=== PATIENT | female | born 1935 | race Caucasian/White ===

== ENCOUNTER → 2017-12-28 14:55 | Outpatient (CLI) | payer OTHER, SELFPAY ==
[2017-12-28 15:36] LABS: Add Manual Diff / Slide Review NO; Basophils Percent Auto 0.6 % (0-2); Eosinophils Percent Auto 0.8 % (2-4); Hematocrit 37.7 % (36-46); Hemoglobin 12.7 g/dL (12.0-16.0); Lymphocytes Percent Auto 36.1 % (25-40); Mean Corpuscular HGB Conc 33.7 % (30-36); Mean Corpuscular Hemoglobin 29.5 PG (26-34); Mean Corpuscular Volume 87.6 fL (80-100); Monocytes Percent Auto 6.7 % (3-14); Neutrophils Absolute Auto 2800 /uL (3000-5900); Neutrophils Percent Auto 55.8 % (50-75); Platelet Count 263 X10^3/uL (150-400); Red Blood Cell Count 4.31 X10^6/uL (4.0-5.2); Red Cell Distribution Width 13.9 % (11.6-14.8); White Blood Cell Count 5.1 X10^3/uL (4.5-11.0)
[2017-12-28 16:04] LABS: HEMOLYSIS < 15 (0-50)
[2017-12-28 16:07] LABS: Alanine Aminotransferase 28 IU/L (9-52); Albumin 4.1 g/dL (3.5-5.0); Albumin Globulin Ratio 1.5 (1.0-2.8); Alkaline Phosphatase 72 U/L (38-126); Aspartate Aminotransferase 26 IU/L (14-36); Bilirubin Total 0.7 mg/dL (0.2-1.3); Blood Urea Nitrogen 21 mg/dL (7-17); Calcium 9.5 mg/dL (8.4-10.2); Carbon Dioxide 30 mmol/L (22-32); Chloride 99 mmol/L (98-107); Estimated Glomerular Filt Rate > 60.0 mL/min (>60); Globulin 2.7 g/dL (1.7-4.1); Glucose 123 mg/dL (80-110); HEMOLYSIS < 15 (0-50); Iron 94 ug/dL (37-170); Sodium 138 mmol/L (137-145); Total Protein 6.8 g/dL (6.3-8.2)
[2017-12-28 16:15] LABS: Transferrin 275 mg/dL (206-381)
[2017-12-28 16:25] LABS: Percent Iron Saturation 30 % (15-50); Total Iron Binding Capacity 316 ug/mL (265-497)
[2017-12-28 16:27] LABS: Free T4, Direct Thyroxine 1.06 ng/dL (0.78-2.19)
[2017-12-28 16:44] LABS: Ferritin 54.3 ng/mL (11.1-264)
[2017-12-28 16:45] LABS: Thyroid Stimulating Hormone 1.68 uIU/mL (0.47-4.68)
[2017-12-28 17:05] LABS: Vitamin B12 > 1000 pg/mL (239-931)
[2017-12-30 11:45] LABS: Sex Hormone Binding Globulin 149 nmol/L (14-73)
[2017-12-30 13:34] LABS: Dehydroepiandrosterone Sulfate 27 mcg/dL (7-177)
[2017-12-30 20:27] LABS: ANA Pattern Nucleolar; ANA Screen, IFA Positive (Negative)
[2017-12-31 18:05] LABS: Albumin 4.1 g/dL (3.6-5.1); Sex Hormone Binding Globulin 151 nmol/L (14-73); Testosterone, Bioavailable 0.6 ng/dL (0.5-8.8); Testosterone, Total 10 ng/dL (2-45); Testosterone,Free 0.3 pg/mL (0.3-5.0)
== END ==
PROVIDERS: PCP Internal Medicine; Visit Provider Physician Assistant
DX: Z85.828 Personal history of other malignant neoplasm of skin (principal); L65.9 Nonscarring hair loss, unspecified; Z71.89 Other specified counseling; L71.8 Other rosacea
CPT/HCPCS: 36415; 80053; 82040; 82607; 82627; 82728; 83540; 83550; 84270; 84403; 84439; 84443; 85025; 86038

== ENCOUNTER → 2018-04-13 11:26 | Outpatient (CLI) | payer OTHER, SELFPAY | PROVIDERS: PCP Internal Medicine; Visit Provider Registered Nurse | DX: R30.0 Dysuria (principal) | CPT/HCPCS: 87077; 87086; 87186 ==

== ENCOUNTER → 2018-05-17 10:35 | Outpatient (CLI) | payer OTHER, SELFPAY ==
--- NOTE | 2018-05-17 | DI.MG.S_ITS ---
BILATERAL DIGITAL SCREENING MAMMOGRAM 3D/2D WITH CAD: 05/17/2018 CLINICAL: Routine screening. Personal history of left breast cancer. Comparison is made to exams dated: 01/17/2017 mammogram, 01/13/2016 mammogram, and 02/03/2015 mammogram - [facility]. The tissue of both breasts is heterogeneously dense. This may lower the sensitivity of mammography. Current study was also evaluated with a Computer Aided Detection (CAD) system. There are benign post operative findings in the left breast. No significant masses, calcifications, or other findings are seen in either breast. There has been no significant interval change. IMPRESSION: There is no mammographic evidence of malignancy. A 1 year screening mammogram is recommended. This exam was interpreted at Station ID: [id number]. NOTE: For mammograms, a report in lay terms will be sent to the patient. Approximately 15% of breast malignancies will not be visualized mammographically. In the management of a palpable breast mass, a negative mammogram must not discourage biopsy of a clinically suspicious lesion. Electronically Signed By: Shane torres/jose:05/17/2018 21:53:19 letter sent: Normal Exam ACR BI-RADS Category 2: Benign Finding(s) 3342F
== END ==
PROVIDERS: PCP Internal Medicine; Visit Provider Internal Medicine
DX: Z12.31 Encounter for screening mammogram for malignant neoplasm of breast (principal); Z85.3 Personal history of malignant neoplasm of breast
CPT/HCPCS: 77063; 77067

== ENCOUNTER → 2018-09-12 10:49 | Outpatient (CLI) | payer OTHER, SELFPAY ==
[2018-09-12 12:35] LABS: Add Manual Diff / Slide Review NO; Basophils Absolute Auto 0 /uL (0-100); Basophils Percent Auto 0.5 % (0-2); Eosinophils Absolute Auto 0 /uL (0-450); Eosinophils Percent Auto 0.3 % (2-4); Hematocrit 38.1 % (36-46); Hemoglobin 12.4 g/dL (12.0-16.0); Lymphocytes Absolute Auto 1600 /uL (1100-4500); Lymphocytes Percent Auto 26.2 % (25-40); Mean Corpuscular HGB Conc 32.7 % (30-36); Mean Corpuscular Hemoglobin 28.7 PG (26-34); Mean Corpuscular Volume 87.8 fL (80-100); Monocytes Absolute Auto 400 /uL (0-900); Monocytes Percent Auto 6.3 % (3-14); Neutrophils Absolute Auto 4000 /uL (1500-7000); Neutrophils Percent Auto 66.7 % (50-75); Platelet Count 285 X10^3/uL (150-400); Red Blood Cell Count 4.34 X10^6/uL (4.0-5.2); Red Cell Distribution Width 13.6 % (11.6-14.8); White Blood Cell Count 6.1 X10^3/uL (4.5-11.0)
[2018-09-12 12:42] LABS: Alanine Aminotransferase 32 IU/L (9-52); Albumin 4.2 g/dL (3.5-5.0); Albumin Globulin Ratio 1.6 (1.0-2.8); Alkaline Phosphatase 82 U/L (38-126); Aspartate Aminotransferase 28 IU/L (14-36); BUN Creatinine Ratio 33.3 (6-22); Bilirubin Total 0.4 mg/dL (0.2-1.3); Blood Urea Nitrogen 20 mg/dL (7-17); Calcium 9.3 mg/dL (8.4-10.2); Carbon Dioxide 25 mmol/L (22-32); Chloride 103 mmol/L (98-107); Estimated Glomerular Filt Rate > 60.0 mL/min (>60); Globulin 2.6 g/dL (1.7-4.1); Glucose 86 mg/dL (80-110); HEMOLYSIS < 15 (0-50); Magnesium 1.8 mg/dL (1.6-2.3); Sodium 137 mmol/L (137-145); Total Protein 6.8 g/dL (6.3-8.2)
[2018-09-12 14:35] LABS: Vitamin D 25 Hydroxy (D3) 66.2 ng/mL (30.0-100.0)
== END ==
PROVIDERS: PCP Student in an Organized Health Care Education/Training Program; Visit Provider Student in an Organized Health Care Education/Training Program
DX: E83.42 Hypomagnesemia (principal); I10 Essential (primary) hypertension; R00.2 Palpitations; R19.5 Other fecal abnormalities; E55.9 Vitamin D deficiency, unspecified
CPT/HCPCS: 36415; 80053; 82306; 83735; 85025

== ENCOUNTER → 2018-09-18 16:43 | Outpatient (CLI) | payer OTHER, SELFPAY ==
[2018-09-22 17:40] LABS: Calprotectin, Stool 99.8 mcg/g
== END ==
PROVIDERS: PCP Student in an Organized Health Care Education/Training Program; Visit Provider Student in an Organized Health Care Education/Training Program
DX: R00.2 Palpitations (principal); R19.5 Other fecal abnormalities
CPT/HCPCS: 83993

== ENCOUNTER → 2018-10-05 10:55 | Outpatient (CLI) | payer OTHER, SELFPAY ==
[2018-10-05 17:06] LABS: Clostridium Difficile Tox PCR Negative for C. diff
== END ==
PROVIDERS: PCP Student in an Organized Health Care Education/Training Program; Visit Provider Student in an Organized Health Care Education/Training Program
DX: K57.90 Diverticulosis of intestine, part unspecified, without perforation or abscess without bleeding (principal); R19.7 Diarrhea, unspecified
CPT/HCPCS: 87493

== ENCOUNTER → 2018-10-25 13:37 | Outpatient (CLI) | payer OTHER, SELFPAY ==
[2018-10-25 14:34] LABS: Appearance Urine UA CLOUDY; Bilirubin Urine UA NEGATIVE (NEGATIVE); Color Urine UA YELLOW; Glucose Urine UA NEGATIVE (Negative); Ketones Urine UA NEGATIVE (NEGATIVE); Leukocyte Esterase Urine UA 3+ (NEGATIVE); Nitrite Urine UA POSITIVE (Negative); Occult Blood Urine UA TRACE-INTACT (Negative); Protein Urine UA NEGATIVE (Negative); Specific Gravity Urine UA 1.015 (1.000-1.035); Urobilinogen Urine UA 0.2 E.U./dL (0.2); pH Urine UA 5.5 (4.5-8.0)
[2018-10-25 14:47] LABS: Bacteria Urine Many (>30); Culture Indicated Urine Specimen Cultured; Mucus Urine 1+ (Negative); RBC Urine 0-1/HPF (0-5/HPF); Squamous Epithelial Cell Urine 0-1 /HPF; WBC Urine 30-100/HPF (0-5/HPF)
== END ==
PROVIDERS: PCP Student in an Organized Health Care Education/Training Program; Visit Provider Student in an Organized Health Care Education/Training Program
DX: R30.0 Dysuria (principal)
CPT/HCPCS: 81001; 87077; 87086; 87186

== ENCOUNTER → 2018-11-20 12:48 | Outpatient (CLI) | payer OTHER, SELFPAY ==
[2018-11-24 22:12] LABS: Calprotectin, Stool 107.9 mcg/g
== END ==
PROVIDERS: PCP Student in an Organized Health Care Education/Training Program; Visit Provider Physician Assistant
DX: K90.9 Intestinal malabsorption, unspecified (principal); R19.7 Diarrhea, unspecified; K52.831 Collagenous colitis
CPT/HCPCS: 83993

== ENCOUNTER → 2019-06-19 16:32 | Outpatient (CLI) | payer OTHER, SELFPAY ==
--- NOTE | 2019-06-19 16:36 | DI.MG.S_ITS ---
BILATERAL DIGITAL SCREENING MAMMOGRAM 3D/2D WITH CAD: 06/19/2019 CLINICAL: Routine screening. Personal history of left breast cancer. Comparison is made to exams dated: 05/17/2018 mammogram, 01/17/2017 mammogram, 01/13/2016 mammogram, 12/26/2013 mammogram, and 02/03/2015 mammogram - [facility]. The tissue of both breasts is heterogeneously dense. This may lower the sensitivity of mammography. Current study was also evaluated with a Computer Aided Detection (CAD) system. There are benign post operative findings in the left breast. No significant masses, calcifications, or other findings are seen in either breast. There has been no significant interval change. IMPRESSION: There is no mammographic evidence of malignancy. A 1 year screening mammogram is recommended. This exam was interpreted at Station ID: [id number]. NOTE: For mammograms, a report in lay terms will be sent to the patient. Approximately 15% of breast malignancies will not be visualized mammographically. In the management of a palpable breast mass, a negative mammogram must not discourage biopsy of a clinically suspicious lesion. Electronically Signed By: Alex fu/jose:06/19/2019 17:47:19 letter sent: Normal Exam ACR BI-RADS Category 2: Benign Finding(s) 3342F
== END ==
PROVIDERS: PCP Student in an Organized Health Care Education/Training Program; Visit Provider Student in an Organized Health Care Education/Training Program
DX: Z12.31 Encounter for screening mammogram for malignant neoplasm of breast (principal); Z85.3 Personal history of malignant neoplasm of breast
CPT/HCPCS: 77063; 77067

== ENCOUNTER → 2019-08-16 12:01 | Outpatient (CLI) | payer OTHER, SELFPAY ==
[2019-08-16 12:12] LABS: RBC Urine None Seen (0-5/HPF)
[2019-08-16 12:38] LABS: Appearance Urine UA SL CLOUDY; Bilirubin Urine UA NEGATIVE (NEGATIVE); Color Urine UA YELLOW; Glucose Urine UA NEGATIVE (Negative); Ketones Urine UA NEGATIVE (NEGATIVE); Leukocyte Esterase Urine UA 2+ (NEGATIVE); Nitrite Urine UA POSITIVE (Negative); Occult Blood Urine UA NEGATIVE (Negative); Protein Urine UA NEGATIVE (Negative); Urobilinogen Urine UA 0.2 E.U./dL (0.2)
[2019-08-16 13:04] LABS: Amorphous Sediment Urine 1+; Bacteria Urine Many (>30); Culture Indicated Urine Specimen Cultured; Mucus Urine 1+ (Negative); Squamous Epithelial Cell Urine 0-1 /HPF (0-5/HPF); WBC Urine 30-100/HPF (0-5/HPF)
== END ==
PROVIDERS: PCP Student in an Organized Health Care Education/Training Program; Visit Provider Student in an Organized Health Care Education/Training Program
DX: R39.89 Other symptoms and signs involving the genitourinary system (principal)
CPT/HCPCS: 81001; 87077; 87086; 87186

== ENCOUNTER → 2020-01-23 12:05 | Outpatient (CLI) | payer OTHER, SELFPAY ==
[2020-01-23 17:51] LABS: Appearance Urine UA SL CLOUDY; Bilirubin Urine UA NEGATIVE (NEGATIVE); Color Urine UA YELLOW; Glucose Urine UA NEGATIVE (Negative); Ketones Urine UA NEGATIVE (NEGATIVE); Leukocyte Esterase Urine UA 2+ (NEGATIVE); Nitrite Urine UA POSITIVE (Negative); Occult Blood Urine UA 1+ (Negative); Protein Urine UA NEGATIVE (Negative); Urobilinogen Urine UA 0.2 E.U./dL (0.2)
[2020-01-23 18:13] LABS: Amorphous Sediment Urine 1+; Bacteria Urine Many (>30); Calcium Oxalate Crystals Urine Moderate; Mucus Urine 1+ (Negative); RBC Urine 1-5/HPF (0-5/HPF); Squamous Epithelial Cell Urine 0-1 /HPF (0-5/HPF); WBC Urine 10-30/HPF (0-5/HPF); pH Urine UA 5.5 (4.5-8.0)
[2020-01-23 18:14] LABS: Culture Indicated Urine Specimen Cultured
== END ==
PROVIDERS: PCP Student in an Organized Health Care Education/Training Program; Visit Provider Nurse Practitioner Family
DX: R30.0 Dysuria (principal)
CPT/HCPCS: 81001; 87077; 87086; 87186

== ENCOUNTER → 2020-06-24 10:53 | Outpatient (CLI) | payer OTHER, SELFPAY ==
--- NOTE | 2020-06-24 | DI.MG.S_ITS ---
BILATERAL DIGITAL SCREENING MAMMOGRAM 3D/2D WITH CAD POST LUMPECTOMY: 06/24/2020 CLINICAL: Routine screening. Personal history of left breast cancer. Comparison is made to exams dated: 05/17/2018 mammogram, 06/19/2019 mammogram, and 01/17/2017 mammogram - [facility]. There are scattered fibroglandular elements in both breasts. Current study was also evaluated with a Computer Aided Detection (CAD) system. There are benign post operative findings in the left breast. No significant masses, calcifications, or other findings are seen in either breast. There has been no significant interval change. IMPRESSION: BENIGN There is no mammographic evidence of malignancy. A 1 year screening mammogram is recommended. This exam was interpreted at Station ID: [id number]. NOTE: For mammograms, a report in lay terms will be sent to the patient. Approximately 15% of breast malignancies will not be visualized mammographically. In the management of a palpable breast mass, a negative mammogram must not discourage biopsy of a clinically suspicious lesion. Electronically Signed By: Nestor Wick acr/penrad:06/24/2020 13:03:25 letter sent: Normal Exam ACR BI-RADS Category 2: Benign Finding(s) 3342F
== END ==
PROVIDERS: PCP Student in an Organized Health Care Education/Training Program; Referring Provider Student in an Organized Health Care Education/Training Program; Visit Provider Student in an Organized Health Care Education/Training Program
DX: Z12.31 Encounter for screening mammogram for malignant neoplasm of breast (principal); Z85.3 Personal history of malignant neoplasm of breast
CPT/HCPCS: 77063; 77067

== ENCOUNTER → 2020-09-18 12:50 | Outpatient (CLI) | payer OTHER, SELFPAY ==
--- NOTE | 2020-09-18 12:51 | DI.RAD.S_ITS ---
PROCEDURE: XR ANKLE LT MIN 3V INDICATIONS: ankle pain TECHNIQUE: 3 views of the ankle were acquired. COMPARISON: None. FINDINGS: Bones: No fracture. Scattered degenerative subchondral sclerosis and spurring. Diffuse hindfoot and midfoot joint degeneration. Soft tissues: No tibiotalar joint effusion. Achilles tendon appears normal. IMPRESSION: Mild degenerative changes as above. If the patient's pain or other symptoms persist, consider further evaluation with MRI Dictated by: Ifeanyi Jenkins M.D. on 09/18/2020 at 13:40 Approved by: Ifeanyi Jenkins M.D. on 09/18/2020 at 13:42
== END ==
PROVIDERS: PCP Student in an Organized Health Care Education/Training Program; Referring Provider Student in an Organized Health Care Education/Training Program; Visit Provider Student in an Organized Health Care Education/Training Program
DX: M25.572 Pain in left ankle and joints of left foot (principal)
CPT/HCPCS: 73610

== ENCOUNTER → 2020-09-25 13:13 | Outpatient (CLI) | payer OTHER, SELFPAY ==
[2020-09-25 14:38] LABS: Cholesterol 261 mg/dL (140-199); Triglycerides 63 mg/dL (35-150)
[2020-09-25 14:46] LABS: HDL Cholesterol 114 mg/dL (40-60); LDL Cholesterol Calculated 134 mg/dL (<100)
== END ==
PROVIDERS: PCP Student in an Organized Health Care Education/Training Program; Referring Provider Student in an Organized Health Care Education/Training Program; Visit Provider Student in an Organized Health Care Education/Training Program
DX: E78.5 Hyperlipidemia, unspecified (principal); I10 Essential (primary) hypertension
CPT/HCPCS: 36415; 80061

== ENCOUNTER → 2021-02-07 11:14 | Outpatient (CLI) | payer OTHER, SELFPAY ==
[2021-02-07 12:18] LABS: Appearance Urine UA CLEAR; Bilirubin Urine UA NEGATIVE (NEGATIVE); Color Urine UA YELLOW; Glucose Urine UA NEGATIVE (Negative); Ketones Urine UA NEGATIVE (NEGATIVE); Leukocyte Esterase Urine UA 2+ (NEGATIVE); Nitrite Urine UA POSITIVE (Negative); Occult Blood Urine UA TRACE-INTACT (Negative); Protein Urine UA NEGATIVE (Negative); Urobilinogen Urine UA 0.2 E.U./dL (0.2)
[2021-02-07 12:23] LABS: pH Urine UA 5.5 (4.5-8.0)
[2021-02-07 12:32] LABS: Bacteria Urine Many (>30); Culture Indicated Urine Specimen Cultured; RBC Urine 0-1/HPF (0-5/HPF); WBC Urine 30-100/HPF (0-5/HPF)
== END ==
PROVIDERS: PCP Student in an Organized Health Care Education/Training Program; Referring Provider Student in an Organized Health Care Education/Training Program; Visit Provider Student in an Organized Health Care Education/Training Program
DX: N89.8 Other specified noninflammatory disorders of vagina (principal)
CPT/HCPCS: 81001; 87077; 87086; 87186

== ENCOUNTER → 2021-06-24 12:40 | Outpatient (CLI) | payer OTHER, SELFPAY ==
[2021-06-24 13:20] LABS: Appearance Urine UA SL CLOUDY; Bilirubin Urine UA NEGATIVE (NEGATIVE); Color Urine UA YELLOW; Glucose Urine UA NEGATIVE (Negative); Ketones Urine UA NEGATIVE (NEGATIVE); Leukocyte Esterase Urine UA 2+ (NEGATIVE); Nitrite Urine UA POSITIVE (Negative); Occult Blood Urine UA TRACE-INTACT (Negative); Protein Urine UA TRACE (Negative); Specific Gravity Urine UA 1.025 (1.000-1.035); Urobilinogen Urine UA 0.2 E.U./dL (0.2)
[2021-06-24 13:32] LABS: Amorphous Sediment Urine 1+; RBC Urine 1-5/HPF (0-5/HPF); Squamous Epithelial Cell Urine 0-1 /HPF (0-5/HPF); WBC Urine >100/HPF (0-5/HPF); pH Urine UA 5.5 (4.5-8.0)
[2021-06-24 13:33] LABS: Bacteria Urine Many (>30); Culture Indicated Urine Specimen Cultured; Mucus Urine 1+ (Negative)
== END ==
PROVIDERS: PCP Student in an Organized Health Care Education/Training Program; Referring Provider Student in an Organized Health Care Education/Training Program; Visit Provider Student in an Organized Health Care Education/Training Program
DX: N39.0 Urinary tract infection, site not specified (principal)
CPT/HCPCS: 81001; 87077; 87086; 87186

== ENCOUNTER → 2021-06-30 13:43 | Outpatient (CLI) | payer OTHER, SELFPAY ==
--- NOTE | 2021-06-30 13:44 | DI.MG.S_ITS ---
BILATERAL DIGITAL SCREENING MAMMOGRAM 3D/2D WITH CAD POST LUMPECTOMY: 06/30/2021 CLINICAL: Routine screening. Personal history of left breast cancer. Comparison is made to exams dated: 06/24/2020 mammogram, 06/19/2019 mammogram, and 05/17/2018 mammogram - [facility]. There are scattered fibroglandular elements in both breasts. Current study was also evaluated with a Computer Aided Detection (CAD) system. There are benign post operative findings in the left breast. No significant masses, calcifications, or other findings are seen in either breast. There has been no significant interval change. IMPRESSION: BENIGN There is no mammographic evidence of malignancy. A 1 year screening mammogram is recommended. This exam was interpreted at Station ID: [id number]. NOTE: For mammograms, a report in lay terms will be sent to the patient. Approximately 15% of breast malignancies will not be visualized mammographically. In the management of a palpable breast mass, a negative mammogram must not discourage biopsy of a clinically suspicious lesion. Electronically Signed By: Bryant guthrie/jose:06/30/2021 15:58:46 letter sent: Normal Exam ACR BI-RADS Category 2: Benign Finding(s) 3342F
== END ==
PROVIDERS: PCP Student in an Organized Health Care Education/Training Program; Referring Provider Student in an Organized Health Care Education/Training Program; Visit Provider Student in an Organized Health Care Education/Training Program
DX: Z12.31 Encounter for screening mammogram for malignant neoplasm of breast (principal); Z85.3 Personal history of malignant neoplasm of breast
CPT/HCPCS: 77063; 77067

== ENCOUNTER → 2021-09-10 11:46 | Outpatient (CLI) | payer OTHER, SELFPAY ==
[2021-09-10 12:53] LABS: Appearance Urine UA CLEAR; Bilirubin Urine UA NEGATIVE (NEGATIVE); Color Urine UA YELLOW; Glucose Urine UA NEGATIVE (Negative); Ketones Urine UA NEGATIVE (NEGATIVE); Leukocyte Esterase Urine UA TRACE (NEGATIVE); Nitrite Urine UA NEGATIVE (Negative); Occult Blood Urine UA NEGATIVE (Negative); Protein Urine UA NEGATIVE (Negative); Urobilinogen Urine UA 0.2 E.U./dL (0.2)
[2021-09-10 12:55] LABS: pH Urine UA 5.5 (4.5-8.0)
[2021-09-10 13:08] LABS: RBC Urine None Seen (0-5/HPF)
[2021-09-10 13:09] LABS: Amorphous Sediment Urine 1+; Bacteria Urine Occasional (0-1); Culture Indicated Urine Specimen Cultured; Squamous Epithelial Cell Urine 0-1 /HPF (0-5/HPF); WBC Urine 5-10/HPF (0-5/HPF)
== END ==
PROVIDERS: PCP Student in an Organized Health Care Education/Training Program; Referring Provider Student in an Organized Health Care Education/Training Program; Visit Provider Student in an Organized Health Care Education/Training Program
DX: N39.0 Urinary tract infection, site not specified (principal)
CPT/HCPCS: 81001; 87086

== ENCOUNTER → 2021-09-30 16:59 | Outpatient (CLI) | payer OTHER, SELFPAY ==
[2021-09-30 17:30] LABS: Appearance Urine UA CLOUDY; Bilirubin Urine UA NEGATIVE (NEGATIVE); Color Urine UA YELLOW; Glucose Urine UA NEGATIVE (Negative); Ketones Urine UA NEGATIVE (NEGATIVE); Leukocyte Esterase Urine UA 2+ (NEGATIVE); Nitrite Urine UA POSITIVE (Negative); Occult Blood Urine UA TRACE-INTACT (Negative); Protein Urine UA TRACE (Negative); Urobilinogen Urine UA 0.2 E.U./dL (0.2)
[2021-09-30 17:39] LABS: Bacteria Urine Many (>30); Culture Indicated Urine Specimen Cultured; RBC Urine 0-1/HPF (0-5/HPF); Squamous Epithelial Cell Urine 0-1 /HPF (0-5/HPF); WBC Urine >100/HPF (0-5/HPF)
== END ==
PROVIDERS: PCP Student in an Organized Health Care Education/Training Program; Referring Provider Student in an Organized Health Care Education/Training Program; Visit Provider Student in an Organized Health Care Education/Training Program
DX: N39.0 Urinary tract infection, site not specified (principal)
CPT/HCPCS: 81001; 87077; 87086; 87186

== ENCOUNTER 2022-05-25 20:48 | Emergency (ER) | payer OTHER, SELFPAY ==
[2022-05-25] VITALS (11 sets, daily range): BP systolic 89–122; BP diastolic 49–67; PULSE 93–130; RESP 16–38; TEMP 36.4–36.6; O2SAT 96–98
--- NOTE | 2022-05-25 20:50 | DI.CT.S_ITS ---
PROCEDURE: CT HEAD/BRAIN WO CON INDICATIONS: fall nausea TECHNIQUE: Noncontrast 4.5 mm thick angled axial sections acquired from the foramen magnum to the vertex, with coronal and sagittal reformats. For radiation dose reduction, the following was used: automated exposure control, adjustment of mA and/or kV according to patient size. COMPARISON: [facility], CT, CT CHEST ABD PEL W CON, 05/25/2022, 20:55. [facility], CT, HEAD WITHOUT CONTRAST, 10/09/2017, 14:03. FINDINGS: Image quality: Excellent. CSF spaces: Basal cisterns are patent. No extra-axial fluid collections. There is mild to moderate cerebral volume loss, with resultant ventricular and sulcal prominence. Brain: No intracranial hemorrhage, mass, or mass effect. There are subcortical, periventricular and deep white matter hypodensities consistent with mild to moderate chronic small vessel ischemic changes. The caldwell-white matter junction appears preserved. There is intracranial internal carotid artery atherosclerosis. Skull and face: Calvarium and visualized facial bones appear intact, without suspicious lesions. Sinuses: Visualized sinuses and mastoids are clear. IMPRESSION: 1. No acute intracranial abnormality. 2. [id number] chronic white matter small vessel ischemic changes and cerebral volume loss. Dictated by: Alex Womack M.D. on 05/25/2022 at 21:19 Approved by: Alex Womack M.D. on 05/25/2022 at 21:20
--- NOTE | 2022-05-25 20:50 | DI.CT.S_ITS ---
PROCEDURE: CT CHEST ABD PEL W CON INDICATIONS: fall pain right side ab TECHNIQUE: After the administration of intravenous contrast, axial sections acquired from the supraclavicular neck to the pubic symphysis. Coronal and sagittal reformats were performed. For radiation dose reduction, the following was used: automated exposure control, adjustment of mA and/or kV according to patient size. COMPARISON: None. FINDINGS: Image quality: There is metallic streak artifact from patient's right hip prosthesis. CHEST: Lower Neck: No lymphadenopathy by size criteria. Thyroid: Visualized thyroid demonstrates no discrete nodules. Axillae: No lymphadenopathy by size criteria. Chest Wall: Unremarkable. Lungs and Airways: No pulmonary contusions or lacerations. There is an indistinct peripheral opacity within the left upper lobe consistent with atelectasis or small region of consolidation. Mild dependent atelectasis is also demonstrated. Within the right upper lobe there is a 0.5 cm pulmonary nodule on series 3, image 140. A small subpleural right upper lobe 0.3 cm nodule is also demonstrated on series 3, image 89. The trachea and central airways are patent. Pleura: No pneumothorax or pleural effusions. Heart: Heart size is normal. There is a minimal pericardial effusion. Thoracic Vessels: The aorta and pulmonary arteries are normal in size. Mediastinum and Nohelia: No lymphadenopathy by size criteria. No definite mediastinal hematomas. Esophagus: No wall thickening. No hiatal hernia. ABDOMEN: Liver: There are extensive hepatic lacerations primarily involving the right hepatic lobe in segments 8 and 7. There is also milder involvement within segment 6 inferiorly. No definite active arterial extravasation. The findings are compatible with a grade IV liver injury. Gallbladder: Within normal limits without calcified gallstones. Biliary ducts: No biliary ductal dilatation. Pancreas: Unremarkable. Spleen: Normal in size. No splenic lacerations or perisplenic fluid collections. Adrenal Glands: There is a small indeterminate left adrenal nodule measuring up to 1.2 cm. Kidneys and Ureters: No hydronephrosis. Stomach and Bowel: Stomach, small bowel loops, and colon are normal in caliber and wall thickness. Peritoneum: There is a moderate to large amount of hemoperitoneum in the bilateral upper quadrants as well as in the lower abdomen and pelvis. No free air. Ventral Wall: No hernia. Abdominal Nodes: No retroperitoneal or mesenteric adenopathy by size criteria. Vessels: Aorta and inferior vena cava are normal in size. PELVIS: Pelvic Organs: Unremarkable. Bladder: Unremarkable. Pelvic Nodes: No enlarged lymph nodes. Miscellaneous: No inguinal hernias are seen. Bones: There is a minimally displaced fracture of the right 9th rib laterally. There is mild deformity of the inferior sternum consistent sequelae of an old healed fracture. Visualized osseous structures demonstrate no suspicious focal lesions. IMPRESSION: 1. Extensive hepatic lacerations consistent with a grade 4 liver injury primarily involving the right hepatic lobe. No definite evidence of active arterial extravasation. 2. Moderate to large amount of hemoperitoneum. Findings discussed with Dr. Alexis on 05/25/2022 at 9:23 p.m.. 3. Minimally displaced fracture of the right 9th rib laterally. 4. Peripheral subpleural opacity in the left upper lobe compatible with atelectasis or consolidation. Dictated by: Alex Womack M.D. on 05/25/2022 at 21:22 Approved by: Alex Womack M.D. on 05/25/2022 at 21:35
--- NOTE | 2022-05-25 20:50 | DI.CT.S_ITS ---
PROCEDURE: CT CERVICAL SPINE WO CON INDICATIONS: fall nausea TECHNIQUE: Noncontrast 3 mm thick sections acquired from the skull base to the T4 level. Sagittal and coronal reformats were then constructed. For radiation dose reduction, the following was used: automated exposure control, adjustment of mA and/or kV according to patient size. COMPARISON: None. FINDINGS: Image quality: Excellent. Bones: No fractures or subluxation. There is multilevel degenerative disc disease and facet joint arthropathy. Visualized superior ribs are intact. Soft tissues: Prevertebral soft tissues are normal in thickness. No paravertebral hematomas. No apical pneumothoraces. There is an indistinct peripheral opacity within the visualized left upper lobe. IMPRESSION: 1. No acute fracture or subluxation. 2. Peripheral indistinct opacity within the visualized left upper lobe. Recommend correlation with concurrent CT of the chest abdomen pelvis. Dictated by: Alex Womack M.D. on 05/25/2022 at 21:21 Approved by: Alex Womack M.D. on 05/25/2022 at 21:22
--- NOTE | 2022-05-25 21:22 | PC.NURSE ---
Medics arrived here with lights and sirens due to nature of her c/o and injury.
[2022-05-25] MEDS: MORPHINE 2 MG/ML INJ IV (21:29)
--- NOTE | 2022-05-25 21:30 | ED.TRAUMA ---
HPI - Trauma General Chief Complaint: Trauma Stated Complaint: GLF, No thinners Time Seen by Provider: 05/25/22 20:50 Source: EMS Mode of arrival: EMS History of Present Illness HPI narrative: Patient is a 87-year-old female who presents after ground level fall. She says she was standing on a wood pile walking down when she tripped and fell landing hitting her right side. She does not remember hitting her head or losing consciousness but is possible. Nephew states that she laid outside for an hour before they found her. EMS reports no loss of consciousness however in route decompensated feeling nauseous having increased pain in her abdomen. Never hypotensive but is tachycardic noted to be in atrial fibrillation. Denies any history of atrial fibrillation. Not on antiplatelet or anticoagulation medication. Related Data Home Medications Medication Instructions Recorded Confirmed CA PANTOTHENATE/FOLIC ACID/VIT 1 tab PO Q DAY ##0 04/07/11 04/19/22 (MULTIVITAMIN) niacinamide 500 mg tablet (Niacin 500 mg PO QDAY ##0 04/09/11 04/19/22 (niacinamide)) VITAMIN D (Vitamin D3) 1,000 unit PO QDAY ##0 02/09/12 04/19/22 VITAMIN B COMPLEX (Vitamin B 1 tab PO QDAY ##0 11/17/12 04/19/22 Complex) calcium carbonate 200 mg calcium 1,000 mg PO ##0 04/30/16 04/19/22 (500 mg) chewable tablet (Tums) vitamin E (dl, acetate) 180 mg 400 unit PO DAILY 09/12/18 04/19/22 (400 unit) capsule Previous Rx's Medication Instructions Recorded trazodone 50 mg tablet 50 mg PO HS #90 tabs 09/02/21 budesonide 9 mg tablet,delayed and 9 mg PO QAM #30 ea 02/18/22 extended release lisinopril 5 mg tablet 5 mg PO DAILY #90 tabs 02/22/22 tramadol 50 mg tablet 50 mg PO BEDTIME PRN pain #20 tabs 02/22/22 fluoxetine 20 mg capsule 20 mg PO DAILY #90 caps 03/23/22 Allergies Allergy/AdvReac Type Severity Reaction Status Date / Time No Known Drug Allergies Allergy Verified 04/19/22 13:46 Review of Systems Review of Systems Narrative: See HPI Patient History Medical History (Updated 05/25/22 @ 21:54 by Raysa Alexis DO) Breast cancer (2007) Chicken pox (~1945) Colitis (2007) Collagenous colitis (2005) Degenerative joint disease of right hip Depression (2010) Hearing loss (2011) Hyperlipidemia Hypertension Measles (~194) Mumps (~194) Osteoporosis (1999) Surgical History (Updated 05/31/19 @ 08:21 by Monica Archer MA) Anesthesia History of arthroplasty of right hip History of cosmetic surgery (09/2012) History of gynecologic surgery (2007) History of oophorectomy (1982) History of total right hip arthroplasty (2014) Status post breast lumpectomy (2007) Status post hysterectomy (1981) Family History (Updated 04/13/18 @ 10:57 by Pinky Pina) Mother Type II diabetes mellitus Hypertension High cholesterol Father No problems noted. Sister No problems noted. Sister Cancer Sister No problems noted. Sister No problems noted. Other Colorectal cancer Social History marital status: unmarried,living together (partner) number of children: 1 household members: significant other lives independently: Yes occupational status: other (retired) Smoking Status: Former smoker alcohol intake: current (wine nightly) substance use type: does not use Smoking Status: Former smoker Substance Use Type: does not use Exam Initial Vital Signs Initial Vital Signs: Vital Signs Temperature 97.8 F 05/25/22 20:52 Pulse Rate 122 H 05/25/22 20:52 Respiratory Rate 21 05/25/22 20:52 Blood Pressure 122/67 05/25/22 20:52 Pulse Oximetry 96 05/25/22 20:52 Oxygen Delivery Method 05/25/22 20:52 GENERAL: Alert 87-year-old female appears uncomfortable HEENT: Head normocephalic,, EOMI, pupils reactive, face symmetric, moist mucous membranes, NECK: Supple, full range of motion, no step-offs, nontender on vertebrae CARDIOVASCULAR: Regular rate and rhythm without murmurs, rubs or gallops. RESPIRATORY: Breath sounds equal bilaterally, no wheezes rales or rhonchi. No crepitations, no subcutaneous air, chest is nontender, no signs of trauma no paradoxical movement ABDOMEN: Extreme tenderness in right upper quadrant mild bruising noted BACK: Nontender vertebrae, no step-offs, no contusions PELVIS: stable. EXTREMITIES: Normal range of motion, no clubbing or edema. Pelvis stable Right upper extremity: Within normal limits Left upper extremity: Within normal limits Right lower extremity: Within normal limits Left lower extremity:Within normal limits NEUROLOGICAL: Cranial nerves II through XII grossly intact. Normal gait and speech. SKIN: Warm, dry, no petechiae, no rashes or lesions, no contusions or ecchymosis Procedures FAST Exam FAST Exam 1: Fluid in Morison's pouch: Yes Fluid in Splenorenal Junction: Yes Fluid around bladder, Transverse view: No Fluid around bladder, Sagittal view: No Fluid in Pericardial Sac: No Gross Wall Motion Abnormality: No Study normal for this patient: No Course Orders Ordered: Discontinued Medications POTASSIUM CHLORIDE IN WATER (Potassium Cl 10 Meq/100 Ml Anneliese) 10 meq in 100 mls @ 100 mls/hr IV Q1H JANETT Stop: 05/26/22 02:14 Last Infusion: 05/25/22 22:39 Dose: 100 mls/hr Documented By: Admin: 05/25/22 22:12 Dose: 100 mls/hr Documented By: JENNIFER Morphine Sulfate (Morphine 2 Mg/Ml Inj) 2 mg IV NOW ONE Stop: 05/25/22 21:26 Last Admin: 05/25/22 21:29 Dose: 2 mg Documented By: JENNIFER Ondansetron HCl (Ondansetron 4 Mg/2 Ml Inj) 4 mg IV NOW ONE Stop: 05/25/22 21:33 Last Admin: 05/25/22 21:32 Dose: 4 mg Documented By: JENNIFER Vital Signs Vital signs: Vital Signs - 8 hr 05/25/22 21:00 05/25/22 21:10 05/25/22 21:19 Temperature 97.9 F Pulse Rate 122 H 99 H Respiratory Rate 21 Blood Pressure 122/67 122/66 Pulse Oximetry 96 96 Oxygen Delivery Method Room Air 05/25/22 21:19 05/25/22 21:30 05/25/22 21:30 Temperature Pulse Rate 123 H 130 H Respiratory Rate 38 H 34 H Blood Pressure 115/63 Pulse Oximetry 96 96 Oxygen Delivery Method 05/25/22 21:45 05/25/22 21:45 05/25/22 22:00 Temperature Pulse Rate 110 H Respiratory Rate 22 Blood Pressure 103/51 L 110/57 L Pulse Oximetry Oxygen Delivery Method 05/25/22 22:00 Temperature Pulse Rate 93 H Respiratory Rate 24 Blood Pressure Pulse Oximetry 98 Oxygen Delivery Method MDM - Trauma Lab Data Result diagrams: 05/25/22 21:24 05/25/22 21:24 Labs: Lab Results 05/25/22 05/25/22 05/25/22 Range/Units 21:24 21:24 21:24 WBC 16.7 H (4.5-11.0) X10^3/uL RBC 3.01 L (4.0-5.2) X10^6/uL Hgb 8.8 L (12.0-16.0) g/dL Hct 26.3 L (36-46) % MCV 87.3 (80-100) fL MCH 29.1 (26-34) PG MCHC 33.4 (30-36) % RDW 13.3 (11.6-14.8) % Plt Count 231 (150-400) X10^3/uL Neut % (Auto) 81.7 H (50-75) % Lymph % (Auto) 12.2 L (25-40) % [place] % (Auto) 5.8 (3-14) % Eos % (Auto) 0.1 L (2-4) % Baso % (Auto) 0.2 (0-2) % Neut # (Auto) 69922 H (3854-2846) /uL Lymph # (Auto) 2000 (7834-9156) /uL [place] # (Auto) 1000 H (0-900) /uL Eos # (Auto) 0 (0-450) /uL Baso # (Auto) 0 (0-100) /uL Sodium 134 L (137-145) mmol/L Potassium 2.6 L* (3.4-5.1) mmol/L Chloride 101 (98-107) mmol/L Carbon Dioxide 24 (22-32) mmol/L BUN 29 H (7-17) mg/dL Creatinine 0.98 (0.52-1.04) mg/dL Estimated GFR 56 L (>60) mL/min BUN/Creatinine Ratio 29.6 H (6-22) Glucose 218 H (80-110) mg/dL Lactate 3.6 H (0.7-2.1) mmol/L Calcium 8.0 L (8.4-10.2) mg/dL Total Bilirubin 0.2 (0.2-1.3) mg/dL AST 454 H (14-36) IU/L ALT 344 H (<35) IU/L Alkaline Phosphatase 59 (38-126) U/L Total Creatine Kinase 218 H (30-135) U/L CK-MB (CK-2) 4.74 H (<2.37) ng/mL CK-MB (CK-2) Rel Index 2.2 (1.5-5.0) % Troponin I 0.023 (0.01-0.034) ng/mL Total Protein 5.2 L (6.3-8.2) g/dL Albumin 3.0 L (3.5-5.0) g/dL Globulin 2.2 (1.7-4.1) g/dL Albumin/Globulin Ratio 1.4 (1.0-2.8) SARS-CoV-2 (PCR) (Negative) Blood Type Antibody Screen Crossmatch 05/25/22 05/25/22 Range/Units 21:24 21:24 WBC (4.5-11.0) X10^3/uL RBC (4.0-5.2) X10^6/uL Hgb (12.0-16.0) g/dL Hct (36-46) % MCV (80-100) fL MCH (26-34) PG MCHC (30-36) % RDW (11.6-14.8) % Plt Count (150-400) X10^3/uL Neut % (Auto) (50-75) % Lymph % (Auto) (25-40) % [place] % (Auto) (3-14) % Eos % (Auto) (2-4) % Baso % (Auto) (0-2) % Neut # (Auto) (6238-3039) /uL Lymph # (Auto) (3147-8787) /uL [place] # (Auto) (0-900) /uL Eos # (Auto) (0-450) /uL Baso # (Auto) (0-100) /uL Sodium (137-145) mmol/L Potassium (3.4-5.1) mmol/L Chloride (98-107) mmol/L Carbon Dioxide (22-32) mmol/L BUN (7-17) mg/dL Creatinine (0.52-1.04) mg/dL Estimated GFR (>60) mL/min BUN/Creatinine Ratio (6-22) Glucose (80-110) mg/dL Lactate (0.7-2.1) mmol/L Calcium (8.4-10.2) mg/dL Total Bilirubin (0.2-1.3) mg/dL AST (14-36) IU/L ALT (<35) IU/L Alkaline Phosphatase (38-126) U/L Total Creatine Kinase (30-135) U/L CK-MB (CK-2) (<2.37) ng/mL CK-MB (CK-2) Rel Index (1.5-5.0) % Troponin I (0.01-0.034) ng/mL Total Protein (6.3-8.2) g/dL Albumin (3.5-5.0) g/dL Globulin (1.7-4.1) g/dL Albumin/Globulin Ratio (1.0-2.8) SARS-CoV-2 (PCR) Negative (Negative) Blood Type A Positive Antibody Screen Negative Crossmatch See Detail Imaging Data CT scan - head: Radiologist's Impression: CT Scan Report Signed Patient: Hilaria Villar I MR#: [id number] : 1935 Acct:[id number] Age/Sex: 87 / F Date of Service: 05/25/22 Loc: Accession Number: [id number] ?? Procedure: CT head/brain wo con Ordering Provider: Raysa Alexis D.O. PROCEDURE:? CT HEAD/BRAIN WO CON ? INDICATIONS:? fall nausea ? TECHNIQUE:? Noncontrast 4.5 mm thick angled axial sections acquired from the foramen magnum to the vertex, with coronal and sagittal reformats.? For radiation dose reduction, the following was used:? automated exposure control, adjustment of mA and/or kV according to patient size.? ? COMPARISON:? [facility], CT, CT CHEST ABD PEL W CON, 05/25/2022, 20:55.? [facility], CT, HEAD WITHOUT CONTRAST, 10/09/2017, 14:03. ? FINDINGS:? Image quality:? Excellent.? ? CSF spaces:? Basal cisterns are patent.? No extra-axial fluid collections.? There is mild to moderate cerebral volume loss, with resultant ventricular and sulcal prominence.? ? Brain:? No intracranial hemorrhage, mass, or mass effect.? There are subcortical, periventricular and deep white matter hypodensities consistent with mild to moderate chronic small vessel ischemic changes.? The caldwell-white matter junction appears preserved. ?There is intracranial internal carotid artery atherosclerosis.? ? Skull and face:? Calvarium and visualized facial bones appear intact, without suspicious lesions.? ? Sinuses:? Visualized sinuses and mastoids are clear.? ? IMPRESSION:? ? 1. No acute intracranial abnormality. ? 2. [id number] chronic white matter small vessel ischemic changes and cerebral volume loss.? ? ? Dictated by: Alex Womack M.D. on 05/25/2022 at 21:19 ? ? CT - cervical spine: Radiologist's Impression: nt: Hilaria Villar I MR#: [id number] : 1935 Acct:[id number] Age/Sex: 87 / F Date of Service: 05/25/22 Loc: ED Accession Number: [id number] ?? Procedure: CT cervical spine wo con Ordering Provider: Raysa Alexis D.O. PROCEDURE:? CT CERVICAL SPINE WO CON ? INDICATIONS:? fall nausea ? TECHNIQUE:? Noncontrast 3 mm thick sections acquired from the skull base to the T4 level.? Sagittal and coronal reformats were then constructed.? For radiation dose reduction, the following was used:? automated exposure control, adjustment of mA and/or kV according to patient size.? ? COMPARISON:? None. ? FINDINGS:? Image quality:? Excellent.? ? Bones:? No fractures or subluxation.? There is multilevel degenerative disc disease and facet joint arthropathy.? Visualized superior ribs are intact.? ? Soft tissues:? Prevertebral soft tissues are normal in thickness.? No paravertebral hematomas.? No apical pneumothoraces.? There is an indistinct peripheral opacity within the visualized left upper lobe.? ? ? IMPRESSION:? ? 1. No acute fracture or subluxation. ? 2. Peripheral indistinct opacity within the visualized left upper lobe.? Recommend correlation with concurrent CT of the chest abdomen pelvis. ? Dictated by: Alex Womack M.D. on 05/25/2022 at 21:21 ? ? CT scan - chest: Radiologist's Impression: ent: Hilaria Villar I MR#: [id number] : 1935 Acct:[id number] Age/Sex: 87 / F Date of Service: 05/25/22 Loc: ED Accession Number: [id number] ?? Procedure: CT chest abd pel w con Ordering Provider: Raysa Alexis D.O. PROCEDURE:? CT CHEST ABD PEL W CON ? INDICATIONS:? fall pain right side ab ? TECHNIQUE:? After the administration of intravenous contrast, axial sections acquired from the supraclavicular neck to the pubic symphysis.? Coronal and sagittal reformats were performed.? For radiation dose reduction, the following was used:? automated exposure control, adjustment of mA and/or kV according to patient size.? ? COMPARISON: ? None. ? FINDINGS:? Image quality:? There is metallic streak artifact from patient's right hip prosthesis.? ? CHEST: Lower Neck: No lymphadenopathy by size criteria. Thyroid:? Visualized thyroid demonstrates no discrete nodules. Axillae: No lymphadenopathy by size criteria. Chest Wall:? Unremarkable.? ? Lungs and Airways:? No pulmonary contusions or lacerations.? There is an indistinct peripheral opacity within the left upper lobe consistent with atelectasis or small region of consolidation.? Mild dependent atelectasis is also demonstrated.? Within the right upper lobe there is a 0.5 cm pulmonary nodule on series 3, image 140. A small subpleural right upper lobe 0.3 cm nodule is also demonstrated on series 3, image 89.? The trachea and central airways are patent. Pleura: No pneumothorax or pleural effusions.? ? Heart: Heart size is normal.? There is a minimal pericardial effusion. Thoracic Vessels: The aorta and pulmonary arteries are normal in size.? Mediastinum and Nohelia: No lymphadenopathy by size criteria.? No definite mediastinal hematomas.? Esophagus: No wall thickening. No hiatal hernia. ? ABDOMEN: Liver:? There are extensive hepatic lacerations primarily involving the right hepatic lobe in segments 8 and 7.? There is also milder involvement within segment 6 inferiorly.? No definite active arterial extravasation.? The findings are compatible with a grade IV liver injury.? Gallbladder:? Within normal limits without calcified gallstones.? ? Biliary ducts:? No biliary ductal dilatation.? ? Pancreas:? Unremarkable.? ? Spleen:? Normal in size.? No splenic lacerations or perisplenic fluid collections. ? Adrenal Glands:? There is a small indeterminate left adrenal nodule measuring up to 1.2 cm. Kidneys and Ureters:? No hydronephrosis.? ? ? Stomach and Bowel:? Stomach, small bowel loops, and colon are normal in caliber and wall thickness.? Peritoneum:? There is a moderate to large amount of hemoperitoneum in the bilateral upper quadrants as well as in the lower abdomen and pelvis.? No free air.? ? Ventral Wall: ? No hernia.? Abdominal Nodes:? No retroperitoneal or mesenteric adenopathy by size criteria.? Vessels:? Aorta and inferior vena cava are normal in size.? ? PELVIS: Pelvic Organs:? Unremarkable.? ? Bladder:? Unremarkable.? ? Pelvic Nodes: No enlarged lymph nodes.? Miscellaneous: No inguinal hernias are seen. ? ? ? Bones:? There is a minimally displaced fracture of the right 9th rib laterally.? There is mild deformity of the inferior sternum consistent sequelae of an old healed fracture.? Visualized osseous structures demonstrate no suspicious focal lesions. IMPRESSION:? ? 1.? Extensive hepatic lacerations consistent with a grade 4 liver injury primarily involving the right hepatic lobe.? No definite evidence of active arterial extravasation. ? 2.? Moderate to large amount of hemoperitoneum. ? Findings discussed with Dr. Alexis on 05/25/2022 at 9:23 p.m.. ? 3.? Minimally displaced fracture of the right 9th rib laterally. ? 4. Peripheral subpleural opacity in the left upper lobe compatible with atelectasis or consolidation. ? Dictated by: Alex Womack M.D. on 05/25/2022 at 21:22 ? ? ECG Data Interpretation: Sinus tachycardia rate 110 artifact noted MDM Narrative Medical decision making narrative: The patient had ground level fall onto a wheelbarrow. Found to have grade 4 liver laceration and hemoglobin of 8.8. Dr. Bennett surgery consult and recommend transferring to higher level of care. Patient remains hemodynamically stable heart rate is elevated but blood pressure is stable. Heart rate improves actually with morphine and fluids. Packed red blood cells are ordered. She has a positive fast exam. Dr. [facility] ER attending accepts Patient blood pressure did drop into the 80s once. Her with hemoglobin 8.8 low blood pressure tachycardia known bleeding blood is ordered however airlift arise before blood given the will transfuse blood in rate as needed Patient is a full code per patient and and family. Critical Care Time Critical Care Time Critical Care Time: Yes Total Critical Care Time: 45 Attestation: The high probability of a clinically significant, sudden or life threatening deterioration of the [cardiovascular] system(s) required my full and direct attention, intervention and personal management. The aggregate critical care time was [45] minutes. This time is in addition to time spent performing reported procedures but includes the following: [x] Data Review and interpretation [x] Patient assessment and monitoring of vital signs [x] Documentation [x] Medication orders and management Discharge Plan Departure Patient Disposition: [facility] Clinical Impression: Liver laceration, grade IV, without open wound into cavity Prescriptions: No Action CA PANTOTHENATE/FOLIC ACID/VIT (MULTIVITAMIN) 1 tab PO Q DAY Qty: 0 niacinamide [Niacin (niacinamide)] 500 MG tablet 500 mg PO QDAY Qty: 0 VITAMIN D (Vitamin D3) 1,000 unit PO QDAY Qty: 0 VITAMIN B COMPLEX (Vitamin B Complex) 1 tab PO QDAY Qty: 0 calcium carbonate [Tums] 500 MG tablet,chewable 1,000 mg PO Qty: 0 trazodone 50 mg tablet 50 mg PO HS Qty: 90 1RF budesonide 9 mg tablet,delayed and ext.release 9 mg PO QAM Qty: 30 1RF lisinopril 5 mg tablet 5 mg PO DAILY Qty: 90 1RF tramadol 50 mg tablet 50 mg PO BEDTIME PRN (Reason: pain) Qty: 20 0RF Rx Instructions: EXEMPT vitamin E (dl, acetate) 400 unit capsule 400 unit PO DAILY fluoxetine 20 mg capsule 20 mg PO DAILY Qty: 90 3RF Referrals: Robert Blair MD [Primary Care Provider] -
[2022-05-25] MEDS: ONDANSETRON 4 MG/2 ML INJ IV (21:32)
[2022-05-25 21:36] LABS: Add Manual Diff / Slide Review NO; Basophils Absolute Auto 0 /uL (0-100); Basophils Percent Auto 0.2 % (0-2); Eosinophils Absolute Auto 0 /uL (0-450); Eosinophils Percent Auto 0.1 % (2-4); Hematocrit 26.3 % (36-46); Hemoglobin 8.8 g/dL (12.0-16.0); Lymphocytes Absolute Auto 2000 /uL (1100-4500); Lymphocytes Percent Auto 12.2 % (25-40); Mean Corpuscular HGB Conc 33.4 % (30-36); Mean Corpuscular Hemoglobin 29.1 PG (26-34); Mean Corpuscular Volume 87.3 fL (80-100); Monocytes Absolute Auto 1000 /uL (0-900); Monocytes Percent Auto 5.8 % (3-14); Neutrophils Absolute Auto 13600 /uL (1500-7000); Neutrophils Percent Auto 81.7 % (50-75); Platelet Count 231 X10^3/uL (150-400); Red Blood Cell Count 3.01 X10^6/uL (4.0-5.2); Red Cell Distribution Width 13.3 % (11.6-14.8); White Blood Cell Count 16.7 X10^3/uL (4.5-11.0)
[2022-05-25 21:48] LABS: Alanine Aminotransferase 344 IU/L (<35); Albumin Globulin Ratio 1.4 (1.0-2.8); Alkaline Phosphatase 59 U/L (38-126); Aspartate Aminotransferase 454 IU/L (14-36); BUN Creatinine Ratio 29.6 (6-22); Bilirubin Total 0.2 mg/dL (0.2-1.3); Blood Urea Nitrogen 29 mg/dL (7-17); Carbon Dioxide 24 mmol/L (22-32); Chloride 101 mmol/L (98-107); Creatine Kinase 218 U/L (30-135); Estimated Glomerular Filt Rate 56 mL/min (>60); Globulin 2.2 g/dL (1.7-4.1); Glucose 218 mg/dL (80-110); HEMOLYSIS < 15 (0-50); Sodium 134 mmol/L (137-145); Total Protein 5.2 g/dL (6.3-8.2)
[2022-05-25 21:49] LABS: Lactate (Lactic Acid) 3.6 mmol/L (0.7-2.1)
[2022-05-25 21:59] LABS: COVID19 -Nasal RAPID Negative (Negative); Troponin I 0.023 ng/mL (0.01-0.034)
[2022-05-25 22:00] LABS: Potassium 2.6 mmol/L (3.4-5.1)
[2022-05-25 22:03] LABS: CKMB % Relative Index 2.2 % (1.5-5.0); Creatine Kinase MB 4.74 ng/mL (<2.37)
[2022-05-25] MEDS: POTASSIUM CHLORIDE IN WATER 10 MEQ/100 ML PIGGYBACK 100 MEQ IV (22:12)
--- NOTE | 2022-05-25 22:48 | TAR.TRANSNT ---
Blood started as airlift arrives. Charted as end time when pt left, though still infusing.
--- NOTE | 2022-05-25 23:09 | PC.NURSE ---
Pt arrives via EMS. Straight to CT. Trauma activation. Alert/oriented. Pain in right abdomen/ribs, two small bruised areas noted. States she tripped on the wood pile and fell onto the wheelbarrow. 8/10 pain. 21:29 C spine cleared with provider Reuben. 2mg morphine given for pain. 4mg of zofran then given for nausea/dry heaves after pain meds. Pt cleaned up and brief placed. 22:15 BP 89/49 after nausea/dry heaving episode. Provider aware. Next BP 105/55. Called to lab to start one unit of O negative blood w/o cross match due to liver laceration/bleeding and changes in BP. 22:30 Blood started as flight team arrives [facility] Vitals stable. Pt spouse and nephew arrive to say goodbye. All belongings sent home with family except bilateral hearing aides, earrings and bra. 22:45 Pt d/c department with flight team. Vitals on flight team monitor stable, medicated for pain by flight team.
[2022-05-25 23:28] LABS: Reflexed Lactate in 2 Hours Y
== END 2022-05-25 22:45 | disposition short-term general hospital (02) ==
PROVIDERS: Emergency Provider Emergency Medicine; PCP Student in an Organized Health Care Education/Training Program
DX: S36.116A Major laceration of liver, initial encounter (principal); R11.0 Nausea; R00.0 Tachycardia, unspecified; S09.90XA Unspecified injury of head, initial encounter; W18.30XA Fall on same level, unspecified, initial encounter; Z20.822 Contact with and (suspected) exposure to COVID-19
CPT/HCPCS: 36430; 70450; 71260; 72125; 74177; 80053; 82550; 82553; 83605; 84484; 85025; 86850; 86900; 86901; 87635; 93005; 96374; 96375; 99285; 99291; 99292; C9803; P9016; J2270; J2405; Q9967

== ENCOUNTER 2022-07-02 17:52 | Inpatient (IN) | payer OTHER, SELFPAY ==
[2022-07-02] VITALS (55 sets, daily range): BP systolic 124–161; BP diastolic 59–97; PULSE 95–152; RESP 15–31; TEMP 36.9; O2SAT 91–99; BMI 19.7
--- NOTE | 2022-07-02 18:20 | DI.RAD.S_ITS ---
PROCEDURE: XR CHEST 1V INDICATIONS: chest pain TECHNIQUE: One view of the chest was acquired. COMPARISON: [facility], CT, CT CHEST ABD PEL W CON, 05/25/2022, 20:55. FINDINGS: Surgical changes and devices: None. Lungs and pleura: There is a moderately sized right-sided pleural effusion. There is a likely small left-sided pleural effusion. Generalized interstitial prominence can be seen. Mediastinum: The cardiac contours are moderately enlarged. The aorta demonstrates calcification and tortuosity. Bones and chest wall: Age-appropriate bony degenerative changes are seen. Mild dextroconvex scoliotic curvature is seen. No suspicious bony lesions. Overlying soft tissues appear unremarkable. IMPRESSION: Moderate left-sided pleural effusion. There is cardiomegaly and interstitial prominence. CHF is suspected. Dictated by: Juan Lema M.D. on 07/02/2022 at 18:11 Approved by: Juan Lema M.D. on 07/02/2022 at 18:12
[2022-07-02 18:45] LABS: Add Manual Diff / Slide Review NO; Basophils Absolute Auto 100 /uL (0-100); Eosinophils Absolute Auto 200 /uL (0-450); Hematocrit 36.1 % (36-46); Hemoglobin 12.2 g/dL (12.0-16.0); Lymphocytes Absolute Auto 1600 /uL (1100-4500); Lymphocytes Percent Auto 20.4 % (25-40); Mean Corpuscular HGB Conc 33.9 % (30-36); Mean Corpuscular Hemoglobin 29.7 PG (26-34); Mean Corpuscular Volume 87.4 fL (80-100); Monocytes Absolute Auto 600 /uL (0-900); Monocytes Percent Auto 7.4 % (3-14); Neutrophils Absolute Auto 5500 /uL (1500-7000); Neutrophils Percent Auto 68.2 % (50-75); Platelet Count 351 X10^3/uL (150-400); Red Blood Cell Count 4.13 X10^6/uL (4.0-5.2); Red Cell Distribution Width 14.2 % (11.6-14.8)
[2022-07-02 18:57] LABS: PTT Partial Thromboplastin Tim 27 SECONDS (26-36)
[2022-07-02 18:59] LABS: Alanine Aminotransferase 42 IU/L (<35); Albumin 3.7 g/dL (3.5-5.0); Albumin Globulin Ratio 1.2 (1.0-2.8); Alkaline Phosphatase 163 U/L (38-126); Aspartate Aminotransferase 39 IU/L (14-36); BUN Creatinine Ratio 29.8 (6-22); Bilirubin Total 0.6 mg/dL (0.2-1.3); Blood Urea Nitrogen 17 mg/dL (7-17); Calcium 8.6 mg/dL (8.4-10.2); Carbon Dioxide 26 mmol/L (22-32); Chloride 100 mmol/L (98-107); Creatine Kinase 33 U/L (30-135); Estimated Glomerular Filt Rate > 60 mL/min (>60); Glucose 109 mg/dL (80-110); HEMOLYSIS < 15 (0-50); Lipase 120 U/L (23-300); Magnesium 1.3 mg/dL (1.6-2.3); Potassium 2.9 mmol/L (3.4-5.1); Sodium 137 mmol/L (137-145); Total Protein 6.7 g/dL (6.3-8.2)
--- NOTE | 2022-07-02 19:04 | ED_ITS ---
HPI - Arrhythmia/Palpitations General Chief Complaint: Arrhythmia/Palpitations Stated Complaint: Heart problems Time Seen by Provider: 07/02/22 19:04 Source: patient Mode of arrival: Ambulatory History of Present Illness HPI narrative: 87-year-old female former smoker with history of depression, palpitations, diverticulosis and relatively recent visit for a traumatic fall resulting in injuries that required transfer to [facility] including a grade 4 liver laceration presents with her in the chief complaint of at least 2-3 days of increasing shortness of breath, fatigue and lightheadedness. She denies any nausea or vomiting but has had multiple episodes of loose stools. She denies any chest pain but does feel short of breath, particularly with exertion. She is had occasional cough but denies any hemoptysis. She denies abdominal pain or cramping. She has no dysuria, frequency or urgency. She denies any recent long distance travel, history of blood clot or known cancer. She is not anticoagulated. She denies any history of atrial fibrillation Related Data Home Medications Medication Instructions Recorded Confirmed CA PANTOTHENATE/FOLIC ACID/VIT 1 tab PO Q DAY ##0 04/07/11 06/22/22 (MULTIVITAMIN) VITAMIN D (Vitamin D3) 1,000 unit PO QDAY ##0 02/09/12 06/22/22 VITAMIN B COMPLEX (Vitamin B 1 tab PO QDAY ##0 11/17/12 06/22/22 Complex) calcium carbonate 200 mg calcium 1,000 mg PO PRN Acid Reflux ##0 04/30/16 06/22/22 (500 mg) chewable tablet (Tums) vitamin E (dl, acetate) 180 mg 400 unit PO DAILY 09/12/18 06/22/22 (400 unit) capsule tramadol 50 mg tablet 50 mg PO BEDTIME 07/03/22 Previous Rx's Medication Instructions Recorded lisinopril 5 mg tablet 5 mg PO DAILY #90 tabs 02/22/22 fluoxetine 20 mg capsule 20 mg PO DAILY #90 caps 03/23/22 lidocaine 4 % topical patch 1 patch topical DAILY PRN pain 30 06/22/22 days #30 ea trazodone 50 mg tablet 50 mg PO HS PRN insomnia #30 tabs 06/22/22 Allergies Allergy/AdvReac Type Severity Reaction Status Date / Time No Known Drug Allergies Allergy Verified 07/02/22 18:17 Review of Systems Review of Systems Narrative: GENERAL: See HPI HEENT: Denies sinus pain, ear pain, sore throat, difficulty swallowing, dizziness. RESPIRATORY: See HPI CARDIOVASCULAR: Denies chest pain, palpitations, orthopnea, edema, GASTROINTESTINAL: See HPI : Denies dysuria, frequency, incontinence, hematuria, urinary retention. MUSCULOSKELETAL: denies weakness, joint pain, or bony pain SKIN: Denies rash, skin lesions, or other NEUROLOGIC: Denies weakness, headache, numbness, change in speech, confusion, se izures, incoordination. PSYCHIATRIC: No concerning psychosocial issues. 12 point review of systems is negative except for those stated above Patient History Medical History Breast cancer (2007) Chicken pox (~1945) Colitis (2007) Collagenous colitis (2005) Degenerative joint disease of right hip Depression (2010) Hearing loss (2011) Hyperlipidemia Hypertension Measles (~1942) Mumps (~194) Osteoporosis (1999) Surgical History Anesthesia History of arthroplasty of right hip History of cosmetic surgery (09/2012) History of gynecologic surgery (2007) History of oophorectomy (1982) History of total right hip arthroplasty (2014) Status post breast lumpectomy (2007) Status post hysterectomy (1981) Family History Mother Type II diabetes mellitus Hypertension High cholesterol Father No problems noted. Sister No problems noted. Sister Cancer Sister No problems noted. Sister No problems noted. Other Colorectal cancer Social History marital status: unmarried,living together (partner) number of children: 1 household members: significant other lives independently: Yes occupational status: other (retired) Smoking Status: Former smoker alcohol intake: current substance use type: does not use Smoking Status: Former smoker Substance Use Type: does not use Exam Narrative Exam Narrative: GENERAL: [87] year old patient appears stated age. Well-developed patient, in mild distress. HEAD: Atraumatic. Normocephalic. EYES: Pupils equal round and reactive. Extraocular motions intact. No scleral icterus. No injection or drainage. ENT: Nose without bleeding, purulent drainage. Throat without erythema, tonsillar hypertrophy or exudate. Airway patent. NECK: Trachea midline. Non tender CARDIOVASCULAR: Tachycardic and irregular rhythm without murmurs, gallops, or rubs. RESPIRATORY: No significant increased work of breathing, faint crackles in bilateral bases GASTROINTESTINAL: Abdomen soft, non-tender, nondistended. EXTREMITIES: No edema or joint tenderness. BACK: Nontender without deformity or crepitance. No flank tenderness. NEURO: AOx3. SKIN: No rash or erythema of visible areas Initial Vital Signs Initial Vital Signs: Vital Signs Temperature 98.5 F 07/02/22 18:17 Pulse Rate 114 H 07/02/22 18:17 Respiratory Rate 15 07/02/22 18:17 Blood Pressure 137/94 H 07/02/22 18:17 Pulse Oximetry 97 07/02/22 18:17 Oxygen Delivery Method 07/02/22 18:17 Course Orders Ordered: ED Orders 07/02/22 21:09 COVID19 -Nasal RAPID/Pre-Proc Stat 07/02/22 22:26 Blood Culture Stat Acetaminophen (Acetaminophen 325 Mg Tablet) 650 mg PO Q6H PRN PRN Reason: Fever/Mild Pain (1-3) Last Admin: 07/03/22 04:20 Dose: 650 mg Documented By: JANA Diltiazem HCl (Diltiazem 30 Mg Tablet) 30 mg PO Q6HR [facility] Last Admin: 07/03/22 05:39 Dose: 30 mg Documented By: Admin: 07/03/22 04:02 Dose: 30 mg Documented By: JANA Enoxaparin Sodium (Enoxaparin 40 Mg/0.4 Ml Syringe) 40 mg SUBCUT DAILY [facility] Fluoxetine HCl (Fluoxetine 20 Mg Capsule) 20 mg PO DAILY [facility] Furosemide (Furosemide 40 Mg/4 Ml Vial) 40 mg IV Q12H [facility] Magnesium Sulfate (Magnesium Sulfate) 4 gm in 100 mls @ 25 mls/hr IV NOW ONE Stop: 07/03/22 05:57 Last Admin: 07/03/22 02:25 Dose: 25 mls/hr Documented By: JANA Co-signed By: LETICIA Levofloxacin (Levaquin) 750 mg in 150 mls @ 100 mls/hr IV Q24H [facility] Last Infusion: 07/03/22 03:55 Dose: 0 mls/hr Documented By: Admin: 07/03/22 02:25 Dose: 100 mls/hr Documented By: JANA Ondansetron HCl (Ondansetron 4 Mg/2 Ml Inj) 4 mg IV Q8HR PRN PRN Reason: Nausea And Vomiting Last Admin: 07/03/22 04:11 Dose: 4 mg Documented By: JANA Discontinued Medications Diltiazem HCl (Diltiazem 5 Mg/Ml Sdv) 10 mg IV NOW ONE Stop: 07/02/22 19:07 Last Admin: 07/02/22 19:28 Dose: 10 mg Documented By: MARY Diltiazem HCl (Diltiazem 5 Mg/Ml Sdv) 10 mg IV NOW ONE Stop: 07/03/22 03:37 Last Admin: 07/03/22 04:02 Dose: 10 mg Documented By: JANA Furosemide (Furosemide 40 Mg/4 Ml Vial) 40 mg IV NOW ONE Stop: 07/03/22 01:59 Last Admin: 07/03/22 02:25 Dose: 40 mg Documented By: JANA DILTIAZEM (Diltiazem 125 Mg/125 Ml-D5w) 125 mg in 125 mls @ 5 mls/hr IV TITRATE JANETT; Protocol Last Titration: 07/02/22 22:15 Dose: 0 mg/hr, 0 mls/hr Documented By: Titration: 07/02/22 21:08 Dose: 15 mg/hr, 15 mls/hr Documented By: Titration: 07/02/22 20:26 Dose: 10 mg/hr, 10 mls/hr Documented By: Admin: 07/02/22 19:35 Dose: 5 mg/hr, 5 mls/hr Documented By: MARY POTASSIUM CHLORIDE IN WATER (Potassium Cl 10 Meq/100 Ml Anneliese) 10 meq in 100 mls @ 100 mls/hr IV Q1H JANETT Stop: 07/03/22 01:59 Last Infusion: 07/03/22 00:20 Dose: 0 mls/hr Documented By: Admin: 07/02/22 23:12 Dose: 75 mls/hr Documented By: Infusion: 07/02/22 23:12 Dose: 75 mls/hr Documented By: Admin: 07/02/22 21:58 Dose: 75 mls/hr Documented By: Infusion: 07/02/22 21:24 Dose: 75 mls/hr Documented By: Infusion: 07/02/22 21:04 Dose: 75 mls/hr Documented By: Admin: 07/02/22 20:19 Dose: 100 mls/hr Documented By: MINH Ceftriaxone Sodium 1,000 mg/ (Sodium Chloride) 100 mls @ 200 mls/hr IV NOW ONE Stop: 07/02/22 22:07 Last Infusion: 07/02/22 23:20 Dose: 0 mls/hr Documented By: Admin: 07/02/22 22:44 Dose: 200 mls/hr Documented By: MARY Azithromycin 500 mg/ Dextrose 250 mls @ 250 mls/hr IV NOW ONE Stop: 07/02/22 22:07 Last Admin: 07/02/22 23:27 Dose: 250 mls/hr Documented By: MARY Reevaluation(s) Reevaluation #1: Patient without significant work of breathing but still requiring 2 L by nasal cannula to maintain saturations above 90s. We are able to come off the diltiazem drip and rate and rhythm seemed to have converted to sinus with rate between 90 and 110 with occasional PACs. Imaging suggest against pulmonary embolism but does demonstrate evidence of congestive heart failure as well as the possibility of a multifocal infiltrate. Antibiotics have been ordered, diuretics initiated. Electrolyte abnormalities addressed. She has improved somewhat but still clearly requires hospitalization given her requirement of supplemental oxygen and need for ongoing stabilization and evaluation of her presenting condition Vital Signs Vital signs: Vital Signs - 8 hr 07/02/22 21:45 07/02/22 21:45 07/02/22 21:50 Pulse Rate 112 H Respiratory Rate 21 Blood Pressure 148/78 H 159/68 H Pulse Oximetry 96 Oxygen Delivery Method Oxygen Flow Rate 07/02/22 21:50 07/02/22 21:55 07/02/22 21:55 Pulse Rate 104 H 103 H Respiratory Rate 19 20 Blood Pressure 146/65 H Pulse Oximetry 97 97 Oxygen Delivery Method Nasal Cannula Nasal Cannula Oxygen Flow Rate 2 2 07/02/22 22:00 07/02/22 22:00 07/02/22 22:05 Pulse Rate 103 H 101 H Respiratory Rate 23 18 Blood Pressure 135/79 Pulse Oximetry 97 99 Oxygen Delivery Method Nasal Cannula Nasal Cannula Oxygen Flow Rate 2 2 07/02/22 22:05 07/02/22 22:10 07/02/22 22:10 Pulse Rate 102 H Respiratory Rate 25 H Blood Pressure 131/84 141/81 H Pulse Oximetry 98 Oxygen Delivery Method Nasal Cannula Oxygen Flow Rate 2 07/02/22 22:15 07/02/22 22:15 07/02/22 22:20 Pulse Rate 104 H Respiratory Rate 23 Blood Pressure 152/76 H 143/70 H Pulse Oximetry 97 Oxygen Delivery Method Nasal Cannula Oxygen Flow Rate 2 07/02/22 22:20 07/02/22 22:25 07/02/22 22:25 Pulse Rate 108 H 101 H Respiratory Rate 20 20 Blood Pressure 146/72 H Pulse Oximetry 98 98 Oxygen Delivery Method Nasal Cannula Nasal Cannula Oxygen Flow Rate 2 2 07/02/22 22:30 07/02/22 22:30 07/02/22 22:35 Pulse Rate 105 H 104 H Respiratory Rate 19 29 H Blood Pressure 157/92 H Pulse Oximetry 98 99 Oxygen Delivery Method Nasal Cannula Nasal Cannula Oxygen Flow Rate 2 2 07/02/22 22:35 07/02/22 22:40 07/02/22 22:40 Pulse Rate 97 H Respiratory Rate 20 Blood Pressure 160/78 H 134/74 Pulse Oximetry 98 Oxygen Delivery Method Nasal Cannula Oxygen Flow Rate 2 07/02/22 22:45 07/02/22 22:45 07/02/22 22:50 Pulse Rate 98 H 96 H Respiratory Rate 20 21 Blood Pressure 150/75 H Pulse Oximetry 97 99 Oxygen Delivery Method Nasal Cannula Nasal Cannula Oxygen Flow Rate 2 2 07/02/22 22:50 07/02/22 22:55 07/02/22 22:55 Pulse Rate 97 H Respiratory Rate 18 Blood Pressure 151/72 H 143/81 H Pulse Oximetry 99 Oxygen Delivery Method Nasal Cannula Oxygen Flow Rate 2 07/02/22 23:00 07/02/22 23:00 07/02/22 23:05 Pulse Rate 97 H 95 H Respiratory Rate 18 18 Blood Pressure 147/86 H Pulse Oximetry 99 99 Oxygen Delivery Method Nasal Cannula Nasal Cannula Oxygen Flow Rate 2 2 07/02/22 23:05 07/02/22 23:10 07/02/22 23:10 Pulse Rate 99 H Respiratory Rate 20 Blood Pressure 146/70 H 152/96 H Pulse Oximetry 99 Oxygen Delivery Method Nasal Cannula Oxygen Flow Rate 2 07/02/22 23:15 07/02/22 23:15 07/02/22 23:20 Pulse Rate 96 H 96 H Respiratory Rate 19 18 Blood Pressure 148/70 H Pulse Oximetry 98 99 Oxygen Delivery Method Nasal Cannula Nasal Cannula Oxygen Flow Rate 2 2 07/02/22 23:20 07/02/22 23:25 07/02/22 23:25 Pulse Rate 95 H Respiratory Rate 19 Blood Pressure 153/78 H 144/68 H Pulse Oximetry 99 Oxygen Delivery Method Nasal Cannula Oxygen Flow Rate 2 07/02/22 23:30 07/02/22 23:30 07/02/22 23:36 Pulse Rate 104 H 124 H Respiratory Rate 18 20 Blood Pressure 154/86 H Pulse Oximetry 96 98 Oxygen Delivery Method Nasal Cannula Nasal Cannula Oxygen Flow Rate 2 2 07/02/22 23:36 Pulse Rate Respiratory Rate Blood Pressure 128/59 L Pulse Oximetry Oxygen Delivery Method Oxygen Flow Rate MDM - Arrhythmia/Palpitations Lab Data Result diagrams: 07/03/22 05:17 07/02/22 18:30 Labs: Lab Results 07/02/22 07/02/22 07/02/22 Range/Units 18:30 18:30 18:30 WBC 8.0 (4.5-11.0) X10^3/uL RBC 4.13 (4.0-5.2) X10^6/uL Hgb 12.2 (12.0-16.0) g/dL Hct 36.1 (36-46) % MCV 87.4 (80-100) fL MCH 29.7 (26-34) PG MCHC 33.9 (30-36) % RDW 14.2 (11.6-14.8) % Plt Count 351 (150-400) X10^3/uL Neut % (Auto) 68.2 (50-75) % Lymph % (Auto) 20.4 L (25-40) % [place] % (Auto) 7.4 (3-14) % Eos % (Auto) 3.0 (2-4) % Baso % (Auto) 1.0 (0-2) % Neut # (Auto) 5500 (7514-7215) /uL Lymph # (Auto) 1600 (8793-0341) /uL [place] # (Auto) 600 (0-900) /uL Eos # (Auto) 200 (0-450) /uL Baso # (Auto) 100 (0-100) /uL PT 12.0 (10.1-12.7) SECONDS INR 1.0 (0.9-1.3) APTT 27 (26-36) SECONDS Sodium 137 (137-145) mmol/L Potassium 2.9 L (3.4-5.1) mmol/L Chloride 100 (98-107) mmol/L Carbon Dioxide 26 (22-32) mmol/L BUN 17 (7-17) mg/dL Creatinine 0.57 (0.52-1.04) mg/dL Estimated GFR > 60 (>60) mL/min BUN/Creatinine Ratio 29.8 H (6-22) Glucose 109 (80-110) mg/dL Lactate (0.7-2.1) mmol/L Calcium 8.6 (8.4-10.2) mg/dL Magnesium 1.3 L (1.6-2.3) mg/dL Total Bilirubin 0.6 (0.2-1.3) mg/dL AST 39 H (14-36) IU/L ALT 42 H (<35) IU/L Alkaline Phosphatase 163 H (38-126) U/L Total Creatine Kinase 33 (30-135) U/L CK-MB (CK-2) TNP CK-MB (CK-2) Rel Index TNP Troponin I < 0.012 (0.01-0.034) ng/mL NT-Pro-B Natriuret Pep (<450) pg/mL Total Protein 6.7 (6.3-8.2) g/dL Albumin 3.7 (3.5-5.0) g/dL Globulin 3.0 (1.7-4.1) g/dL Albumin/Globulin Ratio 1.2 (1.0-2.8) Lipase 120 (23-300) U/L TSH (0.47-4.68) uIU/mL SARS-CoV-2 (PCR) (Negative) 07/02/22 07/02/22 07/02/22 Range/Units 18:30 18:37 18:37 WBC (4.5-11.0) X10^3/uL RBC (4.0-5.2) X10^6/uL Hgb (12.0-16.0) g/dL Hct (36-46) % MCV (80-100) fL MCH (26-34) PG MCHC (30-36) % RDW (11.6-14.8) % Plt Count (150-400) X10^3/uL Neut % (Auto) (50-75) % Lymph % (Auto) (25-40) % [place] % (Auto) (3-14) % Eos % (Auto) (2-4) % Baso % (Auto) (0-2) % Neut # (Auto) (1131-3373) /uL Lymph # (Auto) (8499-6064) /uL [place] # (Auto) (0-900) /uL Eos # (Auto) (0-450) /uL Baso # (Auto) (0-100) /uL PT (10.1-12.7) SECONDS INR (0.9-1.3) APTT (26-36) SECONDS Sodium (137-145) mmol/L Potassium (3.4-5.1) mmol/L Chloride (98-107) mmol/L Carbon Dioxide (22-32) mmol/L BUN (7-17) mg/dL Creatinine (0.52-1.04) mg/dL Estimated GFR (>60) mL/min BUN/Creatinine Ratio (6-22) Glucose (80-110) mg/dL Lactate 1.2 (0.7-2.1) mmol/L Calcium (8.4-10.2) mg/dL Magnesium (1.6-2.3) mg/dL Total Bilirubin (0.2-1.3) mg/dL AST (14-36) IU/L ALT (<35) IU/L Alkaline Phosphatase (38-126) U/L Total Creatine Kinase (30-135) U/L CK-MB (CK-2) CK-MB (CK-2) Rel Index Troponin I (0.01-0.034) ng/mL NT-Pro-B Natriuret Pep 624 H (<450) pg/mL Total Protein (6.3-8.2) g/dL Albumin (3.5-5.0) g/dL Globulin (1.7-4.1) g/dL Albumin/Globulin Ratio (1.0-2.8) Lipase (23-300) U/L TSH 4.58 (0.47-4.68) uIU/mL SARS-CoV-2 (PCR) (Negative) 07/02/22 Range/Units 21:09 WBC (4.5-11.0) X10^3/uL RBC (4.0-5.2) X10^6/uL Hgb (12.0-16.0) g/dL Hct (36-46) % MCV (80-100) fL MCH (26-34) PG MCHC (30-36) % RDW (11.6-14.8) % Plt Count (150-400) X10^3/uL Neut % (Auto) (50-75) % Lymph % (Auto) (25-40) % [place] % (Auto) (3-14) % Eos % (Auto) (2-4) % Baso % (Auto) (0-2) % Neut # (Auto) (1753-9843) /uL Lymph # (Auto) (3720-8095) /uL [place] # (Auto) (0-900) /uL Eos # (Auto) (0-450) /uL Baso # (Auto) (0-100) /uL PT (10.1-12.7) SECONDS INR (0.9-1.3) APTT (26-36) SECONDS Sodium (137-145) mmol/L Potassium (3.4-5.1) mmol/L Chloride (98-107) mmol/L Carbon Dioxide (22-32) mmol/L BUN (7-17) mg/dL Creatinine (0.52-1.04) mg/dL Estimated GFR (>60) mL/min BUN/Creatinine Ratio (6-22) Glucose (80-110) mg/dL Lactate (0.7-2.1) mmol/L Calcium (8.4-10.2) mg/dL Magnesium (1.6-2.3) mg/dL Total Bilirubin (0.2-1.3) mg/dL AST (14-36) IU/L ALT (<35) IU/L Alkaline Phosphatase (38-126) U/L Total Creatine Kinase (30-135) U/L CK-MB (CK-2) CK-MB (CK-2) Rel Index Troponin I (0.01-0.034) ng/mL NT-Pro-B Natriuret Pep (<450) pg/mL Total Protein (6.3-8.2) g/dL Albumin (3.5-5.0) g/dL Globulin (1.7-4.1) g/dL Albumin/Globulin Ratio (1.0-2.8) Lipase (23-300) U/L TSH (0.47-4.68) uIU/mL SARS-CoV-2 (PCR) Negative (Negative) Discharge Plan Departure Patient Disposition: Admitted As Inpatient Clinical Impression: Acute hypoxemic respiratory failure, Atrial fibrillation, new onset, CHF (c ongestive heart failure), Pneumonia Admit Date/Time: 07/03/22 00:26 Admit Provider: Júnior Godwin
[2022-07-02 19:11] LABS: Troponin I < 0.012 ng/mL (0.01-0.034)
[2022-07-02] MEDS: dilTIAZem 5 MG/ML SDV 10 MG IV (19:28)
[2022-07-02] MEDS: DILTIAZEM 125 MG/125 ML PIGGYBACK IV (19:35)
[2022-07-02] MEDS: POTASSIUM CHLORIDE IN WATER 10 MEQ/100 ML PIGGYBACK 100 MEQ IV (20:19)
--- NOTE | 2022-07-02 20:29 | DI.CT.S_ITS ---
PROCEDURE: CT ANGIO CHEST PE PROTOCOL INDICATIONS: new onset AFib, recent hospitalization/trauma TECHNIQUE: After the administration of intravenous contrast, 2 mm thick sections acquired from the pulmonary apices to the posterior costophrenic angles. 3-dimensional maximum intensity projection (MIP) coronal and sagittal reformats were then acquired through the thorax. For radiation dose reduction, the following was used: automated exposure control, adjustment of mA and/or kV according to patient size. COMPARISON: [facility], CT, CT CHEST ABD PEL W CON, 05/25/2022, 20:55. FINDINGS: Image quality: Excellent. Pulmonary arteries: Pulmonary arteries demonstrate no intraluminal filling defects to suggest central pulmonary embolism. Pulmonary arteries: Pulmonary arteries demonstrate no intraluminal filling defects to suggest central pulmonary embolism. Lower Neck: No lymphadenopathy by size criteria. Thyroid: Visualized thyroid demonstrates no discrete nodules. Axillae: No lymphadenopathy by size criteria. Chest Wall: Unremarkable. Bones: There is a healing fracture of the right posterolateral 9th rib. Visualized osseous structures demonstrate no suspicious lesions. Lungs and Airways: There is compressive atelectasis bilaterally, most prominent within the right lower and middle lobes. Underlying consolidation and pneumonia cannot be excluded. There are irregular peripheral ground-glass opacities anteriorly within the left upper lobe and to a mild extent within the right upper and middle lobes. The findings are suggestive of a mild infectious or inflammatory process. Elsewhere, there are diffuse indistinct ground-glass opacities with mild septal thickening consistent with pulmonary edema. The trachea and central airways are patent. Pleura: There are bilateral pleural effusions, moderate to large on the right and small on the left, with associated compressive atelectasis. No pneumothorax. Heart: Heart size is mildly enlarged. There is a small pericardial effusion. Thoracic Vessels: The thoracic aorta is normal in size. Mediastinum and [place]: No lymphadenopathy by size criteria. Esophagus: No wall thickening. No hiatal hernia. Abdomen: Visualized upper abdomen demonstrates irregular opacities within the right hepatic lobe consistent with sequelae of the previously visualized hepatic lacerations. There is thickening of the adrenal glands bilaterally redemonstrated. IMPRESSION: 1. No evidence of pulmonary embolism. 2. Bilateral pleural effusions, moderate to large on the right and small on the left, with associated compressive atelectasis. These include confluent areas of atelectasis in the right middle and lower lobes. Associated underlying consolidation and pneumonia cannot be excluded. 3. Indistinct ground-glass opacities anteriorly within the lungs, predominantly in the left upper lobe. The findings likely represent an infectious or inflammatory process. 4. Indistinct ground-glass opacities and mild septal thickening consistent with pulmonary edema. 5. Sequelae of right hepatic lobe lacerations redemonstrated. 6. Small pericardial effusion. Dictated by: Alex Womack M.D. on 07/02/2022 at 21:38 Approved by: Alex Womack M.D. on 07/02/2022 at 21:58
--- NOTE | 2022-07-02 21:05 | PC.NURSE ---
Patient reports burning at IV site of Potassium, IV patent and flushes with blood return. Attempted warm compress with warm blanket without relief, rate ultimately turned down.
[2022-07-02] MEDS: POTASSIUM CHLORIDE IN WATER 10 MEQ/100 ML PIGGYBACK 75 MEQ IV ×2 (21:58→23:12)
[2022-07-02 22:13] LABS: COVID19 -Nasal RAPID Negative (Negative)
[2022-07-02 22:20] LABS: Lactate (Lactic Acid) 1.2 mmol/L (0.7-2.1)
--- NOTE | 2022-07-02 22:24 | PC.NURSE ---
22:[address] Grider to pause the diltiazem infusion and do a trial to see how patients heartrate responds. Heart rate 99bpm normal sinus with PACs on telemetry. Infusion paused at 22:15.
[2022-07-02 22:30] LABS: NT-proBNP (BNP-Adult 18+) 624 pg/mL (<450)
[2022-07-02] MEDS: cefTRIAXone 1,000 MG in SODIUM CHLORIDE 0.9% 100 ML 200 MG IV (22:44)
[2022-07-02] MEDS: AZITHROMYCIN 500 MG in DEXTROSE 5% IN WATER 250 ML 250 MG IV (23:27)
--- NOTE | 2022-07-02 23:30 | PC.NURSE ---
Report received - assumed care of pt at this time
[2022-07-03] VITALS (18 sets, daily range): BP systolic 103–154; BP diastolic 54–91; PULSE 89–146; RESP 16–18; TEMP 35.7–37.1; O2SAT 91–96; BMI 19.7
--- NOTE | 2022-07-03 00:30 | PC.NURSE ---
Assisted to reposition in the bed - tolerated well - awaiting admission - no further needs voiced
--- NOTE | 2022-07-03 01:00 | PC.NURSE ---
frequent bedpan use - alert and oriented - PWD with respirations equal and unlabored bilaterally
--- NOTE | 2022-07-03 01:20 | PC.NURSE ---
Report called to IRVIN Montano
[2022-07-03 01:32] LABS: TSH w/ Reflex to FT4 4.58 uIU/mL (0.47-4.68)
--- NOTE | 2022-07-03 01:58 | DI.ECHO.S_ITS ---
[facility]---------+ [facility] +---------+ : : [address] : : : : [place] : : : : [id number] : : : : Phone: [phone]+ Echocardiogram Report + + :Name: JUSTUS ABRAMS I Study Date: 07/03/2022 Height: 64 in : :[facility] ReadingLocation: Weight: 115 lb : : Gender: Female BSA: 1.5 m2 : :: 1935 Age: 87 yrs BP: 106/54 mmHg: :Reason For Study: Congestive Heart Failure : :Ordering Physician: : :DMITRIY SEGURA Performed By: Andrea Hyman : :Referring: DMITRIY SEGURA : + + Interpretation Summary The left ventricle is normal in size and wall thickness. Left ventricular systolic function is normal. The ejection fraction is estimated to be 60-65%. LVEF has not changed. There are no focal wall motion abnormalities. The right ventricle is normal in size and function. The right ventricular systolic pressure is estimated to be at least 29 mmHg based on an estimated right atrial pressure of 3 mm Hg. Both atria are normal in size. There is moderate aortic stenosis. The aortic stenosis is new since prior study on 12/07/2017. The peak aortic velocity is 3.1 m/sec. The calculated aortic valve area is 1.2 cm2. There is no other significant valvular heart disease. The aortic root is normal size. Procedure: A two-dimensional transthoracic echocardiogram with color flow and Doppler was performed. The study quality was technically adequate. Comparison is made with the echocardiogram of 12/07/2017. The patient was in normal sinus rhythm during the exam. Left Ventricle: The left ventricle is normal in size and wall thickness. Left ventricular systolic function is normal. The ejection fraction is estimated to be 60-65%. There are no focal wall motion abnormalities. Diastolic function could not be accurately assessed due to contradictory data. Right Ventricle: The right ventricle is normal in size and function. Atria: Both atria are normal in size. The interatrial septum grossly appears intact with no obvious evidence for an atrial septal defect. Mitral Valve: There is mild mitral annular calcification. There is trace mitral regurgitation. Aortic Valve: The aortic valve is mildly calcified. There is moderate aortic stenosis. The aortic valve mean gradient is 24 mmHg. The peak aortic velocity is 3.1 m/sec. The calculated aortic valve area is 1.2 cm2. No aortic regurgitation is present. Tricuspid Valve: The tricuspid valve is normal in structure and function. There is mild tricuspid regurgitation. The right ventricular systolic pressure is estimated to be at least 29 mmHg based on an estimated right atrial pressure of 3 mm Hg. Pulmonic Valve: The pulmonic valve is normal in structure and function. There is no pulmonic valvular regurgitation. There is no other significant valvular heart disease. Great Vessels: The aortic root is normal size. The dimensions of the ascending aorta are normal. The IVC is of normal diameter and collapses greater than 50% with a sniff. This suggests a low right atrial pressure of 3 mm Hg. Pericardium/ Pleura There is a trivial to small pericardial effusion noted. There is no pleural effusion. MMode/2D Measurements & Calculations LVIDd: 4.4 cm LVOT diam: 2.0 cm LVIDs: 2.7 cm Ao root diam: 2.7 cm FS: 37.7 % asc Aorta Diam: 3.4 cm IVSd: 0.76 cm LVPWd: 0.88 cm LV holder. diameter/BSA (cm/m^2): 2.9 LV sys. diameter/BSA (cm/m^2): 1.8 LA A2 area: 16.9 cm2 RA long axis: 5.3 cm LA A4 area: 16.5 cm2 RA area: 15.5 cm2 LA length (vol): 4.9 cm RA vol: 38.8 ml LA vol: 48.5 ml RA : 25.1 ml/m2 LA vol index: 31.4 ml/m2 TAPSE: 1.7 cm Doppler Measurements & Calculations Ao V2 max: 312.9 cm/sec LVOT Max Kenrick: 128.0 cm/sec Ao V2 mean: 235.2 cm/sec LV V1 max P.6 mmHg Ao max P.2 mmHg LV V1 VTI: 24.1 cm Ao mean P.0 mmHg KIRK(I,D): 1.2 cm2 Ao V2 VTI: 63.3 cm KIRK(V,D): 1.3 cm2 sev ratio: 0.38 KIRK indexed to BSA (cm^2/m^2): 0.77 MV E max kenrick: 77.7 cm/sec TR max kenrikc: 255.1 cm/sec MV A max kenrick: 113.1 cm/sec TR max P.0 mmHg MV E/A: 0.69 Med Peak E' Kenrick: 4.1 cm/sec E/E' med: 18.9 Lat Peak E' Kenrick: 4.4 cm/sec E/E' lat: 17.7 E/e' average: 18.3 MV dec time: 0.28 sec SV(LVOT): 75.5 ml Reading Physician:11:26 AM
[2022-07-03] MEDS: levoFLOXacin 750 MG/150 ML PIGGYBACK 100 MG IV (02:25)
[2022-07-03] MEDS: MAGNESIUM SULFATE 4 GM/100 ML PIGGYBACK IV (02:25)
[2022-07-03] MEDS: FUROSEMIDE 40 MG/4 ML VIAL IV (02:25)
--- NOTE | 2022-07-03 03:56 | PM.HP.1 ---
History of Present Illness History of Present Illness Date Patient Seen: 07/03/22 Time Patient Seen: 01:00 Chief complaint: Heart problems Narrative: Ms. Villar is a 87W with PMH HTN, HL, depression and recent trauma that led to rib fracture and liver laceration. She is presenting now with shortness of breath. She has some mild notable confusion on exam, and has difficulty with providing me a history recently. Her history is not notable for dementia, but seems possibly a contributing factor on this history. Records are obtained primarily through notes. In early May, she presented to [facility] after a fall and was noted to have a grade 4 liver laceration after a fall. She was transferred to [facility]. She did have some electrolyte abnormalities during her stay. She was noted to have atrial fibrillation, but ultimately was not started on rate control or anticoagulation and discharged to SNF. Her reports that she was coughing, short of breath for the last few days. No sputum production, no sick contacts. No fevers/chills. No chest pain. In the ED workup was done, vitals notable for tachycardia with rates to the 140s. Ekg concerning for atrial fibrillation. She did have o2 sats in the 80s, placed on oxygen. Labs notable for wbc 8.0, hgb 12.2, plts 351. Na 137, k 2.9, creatinine 0.57. Mag 1.3. ALT/AST 39/42, alk phos 163. BNP 624. Trop negative. TSH 4.58. COVID negative. Chest xray showed right pleural effusion, cardiomegay, pulmonary edema. CTA showed no PE, bilateral pleural effusions larger on the right, and atelectasis. Ground glass opacities also noted. She was ordered for potassium and antibiotcis and admitted for further treatment. Patient History Medical History Breast cancer (2007) Chicken pox (~1945) Colitis (2007) Collagenous colitis (2005) Degenerative joint disease of right hip Depression (2010) Hearing loss (2011) Hyperlipidemia Hypertension Measles (~1942) Mumps (~1942) Osteoporosis (1999) Surgical History Anesthesia History of arthroplasty of right hip History of cosmetic surgery (09/2012) History of gynecologic surgery (2007) History of oophorectomy (1982) History of total right hip arthroplasty (2014) Status post breast lumpectomy (2007) Status post hysterectomy (1981) Family & Social History Family History Mother Type II diabetes mellitus Hypertension High cholesterol Father No problems noted. Sister No problems noted. Sister Cancer Sister No problems noted. Sister No problems noted. Other Colorectal cancer Social History: household members significant other Prior Living Arrangements House lives independently Yes Safety & Behavioral: Feels Safe in Current Yes Environment Been Physically Hurt or No Threatened By a Person Tobacco & Substance use: Smoking Status Former smoker alcohol intake current alcohol intake frequency holiday/special occasion Substance Use Type does not use Meds Home Medications and Allergies Home Medications Medication Instructions Recorded Confirmed Type CA PANTOTHENATE/FOLIC ACID/VIT 1 tab PO Q DAY ##0 04/07/11 06/22/22 History (MULTIVITAMIN) VITAMIN D (Vitamin D3) 1,000 unit PO QDAY ##0 02/09/12 06/22/22 History VITAMIN B COMPLEX (Vitamin B 1 tab PO QDAY ##0 11/17/12 06/22/22 History Complex) calcium carbonate 200 mg calcium 1,000 mg PO PRN Acid Reflux ##0 04/30/16 06/22/22 History (500 mg) chewable tablet (Tums) vitamin E (dl, acetate) 180 mg 400 unit PO DAILY 09/12/18 06/22/22 History (400 unit) capsule lisinopril 5 mg tablet 5 mg PO DAILY #90 tabs 02/22/22 06/22/22 Rx fluoxetine 20 mg capsule 20 mg PO DAILY #90 caps 03/23/22 06/22/22 Rx lidocaine 4 % topical patch 1 patch topical DAILY PRN pain 30 06/22/22 06/22/22 Rx days #30 ea trazodone 50 mg tablet 50 mg PO HS PRN insomnia #30 tabs 06/22/22 06/22/22 Rx tramadol 50 mg tablet 50 mg PO BEDTIME 07/03/22 History Allergies Allergy/AdvReac Type Severity Reaction Status Date / Time No Known Drug Allergies Allergy Verified 07/02/22 18:17 Review of Systems Review of Systems Narrative: 14 systems reviewed and negative aside from what is noted in HPI Exam Vital Signs (past 8 hours): - 07/02/22 20:00 07/02/22 20:00 07/02/22 20:05 Temperature Pulse Rate 135 H 136 H Respiratory Rate 23 22 Blood Pressure 134/79 Pulse Oximetry 93 93 Oxygen Delivery Method Room Air Room Air Oxygen Flow Rate 07/02/22 20:05 07/02/22 20:10 07/02/22 20:10 Temperature Pulse Rate 144 H Respiratory Rate 20 Blood Pressure 137/75 135/91 H Pulse Oximetry 93 Oxygen Delivery Method Oxygen Flow Rate 07/02/22 20:15 07/02/22 20:15 07/02/22 20:20 Temperature Pulse Rate 134 H 149 H Respiratory Rate 20 18 Blood Pressure 138/77 Pulse Oximetry 93 93 Oxygen Delivery Method Room Air Oxygen Flow Rate 07/02/22 20:20 07/02/22 20:25 07/02/22 20:25 Temperature Pulse Rate 129 H Respiratory Rate 20 Blood Pressure 136/95 H 144/79 H Pulse Oximetry 94 Oxygen Delivery Method Room Air Oxygen Flow Rate 07/02/22 20:30 07/02/22 20:30 07/02/22 21:13 Temperature Pulse Rate 120 H Respiratory Rate 31 H Blood Pressure 146/82 H Pulse Oximetry 93 96 Oxygen Delivery Method Room Air Nasal Cannula Oxygen Flow Rate 2 07/02/22 20:35 07/02/22 20:35 07/02/22 20:47 Temperature Pulse Rate 111 H Respiratory Rate 20 Blood Pressure 132/71 136/75 Pulse Oximetry 92 Oxygen Delivery Method Room Air Oxygen Flow Rate 07/02/22 20:47 07/02/22 20:50 07/02/22 20:50 Temperature Pulse Rate 137 H 126 H Respiratory Rate 20 Blood Pressure 144/67 H Pulse Oximetry 91 92 Oxygen Delivery Method Room Air Room Air Oxygen Flow Rate 07/02/22 20:55 07/02/22 20:55 07/02/22 21:00 Temperature Pulse Rate 129 H Respiratory Rate 20 Blood Pressure 140/85 139/78 Pulse Oximetry 91 Oxygen Delivery Method Room Air Oxygen Flow Rate 07/02/22 21:00 07/02/22 21:03 07/02/22 21:03 Temperature Pulse Rate 144 H 147 H Respiratory Rate 18 28 H Blood Pressure 146/97 H Pulse Oximetry 91 93 Oxygen Delivery Method Room Air Room Air Oxygen Flow Rate 07/02/22 21:05 07/02/22 21:05 07/02/22 21:10 Temperature Pulse Rate 144 H 126 H Respiratory Rate 23 26 H Blood Pressure 161/91 H Pulse Oximetry 91 91 Oxygen Delivery Method Room Air Room Air Oxygen Flow Rate 07/02/22 21:10 07/02/22 21:15 07/02/22 21:15 Temperature Pulse Rate 111 H Respiratory Rate 18 Blood Pressure 156/82 H 156/72 H Pulse Oximetry 96 Oxygen Delivery Method Nasal Cannula Oxygen Flow Rate 2 07/02/22 21:20 07/02/22 21:20 07/02/22 21:25 Temperature Pulse Rate 108 H 104 H Respiratory Rate 18 19 Blood Pressure 155/93 H Pulse Oximetry 96 97 Oxygen Delivery Method Nasal Cannula Nasal Cannula Oxygen Flow Rate 2 2 07/02/22 21:25 07/02/22 21:30 07/02/22 21:40 Temperature Pulse Rate 115 H 124 H Respiratory Rate 23 24 Blood Pressure 148/77 H Pulse Oximetry 96 95 Oxygen Delivery Method Nasal Cannula Nasal Cannula Oxygen Flow Rate 2 2 07/02/22 21:40 07/02/22 21:45 07/02/22 21:45 Temperature Pulse Rate 112 H Respiratory Rate 21 Blood Pressure 159/90 H 148/78 H Pulse Oximetry 96 Oxygen Delivery Method Oxygen Flow Rate 07/02/22 21:50 07/02/22 21:50 07/02/22 21:55 Temperature Pulse Rate 104 H 103 H Respiratory Rate 19 20 Blood Pressure 159/68 H Pulse Oximetry 97 97 Oxygen Delivery Method Nasal Cannula Nasal Cannula Oxygen Flow Rate 2 2 07/02/22 21:55 07/02/22 22:00 07/02/22 22:00 Temperature Pulse Rate 103 H Respiratory Rate 23 Blood Pressure 146/65 H 135/79 Pulse Oximetry 97 Oxygen Delivery Method Nasal Cannula Oxygen Flow Rate 2 07/02/22 22:05 07/02/22 22:05 07/02/22 22:10 Temperature Pulse Rate 101 H 102 H Respiratory Rate 18 25 H Blood Pressure 131/84 Pulse Oximetry 99 98 Oxygen Delivery Method Nasal Cannula Nasal Cannula Oxygen Flow Rate 2 2 07/02/22 22:10 07/02/22 22:15 07/02/22 22:15 Temperature Pulse Rate 104 H Respiratory Rate 23 Blood Pressure 141/81 H 152/76 H Pulse Oximetry 97 Oxygen Delivery Method Nasal Cannula Oxygen Flow Rate 2 07/02/22 22:20 07/02/22 22:20 07/02/22 22:25 Temperature Pulse Rate 108 H 101 H Respiratory Rate 20 20 Blood Pressure 143/70 H Pulse Oximetry 98 98 Oxygen Delivery Method Nasal Cannula Nasal Cannula Oxygen Flow Rate 2 2 07/02/22 22:25 07/02/22 22:30 07/02/22 22:30 Temperature Pulse Rate 105 H Respiratory Rate 19 Blood Pressure 146/72 H 157/92 H Pulse Oximetry 98 Oxygen Delivery Method Nasal Cannula Oxygen Flow Rate 2 07/02/22 22:35 07/02/22 22:35 07/02/22 22:40 Temperature Pulse Rate 104 H 97 H Respiratory Rate 29 H 20 Blood Pressure 160/78 H Pulse Oximetry 99 98 Oxygen Delivery Method Nasal Cannula Nasal Cannula Oxygen Flow Rate 2 2 07/02/22 22:40 07/02/22 22:45 07/02/22 22:45 Temperature Pulse Rate 98 H Respiratory Rate 20 Blood Pressure 134/74 150/75 H Pulse Oximetry 97 Oxygen Delivery Method Nasal Cannula Oxygen Flow Rate 2 07/02/22 22:50 07/02/22 22:50 07/02/22 22:55 Temperature Pulse Rate 96 H 97 H Respiratory Rate 21 18 Blood Pressure 151/72 H Pulse Oximetry 99 99 Oxygen Delivery Method Nasal Cannula Nasal Cannula Oxygen Flow Rate 2 2 07/02/22 22:55 07/02/22 23:00 07/02/22 23:00 Temperature Pulse Rate 97 H Respiratory Rate 18 Blood Pressure 143/81 H 147/86 H Pulse Oximetry 99 Oxygen Delivery Method Nasal Cannula Oxygen Flow Rate 2 07/02/22 23:05 07/02/22 23:05 07/02/22 23:10 Temperature Pulse Rate 95 H 99 H Respiratory Rate 18 20 Blood Pressure 146/70 H Pulse Oximetry 99 99 Oxygen Delivery Method Nasal Cannula Nasal Cannula Oxygen Flow Rate 2 2 07/02/22 23:10 07/02/22 23:15 07/02/22 23:15 Temperature Pulse Rate 96 H Respiratory Rate 19 Blood Pressure 152/96 H 148/70 H Pulse Oximetry 98 Oxygen Delivery Method Nasal Cannula Oxygen Flow Rate 2 07/02/22 23:20 07/02/22 23:20 07/02/22 23:25 Temperature Pulse Rate 96 H 95 H Respiratory Rate 18 19 Blood Pressure 153/78 H Pulse Oximetry 99 99 Oxygen Delivery Method Nasal Cannula Nasal Cannula Oxygen Flow Rate 2 2 07/02/22 23:25 07/02/22 23:30 07/02/22 23:30 Temperature Pulse Rate 104 H Respiratory Rate 18 Blood Pressure 144/68 H 154/86 H Pulse Oximetry 96 Oxygen Delivery Method Nasal Cannula Oxygen Flow Rate 2 07/02/22 23:36 07/02/22 23:36 07/03/22 02:00 Temperature 98.7 F Pulse Rate 124 H 104 H Respiratory Rate 20 18 Blood Pressure 128/59 L 154/91 H Pulse Oximetry 98 93 Oxygen Delivery Method Nasal Cannula Oxygen Flow Rate 2 0 07/03/22 01:58 07/03/22 01:34 Temperature Pulse Rate Respiratory Rate Blood Pressure Pulse Oximetry 95 Oxygen Delivery Method Room Air Room Air Oxygen Flow Rate 0 Oxygen Delivery Method Room Air Oxygen Flow Rate 0 Narrative Exam Narrative: GEN: in respiratory distress HEENT: moist mucous membranes, PERRL NECK: trachea midline, elevated JVD PULM: decreased breath sounds right base, +crackles CV: irregular, tachycardic ABD: soft, nontender, nondistended, no organomegaly EXT: warm and well perfused with no edema NEURO: awake, alert, mildly confused, no focal deficits Objective Labs Result Diagrams: 07/02/22 18:30 07/02/22 18:30 Labs: Laboratory Results - last 24 hr 07/02/22 07/02/22 07/02/22 18:30 18:30 18:30 WBC 8.0 RBC 4.13 Hgb 12.2 Hct 36.1 MCV 87.4 MCH 29.7 MCHC 33.9 RDW 14.2 Plt Count 351 Neut % (Auto) 68.2 Lymph % (Auto) 20.4 L Story % (Auto) 7.4 Eos % (Auto) 3.0 Baso % (Auto) 1.0 Neut # (Auto) 5500 Lymph # (Auto) 1600 Story # (Auto) 600 Eos # (Auto) 200 Baso # (Auto) 100 PT 12.0 INR 1.0 APTT 27 Sodium 137 Potassium 2.9 L Chloride 100 Carbon Dioxide 26 BUN 17 Creatinine 0.57 Estimated GFR > 60 BUN/Creatinine Ratio 29.8 H Glucose 109 Lactate Calcium 8.6 Magnesium 1.3 L Total Bilirubin 0.6 AST 39 H ALT 42 H Alkaline Phosphatase 163 H Total Creatine Kinase 33 CK-MB (CK-2) TNP CK-MB (CK-2) Rel Index TNP Troponin I < 0.012 NT-Pro-B Natriuret Pep Total Protein 6.7 Albumin 3.7 Globulin 3.0 Albumin/Globulin Ratio 1.2 Lipase 120 TSH SARS-CoV-2 (PCR) 07/02/22 07/02/22 07/02/22 18:30 18:37 18:37 WBC RBC Hgb Hct MCV MCH MCHC RDW Plt Count Neut % (Auto) Lymph % (Auto) Story % (Auto) Eos % (Auto) Baso % (Auto) Neut # (Auto) Lymph # (Auto) Story # (Auto) Eos # (Auto) Baso # (Auto) PT INR APTT Sodium Potassium Chloride Carbon Dioxide BUN Creatinine Estimated GFR BUN/Creatinine Ratio Glucose Lactate 1.2 Calcium Magnesium Total Bilirubin AST ALT Alkaline Phosphatase Total Creatine Kinase CK-MB (CK-2) CK-MB (CK-2) Rel Index Troponin I NT-Pro-B Natriuret Pep 624 H Total Protein Albumin Globulin Albumin/Globulin Ratio Lipase TSH 4.58 SARS-CoV-2 (PCR) 07/02/22 21:09 WBC RBC Hgb Hct MCV MCH MCHC RDW Plt Count Neut % (Auto) Lymph % (Auto) Story % (Auto) Eos % (Auto) Baso % (Auto) Neut # (Auto) Lymph # (Auto) Story # (Auto) Eos # (Auto) Baso # (Auto) PT INR APTT Sodium Potassium Chloride Carbon Dioxide BUN Creatinine Estimated GFR BUN/Creatinine Ratio Glucose Lactate Calcium Magnesium Total Bilirubin AST ALT Alkaline Phosphatase Total Creatine Kinase CK-MB (CK-2) CK-MB (CK-2) Rel Index Troponin I NT-Pro-B Natriuret Pep Total Protein Albumin Globulin Albumin/Globulin Ratio Lipase TSH SARS-CoV-2 (PCR) Negative Assessment & Plan Assessment & Plan narrative: 1. Acute hypoxemic respiratory failure -secondary to fluid overload suspect new diagnosis of CHF with pleural effusions, pulmonary edema, cardiomegaly, elevated BNP and JVD -etiology of CHF possibly from persistent tachycardia -patient was found to have afib over a month ago and has not been taking any rate control medications -started on IV lasix -low salt diet, fluid restiriction, and monitor I/Os -ordered ECHO -consider thoracentesis for both diagnostic and therapeutic purposes -suspect bacterial pneumonia less likely, for now order levofloxacin, check procalcitonin, if negative may consider stopping antibiotics 2. Atrial fibrillation with RVR -TSH normal -started on diltiazem in ED with good improvement in rate and symptoms -continue diltiazem for now, try -CHADSVASC 2 elvated at 5, consider anticoagulation at dc, but for now will hold off in case thoracentesis indicated 3. Hypokalemia, hypomagnesemia -ordered repletion on admission -recheck in AM, and replete PRN 4. Hypertension -hold medications for now as newly started on diltiazem 5. Depression -continue ssri CODE: DNR/DNI Proxy: Zaki Vice, life partner I have utilized all available resources to reconcile the patient's home medications Time Spent With Patient Critical Care time: I spent a total of [] minutes of critical care time on this patient's care today; this time is exclusive of procedural time.
[2022-07-03] MEDS: dilTIAZem 5 MG/ML SDV 10 MG IV (04:02)
[2022-07-03] MEDS: dilTIAZem 30 MG TABLET PO ×5 (04:02→23:32)
[2022-07-03] MEDS: ONDANSETRON 4 MG/2 ML INJ IV ×2 (04:11→11:42)
[2022-07-03] MEDS: ACETAMINOPHEN 325 MG TABLET 650 MG PO (04:20)
--- NOTE | 2022-07-03 04:44 | PC.NURSE ---
Pt came from ED around 0145. Pt c/o frequent urination. VSS except HR is tachy and unstable and BP is high. Pt's HR goes up till 140-150s and it takes a long time to go back down 110. However, it is short and pt also gets up to the commode almost Q5 minutes and pt has lots of loose stools. MD is paged for HR and got order for Diltiazem IV and PO scheduled. HR went down 96 and BP-110/63. Pt c/o feeling nauseaus every time she gets up so PRN IV Zofran given with good effect. Pt c/o abd pain and recieved PRN Tylenol with good effect. No other changes. Continue monitor.
[2022-07-03 05:38] LABS: Add Manual Diff / Slide Review NO; Basophils Absolute Auto 100 /uL (0-100); Basophils Percent Auto 0.9 % (0-2); Eosinophils Absolute Auto 200 /uL (0-450); Eosinophils Percent Auto 2.6 % (2-4); Hematocrit 34.3 % (36-46); Hemoglobin 11.6 g/dL (12.0-16.0); Lymphocytes Absolute Auto 1000 /uL (1100-4500); Lymphocytes Percent Auto 12.2 % (25-40); Mean Corpuscular HGB Conc 33.8 % (30-36); Mean Corpuscular Hemoglobin 29.3 PG (26-34); Mean Corpuscular Volume 86.7 fL (80-100); Monocytes Absolute Auto 600 /uL (0-900); Neutrophils Absolute Auto 6100 /uL (1500-7000); Neutrophils Percent Auto 77.3 % (50-75); Platelet Count 339 X10^3/uL (150-400); Red Blood Cell Count 3.96 X10^6/uL (4.0-5.2); Red Cell Distribution Width 14.5 % (11.6-14.8); White Blood Cell Count 7.9 X10^3/uL (4.5-11.0)
[2022-07-03 05:46] LABS: BUN Creatinine Ratio 25.9 (6-22); Blood Urea Nitrogen 14 mg/dL (7-17); Carbon Dioxide 28 mmol/L (22-32); Chloride 96 mmol/L (98-107); Estimated Glomerular Filt Rate > 60 mL/min (>60); Glucose 112 mg/dL (80-110); HEMOLYSIS < 15 (0-50); Magnesium 2.8 mg/dL (1.6-2.3); Potassium 2.9 mmol/L (3.4-5.1); Sodium 132 mmol/L (137-145)
[2022-07-03 05:58] LABS: Appearance Urine UA CLEAR; Bilirubin Urine UA NEGATIVE (NEGATIVE); Color Urine UA YELLOW; Glucose Urine UA NEGATIVE (Negative); Ketones Urine UA NEGATIVE (NEGATIVE); Leukocyte Esterase Urine UA 2+ (NEGATIVE); Nitrite Urine UA POSITIVE (Negative); Occult Blood Urine UA 1+ (Negative); Protein Urine UA NEGATIVE (Negative); Specific Gravity Urine UA <=1.005 (1.000-1.035); Urobilinogen Urine UA 0.2 E.U./dL (0.2)
[2022-07-03 06:03] LABS: Procalcitonin 0.08 ng/mL (<0.5)
[2022-07-03 06:43] LABS: RBC Urine 0-1/HPF (0-5/HPF); WBC Urine 5-10/HPF (0-5/HPF)
[2022-07-03 06:44] LABS: Bacteria Urine Few (2-10); Culture Indicated Urine Specimen Cultured; Squamous Epithelial Cell Urine 1-5 /HPF (0-5/HPF)
--- NOTE | 2022-07-03 06:59 | P.PN_ITS ---
Subjective Subjective Interval history: 87-year-old female with hypertension, hyperlipidemia, depression, recent trauma with resultant rib fracture and liver laceration who was admitted early this morning with acute hypoxic respiratory failure, AFib with RVR, hypokalemia. Patient reports she does have chronic difficulties with urinary tract infection. She states she is been symptomatic with some dysuria. She reports her shortness breath is much improved. She does sometimes feel her heart racing. She denies any chest pain. Rib pain from her fracture is improving. She slept poorly overnight. Exam Vital Signs (past 8 hours): - 07/02/22 23:00 07/02/22 23:00 07/02/22 23:05 Temperature Pulse Rate 97 H 95 H Respiratory Rate 18 18 Blood Pressure 147/86 H Pulse Oximetry 99 99 Oxygen Delivery Method Nasal Cannula Nasal Cannula Oxygen Flow Rate 2 2 07/02/22 23:05 07/02/22 23:10 07/02/22 23:10 Temperature Pulse Rate 99 H Respiratory Rate 20 Blood Pressure 146/70 H 152/96 H Pulse Oximetry 99 Oxygen Delivery Method Nasal Cannula Oxygen Flow Rate 2 07/02/22 23:15 07/02/22 23:15 07/02/22 23:20 Temperature Pulse Rate 96 H 96 H Respiratory Rate 19 18 Blood Pressure 148/70 H Pulse Oximetry 98 99 Oxygen Delivery Method Nasal Cannula Nasal Cannula Oxygen Flow Rate 2 2 07/02/22 23:20 07/02/22 23:25 07/02/22 23:25 Temperature Pulse Rate 95 H Respiratory Rate 19 Blood Pressure 153/78 H 144/68 H Pulse Oximetry 99 Oxygen Delivery Method Nasal Cannula Oxygen Flow Rate 2 07/02/22 23:30 07/02/22 23:30 07/02/22 23:36 Temperature Pulse Rate 104 H 124 H Respiratory Rate 18 20 Blood Pressure 154/86 H Pulse Oximetry 96 98 Oxygen Delivery Method Nasal Cannula Nasal Cannula Oxygen Flow Rate 2 2 07/02/22 23:36 07/03/22 02:00 07/03/22 01:58 Temperature 98.7 F Pulse Rate 104 H Respiratory Rate 18 Blood Pressure 128/59 L 154/91 H Pulse Oximetry 93 95 Oxygen Delivery Method Room Air Oxygen Flow Rate 0 0 07/03/22 01:34 07/03/22 04:02 07/03/22 04:02 Temperature Pulse Rate 146 H 146 H Respiratory Rate Blood Pressure 154/91 H 154/91 H Pulse Oximetry Oxygen Delivery Method Room Air Oxygen Flow Rate 07/03/22 04:26 07/03/22 05:58 07/03/22 05:39 Temperature 98.3 F Pulse Rate 96 H 94 H Respiratory Rate 18 Blood Pressure 110/63 110/63 Pulse Oximetry 91 95 Oxygen Delivery Method Room Air Oxygen Flow Rate 0 0 Oxygen Delivery Method Room Air Oxygen Flow Rate 0 Narrative Exam Narrative: GEN: Alert and oriented x 3, NAD HEENT:NC, Face symmetric CHEST: Respiratory excursions symmetric,diminished in the RLL o/w, CTAB CV: tachy, irreg irreg, no M/R/G ABD: Soft, mildly diffusely tender, ND, BT present in all 4 quadrants, no organomegaly or masses EXTR: warm, well perfused, no C/C/E SKIN: warm and dry, no rash NEURO: Alert and oriented x 3, nonfocal Objective Labs Result Diagrams: 07/03/22 05:17 07/03/22 05:17 Labs: Laboratory Results - last 24 hr 07/02/22 07/02/22 07/02/22 18:30 18:30 18:30 WBC 8.0 RBC 4.13 Hgb 12.2 Hct 36.1 MCV 87.4 MCH 29.7 MCHC 33.9 RDW 14.2 Plt Count 351 Neut % (Auto) 68.2 Lymph % (Auto) 20.4 L [place] % (Auto) 7.4 Eos % (Auto) 3.0 Baso % (Auto) 1.0 Neut # (Auto) 5500 Lymph # (Auto) 1600 [place] # (Auto) 600 Eos # (Auto) 200 Baso # (Auto) 100 PT 12.0 INR 1.0 APTT 27 Sodium 137 Potassium 2.9 L Chloride 100 Carbon Dioxide 26 BUN 17 Creatinine 0.57 Estimated GFR > 60 BUN/Creatinine Ratio 29.8 H Glucose 109 Lactate Calcium 8.6 Magnesium 1.3 L Total Bilirubin 0.6 AST 39 H ALT 42 H Alkaline Phosphatase 163 H Total Creatine Kinase 33 CK-MB (CK-2) TNP CK-MB (CK-2) Rel Index TNP Troponin I < 0.012 NT-Pro-B Natriuret Pep Total Protein 6.7 Albumin 3.7 Globulin 3.0 Albumin/Globulin Ratio 1.2 Lipase 120 Procalcitonin TSH Urine Color Urine Appearance Urine pH Ur Specific [place] Urine Protein Urine Glucose (UA) Urine Ketones Urine Occult Blood Urine Nitrate Urine Bilirubin Urine Urobilinogen Ur Leukocyte Esterase Urine RBC Urine WBC Ur Squamous Epith Cells Urine Bacteria Ur Culture Indicated? SARS-CoV-2 (PCR) 07/02/22 07/02/22 07/02/22 18:30 18:37 18:37 WBC RBC Hgb Hct MCV MCH MCHC RDW Plt Count Neut % (Auto) Lymph % (Auto) [place] % (Auto) Eos % (Auto) Baso % (Auto) Neut # (Auto) Lymph # (Auto) [place] # (Auto) Eos # (Auto) Baso # (Auto) PT INR APTT Sodium Potassium Chloride Carbon Dioxide BUN Creatinine Estimated GFR BUN/Creatinine Ratio Glucose Lactate 1.2 Calcium Magnesium Total Bilirubin AST ALT Alkaline Phosphatase Total Creatine Kinase CK-MB (CK-2) CK-MB (CK-2) Rel Index Troponin I NT-Pro-B Natriuret Pep 624 H Total Protein Albumin Globulin Albumin/Globulin Ratio Lipase Procalcitonin TSH 4.58 Urine Color Urine Appearance Urine pH Ur Specific [place] Urine Protein Urine Glucose (UA) Urine Ketones Urine Occult Blood Urine Nitrate Urine Bilirubin Urine Urobilinogen Ur Leukocyte Esterase Urine RBC Urine WBC Ur Squamous Epith Cells Urine Bacteria Ur Culture Indicated? SARS-CoV-2 (PCR) 07/02/22 07/03/22 07/03/22 21:09 02:00 05:17 WBC 7.9 RBC 3.96 L Hgb 11.6 L Hct 34.3 L MCV 86.7 MCH 29.3 MCHC 33.8 RDW 14.5 Plt Count 339 Neut % (Auto) 77.3 H Lymph % (Auto) 12.2 L [place] % (Auto) 7.0 Eos % (Auto) 2.6 Baso % (Auto) 0.9 Neut # (Auto) 6100 Lymph # (Auto) 1000 L [place] # (Auto) 600 Eos # (Auto) 200 Baso # (Auto) 100 PT INR APTT Sodium Potassium Chloride Carbon Dioxide BUN Creatinine Estimated GFR BUN/Creatinine Ratio Glucose Lactate Calcium Magnesium Total Bilirubin AST ALT Alkaline Phosphatase Total Creatine Kinase CK-MB (CK-2) CK-MB (CK-2) Rel Index Troponin I NT-Pro-B Natriuret Pep Total Protein Albumin Globulin Albumin/Globulin Ratio Lipase Procalcitonin TSH Urine Color Yellow Urine Appearance Clear Urine pH 6.0 Ur Specific [place] <=1.005 Urine Protein Negative Urine Glucose (UA) Negative Urine Ketones Negative Urine Occult Blood 1+ H Urine Nitrate Positive H Urine Bilirubin Negative Urine Urobilinogen 0.2 Ur Leukocyte Esterase 2+ H Urine RBC 0-1/hpf Urine WBC 5-10/hpf H Ur Squamous Epith Cells 1-5 /hpf Urine Bacteria Few (2-10) H Ur Culture Indicated? Specimen cultured SARS-CoV-2 (PCR) Negative 07/03/22 07/03/22 07/03/22 05:17 05:17 05:17 WBC RBC Hgb Hct MCV MCH MCHC RDW Plt Count Neut % (Auto) Lymph % (Auto) [place] % (Auto) Eos % (Auto) Baso % (Auto) Neut # (Auto) Lymph # (Auto) [place] # (Auto) Eos # (Auto) Baso # (Auto) PT INR APTT Sodium 132 L Potassium 2.9 L Chloride 96 L Carbon Dioxide 28 BUN 14 Creatinine 0.54 Estimated GFR > 60 BUN/Creatinine Ratio 25.9 H Glucose 112 H Lactate Calcium 8.0 L Magnesium 2.8 H Total Bilirubin AST ALT Alkaline Phosphatase Total Creatine Kinase CK-MB (CK-2) CK-MB (CK-2) Rel Index Troponin I NT-Pro-B Natriuret Pep Total Protein Albumin Globulin Albumin/Globulin Ratio Lipase Procalcitonin 0.08 TSH Urine Color Urine Appearance Urine pH Ur Specific [place] Urine Protein Urine Glucose (UA) Urine Ketones Urine Occult Blood Urine Nitrate Urine Bilirubin Urine Urobilinogen Ur Leukocyte Esterase Urine RBC Urine WBC Ur Squamous Epith Cells Urine Bacteria Ur Culture Indicated? SARS-CoV-2 (PCR) [facility] Medical History Breast cancer (2007) Chicken pox (~1945) Colitis (2007) Collagenous colitis (2005) Degenerative joint disease of right hip Depression (2010) Hearing loss (2011) Hyperlipidemia Hypertension Measles (~1942) Mumps (~1942) Osteoporosis (1999) Surgical History Anesthesia History of arthroplasty of right hip History of cosmetic surgery (09/2012) History of gynecologic surgery (2007) History of oophorectomy (1982) History of total right hip arthroplasty (2014) Status post breast lumpectomy (2007) Status post hysterectomy (1981) Family History Mother Type II diabetes mellitus Hypertension High cholesterol Father No problems noted. Sister No problems noted. Sister Cancer Sister No problems noted. Sister No problems noted. Other Colorectal cancer Social History marital status: unmarried,living together (partner) number of children: 1 household members: significant other lives independently: Yes occupational status: other (retired) Smoking Status: Former smoker alcohol intake: current substance use type: does not use Assessment & Plan Assessment & Plan narrative: 1. Acute hypoxic respiratory failure [place] to be secondary to new diagnosis of congestive heart failure with pleural effusions, pulmonary edema, cardiomegaly, JVD clinically. Continues on IV Lasix 20 mg q.12, fluid restriction. Echocardiogram pending. She was initiated on empiric Levaquin, as CTA on admission revealed right middle and lower lobe atelectasis versus pneumonia in the setting of moderate to large right and small left pleural effusions with compressive atelectasis. Additionally, there is indistinct ground-glass opacities in the anterior lungs predominantly in the left upper lobe. She is not presently requiring any oxygen. Will consider follow-up chest x-ray tomorrow to determine if diuresis has improved her pleural effusion. 2. AFib with RVR Patient was initiated on diltiazem in the emergency department. CHADS2 Vasc score was 5. Will likely require anticoagulation. Diltiazem 30 mg q.6 orally has been ordered 3. Hypokalemia potassium was 2.9 on admission. Sixty mEq of potassium chloride infused. Potassium remains low at 2.9. She has 40 mEq 3 times daily ordered presently. We will follow. 4. Hypomagnesemia Magnesium was 1.3 on admission. It is up to 2.8 after repletion. 5. Transaminitis due to recent liver laceration In May, she did have an AST of 454, ALT of 344. Those have significantly improved on admission and are down to 39 and 42 respectively. 6. Abnormal urinalysis UA revealed 1+ occult blood, positive nitrates, 2+ leukocyte esterase, 5-10 wh ite cells, and few bacteria. Specimen has been sent for culture. Is receiving empiric Levaquin 7. Hypertension Blood pressures are normotensive. Lisinopril has been held in the setting of oral diltiazem for AFib. 8. Depression Continue fluoxetine 9. Recent rib fractures As needed Tylenol available Code status DNR Prophylaxis Lovenox Disposition Pending Time Spent With Patient Critical Care time: I spent a total of [] minutes of critical care time on this patient's care today; this time is exclusive of procedural time.
[2022-07-03] MEDS: ENOXAPARIN 40 MG/0.4 ML SYRINGE SUBCUT (08:10)
[2022-07-03] MEDS: POTASSIUM CHLORIDE 20 MEQ TAB 40 MEQ PO ×3 (08:10→17:31)
[2022-07-03] MEDS: FUROSEMIDE 40 MG/4 ML VIAL 20 MG IV ×2 (08:10→19:42)
[2022-07-03] MEDS: FLUoxetine 20 MG CAPSULE PO (08:10)
--- NOTE | 2022-07-03 11:20 | CM.DANOTE ---
DCP: Case received, EMR reviewed and met with patient. Introduced self and role. Was able to obtain information regarding patient's baseline activity status at home prior to hospitalization. DCP assessment completed with information currently available. Patient is an 87year old female who admitted early this morning to the care of the hospitalist team. PCP: Dr. Blair. Payer: confirmed: [employer]. Patient came to the hospital via private vehicle secondary to having increased shortness of breath the last 2-3 days. Patient has history of depression, a recent traumatic fall resulting in injuries for transfer to [facility]. Patient was put on 2 liters of oxygen and was initially placed on a diltiazem drip for PACs, atrial fibrillation. Patient was diagnosed with pneumonia, CHF. Met with patient in her room. She was sitting up in bed, alert and oriented. Confirmed that she resides in [place] with spouse, Chevy. She does not drive, she uses a FWW at her baseline. P: DCP to continue to follow. Patient should be able to go home when deemed medically stable. She does not yet have any current P.T. orders. Genesis Andrea RN/Professor Of Environmental Engineering Discharge Planning/Care Management CM Discharge Assessment Start: 07/03/22 11:18 Freq: Status: Active Protocol: Document 07/03/22 11:18 (Rec: 07/03/22 11:20 [id number]) Discharge Planning Assessment Assigned Electric Fan Assembler Genesis Andrea RN/Professor Of Environmental Engineering Advance Directives? No History Provided By Patient,Medical Record Prior Living Arrangements House Household Members significant other Type of transporation used prior to Relies on Others admit Independent with ADL's Yes Is patient alert and oriented? Yes Needs Assistance With Meal Prep,Home Chores / Shopping DME Already Rented / Owned FWW / Walker Barriers to Discharge No Discharge Plan Home Transportation Arrangement Spouse Referrals Initiated None needed,Other Additional Comment Will see if patient gets therapy orders, may benefit with home health Whiteboard Updated in Patient Room with Yes name and ext. # of Electric Fan Assembler Review Status In Process Next Review Type Continued Stay Review
[2022-07-04] VITALS (12 sets, daily range): BP systolic 120–148; BP diastolic 59–94; PULSE 85–108; RESP 16–19; TEMP 36.1–36.9; O2SAT 93–98
--- NOTE | 2022-07-04 05:36 | P.PN_ITS ---
Subjective Subjective Interval history: 87-year-old female with hypertension, hyperlipidemia, depression, recent trauma with resultant rib fracture and liver laceration who was admitted early this morning with acute hypoxic respiratory failure, AFib with RVR, hypokalemia. Reports she does feel as though her breathing is improving today. To have some dyspnea with activity. She reports a fair appetite. She is urinating well and having regular bowel movements. He has been successfully weaned off of oxygen. She does continue to feel some palpitations. Exam Vital Signs (past 8 hours): - 07/03/22 23:32 07/03/22 23:58 07/04/22 01:00 Temperature 97.5 F L Pulse Rate 90 89 Respiratory Rate 17 Blood Pressure 103/59 L 124/72 Pulse Oximetry 92 96 Oxygen Delivery Method Room Air Oxygen Flow Rate 0 07/04/22 05:00 Temperature Pulse Rate Respiratory Rate Blood Pressure Pulse Oximetry 97 Oxygen Delivery Method Room Air Oxygen Flow Rate 0 Oxygen Delivery Method Room Air Oxygen Flow Rate 0 Narrative Exam Narrative: GEN: Alert and oriented x 3, NAD HEENT:NC, Face symmetric CHEST: Respiratory excursions symmetric,diminished in the RLL o/w,? CTAB CV: Regular rate and rhythm, 3/6 systolic murmur heard best at the left sternal border, no rubs or gallops ABD: Soft, mild suprapubic tenderness, ND, BT present in all 4 quadrants, no organomegaly or masses EXTR: warm, well perfused, no C/C/E SKIN: warm and dry, no rash NEURO: Alert and oriented x 3, nonfocal Objective Labs Result Diagrams: 07/04/22 08:33 07/04/22 08:33 Labs: Laboratory Results - last 24 hr 07/03/22 07/03/22 07/03/22 02:00 05:17 05:17 WBC 7.9 RBC 3.96 L Hgb 11.6 L Hct 34.3 L MCV 86.7 MCH 29.3 MCHC 33.8 RDW 14.5 Plt Count 339 Neut % (Auto) 77.3 H Lymph % (Auto) 12.2 L [place] % (Auto) 7.0 Eos % (Auto) 2.6 Baso % (Auto) 0.9 Neut # (Auto) 6100 Lymph # (Auto) 1000 L [place] # (Auto) 600 Eos # (Auto) 200 Baso # (Auto) 100 Sodium 132 L Potassium 2.9 L Chloride 96 L Carbon Dioxide 28 BUN 14 Creatinine 0.54 Estimated GFR > 60 BUN/Creatinine Ratio 25.9 H Glucose 112 H Calcium 8.0 L Magnesium Procalcitonin Urine Color Yellow Urine Appearance Clear Urine pH 6.0 Ur Specific [place] <=1.005 Urine Protein Negative Urine Glucose (UA) Negative Urine Ketones Negative Urine Occult Blood 1+ H Urine Nitrate Positive H Urine Bilirubin Negative Urine Urobilinogen 0.2 Ur Leukocyte Esterase 2+ H Urine RBC 0-1/hpf Urine WBC 5-10/hpf H Ur Squamous Epith Cells 1-5 /hpf Urine Bacteria Few (2-10) H Ur Culture Indicated? Specimen cultured 07/03/22 07/03/22 05:17 05:17 WBC RBC Hgb Hct MCV MCH MCHC RDW Plt Count Neut % (Auto) Lymph % (Auto) [place] % (Auto) Eos % (Auto) Baso % (Auto) Neut # (Auto) Lymph # (Auto) [place] # (Auto) Eos # (Auto) Baso # (Auto) Sodium Potassium Chloride Carbon Dioxide BUN Creatinine Estimated GFR BUN/Creatinine Ratio Glucose Calcium Magnesium 2.8 H Procalcitonin 0.08 Urine Color Urine Appearance Urine pH Ur Specific [place] Urine Protein Urine Glucose (UA) Urine Ketones Urine Occult Blood Urine Nitrate Urine Bilirubin Urine Urobilinogen Ur Leukocyte Esterase Urine RBC Urine WBC Ur Squamous Epith Cells Urine Bacteria Ur Culture Indicated? [facility] Medical History Breast cancer (2007) Chicken pox (~1945) Colitis (2007) Collagenous colitis (2005) Degenerative joint disease of right hip Depression (2010) Hearing loss (2011) Hyperlipidemia Hypertension Measles (~1942) Mumps (~1942) Osteoporosis (1999) Surgical History Anesthesia History of arthroplasty of right hip History of cosmetic surgery (09/2012) History of gynecologic surgery (2007) History of oophorectomy (1982) History of total right hip arthroplasty (2014) Status post breast lumpectomy (2007) Status post hysterectomy (1981) Family History Mother Type II diabetes mellitus Hypertension High cholesterol Father No problems noted. Sister No problems noted. Sister Cancer Sister No problems noted. Sister No problems noted. Other Colorectal cancer Social History marital status: unmarried,living together (partner) number of children: 1 household members: significant other lives independently: Yes occupational status: other (retired) Smoking Status: Former smoker alcohol intake: current substance use type: does not use Assessment & Plan Assessment & Plan narrative: 1. Acute hypoxic respiratory failure [place] to be secondary to new diagnosis of congestive heart failure with pleural effusions, pulmonary edema, cardiomegaly, JVD clinically.? Continues on IV Lasix 20 mg q.12, fluid restriction.? Echocardiogram revealed LV systolic function of 60-65%, no wall motion abnormalities. Normal right ventricular size and function. Moderate aortic stenosis. She is continued on empiric Levaquin, as CTA on admission revealed right middle and lower lobe atelectasis versus pneu monia in the setting of moderate to large right and small left pleural effusions with compressive atelectasis.? Additionally, there is indistinct ground-glass opacities in the anterior lungs predominantly in the left upper lobe.? She is not presently requiring any oxygen.? As she is now stable on room air, will not plan to pursue chest x-ray for reassessment of her pleural effusion for now. 2. Paroxysmal AFib with RVR Patient was initiated on diltiazem in the emergency department.? CHADS2 Vasc score was 5.? Will likely require anticoagulation.?She is in sinus rhythm now. Continue diltiazem 30 mg p.o. q.6 hours. She is tolerating that well. Could likely transition to a long-acting medication soon. 3. Hypokalemia ?potassium was 2.9 on admission.? After significant repletion yesterday, p otassium is now normal at 4.5. 4. Hypomagnesemia Magnesium was 1.3 on admission.? It is up to 2.8 after repletion. 5. Transaminitis due to recent liver laceration In May, she did have an AST of 454, ALT of 344.? Those have significantly improved on admission and are down to 39 and 42 respectively. No further follow-up on LFTs planned. 6. Abnormal urinalysis UA revealed 1+ occult blood, positive nitrates, 2+ leukocyte esterase, 5-10 white cells, and few bacteria.? Culture is negative to date.? Is receiving empiric Levaquin 7. Hypertension Blood pressures are normotensive.? Lisinopril has been held in the setting of oral diltiazem for AFib. 8. Depression Continue fluoxetine 9. Recent rib fractures As needed Tylenol available Code status DNR Prophylaxis Lovenox Disposition Possible discharge home tomorrow. She lives with her partner who is able to assist her. Time Spent With Patient Critical Care time: I spent a total of [] minutes of critical care time on this patient's care today; this time is exclusive of procedural time.
--- NOTE | 2022-07-04 05:46 | PC.NURSE ---
Pt is AxOx4, independent and cooperative. VSS,pt denies pain. HR controlled well with her scheduled Diltiazem. Pt slept well all night. Continue monitor.
[2022-07-04] MEDS: dilTIAZem 30 MG TABLET PO ×3 (05:50→21:38)
[2022-07-04 08:42] LABS: Add Manual Diff / Slide Review NO; Basophils Absolute Auto 0 /uL (0-100); Basophils Percent Auto 0.8 % (0-2); Eosinophils Absolute Auto 300 /uL (0-450); Eosinophils Percent Auto 5.8 % (2-4); Hemoglobin 11.6 g/dL (12.0-16.0); Lymphocytes Absolute Auto 1100 /uL (1100-4500); Lymphocytes Percent Auto 19.6 % (25-40); Mean Corpuscular HGB Conc 33.2 % (30-36); Mean Corpuscular Hemoglobin 28.9 PG (26-34); Monocytes Absolute Auto 500 /uL (0-900); Monocytes Percent Auto 8.8 % (3-14); Neutrophils Absolute Auto 3700 /uL (1500-7000); Platelet Count 352 X10^3/uL (150-400); Red Blood Cell Count 4.02 X10^6/uL (4.0-5.2); Red Cell Distribution Width 14.2 % (11.6-14.8); White Blood Cell Count 5.8 X10^3/uL (4.5-11.0)
[2022-07-04 08:53] LABS: BUN Creatinine Ratio 24.1 (6-22); Blood Urea Nitrogen 13 mg/dL (7-17); Calcium 8.3 mg/dL (8.4-10.2); Carbon Dioxide 31 mmol/L (22-32); Chloride 103 mmol/L (98-107); Estimated Glomerular Filt Rate > 60 mL/min (>60); Glucose 97 mg/dL (80-110); HEMOLYSIS < 15 (0-50); Potassium 4.5 mmol/L (3.4-5.1); Sodium 136 mmol/L (137-145)
[2022-07-04] MEDS: FUROSEMIDE 40 MG/4 ML VIAL 20 MG IV ×2 (11:09→21:41)
[2022-07-04] MEDS: FLUoxetine 20 MG CAPSULE PO (11:10)
[2022-07-04] MEDS: POTASSIUM CHLORIDE 20 MEQ TAB 40 MEQ PO ×2 (11:11→21:40)
[2022-07-04] MEDS: levoFLOXacin 250 MG TABLET 750 MG PO (21:39)
[2022-07-04] MEDS: ENOXAPARIN 40 MG/0.4 ML SYRINGE SUBCUT (21:41)
[2022-07-05] VITALS (7 sets, daily range): BP systolic 125–130; BP diastolic 70–75; PULSE 96–103; RESP 16–21; TEMP 36.3–36.4; O2SAT 94–97
[2022-07-05] MEDS: dilTIAZem 30 MG TABLET PO ×2 (03:00→08:50)
[2022-07-05] MEDS: ONDANSETRON 4 MG/2 ML INJ IV (03:00)
[2022-07-05] MEDS: ACETAMINOPHEN 325 MG TABLET 650 MG PO (03:00)
[2022-07-05 06:06] LABS: Add Manual Diff / Slide Review NO; Basophils Absolute Auto 100 /uL (0-100); Eosinophils Absolute Auto 400 /uL (0-450); Eosinophils Percent Auto 5.3 % (2-4); Hematocrit 36.7 % (36-46); Hemoglobin 12.1 g/dL (12.0-16.0); Lymphocytes Absolute Auto 2000 /uL (1100-4500); Lymphocytes Percent Auto 27.7 % (25-40); Mean Corpuscular Hemoglobin 28.7 PG (26-34); Mean Corpuscular Volume 86.9 fL (80-100); Monocytes Absolute Auto 700 /uL (0-900); Monocytes Percent Auto 9.6 % (3-14); Neutrophils Absolute Auto 4000 /uL (1500-7000); Neutrophils Percent Auto 56.4 % (50-75); Platelet Count 435 X10^3/uL (150-400); Red Blood Cell Count 4.22 X10^6/uL (4.0-5.2); Red Cell Distribution Width 14.5 % (11.6-14.8); White Blood Cell Count 7.1 X10^3/uL (4.5-11.0)
[2022-07-05 06:11] LABS: BUN Creatinine Ratio 30.1 (6-22); Blood Urea Nitrogen 22 mg/dL (7-17); Carbon Dioxide 28 mmol/L (22-32); Chloride 100 mmol/L (98-107); Estimated Glomerular Filt Rate > 60 mL/min (>60); Glucose 99 mg/dL (80-110); HEMOLYSIS 17 (0-50); Potassium 5.2 mmol/L (3.4-5.1); Sodium 133 mmol/L (137-145)
[2022-07-05 06:20] LABS: Troponin I < 0.012 ng/mL (0.01-0.034)
--- NOTE | 2022-07-05 08:12 | P.DS_ITS ---
History of Present Illness History of Present Illness Date Patient Seen: 07/05/22 Time Patient Seen: 01:00 Chief complaint: Heart problems Narrative: Ms. Villar is a 87W with PMH HTN, HL, depression and recent trauma that led to rib fracture and liver laceration. She is presenting now with shortness of breath. She has some mild notable confusion on exam, and has difficulty with providing me a history recently. Her history is not notable for dementia, but seems possibly a contributing factor on this history. Records are obtained primarily through notes. In early May, she presented to [place] after a fall and was noted to have a grade 4 liver laceration after a fall. She was transferred to [facility]. She did have some electrolyte abnormalities during he r stay. She was noted to have atrial fibrillation, but ultimately was not started on rate control or anticoagulation and discharged to SNF. Her reports that she was coughing, short of breath for the last few days. No sputum production, no sick contacts. No fevers/chills. No chest pain. In the ED workup was done, vitals notable for tachycardia with rates to the 140s. Ekg concerning for atrial fibrillation. She did have o2 sats in the 80s, placed on oxygen. Labs notable for wbc 8.0, hgb 12.2, plts 351. Na 137, k 2.9, creatinine 0.57. Mag 1.3. ALT/AST 39/42, alk phos 163. BNP 624. Trop negative. TSH 4.58. COVID negative. Chest xray showed right pleural effusion, cardiomegay, pulmonary edema. CTA showed no PE, bilateral pleural effusions larger on the right, and atelectasis. Ground glass opacities also noted. She was ordered for potassium and antibiotcis and admitted for further treatment. Discharge Providers Provider Date of admission: 07/03/22 00:26 Discharge Date: 07/05/22 Primary care physician: Robert Blair MD Discharge provider: Mak Doe DO Summary Hospital Course Discharge Diagnosis: 1. Acute hypoxic respiratory failure [place] to be secondary to new diagnosis of congestive heart failure with pleural effusions, pulmonary edema, cardiomegaly, JVD clinically.? Continues on IV Lasix 20 mg q.12, fluid restriction.? Echocardiogram revealed LV systolic function of 60-65%, no wall motion abnormalities.? Normal right ventricular size and func tion.? Moderate aortic stenosis.? She is continued on empiric Levaquin, as CTA on admission revealed right middle and lower lobe atelectasis versus pneumonia in the setting of moderate to large right and small left pleural effusions with compressive atelectasis.? Additionally, there is indistinct ground-glass opacities in the anterior lungs predominantly in the left upper lobe.? She is not presently requiring any oxygen. Discharged on po lasix and K. 2. Paroxysmal AFib with RVR Patient was initiated on diltiazem in the emergency department.? CHADS2 Vasc score was 5.? Started on eliquis.?She is in sinus rhythm now.? Now on po dilt 180mg ER daily. 3. Hypokalemia ?Potassium was 2.9 on admission.? After significant repletion yesterday, potassium is now normal at 4.5. Discharged on po K supplement. 4. Hypomagnesemia Magnesium was 1.3 on admission.? It is up to 2.8 after repletion. 5. Transaminitis due to recent liver laceration In May, she did have an AST of 454, ALT of 344.? Those have significantly improved on admission and are down to 39 and 42 respectively.? No further follow -up on LFTs planned. 6. Abnormal urinalysis UA revealed 1+ occult blood, positive nitrates, 2+ leukocyte esterase, 5-10 white cells, and few bacteria.? Culture is negative to date.? Is receiving empi marcy Levaquin 7. Hypertension Blood pressures are normotensive.? Lisinopril has been held in the setting of oral diltiazem for AFib. 8. Depression Continue fluoxetine 9. Recent rib fractures As needed Tylenol available Hospital Course: Admitted for volume overload from diastolic CHF exacerbation with pleural effusions, cardiomegaly and pulm edema on CXR. Also found to be in A-fib RVR. Given IV lasix, and po dilt with improvement in her dyspnea and tachycardia and able to wean off O2. Discharged on po eliquis 2.5mg BID, dilt 180mg ER daily, lasix 20mg QOD and potassium 10mEq daily. Time Spent with Patient Time spent: Greater than 30 minutes Exam Vital Signs (past 8 hours): - 07/05/22 02:30 07/05/22 01:00 07/05/22 03:00 Temperature 97.4 F L Pulse Rate 103 H 103 H Respiratory Rate 21 Blood Pressure 125/73 125/73 Pulse Oximetry 94 96 Oxygen Delivery Method Room Air Oxygen Flow Rate 0 07/05/22 06:47 07/05/22 05:00 Temperature 97.5 F L Pulse Rate 97 H Respiratory Rate 18 Blood Pressure 125/75 Pulse Oximetry 96 96 Oxygen Delivery Method Room Air Oxygen Flow Rate 0 Oxygen Delivery Method Room Air Oxygen Flow Rate 0 Narrative Exam Narrative: GEN: Alert and oriented x 3, NAD HEENT:NC, Face symmetric CHEST: Respiratory excursions symmetric,diminished in the RLL o/w,? CTAB CV: Regular rate and rhythm, 3/6 systolic murmur heard best at the left sternal border, no rubs or gallops ABD: Soft, mild suprapubic tenderness, ND, BT present in all 4 quadrants, no organomegaly or masses EXTR: warm, well perfused, no C/C/E SKIN: warm and dry, no rash NEURO: Alert and oriented x 3, nonfocal Objective Labs Result Diagrams: 07/05/22 05:43 07/05/22 05:43 Labs: Laboratory Results - last 24 hr 07/04/22 07/04/22 07/05/22 08:33 08:33 05:43 WBC 5.8 7.1 RBC 4.02 4.22 Hgb 11.6 L 12.1 Hct 35.0 L 36.7 MCV 87.0 86.9 MCH 28.9 28.7 MCHC 33.2 33.0 RDW 14.2 14.5 Plt Count 352 435 H Neut % (Auto) 65.0 56.4 Lymph % (Auto) 19.6 L 27.7 [place] % (Auto) 8.8 9.6 Eos % (Auto) 5.8 H 5.3 H Baso % (Auto) 0.8 1.0 Neut # (Auto) 3700 4000 Lymph # (Auto) 1100 2000 [place] # (Auto) 500 700 Eos # (Auto) 300 400 Baso # (Auto) 0 100 Sodium 136 L Potassium 4.5 D Chloride 103 Carbon Dioxide 31 BUN 13 Creatinine 0.54 Estimated GFR > 60 BUN/Creatinine Ratio 24.1 H Glucose 97 Calcium 8.3 L Troponin I 07/05/22 07/05/22 05:43 05:43 WBC RBC Hgb Hct MCV MCH MCHC RDW Plt Count Neut % (Auto) Lymph % (Auto) [place] % (Auto) Eos % (Auto) Baso % (Auto) Neut # (Auto) Lymph # (Auto) [place] # (Auto) Eos # (Auto) Baso # (Auto) Sodium 133 L Potassium 5.2 H Chloride 100 Carbon Dioxide 28 BUN 22 H Creatinine 0.73 Estimated GFR > 60 BUN/Creatinine Ratio 30.1 H Glucose 99 Calcium 9.0 Troponin I < 0.012 [facility] Medical History Breast cancer (2007) Chicken pox (~1945) Colitis (2007) Collagenous colitis (2005) Degenerative joint disease of right hip Depression (2010) Hearing loss (2011) Hyperlipidemia Hypertension Measles (~1941) Mumps (~1941) Osteoporosis (1999) Surgical History Anesthesia History of arthroplasty of right hip History of cosmetic surgery (09/2012) History of gynecologic surgery (2007) History of oophorectomy (1982) History of total right hip arthroplasty (2014) Status post breast lumpectomy (2007) Status post hysterectomy (1981) Family History Mother Type II diabetes mellitus Hypertension High cholesterol Father No problems noted. Sister No problems noted. Sister Cancer Sister No problems noted. Sister No problems noted. Other Colorectal cancer Social History marital status: unmarried,living together (partner) number of children: 1 household members: significant other lives independently: Yes occupational status: other (retired) Smoking Status: Former smoker alcohol intake: current substance use type: does not use Discharge Plan Discharge Plan Patient Disposition: Home Provider Discharge Comment: Continue to monitor your breathing. If you have any worsening shortness of breath, fevers, or inability to hold down food/fluids, please return to the emergency department for recheck. Weigh yourself each morning after waking up. Call your physician for any weight gain of >3# in 24 hrs or >5# in 7 days for adjustment of diuretics. Continue to take your medications as prescribed. Discharge orders & Medications Prescriptions: New diltiazem HCl 180 mg capsule,extended release 24hr 180 mg PO DAILY Qty: 30 0RF furosemide [Lasix] 20 mg tablet 20 mg PO Q OTHER DAY Qty: 30 0RF potassium chloride 10 mEq tablet extended release 10 meq PO DAILY Qty: 30 0RF Eliquis 2.5 mg tablet 2.5 mg PO BID Qty: 60 0RF Continued CA PANTOTHENATE/FOLIC ACID/VIT (MULTIVITAMIN) 1 tab PO Q DAY Qty: 0 VITAMIN D (Vitamin D3) 1,000 unit PO QDAY Qty: 0 VITAMIN B COMPLEX (Vitamin B Complex) 1 tab PO QDAY Qty: 0 calcium carbonate [Tums] 500 MG tablet,chewable 1,000 mg PO PRN (Reason: Acid Reflux) Qty: 0 lisinopril 5 mg tablet 5 mg PO DAILY Qty: 90 1RF vitamin E (dl, acetate) 400 unit capsule 400 unit PO DAILY fluoxetine 20 mg capsule 20 mg PO DAILY Qty: 90 3RF trazodone 50 mg tablet 50 mg PO HS PRN (Reason: insomnia) Qty: 30 3RF lidocaine 4 % adhesive patch,medicated 1 patch topical DAILY PRN (Reason: pain) 30 Days Qty: 30 0RF tramadol 50 mg tablet 50 mg PO BEDTIME Rx Instructions: EXEMPT Follow up/Referrals: Robert Blair MD [Primary Care Provider] - 2 Weeks Diet/Activity/Treatments Diet: Low-sodium Activity: As tolerated Oxygen: N/A Visit Report/Discharge Packet Instructions: DI for Heart Failure Discharge Data Primary Care Provider: Robert Blair
[2022-07-05] MEDS: APIXABAN 5 MG TABLET 2.5 MG PO (08:50)
[2022-07-05] MEDS: FUROSEMIDE 40 MG/4 ML VIAL 20 MG IV (08:51)
[2022-07-05] MEDS: FLUoxetine 20 MG CAPSULE PO (08:51)
--- NOTE | 2022-07-05 12:33 | CM.DPC ---
Addendum entered by Genesis Andrea R.N. 07/05/22 15:10: It is noted that patient is decisional, she was not notified about going to [facility]. Will meet with her to discuss. Met with patient in her room, LORA Rowley, in the room. Mentioned that friend, Derian, has a room for patient to go to [facility], as respite. Patient indicated, I thought I was going home. Let her know that she could go there, at least temporarily, to get more care before she goes home, and home health with [facility] will be resumed. Patient is ok with this. Derian is in her room getting ready to take patient there. Addendum entered by Genesis Andrea R.N. 07/05/22 14:17: Had been waiting for patient to be picked up. Patient had mentioned a friend named Derian that is supposed to pick patient up. Attempted to find his number. Called spouse's, Zaki's, number. He was with friend, Derian, who indicated he was at his radiation treatment. Spoke to Derian, found out that he is the medical POA. His number is: [phone]. Derian indicated, patient can't go home, she has been stashing several of her pills, her house is a mess. Derian indicated that Jazmyn, at [facility], should be contacted. Called Jazmyn at [facility], her numberis: [phone]. She indicated that they have a respite apartment already set up for her. She gave a fax number to send the orders to : [phone]. Updated hospitalist, Dr. Doe. Derian will be here to pick patient up. It has been noted that patient wants to go home, they will discuss with her. Will update [facility] about patient going to [facility]. Spoke to Rosa at [facility]. Asked if [employer] had done any APS referrals. She stated that they were in the home for resources. Let her know that patient is discharging to [facility] today, so they know where to see her. Jazmyn at [facility] had indicated, 'she did not think any APS referrals were made, as far as she knows. Have orders now, will fax to [facility]. Updated nurse, Arely. Will also send DC Summary. Original Note: DCP Cont: Patient is discharging home today. Received a call from Kamari at [facility]. Patient is currently under their services, for all disciplines. Went ahead and placed resumption orders, and Keren will fax them and DC Summary over to [facility]. P: Patient is discharging home today with spouse, under [facility] resumption. Genesis Andrea RN/Office Lead
--- NOTE | 2022-07-05 17:48 | PC.NURSE ---
Discharge Note Patient A&O, VSS, RA, no complaints of pain/discomfort. Patient agreeable to discharge plan. PIV/TELE discontinued. Patient is able to dress self and pack all belongings. Discharge packet given to family friend/DPOA. Patient left facility via wheelchair to POV.
== END 2022-07-05 15:00 | disposition home health service (06) | DRG 291 ==
LOC: ED 19:04 → AC 07-03 00:27
PROVIDERS: Family Medicine; Admitting Provider Internal Medicine; Emergency Provider Emergency Medicine; PCP Student in an Organized Health Care Education/Training Program; Referring Provider Emergency Medicine; Visit Provider Internal Medicine
DX: I11.0 Hypertensive heart disease with heart failure (principal); J96.01 Acute respiratory failure with hypoxia; J98.11 Atelectasis; I50.9 Heart failure, unspecified; E87.6 Hypokalemia; E83.42 Hypomagnesemia; F32.A Depression, unspecified; I48.0 Paroxysmal atrial fibrillation; R30.0 Dysuria; S22.49XD Multiple fractures of ribs, unspecified side, subsequent encounter for fracture with routine healing; X58.XXXD Exposure to other specified factors, subsequent encounter; Z20.822 Contact with and (suspected) exposure to COVID-19; Z66 Do not resuscitate; Z87.891 Personal history of nicotine dependence
CPT/HCPCS: 36415; 71045; 71275; 80048; 80053; 81001; 82550; 83605; 83690; 83735; 83880; 84145; 84443; 84484; 85025; 85610; 85730; 87040; 87086; 87635; 93005; 93010; 93306; 96365; 96366; 96367; 96375; 99285; C9803; J0696; J1650; J1940; J1956; J2405; J3475; Q9967

== ENCOUNTER → 2022-11-01 11:08 | Outpatient (CLI) | payer OTHER, SELFPAY ==
[2022-07-03 01:34] VITALS: BMI 19.7
[2022-11-01 12:23] LABS: Clostridium Difficile Tox PCR Positive for C. diff (Negative)
[2022-11-04 14:58] LABS: Calprotectin, Stool 29 ug/g (0-120)
[2022-11-07 22:16] LABS: Pancreatic Elastase, Fecal 485 (>200)
== END ==
PROVIDERS: PCP Student in an Organized Health Care Education/Training Program; Referring Provider Specialist; Visit Provider Specialist
DX: K52.9 Noninfective gastroenteritis and colitis, unspecified (principal)
CPT/HCPCS: 82656; 83993; 87493

== ENCOUNTER 2022-12-11 16:58 | Observation (INO) | payer OTHER, SELFPAY ==
[2022-07-03 01:34] VITALS: BMI 19.7
[2022-12-11] VITALS (77 sets, daily range): BP systolic 101–162; BP diastolic 55–112; PULSE 53–162; RESP 13–41; TEMP 36.6–37.8; O2SAT 83–100
--- NOTE | 2022-12-11 17:24 | ED.GENADULT ---
HPI - General Adult General Chief complaint: Trauma Stated complaint: GLF Time Seen by Provider: 12/11/22 17:11 Source: patient and EMS Mode of arrival: EMS History of Present Illness HPI narrative: 87-year-old female former smoker with history of atrial fibrillation on Eliquis, CHF, hypertension, hyperlipidemia presents by EMS for evaluation ground level fall with obvious injuries. It is reported that she had been laying on the ground for upwards of 4 days Related Data Home Medications Medication Instructions Recorded Confirmed CA PANTOTHENATE/FOLIC ACID/VIT 1 tab PO Q DAY ##0 04/07/11 11/03/22 (MULTIVITAMIN) VITAMIN D (Vitamin D3) 1,000 unit PO QDAY ##0 02/09/12 11/03/22 calcium carbonate 200 mg calcium 1,000 mg PO PRN Acid Reflux ##0 04/30/16 11/03/22 (500 mg) chewable tablet (Tums) Previous Rx's Medication Instructions Recorded trazodone 50 mg tablet 50 mg PO HS PRN insomnia #30 tabs 06/22/22 apixaban 2.5 mg tablet (Eliquis) 2.5 mg PO BID #60 tabs 07/20/22 budesonide 9 mg tablet,delayed and 9 mg PO QAM #90 ea 07/20/22 extended release fluoxetine 20 mg capsule 20 mg PO DAILY #90 caps 07/27/22 diltiazem HCl 180 mg 180 mg PO DAILY #90 caps 11/08/22 capsule,extended release 24 hr lisinopril 5 mg tablet 5 mg PO DAILY #90 tabs 11/09/22 Allergies Allergy/AdvReac Type Severity Reaction Status Date / Time No Known Drug Allergies Allergy Verified 11/03/22 14:28 Patient History Medical History (Updated 11/07/22 @ 10:54 by Robert Blair MD) Aguillon's palsy Breast cancer (2007) Chicken pox (~1945) Collagenous colitis (2005) Degenerative joint disease of right hip Depression (2010) Hearing loss (2011) Hyperlipidemia Hypertension Low back strain Measles (~1942) Mumps (~1942) Osteoporosis (1999) Systolic murmur (06/23/17) Surgical History Anesthesia History of arthroplasty of right hip History of cosmetic surgery (09/2012) History of gynecologic surgery (2007) History of oophorectomy (1982) History of total right hip arthroplasty (2014) Status post breast lumpectomy (2007) Status post hysterectomy (1981) Family History Mother Type II diabetes mellitus Hypertension High cholesterol Father No problems noted. Sister No problems noted. Sister Cancer Sister No problems noted. Sister No problems noted. Other Colorectal cancer Social History marital status: unmarried,living together (partner) number of children: 1 household members: significant other lives independently: Yes occupational status: other (retired) Smoking Status: Former smoker alcohol intake: current substance use type: does not use Smoking Status: Former smoker alcohol intake frequency: holidays/special occasions only Substance Use Type: does not use Exam Initial Vital Signs Initial Vital Signs: Vital Signs Temperature 97.8 F 12/11/22 17:00 Pulse Rate 150 H 12/11/22 17:00 Respiratory Rate 24 12/11/22 17:00 Blood Pressure 144/80 H 12/11/22 17:00 Pulse Oximetry 95 12/11/22 17:00 Oxygen Delivery Method Room Air 12/11/22 17:00 Course Orders Ordered: ED Orders 12/11/22 17:12 Complete Blood Count AUTO DIFF Stat Comprehensive Metabolic Panel Stat Covid-19 + FLU A/B + RSV - PCR Stat Lactate (Lactic Acid) Stat Magnesium Stat Prothrombin Time INR Stat Troponin & CK Cardiac Panel Stat EKG-12 Lead Stat 12/11/22 17:22 Urinalysis and Microscopic Stat Sodium Chloride (Normal Saline 0.9%) 1,000 mls @ 1,000 mls/hr IV BOLUS PRN PRN Reason: Fluid replacement Vital Signs Vital signs: Vital Signs - 8 hr 12/11/22 17:00 Temperature 97.8 F Pulse Rate 150 H Respiratory Rate 24 Blood Pressure 144/80 H Pulse Oximetry 95 Oxygen Delivery Method Room Air Discharge Plan Departure Prescriptions: No Action CA PANTOTHENATE/FOLIC ACID/VIT (MULTIVITAMIN) 1 tab PO Q DAY Qty: 0 VITAMIN D (Vitamin D3) 1,000 unit PO QDAY Qty: 0 calcium carbonate [Tums] 500 MG tablet,chewable 1,000 mg PO PRN (Reason: Acid Reflux) Qty: 0 budesonide 9 mg tablet,delayed and ext.release 9 mg PO QAM Qty: 90 1RF fluoxetine 20 mg capsule 20 mg PO DAILY Qty: 90 3RF diltiazem HCl 180 mg capsule,extended release 24hr 180 mg PO DAILY Qty: 90 1RF lisinopril 5 mg tablet 5 mg PO DAILY Qty: 90 3RF Eliquis 2.5 mg tablet 2.5 mg PO BID Qty: 60 5RF trazodone 50 mg tablet 50 mg PO HS PRN (Reason: insomnia) Qty: 30 3RF Referrals: Robert Blair MD [Primary Care Provider] -
--- NOTE | 2022-12-11 17:25 | DI.CT.S_ITS ---
PROCEDURE: CT HEAD/BRAIN WO CON INDICATIONS: trauma TECHNIQUE: Noncontrast 4.5 mm thick angled axial sections acquired from the foramen magnum to the vertex, with coronal and sagittal reformats. For radiation dose reduction, the following was used: automated exposure control, adjustment of mA and/or kV according to patient size. COMPARISON: [facility], CT, CT HEAD/BRAIN WO CON, 05/25/2022, 20:55. FINDINGS: Image quality: Excellent. CSF spaces: Basal cisterns are patent. No extra-axial fluid collections. The ventricles are symmetric in size and shape. Brain: No intracranial bleeds or masses. There is cerebral volume loss for age, with resultant ventricular and sulcal prominence. There are [id number] periventricular and deep white matter chronic small vessel ischemic changes. There is intracranial internal carotid artery atherosclerosis. Skull and face: Calvarium and visualized facial bones appear intact, without suspicious lesions. Sinuses: Visualized sinuses and mastoids are clear. IMPRESSION: No acute intracranial process. Age-related volume loss and age-appropriate small-vessel ischemic change. Dictated by: Adelso Grace M.D. on 12/11/2022 at 19:06 Approved by: Adelso Grace M.D. on 12/11/2022 at 19:08
--- NOTE | 2022-12-11 17:25 | DI.RAD.S_ITS ---
PROCEDURE: XR HUMERUS RT 2V INDICATIONS: fall with deformity TECHNIQUE: 2 views of the humerus were acquired. COMPARISON: None. FINDINGS: Bones: No fractures or dislocations. No suspicious bony lesions. Soft tissues: No suspicious soft tissue calcifications. IMPRESSION: No acute fracture. No osseous lesion. If symptoms and/or clinical suspicion for pathology persist, further assessment with repeat, or advanced imaging (e.g., CT, MRI, or bone scan) may be helpful for further assessment. Dictated by: Kirk Vasquez M.D. on 12/11/2022 at 17:20 Approved by: Kirk Vasquez M.D. on 12/11/2022 at 17:20
--- NOTE | 2022-12-11 17:25 | DI.CT.S_ITS ---
PROCEDURE: CT CHEST ABD PEL W CON INDICATIONS: trauma TECHNIQUE: After the administration of intravenous contrast, 5 mm thick sections acquired from the lung apices to the symphysis. 5 mm coronal and sagittal reformats were performed, with additional 7 mm MIP reformats through the lungs. For radiation dose reduction, the following was used: automated exposure control, adjustment of mA and/or kV according to patient size. COMPARISON: [facility], CT, CT CHEST ABD PEL W CON, 05/25/2022, 20:55. FINDINGS: Image quality: Excellent. CHEST: Lungs and pleura: No acute airspace opacities. Persistent small focal opacity, posterior left upper lobe, not significantly changed, likely representing an area of scarring. Small bilateral pleural effusions. Central and peripheral airways appear patent and normal in caliber. Mediastinum: Heart size is normal. Mild, not previously present. pericardial effusion. No mediastinal or hilar adenopathy by size criteria. Thoracic aorta and central pulmonary arteries are normal in size. Esophagus is normal in caliber. No hiatal hernia. Chest wall: No axillary or supraclavicular adenopathy by size criteria. Thyroid gland is unremarkable. . ABDOMEN: Solid organs: There is residual scarring and deformity and an abnormal enhancement pattern in the right lobe of the liver in the location of previous grade 4 liver injury which occurred in May,. Liver is otherwise intact. Gallbladder is unremarkable without calcified gallstones . Biliary system is non dilated. Pancreas enhances normally. Spleen is normal in size and enhancement. No adrenal nodules. Kidneys demonstrate normal size and enhancement, without hydronephrosis. Peritoneum and bowel: Bowel loops demonstrate normal wall thickness and caliber. No free fluid or air. Nodes and vessels: No retroperitoneal or mesenteric adenopathy by size criteria. Aorta and inferior vena cava are normal in size. Miscellaneous: No ventral hernias. PELVIS: Genitourinary: Bladder wall thickness is normal. A Lugo catheter is in the bladder. Miscellaneous: No inguinal hernias or adenopathy. 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 Right posterior lateral abdominal and pelvic subcutaneous edema, possibly related to trauma. Bones: No suspicious bony lesions. Total right hip arthroplasty. There is a T12 compression fracture which has occurred since the previous study. It is [id number], involving both the superior and inferior endplates. It may potentially have an acute or subacute component. It is of uncertain chronicity. No other potentially acute compression fractures are identified. IMPRESSION: 1. Appearance of the liver is consistent with residual sequelae of previous grade 4 laceration. 2. A mild to moderate T12 compression is of uncertain chronicity, possibly with an acute or subacute component. 3. Right posterior lateral abdominal and pelvic subcutaneous edema, possibly related to trauma. 4. Small bilateral pleural effusions. 5. Mild pericardial effusion which has developed since previous study. Dictated by: Adelso Grace M.D. on 12/11/2022 at 19:25 Approved by: Adelso Grace M.D. on 12/11/2022 at 19:34
--- NOTE | 2022-12-11 17:25 | DI.RAD.S_ITS ---
PROCEDURE: XR ELBOW RT MIN 3V INDICATIONS: fall with deformity TECHNIQUE: 3 views of the elbow were acquired. COMPARISON: None. FINDINGS: Bones: No fractures or dislocations. No suspicious bony lesions. Soft tissues: No elbow joint effusion. No suspicious soft tissue calcifications. IMPRESSION: No acute fracture. No osseous lesion. If symptoms and/or clinical suspicion for pathology persist, further assessment with repeat, or advanced imaging (e.g., CT, MRI, or bone scan) may be helpful for further assessment. Dictated by: Kirk Vasquez M.D. on 12/11/2022 at 17:19 Approved by: Kirk Vasquez M.D. on 12/11/2022 at 17:19
--- NOTE | 2022-12-11 17:25 | DI.CT.S_ITS ---
PROCEDURE: CT CERVICAL SPINE WO CON INDICATIONS: fall, trauma TECHNIQUE: Noncontrast 3 mm thick sections acquired from the skull base to the T4 level. Sagittal and coronal reformats were then constructed. For radiation dose reduction, the following was used: automated exposure control, adjustment of mA and/or kV according to patient size. COMPARISON: [facility], CT, CT CHEST ABD PEL W CON, 12/11/2022, 18:35. [facility], CT, CT CERVICAL SPINE WO CON, 05/25/2022, 20:55. FINDINGS: Image quality: Excellent. Bones: No fractures or dislocations. Visualized superior ribs are intact. Relatively mild diffuse spondylitic change. Soft tissues: Prevertebral soft tissues are normal in thickness. No paravertebral hematomas. No apical pneumothoraces. Small bilateral pleural effusions. IMPRESSION: No evidence acute cervical fracture or dislocation. Dictated by: Adelso Grace M.D. on 12/11/2022 at 19:19 Approved by: Adelso Grace M.D. on 12/11/2022 at 19:21
[2022-12-11 17:59] LABS: Add Manual Diff / Slide Review NO; Basophils Absolute Auto 0 /uL (0-100); Basophils Percent Auto 0.3 % (0-2); Eosinophils Absolute Auto 100 /uL (0-450); Eosinophils Percent Auto 0.6 % (2-4); Hematocrit 42.6 % (36-46); Hemoglobin 14.7 g/dL (12.0-16.0); Lymphocytes Absolute Auto 900 /uL (1100-4500); Lymphocytes Percent Auto 8.2 % (25-40); Mean Corpuscular HGB Conc 34.4 % (30-36); Mean Corpuscular Hemoglobin 30.1 PG (26-34); Mean Corpuscular Volume 87.3 fL (80-100); Monocytes Absolute Auto 900 /uL (0-900); Monocytes Percent Auto 8.3 % (3-14); Neutrophils Absolute Auto 9000 /uL (1500-7000); Neutrophils Percent Auto 82.6 % (50-75); Platelet Count 192 X10^3/uL (150-400); Red Blood Cell Count 4.88 X10^6/uL (4.0-5.2); Red Cell Distribution Width 13.4 % (11.6-14.8); White Blood Cell Count 10.9 X10^3/uL (4.5-11.0)
[2022-12-11 18:12] LABS: Lactate (Lactic Acid) 1.5 mmol/L (0.7-2.1)
[2022-12-11 18:14] LABS: Alanine Aminotransferase 66 IU/L (<35); Albumin 3.6 g/dL (3.5-5.0); Albumin Globulin Ratio 1.4 (1.0-2.8); Alkaline Phosphatase 77 U/L (38-126); Aspartate Aminotransferase 52 IU/L (14-36); BUN Creatinine Ratio 44.9 (6-22); Bilirubin Total 1.8 mg/dL (0.2-1.3); Blood Urea Nitrogen 22 mg/dL (7-17); Calcium 8.2 mg/dL (8.4-10.2); Carbon Dioxide 21 mmol/L (22-32); Chloride 93 mmol/L (98-107); Creatine Kinase 178 U/L (30-135); Estimated Glomerular Filt Rate > 60 mL/min (>60); Globulin 2.5 g/dL (1.7-4.1); Glucose 73 mg/dL (80-110); Magnesium 1.4 mg/dL (1.6-2.3); Potassium 3.4 mmol/L (3.4-5.1); Sodium 126 mmol/L (137-145); Total Protein 6.1 g/dL (6.3-8.2)
[2022-12-11] MEDS: SODIUM CHLORIDE 0.9% 1,000 ML 1000 ML IV (18:14)
[2022-12-11 18:28] LABS: Appearance Urine UA CLEAR; Bilirubin Urine UA NEGATIVE (NEGATIVE); CKMB % Relative Index 4.7 % (1.5-5.0); Color Urine UA YELLOW; Creatine Kinase MB 8.35 ng/mL (<2.37); Glucose Urine UA NEGATIVE (Negative); HEMOLYSIS 44 (0-50); Ketones Urine UA 3+ (NEGATIVE); Leukocyte Esterase Urine UA NEGATIVE (NEGATIVE); Nitrite Urine UA POSITIVE (Negative); Occult Blood Urine UA 1+ (Negative); Protein Urine UA 2+ (Negative); Specific Gravity Urine UA 1.025 (1.000-1.035); Urobilinogen Urine UA 0.2 E.U./dL (0.2)
[2022-12-11 18:35] LABS: Bacteria Urine Few (2-10); Culture Indicated Urine Specimen Cultured; Hyaline Casts Urine 10-30/LPF; Other Crystals Urine 1+ Amorphous; RBC Urine None Seen (0-5/HPF); WBC Urine 10-30/HPF (0-5/HPF)
[2022-12-11 18:50] LABS: INR 0.9 (0.9-1.3); Prothrombin Time 9.8 SECONDS (10.1-12.7)
[2022-12-11 19:05] LABS: Influenza A - CEPHEID Flu A NEGATIVE (NEGATIVE); Influenza B - CEPHEID Flu B NEGATIVE (NEGATIVE); Respiratory Syncytial Virus Negative (Negative)
--- NOTE | 2022-12-11 19:08 | ED.FALL ---
HPI - Fall General Chief Complaint: Trauma Stated Complaint: GLF Time Seen by Provider: 12/11/22 17:11 Source: patient and EMS Mode of arrival: EMS History of Present Illness HPI Narrative: Patient is an 87-year-old female history of atrial fibrillation on Eliquis and diltiazem, presenting today after ground level fall. She reports her last week she had an cremated 5 days ago she went to the post office sent ashes to his brother she came home and fell down. She is been unable to get up she is complaining pain in her right arm. Somehow a neighbor found her and called 911. She is awake alert following commands. Smell of urine covered in stool. No other complaints from fall besides right arm. Related Data Home Medications Medication Instructions Recorded Confirmed CA PANTOTHENATE/FOLIC ACID/VIT 1 tab PO Q DAY ##0 04/07/11 11/03/22 (MULTIVITAMIN) VITAMIN D (Vitamin D3) 1,000 unit PO QDAY ##0 02/09/12 11/03/22 calcium carbonate 200 mg calcium 1,000 mg PO PRN Acid Reflux ##0 04/30/16 11/03/22 (500 mg) chewable tablet (Tums) Previous Rx's Medication Instructions Recorded trazodone 50 mg tablet 50 mg PO HS PRN insomnia #30 tabs 06/22/22 apixaban 2.5 mg tablet (Eliquis) 2.5 mg PO BID #60 tabs 07/20/22 budesonide 9 mg tablet,delayed and 9 mg PO QAM #90 ea 07/20/22 extended release fluoxetine 20 mg capsule 20 mg PO DAILY #90 caps 07/27/22 diltiazem HCl 180 mg 180 mg PO DAILY #90 caps 11/08/22 capsule,extended release 24 hr lisinopril 5 mg tablet 5 mg PO DAILY #90 tabs 11/09/22 Allergies Allergy/AdvReac Type Severity Reaction Status Date / Time No Known Drug Allergies Allergy Verified 12/11/22 20:36 Review of Systems Review of Systems ROS Unobtainable: All systems reviewed & are unremarkable except as noted in HPI and below Patient History Medical History Aguillon's palsy Breast cancer (2007) Chicken pox (~1945) Collagenous colitis (2005) Degenerative joint disease of right hip Depression (2010) Hearing loss (2011) Hyperlipidemia Hypertension Low back strain Measles (~1942) Mumps (~1942) Osteoporosis (1999) Systolic murmur (06/23/17) Surgical History Anesthesia History of arthroplasty of right hip History of cosmetic surgery (09/2012) History of gynecologic surgery (2007) History of oophorectomy (1982) History of total right hip arthroplasty (2014) Status post breast lumpectomy (2007) Status post hysterectomy (1981) Family History Mother Type II diabetes mellitus Hypertension High cholesterol Father No problems noted. Sister No problems noted. Sister Cancer Sister No problems noted. Sister No problems noted. Other Colorectal cancer Social History marital status: unmarried,living together (partner) number of children: 1 household members: none lives independently: Yes occupational status: other (retired) Smoking Status: Former smoker alcohol intake: current substance use type: does not use Smoking Status: Former smoker alcohol intake frequency: holidays/special occasions only Substance Use Type: does not use Exam Initial Vital Signs Initial Vital Signs: Vital Signs Temperature 97.8 F 12/11/22 17:00 Pulse Rate 150 H 12/11/22 17:00 Respiratory Rate 24 12/11/22 17:00 Blood Pressure 144/80 H 12/11/22 17:00 Pulse Oximetry 95 12/11/22 17:00 Oxygen Delivery Method Room Air 12/11/22 17:00 GENERAL: Alert swollen 87-year-old female and in no acute distress. HEENT: Head atraumatic,EOMI, pupils reactive, face symmetric, moist mucous membranes CARDIOVASCULAR: Regular rate and rhythm without murmurs, rubs or gallops. RESPIRATORY: Breath sounds equal bilaterally, no wheezes rales or rhonchi. ABDOMEN: Soft, nontender. Normoactive bowel sounds all 4 quadrants. No guarding or rebound. EXTREMITIES: Normal range of motion, no clubbing or edema. Neurovascularly intact NEUROLOGICAL: Alert and oriented x4. SKIN: Significant swelling of right arm contusion and forearm. She has some bruising and contusions on right toes distal pedal pulses are intact. Course Orders Ordered: ED Orders 12/11/22 18:00 Covid-19 + FLU A/B + RSV - PCR Stat 12/11/22 18:25 Blood Culture Stat Prothrombin Time INR Stat 12/11/22 19:18 EKG-12 Lead Stat 12/12/22 00:35 Consult to Occupational Therapy Evaluate & Treat Consult to Physical Therapy Evaluate & Treat 12/12/22 05:00 Basic Metabolic Panel Routine Complete Blood Count AUTO DIFF Routine Acetaminophen (Acetaminophen 325 Mg Tablet) 650 mg PO Q6H PRN PRN Reason: Fever/Mild Pain (1-3) DILTIAZEM (Diltiazem 125 Mg/125 Ml-D5w) 125 mg in 125 mls @ 5 mls/hr IV TITRATE JANETT; Protocol Last Titration: 12/12/22 02:52 Dose: 0 mg/hr, 0 mls/hr Documented By: Titration: 12/12/22 02:02 Dose: 5 mg/hr, 5 mls/hr Documented By: Titration: 12/12/22 01:20 Dose: 8 mg/hr, 8 mls/hr Documented By: Titration: 12/11/22 21:26 Dose: 10 mg/hr, 10 mls/hr Documented By: Admin: 12/11/22 21:10 Dose: 5 mg/hr, 5 mls/hr Documented By: SB Ceftriaxone Sodium 1,000 mg/ (Sodium Chloride) 100 mls @ 200 mls/hr IV Q24H JANETT Lactated Ringer's (Lactated Ringers) 1,000 mls @ 100 mls/hr IV CONT JANETT Last Admin: 12/12/22 01:09 Dose: 100 mls/hr Documented By: BG Naloxone HCl (Naloxone 0.4 Mg/Ml Vial) 0.2 mg IV Q2MIN PRN PRN Reason: Opiate Reversal Ondansetron HCl (Ondansetron 4 Mg/2 Ml Inj) 4 mg IV Q8HR PRN PRN Reason: Nausea And Vomiting Oxycodone HCl (Oxycodone Ir 5 Mg Tablet) 5 mg PO Q3H PRN PRN Reason: Pain, Moderate (4-6) Discontinued Medications Diltiazem HCl (Diltiazem 5 Mg/Ml Sdv) 10 mg IV NOW ONE Stop: 12/11/22 19:41 Last Admin: 12/11/22 20:09 Dose: 10 mg Documented By: ONEIL Sodium Chloride (Normal Saline 0.9%) 1,000 mls @ 1,000 mls/hr IV BOLUS PRN PRN Reason: Fluid replacement Last Infusion: 12/11/22 19:48 Dose: 0 mls/hr Documented By: Admin: 12/11/22 18:14 Dose: 1,000 mls/hr Documented By: LOU Ceftriaxone Sodium 1,000 mg/ (Sodium Chloride) 100 mls @ 200 mls/hr IV NOW ONE Stop: 12/11/22 19:10 Last Infusion: 12/11/22 21:04 Dose: 0 mls/hr Documented By: Admin: 12/11/22 20:11 Dose: 200 mls/hr Documented By: ONEIL Magnesium Sulfate (Magnesium Sulfate) 4 gm in 100 mls @ 25 mls/hr IV NOW ONE Stop: 12/12/22 01:06 Last Admin: 12/11/22 22:48 Dose: 25 mls/hr Documented By: RL Co-signed By: GC Ceftriaxone Sodium 1,000 mg/ (Sodium Chloride) 100 mls @ 200 mls/hr IV Q24H JANETT Vital Signs Vital signs: Vital Signs - 8 hr 12/11/22 19:13 12/11/22 19:00 12/11/22 19:05 Temperature 98.4 F 98.4 F Pulse Rate 53 L 125 H Respiratory Rate 30 H 17 Blood Pressure Pulse Oximetry 98 Oxygen Delivery Method Room Air 12/11/22 19:10 12/11/22 20:09 12/11/22 19:15 Temperature 98.2 F 98.2 F Pulse Rate 147 H 144 H 137 H Respiratory Rate 16 15 Blood Pressure 157/92 H Pulse Oximetry 94 93 Oxygen Delivery Method 12/11/22 19:20 12/11/22 19:25 12/11/22 19:30 Temperature 98.2 F 98.2 F 98.2 F Pulse Rate 126 H 144 H 161 H Respiratory Rate 21 Blood Pressure Pulse Oximetry 93 96 93 Oxygen Delivery Method 12/11/22 19:35 12/11/22 19:40 12/11/22 19:45 Temperature 98.2 F 98.4 F 98.4 F Pulse Rate 138 H 132 H 137 H Respiratory Rate 15 19 Blood Pressure Pulse Oximetry 95 100 98 Oxygen Delivery Method 12/11/22 19:50 12/11/22 19:55 12/11/22 19:55 Temperature 98.4 F 98.6 F Pulse Rate 147 H 151 H Respiratory Rate 40 H Blood Pressure 135/75 Pulse Oximetry 100 95 Oxygen Delivery Method 12/11/22 20:00 12/11/22 20:05 12/11/22 20:10 Temperature 98.6 F 98.8 F Pulse Rate 148 H 150 H Respiratory Rate 27 H 22 Blood Pressure 157/92 H Pulse Oximetry Oxygen Delivery Method 12/11/22 20:10 12/11/22 20:15 12/11/22 20:20 Temperature 98.8 F 98.8 F Pulse Rate 162 H 143 H Respiratory Rate 33 H 26 H Blood Pressure 153/73 H Pulse Oximetry Oxygen Delivery Method 12/11/22 20:20 12/11/22 20:25 12/11/22 20:30 Temperature 98.8 F 98.8 F Pulse Rate 137 H 153 H Respiratory Rate 32 H 25 H Blood Pressure 140/93 H Pulse Oximetry 94 Oxygen Delivery Method 12/11/22 20:30 12/11/22 20:35 12/11/22 20:40 Temperature 98.8 F 98.8 F Pulse Rate 159 H 146 H Respiratory Rate 24 36 H Blood Pressure 160/66 H Pulse Oximetry 96 Oxygen Delivery Method Room Air 12/11/22 20:40 12/11/22 20:45 12/11/22 20:50 Temperature 98.8 F 98.8 F Pulse Rate 141 H 133 H Respiratory Rate 24 20 Blood Pressure 149/67 H Pulse Oximetry 93 93 Oxygen Delivery Method 12/11/22 20:50 12/11/22 20:55 12/11/22 21:00 Temperature 99.0 F 99.0 F Pulse Rate 151 H 155 H Respiratory Rate 26 H 32 H Blood Pressure 141/63 H Pulse Oximetry 92 83 L Oxygen Delivery Method Room Air 12/11/22 21:00 12/11/22 21:05 Temperature 99.1 F 99.1 F Pulse Rate 141 H 133 H Respiratory Rate 31 H 41 H Blood Pressure Pulse Oximetry 97 97 Oxygen Delivery Method MDM - Fall Lab Data 12/11/22 17:50 12/11/22 17:50 Labs: Lab Results 12/11/22 12/11/22 12/11/22 Range/Units 17:50 17:50 17:50 WBC 10.9 (4.5-11.0) X10^3/uL RBC 4.88 (4.0-5.2) X10^6/uL Hgb 14.7 (12.0-16.0) g/dL Hct 42.6 (36-46) % MCV 87.3 (80-100) fL MCH 30.1 (26-34) PG MCHC 34.4 (30-36) % RDW 13.4 (11.6-14.8) % Plt Count 192 (150-400) X10^3/uL Neut % (Auto) 82.6 H (50-75) % Lymph % (Auto) 8.2 L (25-40) % Montgomery % (Auto) 8.3 (3-14) % Eos % (Auto) 0.6 L (2-4) % Baso % (Auto) 0.3 (0-2) % Neut # (Auto) 9000 H (4087-5877) /uL Lymph # (Auto) 900 L (0339-6647) /uL Montgomery # (Auto) 900 (0-900) /uL Eos # (Auto) 100 (0-450) /uL Baso # (Auto) 0 (0-100) /uL PT (10.1-12.7) SECONDS INR (0.9-1.3) Sodium 126 L (137-145) mmol/L Potassium 3.4 (3.4-5.1) mmol/L Chloride 93 L (98-107) mmol/L Carbon Dioxide 21 L (22-32) mmol/L BUN 22 H (7-17) mg/dL Creatinine 0.49 L (0.52-1.04) mg/dL Estimated GFR > 60 (>60) mL/min BUN/Creatinine Ratio 44.9 H (6-22) Glucose 73 L (80-110) mg/dL Lactate 1.5 (0.7-2.1) mmol/L Calcium 8.2 L (8.4-10.2) mg/dL Magnesium 1.4 L (1.6-2.3) mg/dL Total Bilirubin 1.8 H (0.2-1.3) mg/dL AST 52 H (14-36) IU/L ALT 66 H (<35) IU/L Alkaline Phosphatase 77 (38-126) U/L Total Creatine Kinase 178 H (30-135) U/L CK-MB (CK-2) 8.35 H (<2.37) ng/mL CK-MB (CK-2) Rel Index 4.7 (1.5-5.0) % Troponin I 0.060 H (0.01-0.034) ng/mL Total Protein 6.1 L (6.3-8.2) g/dL Albumin 3.6 (3.5-5.0) g/dL Globulin 2.5 (1.7-4.1) g/dL Albumin/Globulin Ratio 1.4 (1.0-2.8) Urine Color Urine Appearance Urine pH (4.5-8.0) Ur Specific [place] (1.000-1.035) Urine Protein (Negative) Urine Glucose (UA) (Negative) g/dL Urine Ketones (NEGATIVE) Urine Occult Blood (Negative) Urine Nitrate (Negative) Urine Bilirubin (NEGATIVE) Urine Urobilinogen (0.2) E.U./dL Ur Leukocyte Esterase (NEGATIVE) Urine RBC (0-5/HPF) Urine WBC (0-5/HPF) Other Crystals Urine Bacteria (None) Hyaline Casts (None) Ur Culture Indicated? SARS-CoV-2 (PCR) (Negative) Influenza A (RT-PCR) (NEGATIVE) Influenza B (RT-PCR) (NEGATIVE) RSV (PCR) (Negative) 12/11/22 12/11/22 12/11/22 Range/Units 17:50 18:00 18:25 WBC (4.5-11.0) X10^3/uL RBC (4.0-5.2) X10^6/uL Hgb (12.0-16.0) g/dL Hct (36-46) % MCV (80-100) fL MCH (26-34) PG MCHC (30-36) % RDW (11.6-14.8) % Plt Count (150-400) X10^3/uL Neut % (Auto) (50-75) % Lymph % (Auto) (25-40) % Montgomery % (Auto) (3-14) % Eos % (Auto) (2-4) % Baso % (Auto) (0-2) % Neut # (Auto) (3866-5067) /uL Lymph # (Auto) (6586-6678) /uL Montgomery # (Auto) (0-900) /uL Eos # (Auto) (0-450) /uL Baso # (Auto) (0-100) /uL PT 9.8 L (10.1-12.7) SECONDS INR 0.9 (0.9-1.3) Sodium (137-145) mmol/L Potassium (3.4-5.1) mmol/L Chloride (98-107) mmol/L Carbon Dioxide (22-32) mmol/L BUN (7-17) mg/dL Creatinine (0.52-1.04) mg/dL Estimated GFR (>60) mL/min BUN/Creatinine Ratio (6-22) Glucose (80-110) mg/dL Lactate (0.7-2.1) mmol/L Calcium (8.4-10.2) mg/dL Magnesium (1.6-2.3) mg/dL Total Bilirubin (0.2-1.3) mg/dL AST (14-36) IU/L ALT (<35) IU/L Alkaline Phosphatase (38-126) U/L Total Creatine Kinase (30-135) U/L CK-MB (CK-2) (<2.37) ng/mL CK-MB (CK-2) Rel Index (1.5-5.0) % Troponin I (0.01-0.034) ng/mL Total Protein (6.3-8.2) g/dL Albumin (3.5-5.0) g/dL Globulin (1.7-4.1) g/dL Albumin/Globulin Ratio (1.0-2.8) Urine Color Yellow Urine Appearance Clear Urine pH 6.0 (4.5-8.0) Ur Specific [place] 1.025 (1.000-1.035) Urine Protein 2+ H (Negative) Urine Glucose (UA) Negative (Negative) g/dL Urine Ketones 3+ H (NEGATIVE) Urine Occult Blood 1+ H (Negative) Urine Nitrate Positive H (Negative) Urine Bilirubin Negative (NEGATIVE) Urine Urobilinogen 0.2 (0.2) E.U./dL Ur Leukocyte Esterase Negative (NEGATIVE) Urine RBC None seen (0-5/HPF) Urine WBC 10-30/hpf H (0-5/HPF) Other Crystals 1+ amorphous Urine Bacteria Few (2-10) H (None) Hyaline Casts 10-30/lpf (None) Ur Culture Indicated? Specimen cultured SARS-CoV-2 (PCR) Negative (Negative) Influenza A (RT-PCR) Flu a negative (NEGATIVE) Influenza B (RT-PCR) Flu b negative (NEGATIVE) RSV (PCR) Negative (Negative) Point of Care Testing Glucose POC [address] scan - head: Radiologist's Impression: PROCEDURE:? CT HEAD/BRAIN WO CON ? INDICATIONS:? trauma ? TECHNIQUE:? Noncontrast 4.5 mm thick angled axial sections acquired from the foramen magnum to the vertex, with coronal and sagittal reformats.? For radiation dose reduction, the following was used:? automated exposure control, adjustment of mA and/or kV according to patient size.? ? COMPARISON:? [facility], CT, CT HEAD/BRAIN WO CON, 05/25/2022, 20:55. ? FINDINGS:? Image quality:? Excellent.? ? CSF spaces:? Basal cisterns are patent.? No extra-axial fluid collections.? The ventricles are symmetric in size and shape.? ? Brain:? No intracranial bleeds or masses.? There is cerebral volume loss for age, with resultant ventricular and sulcal prominence.? There are [id number] periventricular and deep white matter chronic small vessel ischemic changes.? There is intracranial internal carotid artery atherosclerosis.? ? Skull and face:? Calvarium and visualized facial bones appear intact, without suspicious lesions.? ? Sinuses:? Visualized sinuses and mastoids are clear.? ? IMPRESSION:? No acute intracranial process.? Age-related volume loss and age-appropriate small-vessel ischemic change. ? ? Dictated by: Adelso Grace M.D. on 12/11/2022 at 19:06 ? ? CT - cervical spine: Radiologist's Impression: PROCEDURE:? CT CERVICAL SPINE WO CON ? INDICATIONS:? fall, trauma ? TECHNIQUE:? Noncontrast 3 mm thick sections acquired from the skull base to the T4 level.? Sagittal and coronal reformats were then constructed.? For radiation dose reduction, the following was used:? automated exposure control, adjustment of mA and/or kV according to patient size.? ? COMPARISON:? [facility], CT, CT CHEST ABD PEL W CON, 12/11/2022, 18:35.? [facility], CT, CT CERVICAL SPINE WO CON, 05/25/2022, 20:55. ? FINDINGS:? Image quality:? Excellent.? ? Bones:? No fractures or dislocations.? Visualized superior ribs are intact.? Relatively mild diffuse spondylitic change.? ? Soft tissues:? Prevertebral soft tissues are normal in thickness.? No paravertebral hematomas.? No apical pneumothoraces.? Small bilateral pleural effusions. ? ? IMPRESSION:? No evidence acute cervical fracture or dislocation. ? Dictated by: Adelso Grace M.D. on 12/11/2022 at 19:19 ? ? CT scan - chest: Radiologist's Impression: PROCEDURE:? CT CHEST ABD PEL W CON ? INDICATIONS:? trauma ? TECHNIQUE:? After the administration of intravenous contrast, 5 mm thick sections acquired from the lung apices to the symphysis.? 5 mm coronal and sagittal reformats were performed, with additional 7 mm MIP reformats through the lungs.? For radiation dose reduction, the following was used:? automated exposure control, adjustment of mA and/or kV according to patient size.? ? COMPARISON:? [facility], CT, CT CHEST ABD PEL W CON, 05/25/2022, 20:55. ? FINDINGS:? Image quality:? Excellent.? ? CHEST:? Lungs and pleura:? No acute airspace opacities.? Persistent small focal opacity, posterior left upper lobe, not significantly changed, likely representing an area of scarring.? Small bilateral pleural effusions.? Central and peripheral airways appear patent and normal in caliber.? ? Mediastinum:? Heart size is normal.? Mild, not previously present.? pericardial effusion. ?No mediastinal or hilar adenopathy by size criteria.? Thoracic aorta and central pulmonary arteries are normal in size.? Esophagus is normal in caliber.? No hiatal hernia.? ? Chest wall:? No axillary or supraclavicular adenopathy by size criteria.? Thyroid gland is unremarkable. .? ? ? ABDOMEN:? Solid organs:? There is residual scarring and deformity and an abnormal enhancement pattern in the right lobe of the liver in the location of previous grade 4 liver injury which occurred in May,. Liver is otherwise intact.? Gallbladder is unremarkable without calcified gallstones .? Biliary system is non dilated.? Pancreas enhances normally.? Spleen is normal in size and enhancement.? No adrenal nodules.? Kidneys demonstrate normal size and enhancement, without hydronephrosis.? ? Peritoneum and bowel:? Bowel loops demonstrate normal wall thickness and caliber.? No free fluid or air.? ? Nodes and vessels:? No retroperitoneal or mesenteric adenopathy by size criteria.? Aorta and inferior vena cava are normal in size.? ? Miscellaneous:? No ventral hernias.? ? ? PELVIS:? Genitourinary:? Bladder wall thickness is normal.? A Lugo catheter is in the bladder. ? Miscellaneous:? No inguinal hernias or adenopathy.? 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 Right posterior lateral abdominal and pelvic subcutaneous edema, possibly related to trauma. ? Bones:? No suspicious bony lesions.? Total right hip arthroplasty.? There is a T12 compression fracture which has occurred since the previous study.? It is [id number], involving both the superior and inferior endplates.? It may potentially have an acute or subacute component.? It is of uncertain chronicity.? No other potentially acute compression fractures are identified. ? IMPRESSION:? ? 1. Appearance of the liver is consistent with residual sequelae of previous grade 4 laceration. ? 2. A mild to moderate T12 compression is of uncertain chronicity, possibly with an acute or subacute component. ? 3. Right posterior lateral abdominal and pelvic subcutaneous edema, possibly related to trauma. ? 4. Small bilateral pleural effusions. ? 5. Mild pericardial effusion which has developed since previous study.? ? Dictated by: Aedlso Grace M.D. on 12/11/2022 at 19:25 Extremity x-ray #1: Radiologist's Impression: PROCEDURE:? XR ELBOW RT MIN 3V ? INDICATIONS:? fall with deformity ? TECHNIQUE:? 3 views of the elbow were acquired.? ? COMPARISON:? None. ? FINDINGS:? ? Bones:? No fractures or dislocations.? No suspicious bony lesions.? ? Soft tissues:? No elbow joint effusion.? No suspicious soft tissue calcifications.? ? ? IMPRESSION:? No acute fracture. No osseous lesion. If symptoms and/or clinical suspicion for pathology persist, further assessment with repeat, or advanced imaging (e.g., CT, MRI, or bone scan) may be helpful for further assessment. ? ? Dictated by: Kirk Vasquez M.D. on 12/11/2022 at 17:19 ? ? Extremity x-ray #2: Radiologist's Impression: PROCEDURE:? XR HUMERUS RT 2V ? INDICATIONS:? fall with deformity ? TECHNIQUE:? 2 views of the humerus were acquired.? ? COMPARISON:? None. ? FINDINGS:? ? Bones:? No fractures or dislocations.? No suspicious bony lesions.? ? Soft tissues:? No suspicious soft tissue calcifications.? ? IMPRESSION:? No acute fracture. No osseous lesion. If symptoms and/or clinical suspicion for pathology persist, further assessment with repeat, or advanced imaging (e.g., CT, MRI, or bone scan) may be helpful for further assessment. ? ? Dictated by: Kirk Vasquez M.D. on 12/11/2022 at 17:20 ? ? Approved by: Kirk Vasquez M.D. on 12/11/2022 at 17:20 ECG Data Interpretation: EKG 1. Rate 109 atrial fibrillation do not agree with computer where it says sinus no ST changes EKG 2. Atrial fibrillation rate [address] changes MDM Narrative Medical decision making narrative: Patient is 87-year-old female who is awake and alert found on the floor after a fall for multiple days. Surprisingly not in rhabdomyolysis normal lactic acid. She has a UTI but no evidence of severe sepsis. She is awake alert not hypotensive. She is in AFib with RVR on the monitor. She is given sepsis fluids along with 1 dose of Rocephin. She is found to be slightly hyponatremic with a sodium of 126, chloride 93 bicarb 21 creatinine Madiosn 0.49 and a troponin of 0.06. She is significant swelling on contusion of her right arm but no fracture. She has been zuniga scanned with out any other injury identified. He is currently an unsafe discharge with hyponatremia and a UTI. She is on Eliquis. She had a significant fall in the fall where she had liver laceration and today being found down after multiple days. She is likely not a good candidate for ongoing anticoagulation. Dr. Godwin accepts patient Discharge Plan Departure Patient Disposition: Admitted As Inpatient Clinical Impression: Acute UTI, Acute hyponatremia Admit Date/Time: 12/11/22 21:06 Admit Provider: Júnior Godwin
[2022-12-11 19:15] LABS: COVID-19 CEPHEID 4-PLEX PCR Negative (Negative)
--- NOTE | 2022-12-11 19:46 | PC.NURSE ---
Addendum entered by Nydia Reece CNA 12/11/22 21:14: Emily will be on the first ferry from [facility] in the morning. Will be staying at [facility]. The phone number for the house is [phone]. Will come here straight from the ferry/journey Original Note: MELA note: Emily Villar, sister, called. Her phone number is [phone]. She lives in [place]. Will be in [place] tomorrow/Tuesday.
[2022-12-11] MEDS: dilTIAZem 5 MG/ML SDV 10 MG IV (20:09)
[2022-12-11] MEDS: cefTRIAXone 1,000 MG in SODIUM CHLORIDE 0.9% 100 ML 200 MG IV (20:11)
--- NOTE | 2022-12-11 20:58 | PC.NURSE ---
Patient given yogurt and crackers and fluids to drink. Patient tolerating eating independently well. Denies any immediate needs.
[2022-12-11] MEDS: DILTIAZEM 125 MG/125 ML PIGGYBACK IV (21:10)
[2022-12-11] MEDS: MAGNESIUM SULFATE 4 GM/100 ML PIGGYBACK IV (22:48)
[2022-12-12] VITALS (160 sets, daily range): BP systolic 103–151; BP diastolic 55–90; PULSE 79–120; RESP 11–33; TEMP 36.6–37.7; O2SAT 77–100; BMI 26.6
[2022-12-12] MEDS: LACTATED RINGERS 1,000 ML 100 ML IV (01:09)
[2022-12-12 03:12] LABS: MRSA (Nasal) PCR Not Detected (Not Detect)
[2022-12-12 05:20] LABS: Add Manual Diff / Slide Review NO; Basophils Absolute Auto 0 /uL (0-100); Basophils Percent Auto 0.2 % (0-2); Eosinophils Absolute Auto 100 /uL (0-450); Eosinophils Percent Auto 0.9 % (2-4); Hematocrit 34.9 % (36-46); Hemoglobin 12.1 g/dL (12.0-16.0); Lymphocytes Absolute Auto 900 /uL (1100-4500); Lymphocytes Percent Auto 10.8 % (25-40); Mean Corpuscular HGB Conc 34.7 % (30-36); Mean Corpuscular Volume 86.6 fL (80-100); Monocytes Absolute Auto 600 /uL (0-900); Monocytes Percent Auto 7.1 % (3-14); Neutrophils Absolute Auto 6400 /uL (1500-7000); Platelet Count 226 X10^3/uL (150-400); Red Blood Cell Count 4.03 X10^6/uL (4.0-5.2); Red Cell Distribution Width 13.3 % (11.6-14.8); White Blood Cell Count 7.9 X10^3/uL (4.5-11.0)
[2022-12-12 05:32] LABS: BUN Creatinine Ratio 41.2 (6-22); Blood Urea Nitrogen 21 mg/dL (7-17); Calcium 7.4 mg/dL (8.4-10.2); Carbon Dioxide 28 mmol/L (22-32); Chloride 98 mmol/L (98-107); Estimated Glomerular Filt Rate > 60 mL/min (>60); Glucose 121 mg/dL (80-110); HEMOLYSIS < 15 (0-50); Potassium 2.8 mmol/L (3.4-5.1); Sodium 130 mmol/L (137-145)
--- NOTE | 2022-12-12 06:39 | PM.HP.1 ---
History of Present Illness History of Present Illness Date Patient Seen: 12/11/22 Time Patient Seen: 21:00 Chief complaint: GLF Narrative: Ms. Villar is an 87W with PMH HTN, HL, depression, afib, CHFpEF, aortic stenosis, history of falls with liver lac and rib fracutrese, collagenous colitis who presents after a fall. Her last week and after she went to mail his ashes she came home and fell. She thinks this happened a few days ago, she was unable to get up from the floor since she thinks Tuesday. She fell on her right side and had right arm and shoulder pain. Eventually she was found by a neighbor. Aside from the pain in her arm and feeling generally weak, she has no other complaints. No confusion. No chest pain, shortness of breath, palpitations. No vomiting, diarrhea. In the ED workup was done, vitals notable for afebrile, heart rate 120s-140s, respiratory rate 16, sats 98% on room air. Labs reviewed by me and notable for WBC 10.9, hgb 14.7, plts 192. Na 126, cl 93, co2 21, creatinine 0.49. Lactate 1.5. Bili 1.8, ast/alt 52/66. mag 1.4. UA with nitrates, wbcs, bacteria. CT head reviewed by me and no acute process noted. CT c-spine with no acute process. CT ches/abd/pelvis reviewed by me and notable for old liver laceration, t12 compression fracture, right abdominal and pelvis edema, small bilateral pleural effusions, small pericardial effusion. Xray of right humerus and elbow with no acute fracture. She was ordered fluids and antibiotics and admitted for further treatment. [facility] Medical History Aguillon's palsy Breast cancer (2007) Chicken pox (~1945) Collagenous colitis (2005) Degenerative joint disease of right hip Depression (2010) Hearing loss (2011) Hyperlipidemia Hypertension Low back strain Measles (~1942) Mumps (~1942) Osteoporosis (1999) Systolic murmur (06/23/17) Surgical History Anesthesia History of arthroplasty of right hip History of cosmetic surgery (09/2012) History of gynecologic surgery (2007) History of oophorectomy (1982) History of total right hip arthroplasty (2014) Status post breast lumpectomy (2007) Status post hysterectomy (1981) Family History Mother Type II diabetes mellitus Hypertension High cholesterol Father No problems noted. Sister No problems noted. Sister Cancer Sister No problems noted. Sister No problems noted. Other Colorectal cancer Social History marital status: unmarried,living together (partner) number of children: 1 household members: none lives independently: Yes occupational status: other (retired) Smoking Status: Former smoker alcohol intake: current substance use type: does not use Meds Home Medications and Allergies Home Medications Medication Instructions Recorded Confirmed Type CA PANTOTHENATE/FOLIC ACID/VIT 1 tab PO Q DAY ##0 04/07/11 11/03/22 History (MULTIVITAMIN) VITAMIN D (Vitamin D3) 1,000 unit PO QDAY ##0 02/09/12 11/03/22 History calcium carbonate 200 mg calcium 1,000 mg PO PRN Acid Reflux ##0 04/30/16 11/03/22 History (500 mg) chewable tablet (Tums) trazodone 50 mg tablet 50 mg PO HS PRN insomnia #30 tabs 06/22/22 11/03/22 Rx apixaban 2.5 mg tablet (Eliquis) 2.5 mg PO BID #60 tabs 07/20/22 11/03/22 Rx budesonide 9 mg tablet,delayed and 9 mg PO QAM #90 ea 07/20/22 11/03/22 Rx extended release fluoxetine 20 mg capsule 20 mg PO DAILY #90 caps 07/27/22 11/03/22 Rx diltiazem HCl 180 mg 180 mg PO DAILY #90 caps 11/08/22 Rx capsule,extended release 24 hr lisinopril 5 mg tablet 5 mg PO DAILY #90 tabs 11/09/22 Rx Allergies Allergy/AdvReac Type Severity Reaction Status Date / Time No Known Drug Allergies Allergy Verified 12/11/22 20:36 Review of Systems Review of Systems Narrative: 14 symptoms reviewed and negative aside from what is noted in HPI Exam Vital Signs (past 8 hours): - 12/11/22 22:40 12/11/22 22:40 12/11/22 22:45 Temperature 99.9 F H 99.9 F H Pulse Rate 101 H 98 H Respiratory Rate 15 17 Blood Pressure 117/63 Pulse Oximetry 98 98 Oxygen Delivery Method Oxygen Flow Rate 12/11/22 22:50 12/11/22 22:50 12/11/22 22:55 Temperature 99.9 F H 99.9 F H Pulse Rate 101 H 100 H Respiratory Rate 16 18 Blood Pressure 109/55 L Pulse Oximetry 98 99 Oxygen Delivery Method Oxygen Flow Rate 12/11/22 23:00 12/11/22 23:00 12/11/22 23:05 Temperature 100.0 F H 100.0 F H Pulse Rate 99 H 104 H Respiratory Rate 16 17 Blood Pressure 113/56 L Pulse Oximetry 99 99 Oxygen Delivery Method Oxygen Flow Rate 12/11/22 23:10 12/11/22 23:10 12/11/22 23:15 Temperature 99.9 F H 99.9 F H Pulse Rate 100 H 97 H Respiratory Rate 16 17 Blood Pressure 103/58 L Pulse Oximetry 98 99 Oxygen Delivery Method Oxygen Flow Rate 12/11/22 23:20 12/11/22 23:20 12/11/22 23:25 Temperature 99.9 F H 99.9 F H Pulse Rate 98 H 96 H Respiratory Rate 20 17 Blood Pressure 109/58 L Pulse Oximetry 98 98 Oxygen Delivery Method Oxygen Flow Rate 12/11/22 23:30 12/11/22 23:30 12/11/22 23:35 Temperature 99.9 F H 99.9 F H Pulse Rate 97 H 95 H Respiratory Rate 17 17 Blood Pressure 116/58 L Pulse Oximetry 98 98 Oxygen Delivery Method Oxygen Flow Rate 12/11/22 23:40 12/11/22 23:40 12/11/22 23:45 Temperature 99.9 F H 99.9 F H Pulse Rate 99 H 93 H Respiratory Rate 16 18 Blood Pressure 115/56 L Pulse Oximetry 97 99 Oxygen Delivery Method Oxygen Flow Rate 12/11/22 23:50 12/11/22 23:50 12/12/22 00:35 Temperature 99.9 F H Pulse Rate 93 H Respiratory Rate 16 Blood Pressure 101/59 L Pulse Oximetry 98 97 Oxygen Delivery Method Room Air Room Air Oxygen Flow Rate 12/12/22 00:35 12/12/22 01:17 12/12/22 00:00 Temperature 98.0 F 99.9 F H Pulse Rate 89 85 93 H Respiratory Rate 18 16 16 Blood Pressure 125/57 L 114/56 L Pulse Oximetry 92 96 97 Oxygen Delivery Method Oxygen Flow Rate 12/12/22 00:00 12/12/22 00:10 12/12/22 00:10 Temperature 99.7 F H Pulse Rate 92 H Respiratory Rate 16 Blood Pressure 103/57 L 112/55 L Pulse Oximetry 98 Oxygen Delivery Method Oxygen Flow Rate 12/12/22 00:33 12/12/22 00:33 12/12/22 01:00 Temperature Pulse Rate 89 Respiratory Rate 17 Blood Pressure 125/57 L 114/56 L Pulse Oximetry 96 Oxygen Delivery Method Oxygen Flow Rate 12/12/22 01:00 12/12/22 01:11 12/12/22 01:22 Temperature 99.3 F 99.3 F Pulse Rate 85 86 Respiratory Rate 16 20 Blood Pressure 116/55 L Pulse Oximetry 97 97 Oxygen Delivery Method Oxygen Flow Rate 12/12/22 01:22 12/12/22 01:30 12/12/22 01:30 Temperature 99.1 F 99.1 F Pulse Rate 84 84 Respiratory Rate 15 14 Blood Pressure 122/55 L Pulse Oximetry 96 96 Oxygen Delivery Method Oxygen Flow Rate 12/12/22 02:00 12/12/22 02:00 12/12/22 02:05 Temperature 99.0 F 99.0 F Pulse Rate 82 82 Respiratory Rate 14 13 Blood Pressure 115/56 L Pulse Oximetry 96 95 Oxygen Delivery Method Oxygen Flow Rate 12/12/22 02:30 12/12/22 02:30 12/12/22 03:00 Temperature 98.8 F Pulse Rate 82 Respiratory Rate 13 Blood Pressure 112/58 L 116/55 L Pulse Oximetry 96 Oxygen Delivery Method Oxygen Flow Rate 12/12/22 03:00 12/12/22 03:04 12/12/22 03:56 Temperature 98.6 F 98.6 F Pulse Rate 82 81 85 Respiratory Rate 14 15 Blood Pressure 142/82 H Pulse Oximetry 96 96 95 Oxygen Delivery Method Oxygen Flow Rate 12/12/22 04:00 12/12/22 05:00 12/12/22 03:30 Temperature Pulse Rate 79 Respiratory Rate 12 Blood Pressure 142/67 H 121/59 L Pulse Oximetry 95 95 Oxygen Delivery Method Oximask Oxygen Flow Rate 3 12/12/22 03:30 12/12/22 04:00 12/12/22 04:00 Temperature 98.4 F 98.4 F Pulse Rate 82 80 Respiratory Rate 19 19 Blood Pressure 125/68 Pulse Oximetry 97 96 Oxygen Delivery Method Oxygen Flow Rate 12/12/22 04:30 12/12/22 04:30 12/12/22 05:00 Temperature 98.4 F Pulse Rate 79 Respiratory Rate 15 Blood Pressure 134/63 142/67 H Pulse Oximetry 97 Oxygen Delivery Method Oxygen Flow Rate 12/12/22 05:00 12/12/22 05:30 12/12/22 05:30 Temperature 98.4 F 98.2 F Pulse Rate 81 79 Respiratory Rate 14 16 Blood Pressure 140/64 Pulse Oximetry 97 97 Oxygen Delivery Method Oxygen Flow Rate 12/12/22 05:32 12/12/22 06:00 12/12/22 06:00 Temperature 98.2 F 98.2 F Pulse Rate 79 82 Respiratory Rate 15 14 Blood Pressure 147/69 H Pulse Oximetry 97 97 Oxygen Delivery Method Oxygen Flow Rate 12/12/22 06:11 Temperature 98.2 F Pulse Rate 82 Respiratory Rate 14 Blood Pressure Pulse Oximetry 98 Oxygen Delivery Method Oxygen Flow Rate Oxygen Delivery Method Oximask Oxygen Flow Rate 3 Narrative Exam Narrative: GEN: no acute distress, frail, chronically ill appearing HEENT: dry mucous membranes CV: irregular tachycardic PULM: clear bilaterally ABD: soft, nontender, nondistended, no organomegaly EXt: warm and well perfused SKIN: scattered bruises NEURO: awake, alert, oriented, no focal deficits Objective Labs 12/12/22 04:09 12/12/22 04:09 Labs: Laboratory Results - last 24 hr 12/11/22 12/11/22 12/11/22 17:50 17:50 17:50 WBC 10.9 RBC 4.88 Hgb 14.7 Hct 42.6 MCV 87.3 MCH 30.1 MCHC 34.4 RDW 13.4 Plt Count 192 Neut % (Auto) 82.6 H Lymph % (Auto) 8.2 L [place] % (Auto) 8.3 Eos % (Auto) 0.6 L Baso % (Auto) 0.3 Neut # (Auto) 9000 H Lymph # (Auto) 900 L [place] # (Auto) 900 Eos # (Auto) 100 Baso # (Auto) 0 PT INR Sodium 126 L Potassium 3.4 Chloride 93 L Carbon Dioxide 21 L BUN 22 H Creatinine 0.49 L Estimated GFR > 60 BUN/Creatinine Ratio 44.9 H Glucose 73 L Lactate 1.5 Calcium 8.2 L Magnesium 1.4 L Total Bilirubin 1.8 H AST 52 H ALT 66 H Alkaline Phosphatase 77 Total Creatine Kinase 178 H CK-MB (CK-2) 8.35 H CK-MB (CK-2) Rel Index 4.7 Troponin I 0.060 H Total Protein 6.1 L Albumin 3.6 Globulin 2.5 Albumin/Globulin Ratio 1.4 Urine Color Urine Appearance Urine pH Ur Specific [place] Urine Protein Urine Glucose (UA) Urine Ketones Urine Occult Blood Urine Nitrate Urine Bilirubin Urine Urobilinogen Ur Leukocyte Esterase Urine RBC Urine WBC Other Crystals Urine Bacteria Hyaline Casts Ur Culture Indicated? Nasal Screen MRSA (PCR) SARS-CoV-2 (PCR) Influenza A (RT-PCR) Influenza B (RT-PCR) RSV (PCR) 12/11/22 12/11/22 12/11/22 17:50 18:00 18:25 WBC RBC Hgb Hct MCV MCH MCHC RDW Plt Count Neut % (Auto) Lymph % (Auto) [place] % (Auto) Eos % (Auto) Baso % (Auto) Neut # (Auto) Lymph # (Auto) [place] # (Auto) Eos # (Auto) Baso # (Auto) PT 9.8 L INR 0.9 Sodium Potassium Chloride Carbon Dioxide BUN Creatinine Estimated GFR BUN/Creatinine Ratio Glucose Lactate Calcium Magnesium Total Bilirubin AST ALT Alkaline Phosphatase Total Creatine Kinase CK-MB (CK-2) CK-MB (CK-2) Rel Index Troponin I Total Protein Albumin Globulin Albumin/Globulin Ratio Urine Color Yellow Urine Appearance Clear Urine pH 6.0 Ur Specific [place] 1.025 Urine Protein 2+ H Urine Glucose (UA) Negative Urine Ketones 3+ H Urine Occult Blood 1+ H Urine Nitrate Positive H Urine Bilirubin Negative Urine Urobilinogen 0.2 Ur Leukocyte Esterase Negative Urine RBC None seen Urine WBC 10-30/hpf H Other Crystals 1+ amorphous Urine Bacteria Few (2-10) H Hyaline Casts 10-30/lpf Ur Culture Indicated? Specimen cultured Nasal Screen MRSA (PCR) SARS-CoV-2 (PCR) Negative Influenza A (RT-PCR) Flu a negative Influenza B (RT-PCR) Flu b negative RSV (PCR) Negative 12/12/22 12/12/22 12/12/22 00:56 04:09 04:09 WBC 7.9 RBC 4.03 Hgb 12.1 Hct 34.9 L MCV 86.6 MCH 30.0 MCHC 34.7 RDW 13.3 Plt Count 226 Neut % (Auto) 81.0 H Lymph % (Auto) 10.8 L [place] % (Auto) 7.1 Eos % (Auto) 0.9 L Baso % (Auto) 0.2 Neut # (Auto) 6400 Lymph # (Auto) 900 L [place] # (Auto) 600 Eos # (Auto) 100 Baso # (Auto) 0 PT INR Sodium 130 L Potassium 2.8 L Chloride 98 Carbon Dioxide 28 BUN 21 H Creatinine 0.51 L Estimated GFR > 60 BUN/Creatinine Ratio 41.2 H Glucose 121 H Lactate Calcium 7.4 L Magnesium Total Bilirubin AST ALT Alkaline Phosphatase Total Creatine Kinase CK-MB (CK-2) CK-MB (CK-2) Rel Index Troponin I Total Protein Albumin Globulin Albumin/Globulin Ratio Urine Color Urine Appearance Urine pH Ur Specific [place] Urine Protein Urine Glucose (UA) Urine Ketones Urine Occult Blood Urine Nitrate Urine Bilirubin Urine Urobilinogen Ur Leukocyte Esterase Urine RBC Urine WBC Other Crystals Urine Bacteria Hyaline Casts Ur Culture Indicated? Nasal Screen MRSA (PCR) Not detected SARS-CoV-2 (PCR) Influenza A (RT-PCR) Influenza B (RT-PCR) RSV (PCR) Assessment & Plan Assessment & Plan narrative: 1. Recurrent falls -given concerns with mobility patient likely would benefit from permanently stopping eliquis -hit right side of body with workup thus far showing no fracture -ordered for PT/OT 2. UTI -may be the cause of weakness, or possibly developed after due to incontinence -ordered for ceftriaxone -follow up cultures 3. Hypovolemic hyponatremia -secondary to be down for prolonged period -continue empiric IV fluid -careful with fluids though given CHF and aortic stenosis history 4. Atrial fibrillation with RVR -suspect secondary to being unable to take meds, uti, and hypovolemia -did not respond to push dose IV dilt -started IV dilt gtt -reorder PO dilt -continue IV fluids and abx as above 5. Collagenous colitis -oral budesonide 6. CHFpEF and moderate aortic stenosis -careful with fluid resuscitation, will likely need to be stopped soon -has small bilateral effusions and pericardial effusion on chest imaging, but clinically she is dehydrated so will be careful as above 7. Hypomagnesemia -secondary to poor oral intake -IV mag ordered 8. T12 compression fracture -on admission not causing significant pain, so possibly chronic -monitor for worse pain I have discussed plan and obtained history from the patient. I have discussed plan of care with ED physician and bedside nurse. I have reviewed labs, imaging, and previous medical notes CODE: DNR/DNI Proxy: MARSHA Pope Quality [facility] - Meds 'Current medications' to include all prescriptions, [id number] products, herbals, cannabis/cannabidiol products, and vitamin/mineral/dietary (nutritional) supplements. I have utilized all available resources to obtain, update, or review the patient?s current medications. [If Yes, STOP here]: Yes
[2022-12-12] MEDS: dilTIAZem CD 180 MG CAP PO (06:44)
[2022-12-12 06:51] LABS: Magnesium 2.7 mg/dL (1.6-2.3)
[2022-12-12] MEDS: POTASSIUM CHLORIDE 20 MEQ TAB 40 MEQ PO ×3 (08:22→16:25)
[2022-12-12] MEDS: OXYCODONE IR 5 MG TABLET PO ×3 (08:42→22:06)
--- NOTE | 2022-12-12 09:07 | DI.ECHO.S_ITS ---
[facility]---------+ [facility] +---------+ : : [address] : : : : [id number] : : : : Phone: [phone] Echocardiogram Report + + :Name: JUSTUS ABRAMS I Study Date: 12/12/2022 Height: 56 in : :[facility] ReadingLocation: Weight: 118 lb : : Gender: Female BSA: 1.4 m2 : :: 1935 Age: 87 yrs BP: 111/57 mmHg: :Reason For Study: ATRIAL FIBRILLATION, AORTIC STENOSIS : :Ordering Physician: CHRIS, : :MARY KATE MOONEY Performed By: Estefani Peacock : :Referring: MARY KATE PEREZ : + + Interpretation Summary Normal sinus rhythm. Normal LV size and wall thickness. Normal wall motion and LV systolic function. Ejection fraction is 60-65%. Normal chamber sizes. Moderately thickened and calcified aortic valve leaflets. Peak velocity 3.2 m/s and mean gradient is 27 mmHg; calculated valve area is 1.2 painter barrel? Moderate mitral annular calcification Small pericardial effusion. Compared to prior study 07/03/2022 no significant changes have occurred. Procedure: A two-dimensional transthoracic echocardiogram with color flow and Doppler was performed in limited views only. Images were not obtained from all of the standard acoustic windows due to the limited scope of the study. The study quality was technically adequate. Comparison is made with the echocardiogram of 07/03/2022. The heart rate ranged between 93-103 bpm during the study. Left Ventricle: The left ventricle is normal in size and wall thickness. The ejection fraction is estimated to be 60-65%. Aortic Valve: The aortic valve is moderately calcified. There is moderately reduced leaflet mobility. There is moderate aortic stenosis. The peak aortic velocity is 3.2 m/sec. The aortic valve mean gradient is 27 mmHg. The calculated aortic valve area is 1.2 cm2. Pericardium/ Pleura There is a small pericardial effusion noted. There is no pleural effusion. MMode/2D Measurements & Calculations LVIDd: 4.1 cm LVOT diam: 2.0 cm LVIDs: 2.6 cm Ao root diam: 2.7 cm FS: 36.5 % asc Aorta Diam: 3.3 cm EPSS: 0.73 cm IVSd: 0.83 cm LVPWd: 0.82 cm LV holder. diameter/BSA (cm/m^2): 2.9 LV sys. diameter/BSA (cm/m^2): 1.8 LA A4 area: 17.5 cm2 RA long axis: 5.2 cm LA length (vol): 5.6 cm RA area: 15.7 cm2 RA vol: 40.6 ml RA : 28.6 ml/m2 Doppler Measurements & Calculations Ao V2 max: 318.7 cm/sec LVOT Max Kenrick: 125.1 cm/sec Ao V2 mean: 252.9 cm/sec LV V1 max P.3 mmHg Ao max P.6 mmHg LV V1 VTI: 24.3 cm Ao mean P.9 mmHg KIRK(I,D): 1.1 cm2 Ao V2 VTI: 64.5 cm KIRK(V,D): 1.2 cm2 sev ratio: 0.38 KIRK indexed to BSA (cm^2/m^2): 0.81 SV(LVOT): 73.7 ml Electronically signed by: Nereyda Vargas M.D. on [place] Physician:12/12/2022 03:35 PM
--- NOTE | 2022-12-12 11:49 | CM.DANOTE ---
Patient is an 87 yo female who was admitted on 12/11/22 for GLF. Pt has [facility] for insurance and her PCP is Dr. Robert Blair. EMR was reviewed. Per MD, pt with GLF and admitted for UTI and AFIB. Pt still having some heart rate issues and might need to go back on dilt drip again and Echo ordered. PT/OT ordered and pending. SW met bedside with pt and explained role and pt confirms she lives at home alone in a mobile home [place] in [place] and her spouse recently after getting radiation treatment for a while. Pt states she had been mostly independent with ADLs but over the past few months has required some assist as she was last admitted in Jun 2022 a few months ago and went to [facility] for Respite Stay and has been there a couple months and only recently discharged back to her Mobile Home. Pt denies any recent hx of HH or SNF and confirms her DPOA is 1) Evelio Gaitan (her 's nephew who is currently on vacation) and 2) Emily Conley ([phone]) her sister who lives in [place] but just took a ferry down yesterday and is staying at pt's mobile home and can stay as long as needed for assist. Pt is very hopeful for home and would be agreeable to HH but currently does not want Respite Stay or SNF at this time. SW helped pt to attempt to call her sister and left ms and per nursing staff pt's sister plans to be bedside sometime today. Plan: SW to follow for PT/OT eval towards determining HH vs SNF and ongoing discussion with pt and sister when bedside to confirm safe discharge plan. LORA Tucker Discharge Planning/Care Management Advanced directive, confirm from FAMILY Start: 12/12/22 00:48 Freq: Q24H Status: Active Protocol: Document 12/12/22 00:51 MW (Rec: 12/12/22 00:52 MW [id number]) Advance Directive, confirm on record Time 00:52 Person contacted patient Copy received No CM Discharge Assessment Start: 12/12/22 09:27 Freq: Status: Active Protocol: Document 12/12/22 09:28 BF (Rec: 12/12/22 09:34 BF [id number]) Discharge Planning Assessment Assigned [employer] [place], CHARGE MANAGER DPOA/Assigned Designee Name 1) Evelio Cesarpaola 2) Emily Jian/Jarvis Contact Information [phone] Advance Directives? Yes: DPOA Advance Directives on File Yes History Provided By Patient,Medical Record Has Patient been admitted in last 30 No days? Prior Living Arrangements Mobile home Household Members none Type of transporation used prior to Relies on Others admit Independent with ADL's Yes: mostly Is patient alert and oriented? Yes: mostly Needs Assistance With Meal Prep,Managing Medications ,Home Chores / Shopping Caregiver for Another No Patient/Family Preference Retirement Facility,Home with Home Health Comment SNF vs HH pending PT/OT eval Barriers to Discharge No Discharge Plan Home with Home Health Transportation Arrangement Pt wanting home with HH but might need SNF Additional Comment Pending PT/OT eval and recommendations Whiteboard Updated in Patient Room with Yes name and ext. # of [employer] Review Status In Process Please Provide Date Initial DC 12/12/22 Assessment Was Performed Next Review Type Continued Stay Review
--- NOTE | 2022-12-12 13:19 | P.PN_ITS ---
Subjective Subjective Interval history: 87 year old female admitted with UTI after being down for a reported couple of days. Also with afib with RVR on a dilt infusion but now off. Normal CK level. IV fluids stopped this morning. She denied complaints today other than weakness. No chest pain, dyspnea, LE edema. Exam Vital Signs (past 8 hours): - 12/12/22 05:30 12/12/22 05:30 12/12/22 05:32 Temperature 98.2 F 98.2 F Pulse Rate 79 79 Respiratory Rate 16 15 Blood Pressure 140/64 Pulse Oximetry 97 97 Oxygen Delivery Method 12/12/22 06:00 12/12/22 06:00 12/12/22 06:11 Temperature 98.2 F 98.2 F Pulse Rate 82 82 Respiratory Rate 14 14 Blood Pressure 147/69 H Pulse Oximetry 97 98 Oxygen Delivery Method 12/12/22 06:15 12/12/22 06:20 12/12/22 06:25 Temperature 98.2 F 98.4 F 98.4 F Pulse Rate 79 83 82 Respiratory Rate 16 13 11 L Blood Pressure Pulse Oximetry 98 98 99 Oxygen Delivery Method 12/12/22 06:30 12/12/22 06:30 12/12/22 06:35 Temperature 98.4 F 98.4 F Pulse Rate 82 83 Respiratory Rate 12 11 L Blood Pressure 148/72 H Pulse Oximetry 98 97 Oxygen Delivery Method 12/12/22 06:40 12/12/22 06:45 12/12/22 06:50 Temperature 98.4 F 98.4 F 98.4 F Pulse Rate 83 87 84 Respiratory Rate 12 33 H 13 Blood Pressure Pulse Oximetry 98 98 97 Oxygen Delivery Method 12/12/22 06:55 12/12/22 07:00 12/12/22 07:00 Temperature 98.6 F 98.6 F Pulse Rate 83 95 H Respiratory Rate 12 11 L Blood Pressure 149/67 H Pulse Oximetry 97 98 Oxygen Delivery Method 12/12/22 07:05 12/12/22 07:10 12/12/22 07:15 Temperature 98.6 F 98.6 F 98.6 F Pulse Rate 82 83 82 Respiratory Rate 14 15 16 Blood Pressure Pulse Oximetry 97 97 97 Oxygen Delivery Method 12/12/22 07:20 12/12/22 07:25 12/12/22 07:30 Temperature 98.6 F 98.6 F Pulse Rate 81 80 Respiratory Rate 19 16 Blood Pressure 136/65 Pulse Oximetry 97 98 Oxygen Delivery Method 12/12/22 07:30 12/12/22 07:35 12/12/22 07:40 Temperature 98.6 F 98.6 F 98.6 F Pulse Rate 81 81 80 Respiratory Rate 17 17 20 Blood Pressure Pulse Oximetry 97 97 97 Oxygen Delivery Method 12/12/22 07:45 12/12/22 07:50 12/12/22 07:55 Temperature 98.6 F 98.8 F 98.8 F Pulse Rate 81 81 80 Respiratory Rate 17 20 19 Blood Pressure Pulse Oximetry 98 98 98 Oxygen Delivery Method 12/12/22 08:00 12/12/22 08:00 12/12/22 08:00 Temperature 98.8 F Pulse Rate 83 Respiratory Rate 20 Blood Pressure 144/66 H Pulse Oximetry 96 97 Oxygen Delivery Method Room Air 12/12/22 08:05 12/12/22 08:10 12/12/22 08:15 Temperature 98.8 F 98.8 F 98.8 F Pulse Rate 80 81 80 Respiratory Rate 16 16 14 Blood Pressure Pulse Oximetry 97 98 98 Oxygen Delivery Method 12/12/22 08:20 12/12/22 08:25 12/12/22 08:30 Temperature 98.8 F 98.8 F 98.8 F Pulse Rate 112 H 101 H 96 H Respiratory Rate 27 H 24 24 Blood Pressure Pulse Oximetry 98 98 77 L Oxygen Delivery Method 12/12/22 08:31 12/12/22 08:31 12/12/22 08:35 Temperature 98.8 F 99.0 F Pulse Rate 103 H 103 H Respiratory Rate 25 H 24 Blood Pressure 151/61 H Pulse Oximetry 79 L 91 Oxygen Delivery Method 12/12/22 08:40 12/12/22 08:45 12/12/22 08:50 Temperature 99.0 F 99.0 F 99.0 F Pulse Rate 105 H 101 H 120 H Respiratory Rate 26 H 25 H 27 H Blood Pressure Pulse Oximetry 93 93 82 L Oxygen Delivery Method 12/12/22 08:55 12/12/22 09:00 12/12/22 09:05 Temperature 99.1 F 99.1 F 99.1 F Pulse Rate 104 H 101 H 107 H Respiratory Rate 32 H 23 30 H Blood Pressure Pulse Oximetry 78 L 100 99 Oxygen Delivery Method 12/12/22 09:10 12/12/22 09:15 12/12/22 09:20 Temperature 99.3 F 99.3 F 99.3 F Pulse Rate 105 H 101 H 97 H Respiratory Rate 28 H 28 H 17 Blood Pressure Pulse Oximetry 98 98 99 Oxygen Delivery Method 12/12/22 09:25 12/12/22 09:30 12/12/22 09:30 Temperature 99.5 F 99.5 F Pulse Rate 96 H 97 H Respiratory Rate 18 17 Blood Pressure 108/57 L Pulse Oximetry 99 98 Oxygen Delivery Method 12/12/22 09:35 12/12/22 09:40 12/12/22 09:45 Temperature 99.5 F 99.7 F H 99.7 F H Pulse Rate 96 H 100 H 96 H Respiratory Rate 17 16 23 Blood Pressure Pulse Oximetry 98 97 98 Oxygen Delivery Method 12/12/22 09:50 12/12/22 09:55 12/12/22 10:00 Temperature 99.7 F H 99.7 F H Pulse Rate 97 H 96 H Respiratory Rate 15 17 Blood Pressure 111/57 L Pulse Oximetry 97 96 Oxygen Delivery Method 12/12/22 10:00 12/12/22 10:11 12/12/22 10:15 Temperature 99.7 F H Pulse Rate 97 H 94 H 102 H Respiratory Rate 19 Blood Pressure Pulse Oximetry 97 83 L 99 Oxygen Delivery Method 12/12/22 10:20 12/12/22 10:25 12/12/22 10:30 Temperature Pulse Rate 100 H 110 H 97 H Respiratory Rate 16 Blood Pressure Pulse Oximetry 98 98 100 Oxygen Delivery Method 12/12/22 10:35 12/12/22 10:40 12/12/22 10:45 Temperature Pulse Rate 94 H 96 H 93 H Respiratory Rate 21 21 17 Blood Pressure Pulse Oximetry 96 97 97 Oxygen Delivery Method 12/12/22 10:50 12/12/22 10:55 12/12/22 11:00 Temperature Pulse Rate 93 H 92 H 92 H Respiratory Rate 29 H 19 21 Blood Pressure Pulse Oximetry 98 98 97 Oxygen Delivery Method 12/12/22 11:05 12/12/22 11:10 12/12/22 11:15 Temperature Pulse Rate 92 H 91 H 90 Respiratory Rate 14 15 16 Blood Pressure Pulse Oximetry 98 98 97 Oxygen Delivery Method 12/12/22 11:20 12/12/22 11:25 12/12/22 11:30 Temperature Pulse Rate 90 90 90 Respiratory Rate 15 15 15 Blood Pressure Pulse Oximetry 97 97 97 Oxygen Delivery Method 12/12/22 11:35 12/12/22 11:40 12/12/22 12:00 Temperature Pulse Rate 88 88 Respiratory Rate 14 14 Blood Pressure Pulse Oximetry 96 96 95 Oxygen Delivery Method Room Air 12/12/22 11:45 12/12/22 11:46 12/12/22 11:46 Temperature Pulse Rate 89 89 Respiratory Rate 14 14 Blood Pressure 114/57 L Pulse Oximetry 97 96 Oxygen Delivery Method 12/12/22 11:50 12/12/22 11:55 12/12/22 12:00 Temperature Pulse Rate 89 89 Respiratory Rate 15 15 Blood Pressure 109/58 L Pulse Oximetry 96 97 Oxygen Delivery Method 12/12/22 12:00 12/12/22 12:05 12/12/22 12:10 Temperature Pulse Rate 88 88 87 Respiratory Rate 14 13 14 Blood Pressure Pulse Oximetry 96 96 96 Oxygen Delivery Method 12/12/22 12:15 12/12/22 12:20 12/12/22 12:25 Temperature Pulse Rate 87 87 87 Respiratory Rate 14 15 13 Blood Pressure Pulse Oximetry 96 95 96 Oxygen Delivery Method 12/12/22 12:30 12/12/22 12:35 Temperature 98 F Pulse Rate 87 87 Respiratory Rate 15 14 Blood Pressure Pulse Oximetry 96 96 Oxygen Delivery Method Oxygen Delivery Method Room Air Oxygen Flow Rate 3 Narrative Exam Narrative: GEN: no acute distress, frail, chronically ill appearing HEENT: MMM, bruising R side of face CV: irregularly irregular with normal rate, no m/r/g. PULM: clear bilaterally ABD: soft, nontender, nondistended, no organomegaly EXt: warm and well perfused SKIN: scattered bruises NEURO: awake, alert, oriented, no focal deficits Objective Labs 12/12/22 04:09 12/12/22 04:09 Labs: Laboratory Results - last 24 hr 12/11/22 12/11/22 12/11/22 17:50 17:50 17:50 WBC 10.9 RBC 4.88 Hgb 14.7 Hct 42.6 MCV 87.3 MCH 30.1 MCHC 34.4 RDW 13.4 Plt Count 192 Neut % (Auto) 82.6 H Lymph % (Auto) 8.2 L [place] % (Auto) 8.3 Eos % (Auto) 0.6 L Baso % (Auto) 0.3 Neut # (Auto) 9000 H Lymph # (Auto) 900 L [place] # (Auto) 900 Eos # (Auto) 100 Baso # (Auto) 0 PT INR Sodium 126 L Potassium 3.4 Chloride 93 L Carbon Dioxide 21 L BUN 22 H Creatinine 0.49 L Estimated GFR > 60 BUN/Creatinine Ratio 44.9 H Glucose 73 L Lactate 1.5 Calcium 8.2 L Magnesium 1.4 L Total Bilirubin 1.8 H AST 52 H ALT 66 H Alkaline Phosphatase 77 Total Creatine Kinase 178 H CK-MB (CK-2) 8.35 H CK-MB (CK-2) Rel Index 4.7 Troponin I 0.060 H Total Protein 6.1 L Albumin 3.6 Globulin 2.5 Albumin/Globulin Ratio 1.4 Urine Color Urine Appearance Urine pH Ur Specific [place] Urine Protein Urine Glucose (UA) Urine Ketones Urine Occult Blood Urine Nitrate Urine Bilirubin Urine Urobilinogen Ur Leukocyte Esterase Urine RBC Urine WBC Other Crystals Urine Bacteria Hyaline Casts Ur Culture Indicated? Nasal Screen MRSA (PCR) SARS-CoV-2 (PCR) Influenza A (RT-PCR) Influenza B (RT-PCR) RSV (PCR) 12/11/22 12/11/22 12/11/22 17:50 18:00 18:25 WBC RBC Hgb Hct MCV MCH MCHC RDW Plt Count Neut % (Auto) Lymph % (Auto) [place] % (Auto) Eos % (Auto) Baso % (Auto) Neut # (Auto) Lymph # (Auto) [place] # (Auto) Eos # (Auto) Baso # (Auto) PT 9.8 L INR 0.9 Sodium Potassium Chloride Carbon Dioxide BUN Creatinine Estimated GFR BUN/Creatinine Ratio Glucose Lactate Calcium Magnesium Total Bilirubin AST ALT Alkaline Phosphatase Total Creatine Kinase CK-MB (CK-2) CK-MB (CK-2) Rel Index Troponin I Total Protein Albumin Globulin Albumin/Globulin Ratio Urine Color Yellow Urine Appearance Clear Urine pH 6.0 Ur Specific [place] 1.025 Urine Protein 2+ H Urine Glucose (UA) Negative Urine Ketones 3+ H Urine Occult Blood 1+ H Urine Nitrate Positive H Urine Bilirubin Negative Urine Urobilinogen 0.2 Ur Leukocyte Esterase Negative Urine RBC None seen Urine WBC 10-30/hpf H Other Crystals 1+ amorphous Urine Bacteria Few (2-10) H Hyaline Casts 10-30/lpf Ur Culture Indicated? Specimen cultured Nasal Screen MRSA (PCR) SARS-CoV-2 (PCR) Negative Influenza A (RT-PCR) Flu a negative Influenza B (RT-PCR) Flu b negative RSV (PCR) Negative 12/12/22 12/12/22 12/12/22 00:56 04:09 04:09 WBC 7.9 RBC 4.03 Hgb 12.1 Hct 34.9 L MCV 86.6 MCH 30.0 MCHC 34.7 RDW 13.3 Plt Count 226 Neut % (Auto) 81.0 H Lymph % (Auto) 10.8 L [place] % (Auto) 7.1 Eos % (Auto) 0.9 L Baso % (Auto) 0.2 Neut # (Auto) 6400 Lymph # (Auto) 900 L [place] # (Auto) 600 Eos # (Auto) 100 Baso # (Auto) 0 PT INR Sodium 130 L Potassium 2.8 L Chloride 98 Carbon Dioxide 28 BUN 21 H Creatinine 0.51 L Estimated GFR > 60 BUN/Creatinine Ratio 41.2 H Glucose 121 H Lactate Calcium 7.4 L Magnesium Total Bilirubin AST ALT Alkaline Phosphatase Total Creatine Kinase CK-MB (CK-2) CK-MB (CK-2) Rel Index Troponin I Total Protein Albumin Globulin Albumin/Globulin Ratio Urine Color Urine Appearance Urine pH Ur Specific [place] Urine Protein Urine Glucose (UA) Urine Ketones Urine Occult Blood Urine Nitrate Urine Bilirubin Urine Urobilinogen Ur Leukocyte Esterase Urine RBC Urine WBC Other Crystals Urine Bacteria Hyaline Casts Ur Culture Indicated? Nasal Screen MRSA (PCR) Not detected SARS-CoV-2 (PCR) Influenza A (RT-PCR) Influenza B (RT-PCR) RSV (PCR) 12/12/22 04:09 WBC RBC Hgb Hct MCV MCH MCHC RDW Plt Count Neut % (Auto) Lymph % (Auto) [place] % (Auto) Eos % (Auto) Baso % (Auto) Neut # (Auto) Lymph # (Auto) [place] # (Auto) Eos # (Auto) Baso # (Auto) PT INR Sodium Potassium Chloride Carbon Dioxide BUN Creatinine Estimated GFR BUN/Creatinine Ratio Glucose Lactate Calcium Magnesium 2.7 H Total Bilirubin AST ALT Alkaline Phosphatase Total Creatine Kinase CK-MB (CK-2) CK-MB (CK-2) Rel Index Troponin I Total Protein Albumin Globulin Albumin/Globulin Ratio Urine Color Urine Appearance Urine pH Ur Specific [place] Urine Protein Urine Glucose (UA) Urine Ketones Urine Occult Blood Urine Nitrate Urine Bilirubin Urine Urobilinogen Ur Leukocyte Esterase Urine RBC Urine WBC Other Crystals Urine Bacteria Hyaline Casts Ur Culture Indicated? Nasal Screen MRSA (PCR) SARS-CoV-2 (PCR) Influenza A (RT-PCR) Influenza B (RT-PCR) RSV (PCR) [facility] Medical History Aguillon's palsy Breast cancer (2007) Chicken pox (~1945) Collagenous colitis (2005) Degenerative joint disease of right hip Depression (2010) Hearing loss (2011) Hyperlipidemia Hypertension Low back strain Measles (~1941) Mumps (~1941) Osteoporosis (1999) Systolic murmur (06/23/17) Surgical History Anesthesia History of arthroplasty of right hip History of cosmetic surgery (09/2012) History of gynecologic surgery (2007) History of oophorectomy (1982) History of total right hip arthroplasty (2014) Status post breast lumpectomy (2007) Status post hysterectomy (1981) Family History Mother Type II diabetes mellitus Hypertension High cholesterol Father No problems noted. Sister No problems noted. Sister Cancer Sister No problems noted. Sister No problems noted. Other Colorectal cancer Social History marital status: unmarried,living together (partner) number of children: 1 household members: none lives independently: Yes occupational status: other (retired) Smoking Status: Former smoker alcohol intake: current substance use type: does not use Assessment & Plan Assessment & Plan narrative: 1. Recurrent falls -given concerns with mobility patient likely would benefit from permanently stopping eliquis -hit right side of body with workup thus far showing no fracture -ordered for PT/OT 2. UTI -may be the cause of weakness, or possibly developed after due to incontinence -ordered for ceftriaxone -follow up cultures, currently with no growth, blood cultures No growth. 3. Hypovolemic hyponatremia -secondary to be down for prolonged period -continued empiric IV fluid with improvement to 130 from 126. Will stop IV fluids given and CHF history today. 4. chronic Atrial fibrillation with RVR -suspect secondary to being unable to take meds, uti, and hypovolemia -did not respond to push dose IV dilt -started IV dilt gtt -reorder PO dilt -continue IV fluids and abx as above 5. Collagenous colitis -oral budesonide 6. CHFpEF and moderate aortic stenosis -has small bilateral effusions and pericardial effusion on chest imaging, but clinically she was dehydrated and improved with initial fluids that have now been stopped. 7. Hypomagnesemia, hypokalemia -secondary to poor oral intake -IV mag ordered, K replacement prn. 8. T12 compression fracture -on admission not causing significant pain, so possibly chronic -monitor for worse pain CODE: DNR/DNI Proxy: MARSHA Pope Dispo: probable SNF, pending therapy evaluations.
[2022-12-12] MEDS: POLYVINYL ALCOHOL DROPS 1 DROPS EYE-BOTH (13:33)
[2022-12-12] MEDS: cefTRIAXone 1,000 MG in SODIUM CHLORIDE 0.9% 100 ML 200 MG IV (20:10)
[2022-12-13] VITALS (84 sets, daily range): BP systolic 135–165; BP diastolic 69–79; PULSE 80–103; RESP 13–29; TEMP 36.4–37.2; O2SAT 80–96
[2022-12-13 05:18] LABS: Add Manual Diff / Slide Review NO; Basophils Absolute Auto 0 /uL (0-100); Basophils Percent Auto 0.3 % (0-2); Eosinophils Absolute Auto 200 /uL (0-450); Eosinophils Percent Auto 2.5 % (2-4); Hematocrit 33.5 % (36-46); Hemoglobin 11.3 g/dL (12.0-16.0); Lymphocytes Absolute Auto 800 /uL (1100-4500); Lymphocytes Percent Auto 10.8 % (25-40); Mean Corpuscular HGB Conc 33.6 % (30-36); Mean Corpuscular Hemoglobin 29.6 PG (26-34); Monocytes Absolute Auto 600 /uL (0-900); Monocytes Percent Auto 8.3 % (3-14); Neutrophils Absolute Auto 5900 /uL (1500-7000); Neutrophils Percent Auto 78.1 % (50-75); Platelet Count 202 X10^3/uL (150-400); Red Blood Cell Count 3.81 X10^6/uL (4.0-5.2); Red Cell Distribution Width 13.3 % (11.6-14.8); White Blood Cell Count 7.6 X10^3/uL (4.5-11.0)
[2022-12-13 05:33] LABS: BUN Creatinine Ratio 41.2 (6-22); Blood Urea Nitrogen 21 mg/dL (7-17); Calcium 7.4 mg/dL (8.4-10.2); Carbon Dioxide 31 mmol/L (22-32); Chloride 99 mmol/L (98-107); Estimated Glomerular Filt Rate > 60 mL/min (>60); Glucose 103 mg/dL (80-110); HEMOLYSIS < 15 (0-50); Magnesium 1.8 mg/dL (1.6-2.3); Potassium 4.1 mmol/L (3.4-5.1); Sodium 128 mmol/L (137-145)
--- NOTE | 2022-12-13 07:37 | DIET.CONS ---
Dietary Consultation Note Admission Date: 12/11/2022 21:06 Assessment: 87y F admitted after GLF where she was down for unknown amount of time referred to nutrition for weight loss and poor appetite. Pt with significant weight hx in EMR, pt currently at highest body weight in 3 years. Pt experiencing grief after of spouse earlier this month. Pt had been staying at [place] where she had meals prepared for her. This help with meal prep likely related to her higher body weight at this time. Pt has consumed 50-100% POs while in hospital. Ht: 142.24 cm Wt: 53.977 kg BMI: 26.6 UBW: 47kg Last BM: 12/13/22 (12/13/22 06:00) MNA: 7 Silas Score: 16 Diet: 12/12/22 Breakfast Heart Healthy Diet Diet Modifications: Nutrition Percent Meal Consumed 100% 12/12/22 18:13 Percent Meal Consumed 50% 12/12/22 09:19 Labs: RBC 3.81 X10^6/uL (4.0-5.2) L 12/13/22 04:35 Hgb 11.3 g/dL (12.0-16.0) L 12/13/22 04:35 Hct 33.5 % (36-46) L 12/13/22 04:35 Creatinine 0.51 mg/dL (0.52-1.04) L 12/13/22 04:35 Lactate 1.5 mmol/L (0.7-2.1) 12/11/22 17:50 Nutrition Diagnosis: none identified at this time. Interventions: Pt resistant to skilled/skilled nursing care facility, however pt would benefit from these services or home health to assist with ADLs and meal prep as she has hx of frequent falls at home and is at highest body weight due to added support. Electronically Signed by: Terra Hughes 12/13/22 07:37 Clinical Dietitian [address] [address]
[2022-12-13] MEDS: dilTIAZem CD 180 MG CAP PO (08:53)
[2022-12-13] MEDS: ENOXAPARIN 40 MG/0.4 ML SYRINGE SUBCUT (08:53)
[2022-12-13] MEDS: POTASSIUM CHLORIDE 20 MEQ TAB 40 MEQ PO ×2 (08:53→17:38)
[2022-12-13] MEDS: OXYCODONE IR 5 MG TABLET PO ×2 (08:54→18:46)
[2022-12-13] MEDS: POLYVINYL ALCOHOL DROPS 1 DROPS EYE-BOTH (09:02)
--- NOTE | 2022-12-13 09:05 | P.PN_ITS ---
Subjective Subjective Interval history: Patient altered today. Says she is upset because she is going #2 in the bed. Sister and brother in law at bedside. Spoke with them in hallway and they said she has been having progressive bursts of anger about her finances and distrust of everyone around her. They don't think she can return home. Exam Vital Signs (past 8 hours): - 12/13/22 01:10 12/13/22 01:15 12/13/22 01:20 Temperature Pulse Rate 84 83 83 Respiratory Rate 15 14 14 Blood Pressure Pulse Oximetry 91 91 91 Oxygen Delivery Method Oxygen Flow Rate 12/13/22 01:25 12/13/22 01:30 12/13/22 01:35 Temperature Pulse Rate 85 83 84 Respiratory Rate 16 14 15 Blood Pressure Pulse Oximetry 91 91 91 Oxygen Delivery Method Oxygen Flow Rate 12/13/22 01:40 12/13/22 01:45 12/13/22 01:50 Temperature Pulse Rate 83 86 86 Respiratory Rate 14 17 17 Blood Pressure Pulse Oximetry 90 L 91 91 Oxygen Delivery Method Oxygen Flow Rate 12/13/22 01:55 12/13/22 02:00 12/13/22 02:05 Temperature Pulse Rate 83 85 83 Respiratory Rate 14 16 14 Blood Pressure Pulse Oximetry 91 91 91 Oxygen Delivery Method Oxygen Flow Rate 12/13/22 02:10 12/13/22 02:15 12/13/22 04:00 Temperature 97.5 F L Pulse Rate 83 83 83 Respiratory Rate 15 15 22 Blood Pressure 135/70 Pulse Oximetry 90 L 90 L 96 Oxygen Delivery Method Oxygen Flow Rate 1 12/13/22 04:00 12/13/22 02:20 12/13/22 02:25 Temperature Pulse Rate 83 83 Respiratory Rate 15 15 Blood Pressure Pulse Oximetry 95 91 89 L Oxygen Delivery Method Room Air Oxygen Flow Rate 12/13/22 02:30 12/13/22 02:35 12/13/22 02:40 Temperature Pulse Rate 84 84 83 Respiratory Rate 14 15 14 Blood Pressure 135/70 Pulse Oximetry 91 90 L 90 L Oxygen Delivery Method Oxygen Flow Rate 12/13/22 02:45 12/13/22 02:50 12/13/22 02:55 Temperature Pulse Rate 85 93 H 84 Respiratory Rate 17 16 16 Blood Pressure Pulse Oximetry 91 90 L 89 L Oxygen Delivery Method Oxygen Flow Rate 12/13/22 03:00 12/13/22 03:05 12/13/22 03:10 Temperature Pulse Rate 82 82 82 Respiratory Rate 15 16 16 Blood Pressure Pulse Oximetry 89 L 89 L 89 L Oxygen Delivery Method Oxygen Flow Rate 12/13/22 03:15 12/13/22 03:20 12/13/22 03:25 Temperature Pulse Rate 82 86 81 Respiratory Rate 15 14 14 Blood Pressure Pulse Oximetry 90 L 95 94 Oxygen Delivery Method Oxygen Flow Rate 12/13/22 03:30 12/13/22 03:35 12/13/22 03:40 Temperature Pulse Rate 80 80 Respiratory Rate 15 15 Blood Pressure 150/69 H Pulse Oximetry 95 94 Oxygen Delivery Method Oxygen Flow Rate 12/13/22 03:40 12/13/22 03:41 12/13/22 03:41 Temperature Pulse Rate 83 91 H Respiratory Rate 24 17 Blood Pressure 135/70 Pulse Oximetry 96 95 Oxygen Delivery Method Oxygen Flow Rate 12/13/22 03:45 12/13/22 03:50 12/13/22 03:55 Temperature Pulse Rate 82 81 81 Respiratory Rate 14 17 15 Blood Pressure Pulse Oximetry 95 95 95 Oxygen Delivery Method Oxygen Flow Rate 12/13/22 04:00 12/13/22 04:05 12/13/22 04:10 Temperature Pulse Rate 81 81 81 Respiratory Rate 15 14 14 Blood Pressure Pulse Oximetry 95 95 95 Oxygen Delivery Method Oxygen Flow Rate 12/13/22 04:15 12/13/22 04:20 12/13/22 04:25 Temperature Pulse Rate 81 81 83 Respiratory Rate 14 14 13 Blood Pressure Pulse Oximetry 96 96 96 Oxygen Delivery Method Oxygen Flow Rate 12/13/22 04:30 12/13/22 04:35 12/13/22 04:40 Temperature Pulse Rate 90 83 82 Respiratory Rate 20 17 15 Blood Pressure 135/70 Pulse Oximetry 95 95 95 Oxygen Delivery Method Oxygen Flow Rate 12/13/22 04:45 12/13/22 04:50 12/13/22 04:55 Temperature Pulse Rate 82 81 81 Respiratory Rate 15 15 14 Blood Pressure Pulse Oximetry 94 95 95 Oxygen Delivery Method Oxygen Flow Rate 12/13/22 05:00 12/13/22 05:05 12/13/22 05:10 Temperature Pulse Rate 81 82 82 Respiratory Rate 14 15 13 Blood Pressure Pulse Oximetry 95 95 96 Oxygen Delivery Method Oxygen Flow Rate 12/13/22 05:15 12/13/22 05:20 12/13/22 05:25 Temperature Pulse Rate 82 82 81 Respiratory Rate 14 14 14 Blood Pressure Pulse Oximetry 95 96 96 Oxygen Delivery Method Oxygen Flow Rate 12/13/22 05:30 12/13/22 05:35 12/13/22 05:40 Temperature Pulse Rate 81 81 82 Respiratory Rate 14 14 15 Blood Pressure Pulse Oximetry 96 96 96 Oxygen Delivery Method Oxygen Flow Rate 12/13/22 05:45 12/13/22 05:50 12/13/22 05:55 Temperature Pulse Rate 81 82 84 Respiratory Rate 15 14 15 Blood Pressure Pulse Oximetry 96 96 95 Oxygen Delivery Method Oxygen Flow Rate 12/13/22 06:00 12/13/22 06:05 12/13/22 06:10 Temperature Pulse Rate 97 H 98 H 85 Respiratory Rate 20 22 20 Blood Pressure Pulse Oximetry 95 94 95 Oxygen Delivery Method Oxygen Flow Rate 12/13/22 06:15 12/13/22 06:20 12/13/22 06:25 Temperature Pulse Rate 95 H 89 91 H Respiratory Rate 24 29 H 25 H Blood Pressure Pulse Oximetry 96 80 L Oxygen Delivery Method Oxygen Flow Rate 12/13/22 08:00 Temperature 98.1 F Pulse Rate 88 Respiratory Rate 25 H Blood Pressure 147/72 H Pulse Oximetry 96 Oxygen Delivery Method Oxygen Flow Rate 0 Oxygen Delivery Method Room Air Oxygen Flow Rate 0 Narrative Exam Narrative: GEN: no acute distress, frail, chronically ill appearing HEENT: MMM, bruising R side of face CV: irregularly irregular with normal rate, no m/r/g. PULM: clear bilaterally ABD: soft, nontender, nondistended, no organomegaly EXt: warm and well perfused SKIN: scattered bruises NEURO: confused Objective Labs 12/13/22 04:35 12/13/22 04:35 Labs: Laboratory Results - last 24 hr 12/13/22 12/13/22 04:35 04:35 WBC 7.6 RBC 3.81 L Hgb 11.3 L Hct 33.5 L MCV 88.0 MCH 29.6 MCHC 33.6 RDW 13.3 Plt Count 202 Neut % (Auto) 78.1 H Lymph % (Auto) 10.8 L [place] % (Auto) 8.3 Eos % (Auto) 2.5 Baso % (Auto) 0.3 Neut # (Auto) 5900 Lymph # (Auto) 800 L [place] # (Auto) 600 Eos # (Auto) 200 Baso # (Auto) 0 Sodium 128 L Potassium 4.1 D Chloride 99 Carbon Dioxide 31 BUN 21 H Creatinine 0.51 L Estimated GFR > 60 BUN/Creatinine Ratio 41.2 H Glucose 103 Calcium 7.4 L Magnesium 1.8 [facility] Medical History Aguillon's palsy Breast cancer (2007) Chicken pox (~1945) Collagenous colitis (2005) Degenerative joint disease of right hip Depression (2010) Hearing loss (2011) Hyperlipidemia Hypertension Low back strain Measles (~194) Mumps (~194) Osteoporosis (1999) Systolic murmur (06/23/17) Surgical History Anesthesia History of arthroplasty of right hip History of cosmetic surgery (09/2012) History of gynecologic surgery (2007) History of oophorectomy (1982) History of total right hip arthroplasty (2014) Status post breast lumpectomy (2007) Status post hysterectomy (1981) Family History Mother Type II diabetes mellitus Hypertension High cholesterol Father No problems noted. Sister No problems noted. Sister Cancer Sister No problems noted. Sister No problems noted. Other Colorectal cancer Social History marital status: unmarried,living together (partner) number of children: 1 household members: none lives independently: Yes occupational status: other (retired) Smoking Status: Former smoker alcohol intake: current substance use type: does not use Assessment & Plan Assessment & Plan narrative: 1. Recurrent falls -given concerns with mobility patient likely would benefit from permanently stopping eliquis -hit right side of body with workup thus far showing no fracture -ordered for PT/OT 2. UTI, ruled out -may be the cause of weakness, or possibly developed after due to incontinence -ordered for ceftriaxone -urine culture no growth, abx stopped 3. Hypovolemic hyponatremia -secondary to be down for prolonged period -continued empiric IV fluid with improvement to 130 from 126. -now at 128, 500cc bolus given 4. chronic Atrial fibrillation with RVR -suspect secondary to being unable to take meds, uti, and hypovolemia -did not respond to push dose IV dilt -started IV dilt gtt, now weaned off -reorder PO dilt -continue IV fluids and abx as above 5. Collagenous colitis -oral budesonide 6. CHFpEF and moderate aortic stenosis -has small bilateral effusions and pericardial effusion on chest imaging, but clinically she was dehydrated and improved with initial fluids that have now been stopped. 7. Hypomagnesemia, hypokalemia -secondary to poor oral intake -IV mag ordered, K replacement prn. 8. T12 compression fracture -on admission not causing significant pain, so possibly chronic -monitor for worse pain 9. Acute hospital acquired delirium vs dementia -patient confused on 12/13 -family says she has been progressively worsening with her cognition since her -reorient as able -not on any psychoactive medications -monitor CODE: DNR/DNI Proxy: MARSHA Pope Dispo: Needs SNF per PT.
[2022-12-13] MEDS: MAGNESIUM SULFATE 2 GM/50 ML PIGGYBACK IV (10:07)
[2022-12-13] MEDS: SODIUM CHLORIDE 0.9% 500 ML IV (10:08)
--- NOTE | 2022-12-13 10:17 | PT.IIE ---
Current Diagnoses Urinary tract infection, site not specified (12/11/22) Surgical History (Last Reviewed 12/12/22 @ 06:39 by Júnior Godwin MD) Anesthesia History of arthroplasty of right hip History of cosmetic surgery (09/2012) History of gynecologic surgery (2007) History of oophorectomy (1982) History of total right hip arthroplasty (2014) Status post breast lumpectomy (2007) Status post hysterectomy (1981) Medical History (Last Reviewed 12/12/22 @ 06:39 by Júnior Godwin MD) Aguillon's palsy Breast cancer (2007) Chicken pox (~1945) Collagenous colitis (2005) Degenerative joint disease of right hip Depression (2010) Hearing loss (2011) Hyperlipidemia Hypertension Low back strain Measles (~1941) Mumps (~1941) Osteoporosis (1999) Systolic murmur (06/23/17) Physical Therapy Inpatient Evaluation/Re-Eval M1 PT/OT-IP Prior Functional Status Start: 12/13/22 09:04 Freq: NEEDED Status: Active Protocol: Document 12/13/22 09:54 ES (Rec: 12/13/22 10:16 ES [id number]) Medical Review Prior Functional Status Medical History Reviewed Yes Diet/Fluid Consistency Regular Communication WFL Mobility and Gait Indep with FWW Activities of Daily Living and IADL's Indep, has hired opening machine cleaner who comes every 2 weeks Social History Household Members none Living Arrangements Mobile home Number of Floors (Floors) One Floor Number of Stairs To Enter/Railing? Has a ramp with rails Home Environment Standard Height Toilet,Walk in Shower,Tub/Shower,Built-In Shower Seat,Ramp Home Equipment Front Wheel Walker,Hand Held Shower,Long Handled Shoe Horn, Log Chipper Operator,Lift Recliner,Grab Bars Near Toilet,Grab Bars In Shower Employment Status Retired Additional Social History Comment Recently moved into a new mobile home with a renovated bathroom with both walk in shower and walk in tub, both with built in seats. Her sister and VALERIO from [place] are staying at her place as long as needed. Has medical alert ( necklace and watch), stated she wasn't wearing it when she fell and doesn't know why. Does not have a cell phone. Has been considering getting a 4WW. M2 PT-IP Current Condition Start: 12/13/22 09:04 Freq: NEEDED Status: Active Protocol: Document 12/13/22 09:54 ES (Rec: 12/13/22 10:16 ES [id number]) Physical Therapy Current Condition Current Condition Evaluation Date 12/13/22 Treatment Diagnosis GLF, weakness Onset Date 12/11/22 M3 PT-IP Subjective Start: 12/13/22 09:04 Freq: NEEDED Status: Active Protocol: Document 12/13/22 09:54 ES (Rec: 12/13/22 10:16 ES [id number]) Subjective Physical Therapy Visit Type Type Initial Evaluation Visit Start Time 09:21 Visit Stop Time 09:52 Total Visit Minutes 31 Physical Therapy Visit Comments Patient Comments Patient resting in bed, had just finished breakfast, stated she had bowel movement in the bed. Patient agreeable to work with PT though reported feeling tired. Therapy Pain Assessment Pain When Pain Assessed During Mobility Pain Present Pain Present Pain Reported Location BLE Scale Used Not rated Description Sharp,Tender,With Movement Pain Behaviors Wincing Pain Management Techniques Modification of Treatment,Re- positioning,Timing of Activity with Medications right arm Scale Used Not rated Description Tender,With Movement Pain Behaviors Guarding Pain Management Techniques Modification of Treatment,Re- positioning M4 PT-IP Mobility and Gait Start: 12/13/22 09:04 Freq: NEEDED Status: Active Protocol: Document 12/13/22 09:54 ES (Rec: 12/13/22 10:16 ES [id number]) PT-Bed Mobility Assessment Rolling Type of Rolling Log Rolling,Roll to Right,Roll to Left Level of Assist Maximal Assistance,2 Person Assistance Scooting Scooting Up and Down in Bed Dependent PT-Transfer Assessment Comments Mobility Comments Patient rolled B with cues for sequencing and use of rail to assist with 2-person assist due to pain and weakness. Did not sit EOB due to high levels of pain/tenderness with any LE movement. Patient positioned in R sidelying with pillow under calves to elevate heels at end of session. Gait Assessment Comments Gait Comments Unable due to weakness and pain M5 PT-IP Objective Assessments Start: 12/13/22 09:04 Freq: NEEDED Status: Active Protocol: Document 12/13/22 09:54 ES (Rec: 12/13/22 10:16 ES [id number]) Orientation Orientation/Cognition Level of Alertness Lethargic Language Function Ability Hard of Hearing Safety Awareness Decreased Safety Awareness Memory Description No Deficits Noted Gross Range of Motion Upper Extremity ROM Assessment Right Impaired Impairments R shoulder limited to ~30% Lower Extremity ROM Assessment Bilaterally Impaired Impairments B ankles and knees limited to ~50% due to pain Strength Upper Extremity Strength Assessment Bilaterally Impaired Lower Extremity Strength Assessment Bilaterally Impaired Comments Strength Comments Unable to move RUE fully against gravity. LUE grossly 3+/5 BLE grossly 3-/5 Coordination Assessment Gross Coordination Gross Coordination WNL M6 PT-IP Treatment Start: 12/13/22 09:04 Freq: NEEDED Status: Active Protocol: Document 12/13/22 09:54 ES (Rec: 12/13/22 10:16 ES [id number]) Physical Therapy Treatment Other Treatments Other Treatment Performed Education in purpose and benefits of PT in acute setting. Education on importance of early mobility to reduce effects of prolonged immobilization. M7 PT-IP Assessment and Plan Start: 12/13/22 09:04 Freq: NEEDED Status: Active Protocol: Document 12/13/22 09:54 ES (Rec: 12/13/22 10:16 ES [id number]) PT Summary Assessment and Plan Potential Rehabilitation Potential Good Status of Condition at Evaluation Evolving Summary Impairments Pain,ROM,Strength,Balance,Bed Mobility,Transfers,Gait, Activity Tolerance Assessment Summary Patient is a 87 year old female who presents with severely impaired functional mobility due to the above impairments. She had received pain meds prior to treatment but still quite tender throughout BLE's, RUE, and back. She required 2-person assist for bed level activity, and was intermittently confused requiring cues for sequencing. Her home is well equipped and accessible, and she will have some family assistance at home as long as needed; however, she is currently well below her baseline and will benefit from further rehab to regain strength for mobility. Depending on her progress during hospitalization, she may need subacute rehab/SNF to be able to reach PLOF in order to return home safely. Goals Bed Mobility Goal Independent Transfer Goal Independent,Front Wheeled Walker,Four Wheeled Walker Gait Goal Independent,Front Wheel Walker ,Four Wheel Walker Gait Distance 150 ft Days to Meet Goals 10 Frequency of Treatment Frequency Of Treatment Once a Day Treatment Plan Physical Therapy Treatment Plan Bed Mobility Training,Transfer Training,Gait Training, Therapeutic Exercise,Balance Retraining,Discharge Planning, Hot or Cold Pack,Neuromuscular Re-ed,Manual Therapy Other Recommendations and Next Treatment Progress to sitting EOB as Focus tolerated, transfers when indicated. Consider using overhead lift up to ge tup to chair. Precautions Other Precautions Fall risk Weight Bearing Status Weight Bearing Status Weight Bear as Tolerated Recommendations To Nursing Amount of Assist Needed 2 Person Assist,Mechanical Lift Discharge Recommendations PT Discharge Recommendations SNF Rehab Transportation Needs at Discharge Wheelchair/Cabulance,Stretcher /Ambulance
--- NOTE | 2022-12-13 12:42 | OT.IPNOTE ---
Chart reviewed and nursing consulted. Per P.T. pt with minimal ability to participate in therapy d/t high levels of pain. Attempted to see pt and pt declined to participate at this time. Will hold and continue to follow.
--- NOTE | 2022-12-13 14:30 | CM.DPC ---
DCP Continued: DIRECTOR DATABASE entered room and introduced self and role. Patient was alert but appeared confused as to where she came from prior to hospitalization. Patient was agreeable, but hesitant, to being d/c to SNF if deemed medically necessary. Patient appeared agreeable to [facility] in [place]. DIRECTOR DATABASE team spoke with sister and [id number]. Family and patient reported that Evelio ENGLISH, is out of town on holiday at the moment and would be returning soon. Family stated that up until two weeks ago she was doing relatively okay with being independent in her mobile home and caring for her needs. Family stated that the confusion/current cognitive state of patient is outside of baseline, and that patient appears more confused now than normal. DIRECTOR DATABASE informed family that patient's previous PCP has left the facility, and encouraged family to inquire about who patient's new PCP is. Family reports they are looking into options for forest fire fighters dispatcher care. Specifically, family appears to be weighing assisted living facilities versus hiring private caregivers. DIRECTOR DATABASE provided family with senior resources pamphlet and information on fci care facilities, specifically [facility] on [address]. Plan is SNF at this time potentially [facility] for fci care. PRAVEENA Rowley called Radha at [facility] to update her and begin authorization process and let her know that patient will likely be ready to d/c tomorrow, 12/14. but no answer at this time. Patient's sister and VALERIO will be around at 10:30am tomorrow to get update from CM team/providers. Plan: ROXANNE Veliz will send clinicals and referral to [facility]. CM team will continue to follow closely. LORA Rossi
[2022-12-13] MEDS: SODIUM CHLORIDE 0.9% FLUSH 10 ML IV (23:25)
--- NOTE | 2022-12-14 01:03 | PC.NURSE ---
Water Resources Program Director Note-Patient has been confused and angry, resistive to care, telling staff Get out of my house and leave me alone At 0100, she removed electrodes and swung them at staff, would not allow anyone to touch her. HR was 100-115 ST with PACs prior to removal. She denies pain, although yells out when she was touched during brief change from stool incontinence earlier in shift. Notified Dr Godwin about patients mentation and refusal of care, no orders at this time. Will monitor her with curtain open.
[2022-12-14 04:00] VITALS: O2SAT 92
[2022-12-14 04:50] VITALS: BP 150/74; PULSE 99; RESP 17; TEMP 37.5; O2SAT 92
[2022-12-14] MEDS: OXYCODONE IR 5 MG TABLET PO ×2 (05:10→09:18)
[2022-12-14] MEDS: POLYVINYL ALCOHOL DROPS 1 DROPS EYE-BOTH (05:19)
[2022-12-14 06:22] LABS: Add Manual Diff / Slide Review NO; Basophils Absolute Auto 0 /uL (0-100); Basophils Percent Auto 0.4 % (0-2); Eosinophils Absolute Auto 200 /uL (0-450); Eosinophils Percent Auto 2.8 % (2-4); Hematocrit 35.3 % (36-46); Lymphocytes Absolute Auto 900 /uL (1100-4500); Lymphocytes Percent Auto 11.6 % (25-40); Mean Corpuscular Hemoglobin 30.1 PG (26-34); Mean Corpuscular Volume 88.5 fL (80-100); Monocytes Absolute Auto 700 /uL (0-900); Monocytes Percent Auto 8.6 % (3-14); Neutrophils Absolute Auto 6100 /uL (1500-7000); Neutrophils Percent Auto 76.6 % (50-75); Platelet Count 215 X10^3/uL (150-400); Red Blood Cell Count 3.98 X10^6/uL (4.0-5.2); Red Cell Distribution Width 13.4 % (11.6-14.8); White Blood Cell Count 7.9 X10^3/uL (4.5-11.0)
[2022-12-14 06:36] LABS: HEMOLYSIS 27 (0-50); Potassium 4.6 mmol/L (3.4-5.1)
[2022-12-14 06:37] LABS: Blood Urea Nitrogen 10 mg/dL (7-17); Carbon Dioxide 27 mmol/L (22-32); Chloride 98 mmol/L (98-107); Estimated Glomerular Filt Rate > 60 mL/min (>60); Glucose 144 mg/dL (80-110); Magnesium 1.8 mg/dL (1.6-2.3); Sodium 127 mmol/L (137-145)
[2022-12-14 09:05] VITALS: O2SAT 93
[2022-12-14] MEDS: ENOXAPARIN 40 MG/0.4 ML SYRINGE SUBCUT (09:16)
[2022-12-14] MEDS: dilTIAZem CD 180 MG CAP PO (09:16)
[2022-12-14] MEDS: SODIUM CHLORIDE 1,000 MG TABLET 1000 MG PO (09:16)
[2022-12-14] MEDS: SODIUM CHLORIDE 0.9% FLUSH 10 ML IV (09:17)
[2022-12-14 09:27] VITALS: BP 156/96; PULSE 80; RESP 16; TEMP 36.8; O2SAT 97
--- NOTE | 2022-12-14 10:57 | OT.IPNOTE ---
Nursing aids just completed brief change and pt too tired and insistent on just resting and not wanting to do OT eval at this time. Pt agreed to get up in an hour right before lunch time.
--- NOTE | 2022-12-14 11:55 | P.DS_ITS ---
History of Present Illness History of Present Illness Date Patient Seen: 12/11/22 Time Patient Seen: 21:00 Chief complaint: GLF Narrative: Ms. Villar is an 87W with PMH HTN, HL, depression, afib, CHFpEF, aortic stenosis, history of falls with liver lac and rib fracutrese, collagenous colitis who presents after a fall. Her last week and after she went to mail his ashes she came home and fell. She thinks this happened a few days ago, she was unable to get up from the floor since she thinks Tuesday. She fell on her right side and had right arm and shoulder pain. Eventually she was found by a neighbor. Aside from the pain in her arm and feeling generally weak, she has no other complaints. No confusion. No chest pain, shortness of breath, pa lpitations. No vomiting, diarrhea. In the ED workup was done, vitals notable for afebrile, heart rate 120s-140s, respiratory rate 16, sats 98% on room air. Labs reviewed by me and notable for WBC 10.9, hgb 14.7, plts 192. Na 126, cl 93, co2 21, creatinine 0.49. Lactate 1.5. Bili 1.8, ast/alt 52/66. mag 1.4. UA with nitrates, wbcs, bacteria. CT head reviewed by me and no acute process noted. CT c-spine with no acute process. CT ches/abd/pelvis reviewed by me and notable for old liver laceration, t12 compression fracture, right abdominal and pelvis edema, small bilateral pleural effusions, small pericardial effusion. Xray of right humerus and elbow with no acute fracture. She was ordered fluids and antibiotics and admitted for further treatment. Discharge Providers Provider Date of admission: 12/11/22 21:06 Discharge Date: 12/14/22 Primary care physician: Del Reyes MD Consults: 12/12/22 00:35 Consult to Occupational Therapy Evaluate & Treat Comment: Physician Instructions: Evaluate and treat Consult to Physical Therapy Evaluate & Treat Comment: Physician Instructions: Evaluate and Treat 12/12/22 00:47 Consult to Dietitian, Adult Routine Comment: Reason For Exam: weight loss & reduced appetite Consult to Boiler Room Operator Routine Comment: Discharge provider: Mak Doe DO Summary Hospital Course Discharge Diagnosis: 1. Recurrent falls -given concerns with mobililty will permanently stop eliquis -hit right side of body with workup thus far showing no fracture -ordered for PT/OT and rec SNF 2. UTI, ruled out -may be the cause of weakness, or possibly developed after due to incontinence -ordered for ceftriaxone -urine culture no growth, abx stopped 3. Hypovolemic hyponatremia vs SIADH -secondary to be down for prolonged period -continued empiric IV fluid with improvement to 130 from 126. -after giving IVF, began to drop to 127 -fluid restriction of 2L/day and 1g salt tabs daily for 1 week 4. chronic Atrial fibrillation with RVR -suspect secondary to being unable to take meds, uti, and hypovolemia -did not respond to push dose IV dilt -started IV dilt gtt, now weaned off -reorder PO dilt and now rate controlled 5. Collagenous colitis -oral budesonide 6. CHFpEF and moderate aortic stenosis -has small bilateral effusions and pericardial effusion on chest imaging, but clinically she was dehydrated and improved with initial fluids that have now been stopped. 7. Hypomagnesemia, hypokalemia -secondary to poor oral intake -IV mag ordered, K replacement prn. 8. T12 compression fracture -on admission not causing significant pain, so possibly chronic -monitor for worse pain 9. Acute hospital acquired delirium vs dementia -patient confused on 12/13 -family says she has been progressively worsening with her cognition since her -reorient as able -not on any psychoactive medications -monitor Hospital Course: See above problem list. Time Spent with Patient Time spent: Greater than 30 minutes Exam Vital Signs (past 8 hours): - 12/14/22 04:50 12/14/22 04:00 12/14/22 09:27 Temperature 99.5 F 98.2 F Pulse Rate 99 H 80 Respiratory Rate 17 16 Blood Pressure 150/74 H 156/96 H Pulse Oximetry 92 92 97 Oxygen Delivery Method Room Air Oxygen Flow Rate 0 12/14/22 09:05 12/14/22 09:05 Temperature Pulse Rate Respiratory Rate Blood Pressure Pulse Oximetry 93 Oxygen Delivery Method Room Air Room Air Oxygen Flow Rate 0 Oxygen Delivery Method Room Air Oxygen Flow Rate 0 Narrative Exam Narrative: GEN: no acute distress, frail, chronically ill appearing HEENT: MMM, bruising R side of face CV: irregularly irregular with normal rate, no m/r/g. PULM: clear bilaterally ABD: soft, nontender, nondistended, no organomegaly EXt: warm and well perfused SKIN: scattered bruises NEURO: confused Objective Labs 12/14/22 05:41 12/14/22 05:41 Labs: Laboratory Results - last 24 hr 12/14/22 12/14/22 05:41 05:41 WBC 7.9 RBC 3.98 L Hgb 12.0 Hct 35.3 L MCV 88.5 MCH 30.1 MCHC 34.0 RDW 13.4 Plt Count 215 Neut % (Auto) 76.6 H Lymph % (Auto) 11.6 L Eddy % (Auto) 8.6 Eos % (Auto) 2.8 Baso % (Auto) 0.4 Neut # (Auto) 6100 Lymph # (Auto) 900 L Eddy # (Auto) 700 Eos # (Auto) 200 Baso # (Auto) 0 Sodium 127 L Potassium 4.6 Chloride 98 Carbon Dioxide 27 BUN 10 Creatinine 0.50 L Estimated GFR > 60 BUN/Creatinine Ratio 20.0 Glucose 144 H Calcium 8.0 L Magnesium 1.8 PFSH Medical History Aguillon's palsy Breast cancer (2007) Chicken pox (~1944) Collagenous colitis (2005) Degenerative joint disease of right hip Depression (2010) Hearing loss (2011) Hyperlipidemia Hypertension Low back strain Measles (~194) Mumps (~194) Osteoporosis (1999) Systolic murmur (06/23/17) Surgical History Anesthesia History of arthroplasty of right hip History of cosmetic surgery (09/2012) History of gynecologic surgery (2007) History of oophorectomy (1982) History of total right hip arthroplasty (2014) Status post breast lumpectomy (2007) Status post hysterectomy (1981) Family History Mother Type II diabetes mellitus Hypertension High cholesterol Father No problems noted. Sister No problems noted. Sister Cancer Sister No problems noted. Sister No problems noted. Other Colorectal cancer Social History marital status: unmarried,living together (partner) number of children: 1 household members: none lives independently: Yes occupational status: other (retired) Smoking Status: Former smoker alcohol intake: current substance use type: does not use Discharge Plan Discharge Plan Patient Disposition: SNF Discharge orders & Medications Prescriptions: New sodium chloride 1,000 mg Tablet,Soluble 1,000 mg PO DAILY Qty: 7 0RF Continued CA PANTOTHENATE/FOLIC ACID/VIT (MULTIVITAMIN) 1 tab PO Q DAY Qty: 0 VITAMIN D (Vitamin D3) 1,000 unit PO QDAY Qty: 0 calcium carbonate [Tums] 500 MG tablet,chewable 1,000 mg PO PRN (Reason: Acid Reflux) Qty: 0 budesonide 9 mg tablet,delayed and ext.release 9 mg PO QAM Qty: 90 1RF fluoxetine 20 mg capsule 20 mg PO DAILY Qty: 90 3RF diltiazem HCl 180 mg capsule,extended release 24hr 180 mg PO DAILY Qty: 90 1RF lisinopril 5 mg tablet 5 mg PO DAILY Qty: 90 3RF trazodone 50 mg tablet 50 mg PO HS PRN (Reason: insomnia) Qty: 30 3RF Discontinued Eliquis 2.5 mg tablet 2.5 mg PO BID Qty: 60 5RF Follow up/Referrals: Del Reyes MD [Physician] - 12/21/22 10:00 am (Appt:12/21 @ 10:[address] Sanderson please arrive 15 minutes prior to your schedduled appointment time ) Discharge Health Status Multidrug resistant organism: No MDRO Diet/Activity/Treatments Diet: Regular Liquid consistency: Normal/Thin Diet comment: Fluid restriction of 2L per day for 1 week [facility] Rehab type: Physical therapy and Occupational therapy Visit Report/Discharge Packet Stand Alone Forms: Patient Portal/API Discharge Data Primary Care Provider: Robert Blair
--- NOTE | 2022-12-14 12:02 | PT.IPTN ---
Current Diagnoses Urinary tract infection, site not specified (12/11/22) Physical Therapy Treatment Note M2 PT-IP Current Condition Start: 12/13/22 09:04 Freq: NEEDED Status: Active Protocol: Document 12/13/22 09:54 ES (Rec: 12/13/22 10:16 ES [id number]) Physical Therapy Current Condition Current Condition Evaluation Date 12/13/22 Treatment Diagnosis GLF, weakness Onset Date 12/11/22 M3 PT-IP Subjective Start: 12/13/22 09:04 Freq: NEEDED Status: Active Protocol: Document 12/14/22 12:02 AB (Rec: 12/14/22 13:16 AB [id number]) Subjective Physical Therapy Visit Type Type Treatment Note Visit Start Time 12:02 Visit Stop Time 12:25 Total Visit Minutes 23 Number of SECOND OFFICER Visits 0 Physical Therapy Visit Comments Patient Comments c/o overall body pain Therapy Pain Assessment Pain When Pain Assessed At Rest Pain Present Pain Present Pain Reported Location Generalized Scale Used pain scale not stated Pain Behaviors Facial Grimacing,Guarding Pain Management Techniques Distraction,Modification of Treatment,Re-positioning M4 PT-IP Mobility and Gait Start: 12/13/22 09:04 Freq: NEEDED Status: Active Protocol: Document 12/14/22 12:02 AB (Rec: 12/14/22 13:16 AB [id number]) PT-Bed Mobility Assessment Supine to Sit Supine to Sit Maximum Assistance,2 Person Assistance Scooting Scooting to Edge of Bed Maximum Assistance,Dependent PT-Transfer Assessment Sit to and From Stand Sit to and from Stand Maximum Assistance,2 Person Assistance,Use of Upper Extremities Equipment Transfer Assistive Device Gait Belt,Front Wheeled Walker Orthotic/Prosthetic Devices or Brace: No Transfers Transfer Destination Chair Transfer Technique Stand Step Pivot Transfer Ability Level of Assist Maximum Assistance,2 Person Assistance,Use of Upper Extremities Comments Mobility Comments completed supine to sit with HOB elevated to ~ 40 deg max A x 2 and max cues. required increase time to complete task . c/o generalized body pain and needs encouragement to participate. family in room and motivated pt. pt required max A x 1 with initial sitting on EOB with increase posterior trunk lean and slight lateral lean to the L. required min to mod A after repositioning. pt required max A x 2 to total Ax 2 for scooting to EOB. c/o pain with slight movement. completed sit to stand from EOB max A x 2 and max cues. presents with increase posterior trunk retropulsion and needs max A x 1-2 for repositioning and balance. completed step transfer to chair max A x 2 and max cues using FWW. requires assist for weight shifting and assist for LE movement. positioned pt on the chair. Left pt with OT. Gait Assessment Comments Gait Comments unable at this time M5 PT-IP Objective Assessments Start: 12/13/22 09:04 Freq: NEEDED Status: Active Protocol: Document 12/13/22 09:54 ES (Rec: 12/13/22 10:16 ES [id number]) Orientation Orientation/Cognition Level of Alertness Lethargic Language Function Ability Hard of Hearing Safety Awareness Decreased Safety Awareness Memory Description No Deficits Noted Gross Range of Motion Upper Extremity ROM Assessment Right Impaired Impairments R shoulder limited to ~30% Lower Extremity ROM Assessment Bilaterally Impaired Impairments B ankles and knees limited to ~50% due to pain Strength Upper Extremity Strength Assessment Bilaterally Impaired Lower Extremity Strength Assessment Bilaterally Impaired Comments Strength Comments Unable to move RUE fully against gravity. LUE grossly 3+/5 BLE grossly 3-/5 Coordination Assessment Gross Coordination Gross Coordination WNL M6 PT-IP Treatment Start: 12/13/22 09:04 Freq: NEEDED Status: Active Protocol: Document 12/14/22 12:02 AB (Rec: 12/14/22 13:16 AB [id number]) Physical Therapy Treatment Education Education Provided Safety M7 PT-IP Assessment and Plan Start: 12/13/22 09:04 Freq: NEEDED Status: Active Protocol: Document 12/14/22 12:02 AB (Rec: 12/14/22 13:16 AB [id number]) PT Summary Assessment and Plan Potential Rehabilitation Potential Fair Summary Impairments Pain,ROM,Strength,Balance, Coordination,Sensation,Tone, Cognition,Bed Mobility, Transfers,Gait,Activity Tolerance Progress Towards Goals Slow Progress due to Pain,Slow Progress due to Medical Issues,Slow Progress due to Activity Tolerance Assessment Summary pt requiring max A x 2 with all mobility and max cues. requires increase time to complete tasks and c/o generalized pain affecting mobility. pt also has confusion affecting following directions requiring constant cues to complete task at hand. pt will require SNF rehab to improve strength and mobility independence. Goals Bed Mobility Goal Independent Transfer Goal Independent,Front Wheeled Walker,Four Wheeled Walker Gait Goal Independent,Front Wheel Walker ,Four Wheel Walker Gait Distance 150 ft Days to Meet Goals 10 Frequency of Treatment Frequency Of Treatment Once a Day Treatment Plan Physical Therapy Treatment Plan Bed Mobility Training,Transfer Training,Gait Training, Therapeutic Exercise,Balance Retraining,Discharge Planning, Hot or Cold Pack,Neuromuscular Re-ed,Manual Therapy Precautions Other Precautions Fall risk Recommendations To Nursing Amount of Assist Needed Mechanical Lift Discharge Recommendations PT Discharge Recommendations SNF Rehab Transportation Needs at Discharge Wheelchair/Cabulance
--- NOTE | 2022-12-14 12:09 | CM.DPC ---
DCP Discharge SNF Per MD, pt is medically stable to d/c to SNF today for ongoing rehab. RAO spoke to pt's 1) DPCHRISTINA Fraser [phone] and discussed pt situation and he is working to get pt into [facility] after SNF for LTC and plan was potentially Assisted Living in [place], or near him in [place]. DPCHRISTINA Fraser asked if pt could d/c to [facility] as she had been there before but aware they might not be contracted with pt's insurance now and would be agreeable with [facility]. DPCHRISTINA also hopeful for a referral to Neurologist for her likely dementia/memory issues/possible neurology and understands will need to be through pt's PCP which just switched from Dr. Robert Blair to Dr. Corby Garcia. SW called [facility] and confirmed they no longer can accept pt's insurance as they were able to accept her last year during COVID waiver for one time auth through [employer] but no longer in place. RAO spoke to Radha at [facility] and they can accept pt today and just received [employer] auth through [employer] but request [facility] transport to be billed to them. JOSLYN Veliz kindly set up [facility] transport private pay by [facility] for 1515. RAO met bedside with pt and 2) DPOA sister Emily and brother cyndi and updated on above and they are also in agreement and staying at pt's place in [place] and will visit pt later today once settled into [facility] and SW provided the address. RAO called 1) DPCHRISTINA Fraser and updated on above and he remains very appreciative and agreeable to d/c plan. RAO updated RN, digital media intern, [facility] [place]. JOSLYN Veliz kindly faxed d/c packet to [facility] to review. plan: Patient to d/c to [facility] SNF today via [facility] at 1515 before safe return home with family support. LORA Tucker
--- NOTE | 2022-12-14 12:47 | OT.IP.EVAL ---
Current Diagnoses Urinary tract infection, site not specified (12/11/22) Past Medical History (Last Reviewed 12/12/22 @ 06:39 by Júnior Godwin MD) Aguillon's palsy Breast cancer (2007) Chicken pox (~1945) Collagenous colitis (2005) Degenerative joint disease of right hip Depression (2010) Hearing loss (2011) Hyperlipidemia Hypertension Low back strain Measles (~194) Mumps (~194) Osteoporosis (1999) Systolic murmur (06/23/17) Surgical History (Last Reviewed 12/12/22 @ 06:39 by Júnior Godwin MD) Anesthesia History of arthroplasty of right hip History of cosmetic surgery (09/2012) History of gynecologic surgery (2007) History of oophorectomy (1982) History of total right hip arthroplasty (2014) Status post breast lumpectomy (2007) Status post hysterectomy (1981) Occupational Therapy Inpatient Evaluation/Re-Eval M1 PT/OT-IP Prior Functional Status Start: 12/14/22 12:49 Freq: NEEDED Status: Active Protocol: Document 12/14/22 11:55 [facility] (Rec: 12/14/22 13:12 [facility] [id number]) Medical Review Prior Functional Status Medical History Reviewed Yes Diet/Fluid Consistency Regular Communication WFL Mobility and Gait Indep with FWW Activities of Daily Living and IADL's Indep, has hired creel cleaner who comes every 2 weeks Social History Household Members none Living Arrangements Mobile home Number of Floors (Floors) One Floor Number of Stairs To Enter/Railing? Has a ramp with rails Home Environment Standard Height Toilet,Walk in Shower,Tub/Shower,Built-In Shower Seat,Ramp Home Equipment Front Wheel Walker,Hand Held Shower,Long Handled Shoe Horn, Pool Lifeguard,Lift Recliner,Grab Bars Near Toilet,Grab Bars In Shower Employment Status Retired Additional Social History Comment Recently moved into a new mobile home with a renovated bathroom with both walk in shower and walk in tub, both with built in seats. Her sister and VALERIO from [place] are staying at her place as long as needed. Has medical alert ( necklace and watch), stated she wasn't wearing it when she fell and doesn't know why. Does not have a cell phone. Has been considering getting a 4WW. M2 OT-IP Current Condition Start: 12/14/22 12:49 Freq: Status: Active Protocol: Document 12/14/22 11:55 [facility] (Rec: 12/14/22 13:12 [facility] [id number]) Occupational Therapy Current Condition Current Condition Evaluation Date 12/14/22 Treatment Diagnosis Multiple falls, UTI Diagnosis Onset Date 12/11/22 M3 OT- IP Subjective and Pain Start: 12/14/22 12:49 Freq: Status: Active Protocol: Document 12/14/22 11:55 [facility] (Rec: 12/14/22 13:12 [facility] [id number]) OT- Subjective Occupational Therapy Visit Type Type Initial Evaluation Visit Start Time 11:55 Visit Stop Time 12:47 Total Visit Minutes 52 Occupational Therapy Visit Comments Patient Comments PT agreed to get up for lunch. Pt's sister and brother in law in the room. Patient/Caregiver Goals TO get better. OT Pain Assessment Pain When Pain Assessed During Mobility Pain Present Pain Present Pain Reported Location BLE Pain Behaviors Calling Out,Facial Grimacing, Guarding,Holding Area M4 OT- IP ADL's Start: 12/14/22 12:49 Freq: Status: Active Protocol: Document 12/14/22 11:55 [facility] (Rec: 12/14/22 13:12 [facility] [id number]) OT [id number] Comments OT Self-Feeding Comments Assist for set-up. Pt able to eat with increased time after set-up of tray,to open items and to cut the food up. OT ADL-Grooming General Evaluation Grooming Ability Minimal Assistance Areas Needing Assistance Combing/Brushing Hair Comments OT Grooming Comments Assist for completeness to brush her hair, pt having difficulty to reach the left side of her head due to decreased AROM RUE. OT ADL-Oral Care General Eval Oral Care Ability Standby Assistance Areas of Assistance Retrieving/Set-Up of Items Comments Oral Care Comments vc for completeness and sequencing. OT ADL-Dressing General Eval Lower Body Dressing Ability Maximum Assistance Areas Needing Assistance Socks OT ADL-Toileting General Evaluation Toileting Ability Total Assistance Comments OT Toileting Comments Lugo in place OT ADL-Bathing Bathing Type Bathing Type Sponge Bath Comments OT Bathing Comments Sponge bathing more appropriate at this time due to decreased balance, strength and activity tolerance. M5 OT- IP IADL's Start: 12/14/22 12:49 Freq: Status: Active Protocol: Document 12/14/22 11:55 [facility] (Rec: 12/14/22 13:12 [facility] [id number]) OT-Instrumental Activities of Daily Living Deficits IADL Deficits Identified Deficits Home Safety Awareness Awareness of Need for Assistance at Home Decreased Awareness Ability to Problem Solve Emergency Unable to Problem Solve Situations Home Safety Comments Pt is a bit confused and having difficulty to follow directions and needing cues for completeness for her ADL's . At this time pt would require assist for all her needs. M6 OT- IP Functional Cognition Start: 12/14/22 12:49 Freq: Status: Active Protocol: Document 12/14/22 11:55 [facility] (Rec: 12/14/22 13:12 [facility] [id number]) Cognitive Factors Limiting Selfcare Function Cognitive Ability Level of Alertness Alert,Confusional State Patient Orientation Name Ability to Follow Commands Able to Follow One Step Commands with Increased Time, Able to Follow One Step Commands with Repetition Memory Description Short Term Impaired Cognitive Comments Cognitive Assessment Comments Not able to do formal SLUMS at this time. Pt needing simple repetitive cues to follow with increased time for grooming, oral care and eating needs. OT- Vision and Hearing OT- Hearing Assessment OT- Hearing Assessment Hearing Impaired,Use of Hearing Aids OT- Vision Assessment Visual Acuity Glasses All The Time Vision Assessment Comments Pt states wears glasses but able to read the clock correctly. Pt not aware that she was holding the pepper packet in her left hand while holding the silverware with her right hand. Pt not aware to open the lid of her food in order to see what was for luch. Pt gets easily distracted. M7 OT- IP Mobility and Balance Start: 12/14/22 12:49 Freq: Status: Active Protocol: Document 12/14/22 11:55 [facility] (Rec: 12/14/22 13:12 [facility] [id number]) OT- Bed Mobility Assessment Supine to Sit Supine to Sit Assist Maximum Assistance,2 Person Assistance Scooting Scooting to Edge of Bed Maximum Assistance,2 Person Assistance OT-Transfer Assessment Sit to and From Stand Sit to and from Stand Maximum Assistance,2 Person Assistance Transfers Transfer Ability Maximum Assistance,2 Person Assistance Technique Transfer Destination Bed,Chair Devices Transfer Assistive Devices Gait Belt,Front Wheeled Walker Comments Mobility Comments MAXA X 2 to help get her legs to the edge of the bed, assist of green pad to scoot her hips to the edge of the bed and get her trunk upright. MAX AX 2 to stand and asisst for balance, to help get her weight over her feet, and to guide th FWW. Pt heavily leans posteriorly. OT- Balance Assessment Sitting Balance and Reactions Static Sitting Balance Ability Poor Dynamic Sitting Balance Ability Poor Standing Balance and Reactions Static Standing Balance Ability Poor Dynamic Standing Balance Ability Poor M8 OT- IP Objective Assessments Start: 12/14/22 12:49 Freq: Status: Active Protocol: Document 12/14/22 11:55 [facility] (Rec: 12/14/22 13:12 [facility] [id number]) OT Gross Range of Motion Upper Extremity Range of Motion Assessment Bilaterally Impaired ROM Impairments RUE 0-20, pt needing supportive on pillow under her arm during self- feeding. LUE grossly 3+/5 M9 OT- IP Assessment and Plan Start: 12/14/22 12:49 Freq: Status: Active Protocol: Document 12/14/22 11:55 [facility] (Rec: 12/14/22 13:12 [facility] [id number]) OT Summary Assessment and Plan Potential Rehabilitation Potential Good Analytic Complexity at Evaluation Moderate Summary OT Impairments Pain,Range of Motion,Strength, Balance,Functional Cognition, Functional Mobility,Self- Feeding,Grooming,Dressing, Toileting,Bathing,Toilet Transfers,Shower Transfers, Activity Tolerance Progress Towards Goals Slow Progress due to Pain,Slow Progress due to Medical Issues,Slow Progress due to Activity Tolerance,Slow Progress due to Cognition Assessment Summary Pt MOD complexity and main barriers are pain, decreased balance, activity tolerance, and now needing extensive two person assist for mobility needs. Pt will benefit from skilled rehab. Goals Self-Feeding Goal Standby Assistance Grooming Goal Standby Assistance Dressing Goal Minimal Assistance Toileting Goal Minimal Assistance Bathing Goal Moderate Assistance Toilet Transfer Goal Contact Guard Assistance Shower Transfer Goal Minimal Assistance Days to Meet Goals 30 Frequency of Treatment Frequency Of Treatment Once a Day Treatment Plan OT Treatment Plan ADL Training,Functional Cognition Training,Functional Mobility,Patient/Family Education,Discharge Planning Other Treatment Recommendations and Next Transfer to [facility] with MODA X2 Treatment Focus with FWW Discharge Recommendations OT Discharge Recommendations SNF Rehab Transportation Needs at Discharge Wheelchair/Cabulance
== END 2022-12-14 13:20 | DRG 644 ==
LOC: ED 19:46 → ICU 12-12 00:52 → AC 12-16 13:23 → ICU 12-16 13:23
PROVIDERS: Emergency Medicine; Internal Medicine; Admitting Provider Internal Medicine; Emergency Provider Emergency Medicine; PCP Student in an Organized Health Care Education/Training Program; Referring Provider Emergency Medicine; Visit Provider Internal Medicine
DX: E22.2 Syndrome of inappropriate secretion of antidiuretic hormone (principal); F05 Delirium due to known physiological condition; I48.20 Chronic atrial fibrillation, unspecified; I50.32 Chronic diastolic (congestive) heart failure; R29.6 Repeated falls; K52.831 Collagenous colitis; I35.0 Nonrheumatic aortic (valve) stenosis; E83.42 Hypomagnesemia; E87.6 Hypokalemia; I11.0 Hypertensive heart disease with heart failure; S40.021A Contusion of right upper arm, initial encounter; F03.90 Unspecified dementia, unspecified severity, without behavioral disturbance, psychotic disturbance, mood disturbance, and anxiety; W18.30XA Fall on same level, unspecified, initial encounter; Z87.891 Personal history of nicotine dependence; Z66 Do not resuscitate; Z20.822 Contact with and (suspected) exposure to COVID-19; Z79.01 Long term (current) use of anticoagulants
CPT/HCPCS: 0241U; 36415; 70450; 71260; 72125; 73060; 73080; 74177; 80048; 80053; 81001; 82550; 82553; 82962; 83605; 83735; 84484; 85025; 85610; 87040; 87077; 87086; 87186; 87797; 93005; 93010; 93307; 96365; 96375; 97162; 97166; 97530; 99284; 99285; 99291; 99292; G0378; J0696; J1650; J3475; Q9967

== ENCOUNTER 2023-03-11 14:37 | Observation (INO) | payer OTHER, SELFPAY ==
[2022-12-12 00:37] VITALS: BMI 26.6
[2023-03-11] VITALS (19 sets, daily range): BP systolic 84–126; BP diastolic 52–69; PULSE 70–118; RESP 18–20; TEMP 36–36.6; O2SAT 98–100; BMI 21.4; BMI 18.9
[2023-03-11 15:53] LABS: Add Manual Diff / Slide Review NO; Basophils Absolute Auto 0 /uL (0-100); Basophils Percent Auto 0.5 % (0-2); Eosinophils Absolute Auto 0 /uL (0-450); Eosinophils Percent Auto 0.2 % (2-4); Hematocrit 39.9 % (36-46); Hemoglobin 13.8 g/dL (12.0-16.0); Lymphocytes Absolute Auto 1400 /uL (1100-4500); Lymphocytes Percent Auto 15.2 % (25-40); Mean Corpuscular HGB Conc 34.7 % (30-36); Mean Corpuscular Hemoglobin 29.9 PG (26-34); Monocytes Absolute Auto 700 /uL (0-900); Neutrophils Absolute Auto 7200 /uL (1500-7000); Neutrophils Percent Auto 77.1 % (50-75); Platelet Count 337 X10^3/uL (150-400); Red Blood Cell Count 4.64 X10^6/uL (4.0-5.2); Red Cell Distribution Width 13.4 % (11.6-14.8); White Blood Cell Count 9.4 X10^3/uL (4.5-11.0)
[2023-03-11 15:58] LABS: Alanine Aminotransferase 35 IU/L (<35); Albumin 4.1 g/dL (3.5-5.0); Albumin Globulin Ratio 1.4 (1.0-2.8); Alkaline Phosphatase 128 U/L (38-126); Aspartate Aminotransferase 90 IU/L (14-36); BUN Creatinine Ratio 45.3 (6-22); Bilirubin Total 0.8 mg/dL (0.2-1.3); Blood Urea Nitrogen 39 mg/dL (7-17); Calcium 10.3 mg/dL (8.4-10.2); Carbon Dioxide 22 mmol/L (22-32); Chloride 103 mmol/L (98-107); Estimated Glomerular Filt Rate > 60 mL/min (>60); Glucose 125 mg/dL (80-110); HEMOLYSIS 37 (0-50); Lipase 90 U/L (23-300); Sodium 134 mmol/L (137-145); Total Protein 7.1 g/dL (6.3-8.2)
[2023-03-11 16:09] LABS: Potassium 2.5 mmol/L (3.4-5.1)
[2023-03-11] MEDS: POTASSIUM CHLORIDE 20 MEQ/15 ML UDC 40 MEQ PO (16:16)
[2023-03-11 16:27] LABS: Appearance Urine UA CLOUDY; Bilirubin Urine UA NEGATIVE (NEGATIVE); Color Urine UA YELLOW; Glucose Urine UA NEGATIVE (Negative); Ketones Urine UA TRACE (NEGATIVE); Leukocyte Esterase Urine UA 2+ (NEGATIVE); Nitrite Urine UA POSITIVE (Negative); Occult Blood Urine UA TRACE-INTACT (Negative); Protein Urine UA 1+ (Negative); Urobilinogen Urine UA 0.2 E.U./dL (0.2)
[2023-03-11 16:29] LABS: pH Urine UA 6.5 (4.5-8.0)
[2023-03-11 16:39] LABS: Bacteria Urine Many (>30); Culture Indicated Urine Specimen Cultured; RBC Urine 0-1/HPF (0-5/HPF); Squamous Epithelial Cell Urine 0-1 /HPF (0-5/HPF); WBC Urine 10-30/HPF (0-5/HPF)
[2023-03-11] MEDS: SODIUM CHLORIDE 0.9% 1,000 ML 1000 ML IV (17:00)
--- NOTE | 2023-03-11 17:33 | DI.RAD.S_ITS ---
PROCEDURE: XR CHEST 1V INDICATIONS: weakness, electrolyte changes, fall TECHNIQUE: One view of the chest was acquired. COMPARISON: [facility], CR, XR CHEST 1V, 07/02/2022, 18:36. [facility], CT, CT CHEST ABD PEL W CON, 12/11/2022, 18:35. FINDINGS: The patient is rotated to the left for this study. Surgical changes and devices: None. Lungs and pleura: On this semiupright portable chest examination, no large pneumothorax or large pleural effusions are seen. No focal infiltrates are seen. Mediastinum: The cardiac contours are mildly enlarged. The aorta demonstrates calcification and tortuosity. Bones and chest wall: No suspicious bony lesions. Age-appropriate bony degenerative changes are seen. Overlying soft tissues appear unremarkable. IMPRESSION: No significant acute abnormality can be seen on this limited portable chest study. There is mild cardiomegaly. The previously seen right-sided pleural effusion is no longer seen. Dictated by: Juan Lema M.D. on 03/11/2023 at 17:26 Approved by: Juan Lema M.D. on 03/11/2023 at 17:27
--- NOTE | 2023-03-11 17:33 | DI.CT.S_ITS ---
PROCEDURE: CT ABDOMEN PELVIS W CON INDICATIONS: weakness, fall, elevated lfts TECHNIQUE: After the administration of intravenous contrast, axial sections acquired from the lung bases to the pubic symphysis. Coronal and sagittal reformats were performed. For radiation dose reduction, the following was used: automated exposure control, adjustment of mA and/or kV according to patient size. COMPARISON: CT abdomen pelvis 12/11/2022. FINDINGS: Image quality: Excellent. Lung bases: Unremarkable. Heart: No significant findings. ABDOMEN: Liver: Similar appearance of left hepatic lobe hypodensity/scarring from prior grade 4 liver injury. Remainder the liver is unremarkable. Gallbladder: Unremarkable. Biliary ducts: Unremarkable. Pancreas: Unremarkable. Spleen: Unremarkable. Adrenal Glands: Unremarkable. Kidneys and Ureters: Unremarkable. Stomach and Bowel: Stomach, small bowel loops, and colon are unremarkable. Peritoneum: No abnormal intraperitoneal fluid. No free air. Ventral Wall: No hernias. Abdominal Nodes: No retroperitoneal or mesenteric adenopathy by size criteria. Vessels: Aorta and inferior vena cava are normal in size. Dense aorto bi iliac atherosclerotic calcifications. PELVIS: Pelvic Organs: The pelvis is partially obscured by metal artifact from a right hip arthroplasty. Uterus is not definitively visualized, possibly surgically removed. Unremarkable. Bladder: Bladder is nondistended, limiting evaluation. Pelvic Nodes: No enlarged lymph nodes. Miscellaneous: No hernias are seen. Bones: Bones are demineralized. Total right hip arthroplasty. No acute osseous abnormality. Similar compression deformity of T12 vertebral body. IMPRESSION: 1. No acute abdominopelvic process. 2. Similar appearance of the liver compared to 12/11/2022 consistent with sequela of prior grade 4 laceration. 3. Stable compression deformity of T12 vertebral body. Approved by: Shelly Roy M.D. on 03/11/2023 at 19:40
--- NOTE | 2023-03-11 17:35 | ED.WEAKNESS ---
HPI - Weakness General Chief complaint: Weakness Stated complaint: GLF, 2+ weeks ago Time Seen by Provider: 03/11/23 16:08 Source: patient, family and EMS Mode of arrival: EMS History of Present Illness HPI Narrative: This is an 87-year-old female with history of atrial fibrillation diltiazem, COPD, hypertension with complaint of diarrhea for the past several months and feeling weak. Her son describes her as being more disoriented recently she does have some dementia but is much 1st, significantly weaker. Last week they could boost her up into his truck today she can not even get out of her bed. She has slid out of her recliner chair that sits her up 2 times this week and 1 time last week. It was a slow slide without any hits. Patient denies any pain. She is been increasingly weak. She is not had any nausea or vomiting. Patient has no chest pain. She denies any shortness of breath. Her son states it seemed like her work of breathing was harder while lying in bed earlier today. She is had chronic diarrhea no reported new changes black or bloody stools. She has had prior UTI she does not appreciate any new urinary symptoms. They appreciate generalized global weakness but no lateralizing. Patient is no longer on Eliquis, she is on diltiazem, fluoxetine, Lasix, lisinopril, sodium chloride tabs, trazodone, vitamin-D budesonide. Known drug allergies. Her son notes she had a liver lack which was monitored after a fall she was shipped to [facility] and spent a week there under observation. She has not had any prior surgeries. Related Data Home Medications Medication Instructions Recorded Confirmed CA PANTOTHENATE/FOLIC ACID/VIT 1 tab PO Q DAY ##0 04/07/11 02/14/23 (MULTIVITAMIN) VITAMIN D (Vitamin D3) 1,000 unit PO QDAY ##0 02/09/12 02/14/23 calcium carbonate 200 mg calcium 1,000 mg PO PRN Acid Reflux ##0 04/30/16 02/14/23 (500 mg) chewable tablet (Tums) furosemide 20 mg tablet 20 mg PO DAILY 02/14/23 02/14/23 Previous Rx's Medication Instructions Recorded trazodone 50 mg tablet 50 mg PO HS PRN insomnia #30 tabs 06/22/22 budesonide 9 mg tablet,delayed and 9 mg PO QAM #90 ea 07/20/22 extended release fluoxetine 20 mg capsule 20 mg PO DAILY #90 caps 07/27/22 diltiazem HCl 180 mg 180 mg PO DAILY #90 caps 11/08/22 capsule,extended release 24 hr lisinopril 5 mg tablet 5 mg PO DAILY #90 tabs 11/09/22 sodium chloride 1,000 mg soluble 1,000 mg PO DAILY #7 tabs 12/14/22 tablet Allergies Allergy/AdvReac Type Severity Reaction Status Date / Time No Known Drug Allergies Allergy Verified 03/11/23 15:42 Review of Systems Review of Systems ROS Unobtainable: All systems reviewed & are unremarkable except as noted in HPI and below Patient History Medical History Aguillon's palsy Breast cancer (2007) Chicken pox (~194) Collagenous colitis (2005) Degenerative joint disease of right hip Depression (2010) Hearing loss (2011) Hyperlipidemia Hypertension Low back strain Measles (~194) Mumps (~194) Osteoporosis (1999) Systolic murmur (06/23/17) Thoracic compression fracture Surgical History Anesthesia History of arthroplasty of right hip History of cosmetic surgery (09/2012) History of gynecologic surgery (2007) History of oophorectomy (1982) History of total right hip arthroplasty (2014) Status post breast lumpectomy (2007) Status post hysterectomy (1981) Family History Mother Type II diabetes mellitus Hypertension High cholesterol Father No problems noted. Sister No problems noted. Sister Cancer Sister No problems noted. Sister No problems noted. Other Colorectal cancer Social History marital status: unmarried,living together (partner) number of children: 1 household members: none lives independently: Yes occupational status: other (retired) Smoking Status: Former smoker alcohol intake: current substance use type: does not use Smoking Status: Former smoker alcohol intake frequency: holidays/special occasions only Substance Use Type: does not use Exam Narrative Exam Narrative: GENERAL: Alert and oriented to self and location, thin elderly female in mild distress HEENT: Head normocephalic, atraumatic, EOMI, pupils reactive, face symmetric, moist mucous membranes NECK: Supple, full range of motion CARDIOVASCULAR: Regular rate and rhythm without murmurs, rubs or gallops. RESPIRATORY: Breath sounds equal bilaterally, no wheezes rales or rhonchi. ABDOMEN: Soft, nontender. Nondistended. Normoactive bowel sounds all 4 quadrants. No guarding or rebound, rigidity, no mass : No CVA tenderness EXTREMITIES: Normal range of motion, no clubbing or edema. Neurovascularly intact NEUROLOGICAL: Cranial nerves II through XII grossly intact. Moving all extremities SKIN: Warm, dry, no petechiae, no rashes or lesions. Initial Vital Signs Initial Vital Signs: Vital Signs Blood Pressure 110/69 03/11/23 15:24 Course Orders Ordered: ED Orders 03/11/23 15:00 Complete Blood Count AUTO DIFF Stat Comprehensive Metabolic Panel Stat Lipase Stat Magnesium Stat 03/11/23 15:42 GI Panel (Film Array) Stat Urinalysis and Microscopic Stat Urine Culture Stat 03/11/23 15:53 EKG-12 Lead Stat 03/11/23 17:33 CT abdomen pelvis w con Stat Chest [XR chest 1V] Stat Acetaminophen (Acetaminophen 325 Mg Tablet) 650 mg PO Q6H PRN PRN Reason: Fever/Mild Pain (1-3) Enoxaparin Sodium (Enoxaparin 40 Mg/0.4 Ml Syringe) 40 mg SUBCUT DAILY JANETT Potassium Chloride/Sodium Chloride (Ns With Kcl 20 Meq) 1,000 mls @ 84 mls/hr IV CONT JANETT Magnesium Oxide (Magnesium Oxide 400 Mg Tablet) 400 mg PO DAILY JANETT Naloxone HCl (Naloxone 0.4 Mg/Ml Vial) 0.2 mg IV Q2MIN PRN PRN Reason: Opiate Reversal Ondansetron HCl (Ondansetron 4 Mg/2 Ml Inj) 4 mg IV NOW PRN PRN Reason: Nausea And Vomiting Ondansetron HCl (Ondansetron 4 Mg Odt) 4 mg PO NOW PRN PRN Reason: Nausea And Vomiting Ondansetron HCl (Ondansetron 4 Mg/2 Ml Inj) 4 mg IV Q8HR PRN PRN Reason: Nausea And Vomiting Ondansetron HCl (Ondansetron 4 Mg Odt) 4 mg PO Q8HR PRN PRN Reason: Nausea And Vomiting Vancomycin HCl (Vancomycin 125 Mg Capsule) 125 mg PO Q6H JANETT Discontinued Medications Sodium Chloride (Normal Saline 0.9%) 1,000 mls @ 1,000 mls/hr IV BOLUS ONE Stop: 03/11/23 17:30 Last Infusion: 03/11/23 18:19 Dose: 0 mls/hr Documented By: Admin: 03/11/23 17:00 Dose: 1,000 mls/hr Documented By: CAROL Vancomycin HCl/Dextrose (Vancomycin) 1,500 mg in 300 mls @ 200 mls/hr IV NOW ONE Stop: 03/11/23 19:02 Last Infusion: 03/11/23 19:45 Dose: 0 mls/hr Documented By: Admin: 03/11/23 18:08 Dose: 200 mls/hr Documented By: CAROL Potassium Chloride (Potassium Chloride 20 Meq/15 Ml Udc) 40 meq PO NOW ONE Stop: 03/11/23 16:09 Last Admin: 03/11/23 16:16 Dose: 40 meq Documented By: CAROL Vital Signs Vital signs: Vital Signs - 8 hr 03/11/23 15:31 03/11/23 15:24 03/11/23 15:30 Temperature 97.9 F Pulse Rate 99 H Respiratory Rate 20 Blood Pressure 108/66 110/69 104/60 Pulse Oximetry 99 Oxygen Delivery Method Room Air 03/11/23 15:30 03/11/23 16:00 03/11/23 16:00 Temperature Pulse Rate 118 H 91 H Respiratory Rate Blood Pressure 97/61 Pulse Oximetry 100 99 Oxygen Delivery Method 03/11/23 16:30 03/11/23 16:30 03/11/23 17:00 Temperature Pulse Rate 93 H Respiratory Rate Blood Pressure 109/68 97/58 L Pulse Oximetry 100 Oxygen Delivery Method 03/11/23 17:00 03/11/23 17:30 03/11/23 17:30 Temperature Pulse Rate 114 H 99 H Respiratory Rate Blood Pressure 92/53 L Pulse Oximetry 100 100 Oxygen Delivery Method Room Air 03/11/23 18:08 03/11/23 18:09 03/11/23 18:09 Temperature Pulse Rate 80 70 Respiratory Rate Blood Pressure 97/55 L Pulse Oximetry Oxygen Delivery Method 03/11/23 18:30 03/11/23 18:32 03/11/23 18:32 Temperature Pulse Rate 92 H 93 H Respiratory Rate Blood Pressure 98/59 L Pulse Oximetry 100 99 Oxygen Delivery Method 03/11/23 19:00 03/11/23 19:00 03/11/23 19:08 Temperature Pulse Rate 89 Respiratory Rate Blood Pressure 84/52 L 89/53 L Pulse Oximetry 98 Oxygen Delivery Method 03/11/23 19:08 03/11/23 19:09 03/11/23 19:09 Temperature Pulse Rate 94 H 90 Respiratory Rate Blood Pressure 95/54 L Pulse Oximetry 98 99 Oxygen Delivery Method 03/11/23 19:30 03/11/23 19:30 03/11/23 20:00 Temperature Pulse Rate 88 Respiratory Rate Blood Pressure 93/59 L 91/52 L Pulse Oximetry 98 Oxygen Delivery Method 03/11/23 20:00 Temperature Pulse Rate 91 H Respiratory Rate 18 Blood Pressure Pulse Oximetry 98 Oxygen Delivery Method Room Air MDM - Weakness Lab Data 03/11/23 15:00 03/11/23 15:00 Labs: Lab Results 03/11/23 03/11/23 03/11/23 Range/Units 15:00 15:00 15:00 WBC 9.4 (4.5-11.0) X10^3/uL RBC 4.64 (4.0-5.2) X10^6/uL Hgb 13.8 (12.0-16.0) g/dL Hct 39.9 (36-46) % MCV 86.0 (80-100) fL MCH 29.9 (26-34) PG MCHC 34.7 (30-36) % RDW 13.4 (11.6-14.8) % Plt Count 337 (150-400) X10^3/uL Neut % (Auto) 77.1 H (50-75) % Lymph % (Auto) 15.2 L (25-40) % Baldwin % (Auto) 7.0 (3-14) % Eos % (Auto) 0.2 L (2-4) % Baso % (Auto) 0.5 (0-2) % Neut # (Auto) 7200 H (8127-2057) /uL Lymph # (Auto) 1400 (8221-7164) /uL Baldwin # (Auto) 700 (0-900) /uL Eos # (Auto) 0 (0-450) /uL Baso # (Auto) 0 (0-100) /uL Sodium 134 L (137-145) mmol/L Potassium 2.5 L* (3.4-5.1) mmol/L Chloride 103 (98-107) mmol/L Carbon Dioxide 22 (22-32) mmol/L BUN 39 H (7-17) mg/dL Creatinine 0.86 (0.52-1.04) mg/dL Estimated GFR > 60 (>60) mL/min BUN/Creatinine Ratio 45.3 H (6-22) Glucose 125 H (80-110) mg/dL Calcium 10.3 H (8.4-10.2) mg/dL Magnesium 1.6 (1.6-2.3) mg/dL Total Bilirubin 0.8 (0.2-1.3) mg/dL AST 90 H (14-36) IU/L ALT 35 H (<35) IU/L Alkaline Phosphatase 128 H (38-126) U/L Total Protein 7.1 (6.3-8.2) g/dL Albumin 4.1 (3.5-5.0) g/dL Globulin 3.0 (1.7-4.1) g/dL Albumin/Globulin Ratio 1.4 (1.0-2.8) Lipase 90 (23-300) U/L Urine Color Urine Appearance Urine pH (4.5-8.0) Ur Specific [place] (1.000-1.035) Urine Protein (Negative) Urine Glucose (UA) (Negative) g/dL Urine Ketones (NEGATIVE) Urine Occult Blood (Negative) Urine Nitrate (Negative) Urine Bilirubin (NEGATIVE) Urine Urobilinogen (0.2) E.U./dL Ur Leukocyte Esterase (NEGATIVE) Urine RBC (0-5/HPF) Urine WBC (0-5/HPF) Ur Squamous Epith Cells (0-5/HPF) Urine Bacteria (None) Ur Culture Indicated? Stl C. cayetanensis PCR (Not Detect) Stool Rotavirus (PCR) (Not Detect) Stool Adenovirus (PCR) (Not Detect) Stool Astrovirus (PCR) (Not Detect) Stool Cryptosporidium PCR (Not Detect) Stl E.coli Shiga Tox PCR (Not Detect) St Sh/Enteroin Ecoli PCR (Not Detect) Stool E coli O157 PCR Stl Enterotoxigenic E PCR (Not Detect) Stool EPEC (PCR) (Not Detect) Stl E. histolytica PCR (Not Detect) Stool Giardia Lamblia PCR (Not Detect) Stool Sapovirus (PCR) (Not Detect) Stl P. shigelloides PCR (Not Detect) St Y.enterocolitica PCR (Not Detect) Stool Vibrio (PCR) (Not Detect) Stl Vibrio cholerae PCR (Not Detect) Stl Enteroaggr Ecoli PCR (Not Detect) Stl Norovirus GI/GII PCR (Not Detect) Campylobacter (PCR) (Not Detect) C. difficile Tox (PCR) (Not Detect) Salmonella (PCR) (Not Detect) 03/11/23 03/11/23 Range/Units 15:42 15:42 WBC (4.5-11.0) X10^3/uL RBC (4.0-5.2) X10^6/uL Hgb (12.0-16.0) g/dL Hct (36-46) % MCV (80-100) fL MCH (26-34) PG MCHC (30-36) % RDW (11.6-14.8) % Plt Count (150-400) X10^3/uL Neut % (Auto) (50-75) % Lymph % (Auto) (25-40) % Baldwin % (Auto) (3-14) % Eos % (Auto) (2-4) % Baso % (Auto) (0-2) % Neut # (Auto) (6602-4170) /uL Lymph # (Auto) (8453-3492) /uL Baldwin # (Auto) (0-900) /uL Eos # (Auto) (0-450) /uL Baso # (Auto) (0-100) /uL Sodium (137-145) mmol/L Potassium (3.4-5.1) mmol/L Chloride (98-107) mmol/L Carbon Dioxide (22-32) mmol/L BUN (7-17) mg/dL Creatinine (0.52-1.04) mg/dL Estimated GFR (>60) mL/min BUN/Creatinine Ratio (6-22) Glucose (80-110) mg/dL Calcium (8.4-10.2) mg/dL Magnesium (1.6-2.3) mg/dL Total Bilirubin (0.2-1.3) mg/dL AST (14-36) IU/L ALT (<35) IU/L Alkaline Phosphatase (38-126) U/L Total Protein (6.3-8.2) g/dL Albumin (3.5-5.0) g/dL Globulin (1.7-4.1) g/dL Albumin/Globulin Ratio (1.0-2.8) Lipase (23-300) U/L Urine Color Yellow Urine Appearance Cloudy Urine pH 6.5 (4.5-8.0) Ur Specific [place] 1.020 (1.000-1.035) Urine Protein 1+ H (Negative) Urine Glucose (UA) Negative (Negative) g/dL Urine Ketones Trace H (NEGATIVE) Urine Occult Blood Trace-intact (Negative) Urine Nitrate Positive H (Negative) Urine Bilirubin Negative (NEGATIVE) Urine Urobilinogen 0.2 (0.2) E.U./dL Ur Leukocyte Esterase 2+ H (NEGATIVE) Urine RBC 0-1/hpf (0-5/HPF) Urine WBC 10-30/hpf H (0-5/HPF) Ur Squamous Epith Cells 0-1 /hpf (0-5/HPF) Urine Bacteria Many (>30) H (None) Ur Culture Indicated? Specimen cultured Stl C. cayetanensis PCR Not detected (Not Detect) Stool Rotavirus (PCR) Not detected (Not Detect) Stool Adenovirus (PCR) Not detected (Not Detect) Stool Astrovirus (PCR) Not detected (Not Detect) Stool Cryptosporidium PCR Not detected (Not Detect) Stl E.coli Shiga Tox PCR Not detected (Not Detect) St Sh/Enteroin Ecoli PCR Not detected (Not Detect) Stool E coli O157 PCR Not Reportable Stl Enterotoxigenic E PCR Not detected (Not Detect) Stool EPEC (PCR) Not detected (Not Detect) Stl E. histolytica PCR Not detected (Not Detect) Stool Giardia Lamblia PCR Not detected (Not Detect) Stool Sapovirus (PCR) Not detected (Not Detect) Stl P. shigelloides PCR Not detected (Not Detect) St Y.enterocolitica PCR Not detected (Not Detect) Stool Vibrio (PCR) Not detected (Not Detect) Stl Vibrio cholerae PCR Not detected (Not Detect) Stl Enteroaggr Ecoli PCR Not detected (Not Detect) Stl Norovirus GI/GII PCR Not detected (Not Detect) Campylobacter (PCR) Not detected (Not Detect) C. difficile Tox (PCR) Detected H (Not Detect) Salmonella (PCR) Not detected (Not Detect) Imaging Data Chest x-ray: Radiologist Impression: [address] [address] XRay Report Signed Patient: Hilaria Villar I MR#: [id number] : 1935 Acct:[id number] Age/Sex: 88 / F Date of Service: 03/11/23 Loc: ED Accession Number: [id number] ?? Procedure: XR chest 1V Ordering Provider: Connie Campbell D.O. PROCEDURE:? XR CHEST 1V ? INDICATIONS:? weakness, electrolyte changes, fall ? TECHNIQUE:? One view of the chest was acquired.? ? COMPARISON:? [facility], CR, XR CHEST 1V, 07/02/2022, 18:36.? [facility], CT, CT CHEST ABD PEL W CON, 12/11/2022, 18:35. ? FINDINGS:? The patient is rotated to the left for this study. ? Surgical changes and devices:? None.? ? Lungs and pleura:? On this semiupright portable chest examination, no large pneumothorax or large pleural effusions are seen.? No focal infiltrates are seen.? ? Mediastinum:? The cardiac contours are mildly enlarged. The aorta demonstrates calcification and tortuosity. ? Bones and chest wall:? No suspicious bony lesions.? Age-appropriate bony degenerative changes are seen.? Overlying soft tissues appear unremarkable.? IMPRESSION:? No significant acute abnormality can be seen on this limited portable chest study. ? There is mild cardiomegaly. ? The previously seen right-sided pleural effusion is no longer seen. ? Dictated by: Juan Lema M.D. on 03/11/2023 at 17:26 ? ? Approved by: Juan Lema M.D. on 03/11/2023 at 17:27?? CT scan - abdomen/pelvis: Radiologist Impression: [address] [address] [address] Scan Report Signed Patient: Hilaria Villar I MR#: [id number] : 1935 Acct:[id number] Age/Sex: 88 / F Date of Service: 03/11/23 Loc: ED Accession Number: [id number] ?? Procedure: CT abdomen pelvis w con Ordering Provider: Connie Campbell D.O. PROCEDURE:? CT ABDOMEN PELVIS W CON ? INDICATIONS:? weakness, fall, elevated lfts ? TECHNIQUE:? After the administration of intravenous contrast, axial sections acquired from the lung bases to the pubic symphysis.? Coronal and sagittal reformats were performed.? For radiation dose reduction, the following was used:? automated exposure control, adjustment of mA and/or kV according to patient size.? ? COMPARISON:? CT abdomen pelvis 12/11/2022. ? FINDINGS:? Image quality:? Excellent.? ? Lung bases:? Unremarkable. Heart:? No significant findings. ? ABDOMEN: Liver:? Similar appearance of left hepatic lobe hypodensity/scarring from prior grade 4 liver injury.? ? Remainder the liver is unremarkable. Gallbladder:? Unremarkable.? ? Biliary ducts:? Unremarkable.? ? Pancreas:? Unremarkable.? ? Spleen:? Unremarkable.? ? Adrenal Glands:? Unremarkable.? ? Kidneys and Ureters:? Unremarkable.? ? ? Stomach and Bowel:? Stomach, small bowel loops, and colon are unremarkable.? Peritoneum:? No abnormal intraperitoneal fluid.? No free air.? ? Ventral Wall: ? No hernias.? Abdominal Nodes:? No retroperitoneal or mesenteric adenopathy by size criteria.? Vessels:? Aorta and inferior vena cava are normal in size.? Dense aorto bi iliac atherosclerotic calcifications. ? PELVIS: Pelvic Organs:? The pelvis is partially obscured by metal artifact from a right hip arthroplasty.? Uterus is not definitively visualized, possibly surgically removed.? Unremarkable.? ? Bladder:? Bladder is nondistended, limiting evaluation.? ? Pelvic Nodes: No enlarged lymph nodes.? Miscellaneous: No hernias are seen. ? ? ? Bones:? Bones are demineralized.? Total right hip arthroplasty.? No acute osseous abnormality.? Similar compression deformity of T12 vertebral body. ? ? IMPRESSION:? 1. No acute abdominopelvic process.? ? 2. Similar appearance of the liver compared to 12/11/2022 consistent with sequela of prior grade 4 laceration. ? 3. Stable compression deformity of T12 vertebral body.? ? ? Approved by: Shelly Roy M.D. on 03/11/2023 at 19:40? ECG Data Attestation: I personally reviewed and interpreted this ECG as follows: Interpretation: Sinus rhythm occasional PVCs, rate of 100 [place] 142 QRS is 74 and QTC of 466. MDM Narrative Medical decision making narrative: This is an 88-year-old female with complaint of new weakness over the past week that has been slowly progressive, some slip and falls. Patient has chronic diarrhea. Patient workup today shows hypokalemia, elevated calcium at 10.3 with a potassium at 2.5. Sodium is 134, BUN 39 with renal function and 0.86 appears consistent with priors AST ALT alk-phos little bit elevated bilirubin is normal range with a normal lipase. Patient has white count of 9.4, hemoglobin at 13 with a crit of 39 and platelets 337. Patient does have a nitrate positive urine during her stay were able to get a GI panel and she tested positive for C diff it has been sent for confirmatory testing. She tested positive in October I can not find any evidence in the chart that she was treated I spoke with her son at bedside who helped coordinate her echo care since about September who was not familiar does not believe that she was treated. CT abdomen pelvis was obtained shows no acute abdominal pelvic process liver appears similar from 12/11/2022 with prior grade 4 laceration sequela. Stable compression deformity at T12. Previously in right side and pleural effusion resolved, mild cardiomegaly. Patient covered with vancomycin based on her prior urinalysis from 12/11/2022 had significant resistance. Patient case was discussed with Dr. Morel, tele hospitalist who accepts for admission she is DNR/DNI with limited intervention. I did review this with patient's family at bedside and they arrived with her POLST form. Discharge Plan Departure Patient Disposition: Admitted as Observation Clinical Impression: Hypokalemia, Acute UTI, C. difficile diarrhea Admit Date/Time: 03/11/23 20:17 Admit Provider: Emily Morel
[2023-03-11] MEDS: VANCOMYCIN 1,500 MG/300 ML PIGGYBACK 200 MG IV (18:08)
[2023-03-11 19:04] LABS: Adenovirus F 40/41 Not Detected (Not Detect); Astrovirus Not Detected (Not Detect); Campylobacter Not Detected (Not Detect); Clostridium difficile toxin AB Detected (Not Detect); Cryptosporidium Not Detected (Not Detect); Cyclospora cayetanensis Not Detected (Not Detect); Entamoeba histolytica Not Detected (Not Detect); Enteroaggregative E.coli Not Detected (Not Detect); Enteropathogenic E.coli Not Detected (Not Detect); Enterotoxigenic E.coli It/st Not Detected (Not Detect); Giardia lamblia Not Detected (Not Detect); Norovirus GI/GII Not Detected (Not Detect); Plesiomonsa shigelloides Not Detected (Not Detect); Rotavirus A Not Detected (Not Detect); Salmonella Not Detected (Not Detect); Sapovirus Not Detected (Not Detect); Shiga-like toxin-prod E.coli Not Detected (Not Detect); Shigella/Enteroinvasive E.coli Not Detected (Not Detect); Vibrio Not Detected (Not Detect); Vibrio cholerae Not Detected (Not Detect); Yersinia enterocolitica Not Detected (Not Detect)
[2023-03-11 20:30] LABS: Magnesium 1.6 mg/dL (1.6-2.3)
--- NOTE | 2023-03-11 20:32 | PM.HP.1 ---
History of Present Illness History of Present Illness Date Patient Seen: 03/11/23 Time Patient Seen: 22:17 Date of Onset of Symptoms: 02/28/23 Chief complaint: Generalized weakness Narrative: Patient states she has been feeling this way with generalized weakness and diarrhea for the last 6 months. Worse in the last 2 week, now to the point that she feels too weak to walk or sit up in a chair. Having non-bloody diarrhe without pain or abdominal discomfort about 4 times per day after she eats. States her Nephew, previously introduced as her Son, was concerned about her that she was weak and not thinking as clearly as she typically does. He is typically able get her from the jail and boost her into his truck however today she could not get out of bed or help getting into the truck. Denies abdominal pain, nausea, vomiting, dysuria or any symptoms. She notes chronic leg muscle discomfort without cramps or change in character. Not on anticoagulation or antiplatelet. Denies any previous treatment for diarrhea with antibiotics. ED administered Potassium 40 meq PO, NS 1L, Vancomycin 1500mg IV x1 PFSH Medical History Aguillon's palsy Breast cancer (2007) Chicken pox (~194) Collagenous colitis (2005) Degenerative joint disease of right hip Depression (2010) Hearing loss (2011) Hyperlipidemia Hypertension Low back strain Measles (~1942) Mumps (~1942) Osteoporosis (1999) Systolic murmur (06/23/17) Thoracic compression fracture Surgical History Anesthesia History of arthroplasty of right hip History of cosmetic surgery (09/2012) History of gynecologic surgery (2007) History of oophorectomy (1982) History of total right hip arthroplasty (2014) Status post breast lumpectomy (2007) Status post hysterectomy (1981) Family History Mother Type II diabetes mellitus Hypertension High cholesterol Father No problems noted. Sister No problems noted. Sister Cancer Sister No problems noted. Sister No problems noted. Other Colorectal cancer Social History marital status: unmarried,living together (partner) number of children: 1 household members: none lives independently: Yes occupational status: other (retired) Smoking Status: Former smoker alcohol intake: current substance use type: does not use Meds Home Medications and Allergies Home Medications Medication Instructions Recorded Confirmed Type CA PANTOTHENATE/FOLIC ACID/VIT 1 tab PO Q DAY ##0 04/07/11 03/11/23 History (MULTIVITAMIN) VITAMIN D (Vitamin D3) 1,000 unit PO QDAY ##0 02/09/12 03/11/23 History calcium carbonate 200 mg calcium 1,000 mg PO Q4-5H PRN Acid Reflux 04/30/16 03/11/23 History (500 mg) chewable tablet (Tums) ##0 trazodone 50 mg tablet 50 mg PO HS PRN insomnia #30 tabs 06/22/22 03/11/23 Rx budesonide 9 mg tablet,delayed and 9 mg PO QAM #90 ea 07/20/22 03/11/23 Rx extended release fluoxetine 20 mg capsule 20 mg PO DAILY #90 caps 07/27/22 03/11/23 Rx diltiazem HCl 180 mg 180 mg PO DAILY #90 caps 11/08/22 03/11/23 Rx capsule,extended release 24 hr lisinopril 5 mg tablet 5 mg PO DAILY #90 tabs 11/09/22 03/11/23 Rx sodium chloride 1,000 mg soluble 1,000 mg PO DAILY #7 tabs 12/14/22 03/11/23 Rx tablet furosemide 20 mg tablet 20 mg PO DAILY 02/14/23 03/11/23 History Allergies Allergy/AdvReac Type Severity Reaction Status Date / Time No Known Drug Allergies Allergy Verified 03/11/23 15:42 Review of Systems Review of Systems Narrative: Complete 10 point ROS was obtained however patient has mild neurocognitive disorder so ROS also obtained from family and charting. Constitutional Constitutional: Reports as per HPI and Reports system reviewed and no additional complaints, except as documented Exam Vital Signs (past 8 hours): - 03/11/23 15:31 03/11/23 15:24 03/11/23 15:30 Temperature 97.9 F Pulse Rate 99 H Respiratory Rate 20 Blood Pressure 108/66 110/69 104/60 Pulse Oximetry 99 Oxygen Delivery Method Room Air 03/11/23 15:30 03/11/23 16:00 03/11/23 16:00 Temperature Pulse Rate 118 H 91 H Respiratory Rate Blood Pressure 97/61 Pulse Oximetry 100 99 Oxygen Delivery Method 03/11/23 16:30 03/11/23 16:30 03/11/23 17:00 Temperature Pulse Rate 93 H Respiratory Rate Blood Pressure 109/68 97/58 L Pulse Oximetry 100 Oxygen Delivery Method 03/11/23 17:00 03/11/23 17:30 03/11/23 17:30 Temperature Pulse Rate 114 H 99 H Respiratory Rate Blood Pressure 92/53 L Pulse Oximetry 100 100 Oxygen Delivery Method Room Air 03/11/23 18:08 03/11/23 18:09 03/11/23 18:09 Temperature Pulse Rate 80 70 Respiratory Rate Blood Pressure 97/55 L Pulse Oximetry Oxygen Delivery Method 03/11/23 18:30 03/11/23 18:32 03/11/23 18:32 Temperature Pulse Rate 92 H 93 H Respiratory Rate Blood Pressure 98/59 L Pulse Oximetry 100 99 Oxygen Delivery Method 03/11/23 19:00 03/11/23 19:00 03/11/23 19:08 Temperature Pulse Rate 89 Respiratory Rate Blood Pressure 84/52 L 89/53 L Pulse Oximetry 98 Oxygen Delivery Method 03/11/23 19:08 03/11/23 19:09 03/11/23 19:09 Temperature Pulse Rate 94 H 90 Respiratory Rate Blood Pressure 95/54 L Pulse Oximetry 98 99 Oxygen Delivery Method 03/11/23 19:30 03/11/23 19:30 03/11/23 20:00 Temperature Pulse Rate 88 Respiratory Rate Blood Pressure 93/59 L 91/52 L Pulse Oximetry 98 Oxygen Delivery Method 03/11/23 20:00 Temperature Pulse Rate 91 H Respiratory Rate 18 Blood Pressure Pulse Oximetry 98 Oxygen Delivery Method Room Air Oxygen Delivery Method Room Air Narrative Exam Narrative: Telemedicine evaluation with digital auscultation electronically transferred Const General: cooperative, comfortable, No acute distress and frail appearing [facility] Head: normocephalic Ears: other (Hard of hearing ) Mouth: No moist mucous membranes Eyes General: appearance normal, both eyes and all related structures Neck Neck: normal visual inspection and no meningeal signs Chest Chest: normal inspection of the chest Resp Effort & Inspection: normal respiratory effort and able to speak in complete sentences Other: Pt declined auscultation Cardio Other: Pt declined GI Inspection: non-distended Palpation: soft and No tender Other: Pt declined auscultation Skin General: no rashes or lesions noted Neuro General: patient alert and patient oriented x3 Cranial Nerves: CN's II-XI intact bilaterally Extrem General: normal to inspection Psych Appearance: grossly normal Mental Status: mental status grossly normal Objective ECG Impression: NSR with PVC, APC, no significant contiguous ST depressions. No acute findings. Similar to previous 12/11/22. Imaging Chest x-ray: My impression: Images reviewed, GONZALO, agree with radiologist. Radiologist's impression: PROCEDURE:? XR CHEST 1V ? INDICATIONS:? weakness, electrolyte changes, fall ? TECHNIQUE:? One view of the chest was acquired.? ? COMPARISON:? [facility], CR, XR CHEST 1V, 07/02/2022, 18:36.? [facility], CT, CT CHEST ABD PEL W CON, 12/11/2022, 18:35. ? FINDINGS:? The patient is rotated to the left for this study. ? Surgical changes and devices:? None.? ? Lungs and pleura:? On this semiupright portable chest examination, no large pneumothorax or large pleural effusions are seen.? No focal infiltrates are seen.? ? Mediastinum:? The cardiac contours are mildly enlarged. The aorta demonstrates calcification and tortuosity. ? Bones and chest wall:? No suspicious bony lesions.? Age-appropriate bony degenerative changes are seen.? Overlying soft tissues appear unremarkable.? IMPRESSION:? No significant acute abnormality can be seen on this limited portable chest study. ? There is mild cardiomegaly. ? The previously seen right-sided pleural effusion is no longer seen. CT scan - abdomen: My impression: Reviewed images personally, GONZALO, agree with radiologist Radiologist's impression: PROCEDURE:? CT ABDOMEN PELVIS W CON ? INDICATIONS:? weakness, fall, elevated lfts ? TECHNIQUE:? After the administration of intravenous contrast, axial sections acquired from the lung bases to the pubic symphysis.? Coronal and sagittal reformats were performed.? For radiation dose reduction, the following was used:? automated exposure control, adjustment of mA and/or kV according to patient size.? ? COMPARISON:? CT abdomen pelvis 12/11/2022. ? FINDINGS:? Image quality:? Excellent.? ? Lung bases:? Unremarkable. Heart:? No significant findings. ? ABDOMEN: Liver:? Similar appearance of left hepatic lobe hypodensity/scarring from prior grade 4 liver injury.? ? Remainder the liver is unremarkable. Gallbladder:? Unremarkable.? ? Biliary ducts:? Unremarkable.? ? Pancreas:? Unremarkable.? ? Spleen:? Unremarkable.? ? Adrenal Glands:? Unremarkable.? ? Kidneys and Ureters:? Unremarkable.? ? ? Stomach and Bowel:? Stomach, small bowel loops, and colon are unremarkable.? Peritoneum:? No abnormal intraperitoneal fluid.? No free air.? ? Ventral Wall: ? No hernias.? Abdominal Nodes:? No retroperitoneal or mesenteric adenopathy by size criteria.? Vessels:? Aorta and inferior vena cava are normal in size.? Dense aorto bi iliac atherosclerotic calcifications. ? PELVIS: Pelvic Organs:? The pelvis is partially obscured by metal artifact from a right hip arthroplasty.? Uterus is not definitively visualized, possibly surgically removed.? Unremarkable.? ? Bladder:? Bladder is nondistended, limiting evaluation.? ? Pelvic Nodes: No enlarged lymph nodes.? Miscellaneous: No hernias are seen. ? ? ? Bones:? Bones are demineralized.? Total right hip arthroplasty.? No acute osseous abnormality.? Similar compression deformity of T12 vertebral body. ? ? IMPRESSION:? 1. No acute abdominopelvic process.? ? 2. Similar appearance of the liver compared to 12/11/2022 consistent with sequela of prior grade 4 laceration. ? 3. Stable compression deformity of T12 vertebral body.? ? ? Approved by: Shelly Roy M.D. on 03/11/2023 at 19:40? Labs 03/11/23 15:00 03/11/23 15:00 Labs: Laboratory Results - last 24 hr 03/11/23 03/11/23 03/11/23 15:00 15:00 15:42 WBC 9.4 RBC 4.64 Hgb 13.8 Hct 39.9 MCV 86.0 MCH 29.9 MCHC 34.7 RDW 13.4 Plt Count 337 Neut % (Auto) 77.1 H Lymph % (Auto) 15.2 L [place] % (Auto) 7.0 Eos % (Auto) 0.2 L Baso % (Auto) 0.5 Neut # (Auto) 7200 H Lymph # (Auto) 1400 [place] # (Auto) 700 Eos # (Auto) 0 Baso # (Auto) 0 Sodium 134 L Potassium 2.5 L* Chloride 103 Carbon Dioxide 22 BUN 39 H Creatinine 0.86 Estimated GFR > 60 BUN/Creatinine Ratio 45.3 H Glucose 125 H Calcium 10.3 H Total Bilirubin 0.8 AST 90 H ALT 35 H Alkaline Phosphatase 128 H Total Protein 7.1 Albumin 4.1 Globulin 3.0 Albumin/Globulin Ratio 1.4 Lipase 90 Urine Color Yellow Urine Appearance Cloudy Urine pH 6.5 Ur Specific [place] 1.020 Urine Protein 1+ H Urine Glucose (UA) Negative Urine Ketones Trace H Urine Occult Blood Trace-intact Urine Nitrate Positive H Urine Bilirubin Negative Urine Urobilinogen 0.2 Ur Leukocyte Esterase 2+ H Urine RBC 0-1/hpf Urine WBC 10-30/hpf H Ur Squamous Epith Cells 0-1 /hpf Urine Bacteria Many (>30) H Ur Culture Indicated? Specimen cultured Stl C. cayetanensis PCR Stool Rotavirus (PCR) Stool Adenovirus (PCR) Stool Astrovirus (PCR) Stool Cryptosporidium PCR Stl E.coli Shiga Tox PCR St Sh/Enteroin Ecoli PCR Stool E coli O157 PCR Stl Enterotoxigenic E PCR Stool EPEC (PCR) Stl E. histolytica PCR Stool Giardia Lamblia PCR Stool Sapovirus (PCR) Stl P. shigelloides PCR St Y.enterocolitica PCR Stool Vibrio (PCR) Stl Vibrio cholerae PCR Stl Enteroaggr Ecoli PCR Stl Norovirus GI/GII PCR Campylobacter (PCR) C. difficile Tox (PCR) Salmonella (PCR) 03/11/23 15:42 WBC RBC Hgb Hct MCV MCH MCHC RDW Plt Count Neut % (Auto) Lymph % (Auto) [place] % (Auto) Eos % (Auto) Baso % (Auto) Neut # (Auto) Lymph # (Auto) [place] # (Auto) Eos # (Auto) Baso # (Auto) Sodium Potassium Chloride Carbon Dioxide BUN Creatinine Estimated GFR BUN/Creatinine Ratio Glucose Calcium Total Bilirubin AST ALT Alkaline Phosphatase Total Protein Albumin Globulin Albumin/Globulin Ratio Lipase Urine Color Urine Appearance Urine pH Ur Specific [place] Urine Protein Urine Glucose (UA) Urine Ketones Urine Occult Blood Urine Nitrate Urine Bilirubin Urine Urobilinogen Ur Leukocyte Esterase Urine RBC Urine WBC Ur Squamous Epith Cells Urine Bacteria Ur Culture Indicated? Stl C. cayetanensis PCR Not detected Stool Rotavirus (PCR) Not detected Stool Adenovirus (PCR) Not detected Stool Astrovirus (PCR) Not detected Stool Cryptosporidium PCR Not detected Stl E.coli Shiga Tox PCR Not detected St Sh/Enteroin Ecoli PCR Not detected Stool E coli O157 PCR Not Reportable Stl Enterotoxigenic E PCR Not detected Stool EPEC (PCR) Not detected Stl E. histolytica PCR Not detected Stool Giardia Lamblia PCR Not detected Stool Sapovirus (PCR) Not detected Stl P. shigelloides PCR Not detected St Y.enterocolitica PCR Not detected Stool Vibrio (PCR) Not detected Stl Vibrio cholerae PCR Not detected Stl Enteroaggr Ecoli PCR Not detected Stl Norovirus GI/GII PCR Not detected Campylobacter (PCR) Not detected C. difficile Tox (PCR) Detected H Salmonella (PCR) Not detected Assessment & Plan Assessment and plan (1) C. difficile diarrhea: Status: Acute Plan: Previous + result 10/2022, unclear if treated, no records of treatment and facility unable to verify. CT Abd without acute process. A/B toxin still pending for confirmation. Start PO Vancomycin and await further testing Continue IV fluids and encourage adequate oral intake (2) Hypokalemia: Status: Acute Plan: 2/2 above, continue potassium replacement, monitor, check magnesium level (3) Acute UTI: Status: Acute Plan: Given previous Cx IV Vancomycin was given in ED Poor sample, asymptomatic, await Urine Cx for further direction, hold further antibx treatment at this time (4) Hypercalcemia: Status: Acute Plan: Mild, suspect due to volume depletion, continue volume rescucitation. (5) Hyponatremia: Status: Acute Plan: 2/2 above, continue IV fluids (6) Hyperglycemia: Status: Acute Plan: Suspect reactive, judicious monitoring Plan Chronic conditions Mild Neurocogntive disorder, supportive care AFib, continue home Diltiazem, not on anticoagulation HTN, hold home Lisinopril overnight, monitor for re-initiation in am if renal function remains stable HLD COPD, bronchodilator prn MDD, patient is unsure if she is still taking Fluoxetine, confirm with NH in am Time Spent With Patient Time with patient: 50 to 69 minutes with 50% spent counseling/coordinating care
[2023-03-11] MEDS: VANCOMYCIN 125 MG CAPSULE PO (21:50)
[2023-03-11] MEDS: KCL 20 MEQ IN NS 1,000 ML 84 MEQ IV (21:50)
[2023-03-12 00:33] VITALS: BP 131/74; PULSE 58; RESP 20; TEMP 36.3; O2SAT 94
[2023-03-12] MEDS: VANCOMYCIN 125 MG CAPSULE PO ×4 (02:29→20:39)
[2023-03-12 05:00] VITALS: BP 109/63; PULSE 91; RESP 20; TEMP 36.3; O2SAT 100
[2023-03-12 05:22] LABS: Alanine Aminotransferase 29 IU/L (<35); Albumin 2.9 g/dL (3.5-5.0); Albumin Globulin Ratio 1.1 (1.0-2.8); Alkaline Phosphatase 94 U/L (38-126); Aspartate Aminotransferase 51 IU/L (14-36); BUN Creatinine Ratio 34.2 (6-22); Bilirubin Total 0.5 mg/dL (0.2-1.3); Blood Urea Nitrogen 25 mg/dL (7-17); Calcium 8.6 mg/dL (8.4-10.2); Carbon Dioxide 23 mmol/L (22-32); Chloride 109 mmol/L (98-107); Estimated Glomerular Filt Rate > 60 mL/min (>60); Globulin 2.6 g/dL (1.7-4.1); Glucose 92 mg/dL (80-110); HEMOLYSIS < 15 (0-50); Sodium 137 mmol/L (137-145); Total Protein 5.5 g/dL (6.3-8.2)
[2023-03-12] MEDS: ENOXAPARIN 40 MG/0.4 ML SYRINGE SUBCUT (08:17)
[2023-03-12] MEDS: MAGNESIUM OXIDE 400 MG TABLET PO (08:17)
[2023-03-12] MEDS: POTASSIUM CHLORIDE 20 MEQ TAB 40 MEQ PO ×2 (08:17→12:09)
[2023-03-12] MEDS: cefTRIAXone 1,000 MG in SODIUM CHLORIDE 0.9% 100 ML 200 MG IV (08:17)
[2023-03-12] MEDS: dilTIAZem CD 180 MG CAP PO (08:18)
[2023-03-12 08:58] VITALS: BP 96/58; PULSE 75; RESP 18; TEMP 36.1; O2SAT 100
[2023-03-12] MEDS: ACETAMINOPHEN 325 MG TABLET 650 MG PO (09:33)
[2023-03-12] MEDS: KCL 20 MEQ IN NS 1,000 ML 84 MEQ IV (09:36)
--- NOTE | 2023-03-12 12:20 | PT.IIE ---
Current Diagnoses Enterocolitis due to Clostridium difficile, not specified as recurrent (03/11/23) Hypercalcemia (03/11/23) Hypo-osmolality and hyponatremia (03/11/23) Hypokalemia (03/11/23) Urinary tract infection, site not specified (03/11/23) Hyperglycemia, unspecified (03/11/23) Surgical History (Last Reviewed 03/11/23 @ 23:38 by Emily Morel DO) Anesthesia History of arthroplasty of right hip History of cosmetic surgery (09/2012) History of gynecologic surgery (2007) History of oophorectomy (1982) History of total right hip arthroplasty (2014) Status post breast lumpectomy (2007) Status post hysterectomy (1981) Medical History (Last Reviewed 03/11/23 @ 23:38 by Emily Morel DO) Aguillon's palsy Breast cancer (2007) Chicken pox (~1945) Collagenous colitis (2005) Degenerative joint disease of right hip Depression (2010) Hearing loss (2011) Hyperlipidemia Hypertension Low back strain Measles (~194) Mumps (~194) Osteoporosis (1999) Systolic murmur (06/23/17) Thoracic compression fracture Physical Therapy Inpatient Evaluation/Re-Eval M1 PT/OT-IP Prior Functional Status Start: 03/12/23 08:33 Freq: NEEDED Status: Active Protocol: Document 03/12/23 12:20 DLM (Rec: 03/12/23 12:57 DLM [id number]) Medical Review Prior Functional Status Medical History Reviewed Yes Diet/Fluid Consistency Regular Communication hard of hearing, cognitive impairment Mobility and Gait ambulates in her apt with a FWW, uses wheelchair to get to the dining room Activities of Daily Living and IADL's gets to bathroom on her own with the FWW, has assist for showers, can dress self, has hired assist for housekeeping/ laundry/meals Prior Functional Level (Other details) she reports going to the dining room only for dinner but the nurses try to get her to go more often Social History Household Members none Living Arrangements Assisted Living Number of Floors (Floors) One Floor Home Environment High Toilet,Walk in Shower Home Equipment Front Wheel Walker Employment Status Retired Additional Social History Comment baseline information obtained from the patient and needs to be verified by her facility M2 PT-IP Current Condition Start: 03/12/23 08:33 Freq: NEEDED Status: Active Protocol: Document 03/12/23 12:20 DLM (Rec: 03/12/23 12:57 [facility] [id number]) Physical Therapy Current Condition Current Condition Evaluation Date 03/12/23 Treatment Diagnosis weakness, C-diff, UTI Onset Date 03/11/23 M3 PT-IP Subjective Start: 03/12/23 08:33 Freq: NEEDED Status: Active Protocol: Document 03/12/23 12:20 DLM (Rec: 03/12/23 12:57 [facility] [id number]) Subjective Physical Therapy Visit Type Type Initial Evaluation Visit Start Time 11:55 Visit Stop Time 12:20 Total Visit Minutes 25 Number of BOTTLED BEVERAGE INSPECTOR Visits 0 Physical Therapy Visit Comments Patient Comments She reports she is feeling better today. She describes feeling stiff when she started moving. She reports having intermittent back pain since her past falls. She is aware she was incontinent of stool when in bed and that she needs to use the commode to urinate . Patient Goals discharge back to her assisted living apartment Therapy Pain Assessment Pain When Pain Assessed During Mobility Pain Present Pain Present Pain Reported Location Generalized Intensity 4 Scale Used Numeric (0 - 10) Description Aching,Tender,Tightness,With Movement Pain Behaviors Facial Grimacing Pain Management Techniques Modification of Treatment,Re- positioning M4 PT-IP Mobility and Gait Start: 03/12/23 08:33 Freq: NEEDED Status: Active Protocol: Document 03/12/23 12:20 DLM (Rec: 03/12/23 12:57 [facility] [id number]) PT-Bed Mobility Assessment Rolling Level of Assist Minimal Assistance Supine to Sit Supine to Sit Moderate Assistance Scooting Scooting to Edge of Bed Minimal Assistance,Moderate Assistance PT-Transfer Assessment Sit to and From Stand Sit to and from Stand Contact Guard Assistance,Use of Upper Extremities Equipment Transfer Assistive Device Gait Belt,Front Wheeled Walker Transfers Transfer Destination Chair,Bedside Commode Transfer Technique Stand Step Pivot Transfer Ability Level of Assist Contact Guard Assistance,Use of Upper Extremities Comments Mobility Comments She needed more assistance with initial movements but gradually improved during this visit. She used the bedside commode for stool and urine. Pt cleaned up due to loose stool incontinence before getting up and new depends placed on her before further mobility. Gait Assessment Gait Gait Assistance Required: Standby Assistance,Contact Guard Assist Distance (Feet) 10 Assistive Devices Assistive Device Gait Belt,Front Wheeled Walker Gait Deviations General Gait Pattern Decreased Stride Length,Flexed Trunk Factors Limiting Gait Function Factors Limiting Gait Function Decreased Activity Tolerance, Decreased Strength,Poor Balance Comments Gait Comments She was able to ambulate 2 x 10 feet with seated rest between to manage her fatigue. Pt left up in the recliner for lunch with nursing aware. Her cognition appeared to improve as she became more active. She is able to make her needs known. Stair Climbing Assessment Comments Stair Climbing Comments no steps at her current facility per pt PT-Balance Assessment Sitting Balance and Reactions Static Sitting Balance Ability Good Dynamic Sitting Balance Ability Good Standing Balance and Reactions Static Standing Balance Ability Fair Dynamic Standing Balance Ability Fair Device Used FWW Comments Other Balance Tests/Deviations/Treatment her standing balance improved : as she became more active M5 PT-IP Objective Assessments Start: 03/12/23 08:33 Freq: NEEDED Status: Active Protocol: Document 03/12/23 12:20 DLM (Rec: 03/12/23 12:57 DL [id number]) Orientation Orientation/Cognition Level of Alertness Alert Orientation Name,Birthday,Place Language Function Ability No Deficits Noted Safety Awareness Decreased Safety Awareness Memory Description 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 and has not been home in a while. She is cooperative with care and able to follow instructions. Gross Range of Motion Upper Extremity ROM Assessment Within Functional Limits Lower Extremity ROM Assessment Within Functional Limits Strength Upper Extremity Strength Assessment Bilaterally Impaired Lower Extremity Strength Assessment Bilaterally Impaired Comments Strength Comments generalized weakness, grossly 4/5 throughout Coordination Assessment Gross Coordination Gross Coordination WNL Sensation Assessment Sensation Gross Sensation WNL Muscle Tone Muscle Tone WNL Yes M6 PT-IP Treatment Start: 03/12/23 08:33 Freq: NEEDED Status: Active Protocol: Document 03/12/23 12:20 DLM (Rec: 03/12/23 12:57 DLM [id number]) Physical Therapy Treatment Education Education Provided Safety Other Treatments Other Treatment Performed reviewed safety issues with patient to decrease her fall risks while hospitalized including review of the call light, having her needed items close and reminding her to call staff for assist with all mobility M7 PT-IP Assessment and Plan Start: 03/12/23 08:33 Freq: NEEDED Status: Active Protocol: Document 03/12/23 12:20 DLM (Rec: 03/12/23 12:57 DLM [id number]) PT Summary Assessment and Plan Potential Rehabilitation Potential Good Status of Condition at Evaluation Evolving Summary Impairments Pain,Strength,Balance, Cognition,Bed Mobility, Transfers,Gait,Activity Tolerance Assessment Summary Hilaria is alert and resting in bed today. She is cognitively impaired but it improved as she became more active this visit. She presents with generalized weakness and decreased activity tolerance associated with her acute medical issues. She continues to have active loose stool with incontinence. She is aware of her need to have bowel movements and to urinate but can not currently manage her diarrhea. She will not be able to manage diarrhea on her own at discharge so if she is still having loose stool at discharge she will need extra help at home. She was able to tolerate short distance of gait in the roomw it the FWW. She demonstrates safe use of the FWW but fatigues quickly. Pt left up in the recliner for lunch. Will plan on patient returning to her assisted living apt if she continues to progress well in therapy. Have requested the correctional counselor/case manager clarify her home situation with her facility/ family. Goals Bed Mobility Goal Independent Transfer Goal Independent,Front Wheeled Walker Gait Goal Independent,Front Wheel Walker Gait Distance 50 feet Other Goals Gait with FWW and SBA/CG x 100 feet Days to Meet Goals 5 Frequency of Treatment Frequency Of Treatment Twice a Day Treatment Plan Physical Therapy Treatment Plan Bed Mobility Training,Transfer Training,Gait Training, Therapeutic Exercise,Balance Retraining,Discharge Planning, Neuromuscular Re-ed Precautions Other Precautions hx liver laceration from fall, hx compression fx T12 Recommendations To Nursing Amount of Assist Needed 1 Person Assist Discharge Recommendations PT Discharge Recommendations Home with Assistance,Home Health Other Discharge Recommendations back to her assisted living apartment if she continues to progress well Transportation Needs at Discharge Private Vehicle
[2023-03-12 13:00] VITALS: BP 109/66; PULSE 84; RESP 17; TEMP 35.7; O2SAT 98
--- NOTE | 2023-03-12 14:06 | CM.DANOTE ---
Initial DCP Assessment Note Pt is an 88 yo female, resident at [facility] in [place], presents with weakness and found to be cdiff + and UTI +, admitted for medical management and IV abx PCP: Del Reyes Payer: Jimmy GONSALES PT currently recommending return to [facility] if patient continues to tolerate ambulation w/walker. Likely no return home to [facility] tomorrow, Tuesday d/t staff shortages at [facility], did not attempt contact w/Rose at [facility] today. Possibly DC Tuesday (?) via cabulance vs BLS [facility] per nephew's request. CM team following closely for coordination of DCP. Nephew (Marilu) planning to be at bedside Tuesday LORA Esparza Discharge Planning/Care Management CM Discharge Assessment Start: 03/12/23 13:31 Freq: Status: Active Protocol: Document 03/12/23 13:31 COLT (Rec: 03/12/23 14:06 COLT [id number]) Discharge Planning Assessment Assigned Web Developer Programmer LORA Fitch DPCHRISTINA/Assigned Designee Name maribel Pope ( Marilu) Contact Information [phone] Advance Directives? Yes: DPOA Advance Directives on File Yes History Provided By Family Member,Medical Record Prior Living Arrangements Mobile home Comment [facility] in [place] Household Members none Type of transporation used prior to Relies on Others admit Willing to Return to Facility? Yes: [facility] Independent with ADL's No Is patient alert and oriented? No: Cog impairment at baseline Needs Assistance With Bathing,Meal Prep,Managing Medications,Home Chores / Shopping Comment According to nephew: Patient has a FWW and sometimes uses but prefers to self propel herself in wheelchair in her room, self transfers and toilets indp up until recently Patient/Family Preference Home with Home Health Comment Nephew would like patient to return to [facility] via wheelchair van vs BLS if cleared to do so. If SNF is recommended, Evelio requests [facility] Patient has been to [facility] and [facility], nephew Evelio prefers she not return to [facility] Barriers to Discharge No Comment According to PT's intitial PT eval, patient may progress towards home to [facility] . Contact at [facility] is Rose , may not be working the weekend according to nephew Evelio. In addition, Evelio would like referral to [facility] hosp[facility] for review of patient's eligibility and discuss about services. Evelio's late uncle ( patient's late spouse) had hospice way too late Evelio would like patient to have hospice services early if she qualifies. Discharge Plan Assisted Living Facility Transportation Arrangement cabulance vs BLS Referrals Initiated None needed Additional Comment At this time. PT=Back to [facility] Medicare Choice List Provided No SNF/HH Preference Patient active w/[facility] OT/PT /RN at [facility], if going back to [facility]-either resumption of HH vs [facility] w/ hospice service
--- NOTE | 2023-03-12 14:40 | PT.IPTN ---
Current Diagnoses Enterocolitis due to Clostridium difficile, not specified as recurrent (03/11/23) Hypercalcemia (03/11/23) Hypo-osmolality and hyponatremia (03/11/23) Hypokalemia (03/11/23) Urinary tract infection, site not specified (03/11/23) Hyperglycemia, unspecified (03/11/23) Physical Therapy Treatment Note M2 PT-IP Current Condition Start: 03/12/23 08:33 Freq: NEEDED Status: Active Protocol: Document 03/12/23 12:20 DLM (Rec: 03/12/23 12:57 DLM [id number]) Physical Therapy Current Condition Current Condition Evaluation Date 03/12/23 Treatment Diagnosis weakness, C-diff, UTI Onset Date 03/11/23 M3 PT-IP Subjective Start: 03/12/23 08:33 Freq: NEEDED Status: Active Protocol: Document 03/12/23 15:21 TS (Rec: 03/12/23 15:47 TS [id number]) Subjective Physical Therapy Visit Type Type Treatment Note Visit Start Time 14:40 Visit Stop Time 15:10 Total Visit Minutes 30 Number of PRACTICAL MINISTRIES PROFESSOR Visits 1 Physical Therapy Visit Comments Patient Comments Pt continues to report she is feeling better today and more so this afternoon, feels she is having less diarrhea this afternoon, reported some pain in abdomen, is agreeable to PT . Patient Goals discharge back to her assisted living apartment M4 PT-IP Mobility and Gait Start: 03/12/23 08:33 Freq: NEEDED Status: Active Protocol: Document 03/12/23 15:21 TS (Rec: 03/12/23 15:47 TS [id number]) PT-Bed Mobility Assessment Sit to Supine Sit to Supine Moderate Assistance,1 Person Assistance PT-Transfer Assessment Sit to and From Stand Sit to and from Stand Contact Guard Assistance, Moderate Assistance,1 Person Assistance,Use of Upper Extremities Equipment Transfer Assistive Device Gait Belt,Front Wheeled Walker Comments Mobility Comments Sit to stand from bedside chair ModA with FWW, provided cues for feet underneath pt, weight forward, and BUE support pushing from arms of chair, pt with some difficulty transitioning hands to FWW. She ambulated SBA/CGA in room ~40' w/FWW and slow step thru gait, pt is unsteady but has no buckling or LOB. Pt requesting to use toilet, pt stood at toilet and doffed briefs before sitting. Pt performed own pericare and required assist donning of new brief. Sit to stand from toilet CGA with use of FWW, pt ambulated back to bed with continued slow gait CGA. Sit to supine ModA for LEs into bed, pt required cues for repositioning in bed with scooting hips laterally SBA. Pt was left in bed with call light nearby, bed alarm on, all needs met, RN notified. Gait Assessment Gait Gait Assistance Required: Standby Assistance,Contact Guard Assist Distance (Feet) 40 Assistive Devices Assistive Device Gait Belt,Front Wheeled Walker Gait Deviations General Gait Pattern Decreased Stride Length, Decreased Feet Clearance, Flexed Trunk Factors Limiting Gait Function Factors Limiting Gait Function Decreased Activity Tolerance, Decreased Strength,Poor Balance,Poor Safety Awareness Comments Gait Comments See mobility comments. Stair Climbing Assessment Comments Stair Climbing Comments no steps at her current facility per pt PT-Balance Assessment Sitting Balance and Reactions Static Sitting Balance Ability Good Dynamic Sitting Balance Ability Good Standing Balance and Reactions Static Standing Balance Ability Fair Dynamic Standing Balance Ability Fair Device Used FWW M5 PT-IP Objective Assessments Start: 03/12/23 08:33 Freq: NEEDED Status: Active Protocol: Document 03/12/23 12:20 DLM (Rec: 03/12/23 12:57 DLM [id number]) Orientation Orientation/Cognition Level of Alertness Alert Orientation Name,Birthday,Place Language Function Ability No Deficits Noted Safety Awareness Decreased Safety Awareness Memory Description Short Term Impaired,Fdc Impaired Comments she knows she is in the hospital but not the name of the facility, initially she could not recall where she was living before admission but then she became clear that she was at [facility] and has not been home in a while. She is cooperative with care and able to follow instructions. Gross Range of Motion Upper Extremity ROM Assessment Within Functional Limits Lower Extremity ROM Assessment Within Functional Limits Strength Upper Extremity Strength Assessment Bilaterally Impaired Lower Extremity Strength Assessment Bilaterally Impaired Comments Strength Comments generalized weakness, grossly 4/5 throughout Coordination Assessment Gross Coordination Gross Coordination WNL Sensation Assessment Sensation Gross Sensation WNL Muscle Tone Muscle Tone WNL Yes M6 PT-IP Treatment Start: 03/12/23 08:33 Freq: NEEDED Status: Active Protocol: Document 03/12/23 15:21 TS (Rec: 03/12/23 15:47 TS [id number]) Physical Therapy Treatment Education Education Provided Safety Other Treatments Other Treatment Performed Reminded pt to call for staff when needing to get up out of bed. M7 PT-IP Assessment and Plan Start: 03/12/23 08:33 Freq: NEEDED Status: Active Protocol: Document 03/12/23 15:21 TS (Rec: 03/12/23 15:47 TS [id number]) PT Summary Assessment and Plan Potential Rehabilitation Potential Good Summary Impairments Pain,Strength,Balance, Cognition,Bed Mobility, Transfers,Gait,Activity Tolerance Progress Towards Goals Progressing Toward Goals Assessment Summary Pt made some progress with her mobility this session. She required ModA to stand from chair, CGA from toilet w/ use of FWW. She progressed her gait to ~40' SBA/CGA w/FWW, pt is unsteady but has no buckling or LOB. She continues to have loose stool but can make her needs known for when she has ot kati the bathroom. Pt performed own pericare and doffed brief before using toilet with no AD. PT is recommending home w/assist and HHPT. Goals Bed Mobility Goal Independent Transfer Goal Independent,Front Wheeled Walker Gait Goal Independent,Front Wheel Walker Gait Distance 50 feet Other Goals Gait with FWW and SBA/CG x 100 feet Days to Meet Goals 5 Frequency of Treatment Frequency Of Treatment Twice a Day Treatment Plan Physical Therapy Treatment Plan Bed Mobility Training,Transfer Training,Gait Training, Therapeutic Exercise,Balance Retraining,Discharge Planning, Neuromuscular Re-ed Precautions Other Precautions hx liver laceration from fall, hx compression fx T12 Recommendations To Nursing Amount of Assist Needed 1 Person Assist Discharge Recommendations PT Discharge Recommendations Home with Assistance,Home Health Other Discharge Recommendations back to her assisted living apartment if she continues to progress well Transportation Needs at Discharge Private Vehicle
--- NOTE | 2023-03-12 14:54 | PM.PN.1 ---
Subjective Subjective Date Patient Seen: 03/12/23 Time Patient Seen: 08:00 Interval history: She is feeling improved today, however per nursing she has already had multiple bowel movements (diarrhea) this morning. Exam Vital Signs (past 8 hours): - 03/12/23 08:58 03/12/23 13:00 Temperature 96.9 F L 96.3 F L Pulse Rate 75 84 Respiratory Rate 18 17 Blood Pressure 96/58 L 109/66 Pulse Oximetry 100 98 Oxygen Flow Rate 0 0 Oxygen Delivery Method Room Air Oxygen Flow Rate 0 Narrative Exam Narrative: GEN: no acute distress HEENT: dry mucous membranes CV: regular rate and rhythm PULM: clear bilaterally Objective Labs 03/11/23 15:00 03/12/23 04:15 Labs: Laboratory Results - last 24 hr 03/11/23 03/11/23 03/11/23 15:00 15:00 15:00 WBC 9.4 RBC 4.64 Hgb 13.8 Hct 39.9 MCV 86.0 MCH 29.9 MCHC 34.7 RDW 13.4 Plt Count 337 Neut % (Auto) 77.1 H Lymph % (Auto) 15.2 L Marshall % (Auto) 7.0 Eos % (Auto) 0.2 L Baso % (Auto) 0.5 Neut # (Auto) 7200 H Lymph # (Auto) 1400 Marshall # (Auto) 700 Eos # (Auto) 0 Baso # (Auto) 0 Sodium 134 L Potassium 2.5 L* Chloride 103 Carbon Dioxide 22 BUN 39 H Creatinine 0.86 Estimated GFR > 60 BUN/Creatinine Ratio 45.3 H Glucose 125 H Calcium 10.3 H Magnesium 1.6 Total Bilirubin 0.8 AST 90 H ALT 35 H Alkaline Phosphatase 128 H Total Protein 7.1 Albumin 4.1 Globulin 3.0 Albumin/Globulin Ratio 1.4 Lipase 90 Urine Color Urine Appearance Urine pH Ur Specific [place] Urine Protein Urine Glucose (UA) Urine Ketones Urine Occult Blood Urine Nitrate Urine Bilirubin Urine Urobilinogen Ur Leukocyte Esterase Urine RBC Urine WBC Ur Squamous Epith Cells Urine Bacteria Ur Culture Indicated? Stl C. cayetanensis PCR Stool Rotavirus (PCR) Stool Adenovirus (PCR) Stool Astrovirus (PCR) Stool Cryptosporidium PCR Stl E.coli Shiga Tox PCR St Sh/Enteroin Ecoli PCR Stool E coli O157 PCR Stl Enterotoxigenic E PCR Stool EPEC (PCR) Stl E. histolytica PCR Stool Giardia Lamblia PCR Stool Sapovirus (PCR) Stl P. shigelloides PCR St Y.enterocolitica PCR Stool Vibrio (PCR) Stl Vibrio cholerae PCR Stl Enteroaggr Ecoli PCR Stl Norovirus GI/GII PCR Campylobacter (PCR) C. difficile Tox (PCR) Salmonella (PCR) 03/11/23 03/11/23 03/12/23 15:42 15:42 04:15 WBC RBC Hgb Hct MCV MCH MCHC RDW Plt Count Neut % (Auto) Lymph % (Auto) Marshall % (Auto) Eos % (Auto) Baso % (Auto) Neut # (Auto) Lymph # (Auto) Marshall # (Auto) Eos # (Auto) Baso # (Auto) Sodium 137 Potassium 3.0 L Chloride 109 H Carbon Dioxide 23 BUN 25 H Creatinine 0.73 Estimated GFR > 60 BUN/Creatinine Ratio 34.2 H Glucose 92 Calcium 8.6 Magnesium Total Bilirubin 0.5 AST 51 H ALT 29 Alkaline Phosphatase 94 Total Protein 5.5 L Albumin 2.9 L Globulin 2.6 Albumin/Globulin Ratio 1.1 Lipase Urine Color Yellow Urine Appearance Cloudy Urine pH 6.5 Ur Specific [place] 1.020 Urine Protein 1+ H Urine Glucose (UA) Negative Urine Ketones Trace H Urine Occult Blood Trace-intact Urine Nitrate Positive H Urine Bilirubin Negative Urine Urobilinogen 0.2 Ur Leukocyte Esterase 2+ H Urine RBC 0-1/hpf Urine WBC 10-30/hpf H Ur Squamous Epith Cells 0-1 /hpf Urine Bacteria Many (>30) H Ur Culture Indicated? Specimen cultured Stl C. cayetanensis PCR Not detected Stool Rotavirus (PCR) Not detected Stool Adenovirus (PCR) Not detected Stool Astrovirus (PCR) Not detected Stool Cryptosporidium PCR Not detected Stl E.coli Shiga Tox PCR Not detected St Sh/Enteroin Ecoli PCR Not detected Stool E coli O157 PCR Not Reportable Stl Enterotoxigenic E PCR Not detected Stool EPEC (PCR) Not detected Stl E. histolytica PCR Not detected Stool Giardia Lamblia PCR Not detected Stool Sapovirus (PCR) Not detected Stl P. shigelloides PCR Not detected St Y.enterocolitica PCR Not detected Stool Vibrio (PCR) Not detected Stl Vibrio cholerae PCR Not detected Stl Enteroaggr Ecoli PCR Not detected Stl Norovirus GI/GII PCR Not detected Campylobacter (PCR) Not detected C. difficile Tox (PCR) Detected H Salmonella (PCR) Not detected PFSH Medical History Aguillon's palsy Breast cancer (2007) Chicken pox (~1945) Collagenous colitis (2005) Degenerative joint disease of right hip Depression (2010) Hearing loss (2011) Hyperlipidemia Hypertension Low back strain Measles (~1942) Mumps (~1942) Osteoporosis (1999) Systolic murmur (06/23/17) Thoracic compression fracture Surgical History Anesthesia History of arthroplasty of right hip History of cosmetic surgery (09/2012) History of gynecologic surgery (2007) History of oophorectomy (1982) History of total right hip arthroplasty (2014) Status post breast lumpectomy (2007) Status post hysterectomy (1981) Family History Mother Type II diabetes mellitus Hypertension High cholesterol Father No problems noted. Sister No problems noted. Sister Cancer Sister No problems noted. Sister No problems noted. Other Colorectal cancer Social History marital status: unmarried,living together (partner) number of children: 1 household members: none lives independently: Yes occupational status: other (retired) Smoking Status: Former smoker alcohol intake: current substance use type: does not use Assessment & Plan Assessment and plan (1) C. difficile diarrhea: Status: Acute Plan: CT Abdomen without acute process. A/B toxin still pending for confirmation. Start PO Vancomycin and await further testing Continue IV fluids and encourage adequate oral intake given she is still having frequent diarrhea she is high risk for worsening of dehydration and electrolyte derangements if IV fluids were stopped, will need continue frequent lab checks and IV fluids (2) Hypokalemia: Status: Acute Plan: secondary to diarrhea, continue potassium replacement (3) Acute UTI: Status: Acute Plan: continue with ceftriaxone, await final urine culture (4) Hypercalcemia: Status: Acute Plan: Mild, suspect due to volume depletion, continue volume rescucitation. (5) Hyponatremia: Status: Acute Plan: secondary to infection, continue IV fluids (6) Hyperglycemia: Status: Acute Plan: Suspect reactive, judicious monitoring Plan Chronic conditions Mild Neurocogntive disorder, supportive care AFib, continue home Diltiazem, not on anticoagulation HTN, hold home Lisinopril overnight, monitor for re-initiation in am if renal function remains stable HLD COPD, bronchodilator prn MDD, patient is unsure if she is still taking Fluoxetine, confirm with NH in am Time Spent With Patient Time with patient: 50 to 69 minutes with 50% spent counseling/coordinating care Quality VTE Deep Vein Thrombosis/Pulmonary Embolism Present on Admission: No
[2023-03-12 17:00] VITALS: BP 99/61; PULSE 80; RESP 14; TEMP 36.4; O2SAT 95
[2023-03-12 19:25] VITALS: BP 112/58; PULSE 64; RESP 18; TEMP 36.1; O2SAT 97
[2023-03-13 01:00] VITALS: BP 113/67; PULSE 87; RESP 18; TEMP 36.4; O2SAT 98
[2023-03-13] MEDS: ACETAMINOPHEN 325 MG TABLET 650 MG PO (01:04)
[2023-03-13] MEDS: VANCOMYCIN 125 MG CAPSULE PO ×2 (02:32→08:32)
[2023-03-13 04:11] VITALS: BP 115/59; PULSE 80; RESP 18; TEMP 36.3; O2SAT 98
[2023-03-13 05:50] LABS: Hematocrit 29.6 % (36-46); Hemoglobin 10.3 g/dL (12.0-16.0); Mean Corpuscular Hemoglobin 30.5 PG (26-34); Mean Corpuscular Volume 87.1 fL (80-100); Platelet Count 213 X10^3/uL (150-400); Red Blood Cell Count 3.39 X10^6/uL (4.0-5.2); Red Cell Distribution Width 13.8 % (11.6-14.8); White Blood Cell Count 5.4 X10^3/uL (4.5-11.0)
[2023-03-13 05:56] LABS: BUN Creatinine Ratio 27.9 (6-22); Blood Urea Nitrogen 17 mg/dL (7-17); Calcium 7.7 mg/dL (8.4-10.2); Carbon Dioxide 19 mmol/L (22-32); Chloride 111 mmol/L (98-107); Estimated Glomerular Filt Rate > 60 mL/min (>60); Glucose 90 mg/dL (80-110); HEMOLYSIS < 15 (0-50); Potassium 4.1 mmol/L (3.4-5.1); Sodium 133 mmol/L (137-145)
[2023-03-13] MEDS: cefTRIAXone 1,000 MG in SODIUM CHLORIDE 0.9% 100 ML 200 MG IV (08:32)
[2023-03-13] MEDS: dilTIAZem CD 180 MG CAP PO (08:32)
[2023-03-13] MEDS: MAGNESIUM OXIDE 400 MG TABLET PO (08:32)
[2023-03-13] MEDS: ENOXAPARIN 40 MG/0.4 ML SYRINGE SUBCUT (08:32)
[2023-03-13 08:40] VITALS: BP 117/63; PULSE 78; RESP 17; TEMP 36; O2SAT 96
--- NOTE | 2023-03-13 09:29 | CM.DPC ---
Addendum entered by LORA Tucker 03/13/23 11:05: ADD: Met bedside with nephew/DPOA and answered questions regarding pt's OBS status and nephew is in agreement with d/c back to [place] and agreeable to have her two new meds of oral abx faxed to [facility] to be filled and he will pick them up and bring to [place] today. Nephew requesting SW to attempt transport back to [place] and agreeable to out of pocket expense and if no transport found on a Sun then he would be willing to come back and transport. RAO also discussed process of Hospice referral and nephew appreciative and still in agreement with wanting Hospice to call to determine getting Hospice set up this week or in the near future. RAO faxed pt's scripts to [facility] and called [facility] [employer] on [address] and confirmed they can transport from the hospital at 1300 today to [place] for $85.50 and nephew can call to pay with credit card via phone prior to 1300. RAO recommended when fuel oil truck driver gets to [place] to call and request staff come out for assist. RAO called Nephew back and updated on above and he is agreeable with the cost of taxi and will call now to pay via phone and will picker / packer filled rx when available today. RAO updated RN and provided number to call report to. BF Original Note: DCP Discharge [facility] Per MD, pt is medically stable to d/c back to [facility] today with Resume HH and no identified barriers to discharge. RAO called [place] [phone] and updated staff that pt to d/c back today and then confirmed fax #[phone] and faxed signed med list, scripts, clinicals to review. RAO updated RN who confirms pt states her DPOA nephew will be bedside today and hopeful he can provide transport home today. RAO updated Stefani that pt to return back to [facility] today and faxed Resumption Orders and clinicals, no d/c summ available yet. RAO received a call from Florectia at [facility] and she confirms she received the new referral and RAO updated on pt d/c back today to [place] and Florecita will try to complete Info Visit with nephew/DPOA today vs tomorrow to determine if pt appropriate and agreeable to Hospice in the near future. Plan: SW to follow to confirm nephew can provide transport back to [facility] today via POV and Resume Stefani JULES and [facility] to follow for info visit after discharge. LORA Tucker
--- NOTE | 2023-03-13 12:12 | PT-IP ANOTE ---
Per rounds, pt is discharging this morning to . No further skilled PT services required at this time.
--- NOTE | 2023-03-13 13:26 | PC.NURSE ---
Discharge Note Patient A&O, VSS, RA, no complaints of pain/discomfort. Patient agreeable to discharge plan. Discharge packet reviewed with patient, all questions/concerns addressed. PIV discontinued. Patient assisted with dressing and packing all belongings. Patient taken downstairs via wheelchair to taxi.
[2023-03-14 16:53] LABS: C difficie Toxins A and B, EIA Negative (Negative)
--- NOTE | 2023-03-14 21:02 | PM.DS.1 ---
History of Present Illness History of Present Illness Date Patient Seen: 03/11/23 Time Patient Seen: 22:17 Date of Onset of Symptoms: 02/28/23 Chief complaint: Generalized weakness Narrative: Per admitting provider: Patient states she has been feeling this way with generalized weakness and diarrhea for the last 6 months. Worse in the last 2 week, now to the point that she feels too weak to walk or sit up in a chair. Having non-bloody diarrhe without pain or abdominal discomfort about 4 times per day after she eats. States her Nephew, previously introduced as her Son, was concerned about her that she was weak and not thinking as clearly as she typically does. He is typically able get her from the custodial and boost her into his truck however today she could not get out of bed or help getting into the truck. Denies abdominal pain, nausea, vomiting, dysuria or any symptoms. She notes chronic leg muscle discomfort without cramps or change in character. Not on anticoagulation or antiplatelet. Denies any previous treatment for diarrhea with antibiotics. ED administered Potassium 40 meq PO, NS 1L, Vancomycin 1500mg IV x1 Discharge Providers Provider Date of admission: 03/11/23 20:17 Discharge Date: 03/13/23 Primary care physician: Del Reyes MD Consults: 03/11/23 20:25 Consult to Occupational Therapy Evaluate & Treat Comment: Physician Instructions: Evaluate and treat Consult to Physical Therapy Evaluate & Treat Comment: Physician Instructions: Evaluate and Treat Discharge provider: Júnior Godwin MD Summary Hospital Course Discharge Diagnosis: 1. C diff colitis 2. UTI 3. Hypokalemia 4. Hyponatremia 5. Atrial fibrillation 6. Lisinopril 7. COPD Hospital Course: Ms. Villar was admitted with weakness and diarrhea. This has worsened in the last few weeks. Ultimately she was found to have c diff in her diarrhea. CT did not show any abnormalities. She also had a UTI. She was started on PO vancomycin and given ceftriaxone, along with IV fluids. Her symptoms improved. Her diarrhea improved. She was prescribed an additional day of antibiotic for UTI, then will need 10 furthe days of treatment for C diff. She should follow up with PCP within one week. Exam Vital Signs (past 8 hours): Oxygen Delivery Method Room Air Oxygen Flow Rate 0 Narrative Exam Narrative: GEN: no acute distress HEENT: dry mucous membranes CV: regular rate and rhythm PULM: clear bilaterally Objective Labs 08/20/23 04:35 03/13/23 04:35 Labs: Laboratory Results - last 24 hr 03/11/23 15:42 C. diff Toxin A&B (EIA) Negative [facility] Medical History Aguillon's palsy Breast cancer (2007) Chicken pox (~1945) Collagenous colitis (2005) Degenerative joint disease of right hip Depression (2010) Hearing loss (2011) Hyperlipidemia Hypertension Low back strain Measles (~1942) Mumps (~1942) Osteoporosis (1999) Systolic murmur (06/23/17) Thoracic compression fracture Surgical History Anesthesia History of arthroplasty of right hip History of cosmetic surgery (09/2012) History of gynecologic surgery (2007) History of oophorectomy (1982) History of total right hip arthroplasty (2014) Status post breast lumpectomy (2007) Status post hysterectomy (1981) Family History Mother Type II diabetes mellitus Hypertension High cholesterol Father No problems noted. Sister No problems noted. Sister Cancer Sister No problems noted. Sister No problems noted. Other Colorectal cancer Social History marital status: unmarried,living together (partner) number of children: 1 household members: none lives independently: Yes occupational status: other (retired) Smoking Status: Former smoker alcohol intake: current substance use type: does not use Discharge Plan Discharge Plan Patient Disposition: Home Provider Discharge Comment: Ms. Villar was admitted with a urine infection and a colitis. She improved with antibiotics. She will be discharged with two antibiotics and should follow up with her PCP within one week. She should avoid taking her lasix for now and can restart it once her diarrhea has completely resolved. Discharge orders & Medications Prescriptions: New vancomycin 125 mg Capsule 125 mg PO Q6H Qty: 44 0RF sulfamethoxazole-trimethoprim [Bactrim DS] 800-160 mg tablet 1 tab PO BID Qty: 4 0RF Continued CA PANTOTHENATE/FOLIC ACID/VIT (MULTIVITAMIN) 1 tab PO Q DAY Qty: 0 VITAMIN D (Vitamin D3) 1,000 unit PO QDAY Qty: 0 calcium carbonate [Tums] 500 MG tablet,chewable 1,000 mg PO Q4-5H PRN (Reason: Acid Reflux) Qty: 0 budesonide 9 mg tablet,delayed and ext.release 9 mg PO QAM Qty: 90 1RF fluoxetine 20 mg capsule 20 mg PO DAILY Qty: 90 3RF diltiazem HCl 180 mg capsule,extended release 24hr 180 mg PO DAILY Qty: 90 1RF lisinopril 5 mg tablet 5 mg PO DAILY Qty: 90 3RF trazodone 50 mg tablet 50 mg PO HS PRN (Reason: insomnia) Qty: 30 3RF sodium chloride 1,000 mg Tablet,Soluble 1,000 mg PO DAILY Qty: 7 0RF Discontinued furosemide 20 mg tablet 20 mg PO DAILY Follow up/Referrals: Del Reyes MD [Primary Care Provider] - 1 Week (admitted with dehydration, from UTI and c diff colitis) Diet/Activity/Treatments Diet: Regular Visit Report/Discharge Packet Instructions: Clostridioides (Clostridium) difficile Infection Stand Alone Forms: Patient Portal/API, Stroke Signs & Symptoms Discharge Data Primary Care Provider: Del Reyes Attending Provider: Emily Morel Admit Date/Time: 03/11/23 20:17 Discharges patient from system. Discharge Date/Time: 03/13/23 13:10 Quality VTE Deep Vein Thrombosis/Pulmonary Embolism Present on Admission: No
== END 2023-03-13 13:10 | disposition home or self-care (01) ==
LOC: ED 20:09 → AC 21:28
PROVIDERS: Internal Medicine; Admitting Provider Internal Medicine; Emergency Provider Emergency Medicine; PCP Pediatrics; Referring Provider Emergency Medicine; Visit Provider Internal Medicine
DX: A04.72 Enterocolitis due to Clostridium difficile, not specified as recurrent (principal); E87.1 Hypo-osmolality and hyponatremia; N39.0 Urinary tract infection, site not specified; J44.9 Chronic obstructive pulmonary disease, unspecified; I10 Essential (primary) hypertension; I48.91 Unspecified atrial fibrillation; E87.6 Hypokalemia
CPT/HCPCS: 36415; 71045; 74177; 80048; 80053; 81001; 83690; 83735; 85025; 85027; 87077; 87086; 87186; 87324; 87507; 93005; 96361; 96365; 96366; 96367; 96372; 97116; 97162; 97530; 99285; G0378; J0696; J1650

== ENCOUNTER → 2023-04-05 15:40 | Outpatient (CLI) | payer OTHER, SELFPAY ==
[2023-03-11 21:55] VITALS: BMI 18.9
[2023-04-05 19:11] LABS: Clostridium Difficile Tox PCR Positive for C. diff (Negative)
[2023-04-08 17:04] LABS: C difficie Toxins A and B, EIA Negative (Negative)
== END ==
PROVIDERS: PCP Pediatrics; Referring Provider Pediatrics; Visit Provider Pediatrics
DX: A04.72 Enterocolitis due to Clostridium difficile, not specified as recurrent (principal)
CPT/HCPCS: 87324; 87493

== ENCOUNTER 2023-06-06 19:06 | Inpatient (IN) | payer OTHER, SELFPAY ==
[2023-03-11 21:55] VITALS: BMI 18.9
[2023-06-06] VITALS (11 sets, daily range): BP systolic 128–157; BP diastolic 65–74; PULSE 84–103; RESP 13–22; TEMP 36.8; O2SAT 99–100; BMI 20.3
--- NOTE | 2023-06-06 | DI.RAD.S_ITS ---
PROCEDURE: XR CHEST 1V INDICATIONS: Left hip fracture TECHNIQUE: One view of the chest was acquired. COMPARISON: [facility], CR, XR CHEST 1V, 03/11/2023, 18:00. FINDINGS: Surgical changes and devices: None. Lungs and pleura: Lungs are clear. No pleural effusions or pneumothorax. Mediastinum: Mediastinal contours appear normal. Heart size is enlarged. Bones and chest wall: No suspicious bony lesions. Overlying soft tissues appear unremarkable. IMPRESSION: 1. Cardiomegaly. 2. No acute process. Dictated by: Kirk Vasquez M.D. on 06/06/2023 at 19:57 Approved by: Kirk Vasquez M.D. on 06/06/2023 at 19:57
--- NOTE | 2023-06-06 19:27 | DI.RAD.S_ITS ---
PROCEDURE: XR HIP W PEL IF DONE LT 2V INDICATIONS: fall/pain TECHNIQUE: 2 views of the hip were acquired. COMPARISON: [facility], CR, [id number] W PEL IF PERFORMED, 04/05/2016, 14:34. FINDINGS: Bones: There is a moderately displaced and angulated comminuted left intertrochanteric hip fracture. Right hip arthroplasty is present. Soft tissues: No suspicious soft tissue calcifications or masses. IMPRESSION: Left proximal femoral fracture. Dictated by: Kirk Vasquez M.D. on 06/06/2023 at 19:54 Approved by: Kirk Vasquez M.D. on 06/06/2023 at 19:54
--- NOTE | 2023-06-06 19:45 | PC.NURSE ---
Patient c/o left hip pain s/p fall at home. Patient states she tripped over something and hit a barrel she had in her home. Patient denies hitting head, LOC, neck or back pain. Hx of chronic diarrhea since and seeing GI. Patient states no recent illness, dizziness,chest pain or SOB.
[2023-06-06 19:47] LABS: Add Manual Diff / Slide Review NO; Basophils Absolute Auto 0 /uL (0-100); Basophils Percent Auto 0.5 % (0-2); Eosinophils Absolute Auto 0 /uL (0-450); Eosinophils Percent Auto 0.2 % (2-4); Hematocrit 31.8 % (36-46); Hemoglobin 10.8 g/dL (12.0-16.0); Lymphocytes Absolute Auto 2300 /uL (1100-4500); Lymphocytes Percent Auto 31.4 % (25-40); Mean Corpuscular HGB Conc 33.9 % (30-36); Mean Corpuscular Hemoglobin 29.8 PG (26-34); Mean Corpuscular Volume 87.8 fL (80-100); Monocytes Absolute Auto 500 /uL (0-900); Monocytes Percent Auto 6.5 % (3-14); Neutrophils Absolute Auto 4600 /uL (1500-7000); Neutrophils Percent Auto 61.4 % (50-75); Platelet Count 263 X10^3/uL (150-400); Red Blood Cell Count 3.63 X10^6/uL (4.0-5.2); Red Cell Distribution Width 13.9 % (11.6-14.8); White Blood Cell Count 7.5 X10^3/uL (4.5-11.0)
[2023-06-06 20:03] LABS: Appearance Urine UA CLEAR; Bilirubin Urine UA NEGATIVE (NEGATIVE); Color Urine UA YELLOW; Glucose Urine UA NEGATIVE (Negative); Ketones Urine UA TRACE (NEGATIVE); Leukocyte Esterase Urine UA 1+ (NEGATIVE); Nitrite Urine UA NEGATIVE (Negative); Occult Blood Urine UA NEGATIVE (Negative); Protein Urine UA NEGATIVE (Negative); Specific Gravity Urine UA >=1.030 (1.000-1.035); Urobilinogen Urine UA 0.2 E.U./dL (0.2)
[2023-06-06] MEDS: HYDROMORPHONE 0.5 MG INJ IV ×3 (20:04→23:27)
[2023-06-06 20:12] LABS: Alanine Aminotransferase 15 IU/L (<35); Albumin 3.9 g/dL (3.5-5.0); Albumin Globulin Ratio 1.4 (1.0-2.8); Alkaline Phosphatase 75 U/L (38-126); Aspartate Aminotransferase 32 IU/L (14-36); BUN Creatinine Ratio 24.4 (6-22); Bilirubin Total 0.7 mg/dL (0.2-1.3); Blood Urea Nitrogen 21 mg/dL (7-17); Calcium 9.1 mg/dL (8.4-10.2); Carbon Dioxide 24 mmol/L (22-32); Chloride 106 mmol/L (98-107); Estimated Glomerular Filt Rate > 60 mL/min (>60); Globulin 2.7 g/dL (1.7-4.1); Glucose 131 mg/dL (80-110); HEMOLYSIS 18 (0-50); Potassium 3.9 mmol/L (3.4-5.1); Sodium 136 mmol/L (137-145); Total Protein 6.6 g/dL (6.3-8.2)
[2023-06-06 20:12] LABS: pH Urine UA 5.5 (4.5-8.0)
[2023-06-06 20:17] LABS: Bacteria Urine Few (2-10); Culture Indicated Urine Specimen Cultured; RBC Urine 1-5/HPF (0-5/HPF); Squamous Epithelial Cell Urine 5-10 /HPF (0-5/HPF); WBC Urine 10-30/HPF (0-5/HPF)
--- NOTE | 2023-06-06 22:35 | ED.LOWEXIN ---
HPI - Extremity Injury (Lower) General Chief Complaint: Extremity Injury, Lower Stated Complaint: Fall, left hip pain Time Seen by Provider: 06/06/23 19:51 Source: patient and EMS Mode of arrival: EMS History of Present Illness HPI Narrative: 88-year-old woman currently living at [facility] with a history of hypertension, chronic urinary tract infections on currently Keflex suppression as well as diarrhea secondary to collagenous colitis was walking with her walker today stumbled and fell landing on her left hip and was unable to get up. Left leg is too tender to move and foreshortened Related Data Home Medications Medication Instructions Recorded Confirmed CA PANTOTHENATE/FOLIC ACID/VIT 1 tab PO Q DAY ##0 04/07/11 03/24/23 (MULTIVITAMIN) calcium carbonate 200 mg calcium 1,000 mg PO Q4-5H PRN Acid Reflux 04/30/16 03/24/23 (500 mg) chewable tablet (Tums) ##0 Previous Rx's Medication Instructions Recorded trazodone 50 mg tablet 50 mg PO HS PRN insomnia #30 tabs 06/22/22 fluoxetine 20 mg capsule 20 mg PO DAILY #90 caps 07/27/22 diltiazem HCl 180 mg 180 mg PO DAILY #90 caps 11/08/22 capsule,extended release 24 hr lisinopril 5 mg tablet 5 mg PO DAILY #90 tabs 11/09/22 cephalexin 250 mg capsule 250 mg PO DAILY #90 caps 03/24/23 diphenoxylate-atropine 2.5 1 tab PO BEDTIME PRN diarrhea #30 05/06/23 mg-0.025 mg tablet (Lomotil) tabs hydroxyzine HCl 25 mg tablet 25 mg PO BEDTIME PRN anxiety #30 05/23/23 tabs Allergies Allergy/AdvReac Type Severity Reaction Status Date / Time No Known Drug Allergies Allergy Verified 05/06/23 12:53 Review of Systems Review of Systems Narrative: Pertinent positive and negative findings as per HPI Patient History Medical History Thoracic compression fracture Low back strain Aguillon's palsy Chicken pox (~1945) Depression (2010) Hyperlipidemia Hypertension Measles (~1942) Mumps (~194) Osteoporosis (1999) Hearing loss (2011) Collagenous colitis (2005) Breast cancer (2007) Degenerative joint disease of right hip Systolic murmur (06/23/17) Surgical History History of arthroplasty of right hip Anesthesia History of cosmetic surgery (09/2012) History of total right hip arthroplasty (2014) History of gynecologic surgery (2007) History of oophorectomy (1982) Status post breast lumpectomy (2007) Status post hysterectomy (1981) Family History Mother Type II diabetes mellitus Hypertension High cholesterol Father No problems noted. Sister No problems noted. Sister Cancer Sister No problems noted. Sister No problems noted. Other Colorectal cancer Social History marital status: unmarried,living together (partner) number of children: 1 household members: none lives independently: Yes occupational status: other (retired) Smoking Status: Former smoker alcohol intake: current substance use type: does not use Smoking Status: Former smoker alcohol intake frequency: holidays/special occasions only Substance Use Type: does not use Exam Initial Vital Signs Initial Vital Signs: Vital Signs Temperature 98.2 F 06/06/23 19:06 Pulse Rate 86 06/06/23 19:06 Respiratory Rate 16 06/06/23 19:06 Blood Pressure 157/72 H 06/06/23 19:06 Pulse Oximetry 99 06/06/23 19:06 Oxygen Delivery Method Room Air 06/06/23 19:06 General: Frail older-appearing woman in no acute distress. HEENT: Moist mucous membranes, normal sclera with reactive pupils, Neck: No JVD, supple Respiratory: Lungs are clear to auscultation, no wheezing no rales no rhonchi. Full and symmetrical air movement Cardiac: Regular rate and rhythm no murmurs no bruits Abdomen: Soft, nontender, good bowel tones, no flank pain Skin: Warm and dry, no rashes Neurologic: Unable to move her left leg secondary to pain however she is neurovascularly intact Extremities: No trauma, well perfused, no obvious abrasions or contusions. Psych: Cooperative, mild cognitive deficit, fluent speech, appropriate affect Course Orders Ordered: ED Orders 06/06/23 19:27 XR hip w pel if done LT 2V Stat 06/06/23 19:30 CBC Auto Diff [Complete Blood Count AUTO DIFF] Stat CMP [Comprehensive Metabolic Panel] Stat 06/06/23 19:51 EKG-12 Lead Stat 06/06/23 19:56 Urinalysis and Microscopic Stat Urine Culture Stat Hydromorphone HCl (Hydromorphone 0.5 Mg Inj) 0.5 mg IV Q15MIN PRN PRN Reason: Pain, Last Admin: 06/06/23 20:43 Dose: 0.5 mg Documented By: Admin: 06/06/23 20:04 Dose: 0.5 mg Documented By: AUBREE Vital Signs Vital signs: Vital Signs - 8 hr 06/06/23 19:06 06/06/23 19:24 06/06/23 19:24 Temperature 98.2 F Pulse Rate 86 84 Respiratory Rate 16 18 Blood Pressure 157/72 H 157/72 H Pulse Oximetry 99 99 Oxygen Delivery Method Room Air 06/06/23 19:30 06/06/23 19:30 06/06/23 20:00 Temperature Pulse Rate 84 Respiratory Rate 15 Blood Pressure 146/67 H 141/69 H Pulse Oximetry 99 Oxygen Delivery Method 06/06/23 20:00 06/06/23 20:30 06/06/23 20:30 Temperature Pulse Rate 85 90 Respiratory Rate 22 20 Blood Pressure 128/65 Pulse Oximetry 99 99 Oxygen Delivery Method 06/06/23 21:00 06/06/23 21:00 06/06/23 21:30 Temperature Pulse Rate 100 H Respiratory Rate 16 Blood Pressure 128/71 136/74 Pulse Oximetry 99 Oxygen Delivery Method 06/06/23 21:30 06/06/23 22:00 06/06/23 22:00 Temperature Pulse Rate 95 H 88 Respiratory Rate 21 13 Blood Pressure 149/71 H Pulse Oximetry 99 100 Oxygen Delivery Method MDM - Extremity Injury (Lower) Lab Data 06/06/23 19:30 06/06/23 19:30 Labs: Lab Results 06/06/23 06/06/23 Range/Units 19:30 19:56 WBC 7.5 (4.5-11.0) X10^3/uL RBC 3.63 L (4.0-5.2) X10^6/uL Hgb 10.8 L (12.0-16.0) g/dL Hct 31.8 L (36-46) % MCV 87.8 (80-100) fL MCH 29.8 (26-34) PG MCHC 33.9 (30-36) % RDW 13.9 (11.6-14.8) % Plt Count 263 (150-400) X10^3/uL Neut % (Auto) 61.4 (50-75) % Lymph % (Auto) 31.4 (25-40) % [place] % (Auto) 6.5 (3-14) % Eos % (Auto) 0.2 L (2-4) % Baso % (Auto) 0.5 (0-2) % Neut # (Auto) 4600 (4372-2980) /uL Lymph # (Auto) 2300 (4820-0437) /uL [place] # (Auto) 500 (0-900) /uL Eos # (Auto) 0 (0-450) /uL Baso # (Auto) 0 (0-100) /uL Sodium 136 L (137-145) mmol/L Potassium 3.9 (3.4-5.1) mmol/L Chloride 106 (98-107) mmol/L Carbon Dioxide 24 (22-32) mmol/L BUN 21 H (7-17) mg/dL Creatinine 0.86 (0.52-1.04) mg/dL Estimated GFR > 60 (>60) mL/min BUN/Creatinine Ratio 24.4 H (6-22) Glucose 131 H (80-110) mg/dL Calcium 9.1 (8.4-10.2) mg/dL Total Bilirubin 0.7 (0.2-1.3) mg/dL AST 32 (14-36) IU/L ALT 15 (<35) IU/L Alkaline Phosphatase 75 (38-126) U/L Total Protein 6.6 (6.3-8.2) g/dL Albumin 3.9 (3.5-5.0) g/dL Globulin 2.7 (1.7-4.1) g/dL Albumin/Globulin Ratio 1.4 (1.0-2.8) Urine Color Yellow Urine Appearance Clear Urine pH 5.5 (4.5-8.0) Ur Specific [place] >=1.030 H (1.000-1.035) Urine Protein Negative (Negative) Urine Glucose (UA) Negative (Negative) g/dL Urine Ketones Trace H (NEGATIVE) Urine Occult Blood Negative (Negative) Urine Nitrate Negative (Negative) Urine Bilirubin Negative (NEGATIVE) Urine Urobilinogen 0.2 (0.2) E.U./dL Ur Leukocyte Esterase 1+ H (NEGATIVE) Urine RBC 1-5/hpf (0-5/HPF) Urine WBC 10-30/hpf H (0-5/HPF) Ur Squamous Epith Cells 5-10 /hpf H (0-5/HPF) Urine Bacteria Few (2-10) H (None) Urine Yeast 30-100/hpf H (None) Ur Culture Indicated? Specimen cultured MDM Narrative Medical decision making narrative: CC: Fall left leg pain with leg internally rotated and foreshortened Complicating co-morbidities: Hypertension, paroxysmal atrial fibrillation, gait instability Data collected from: patient, nephew who has [id number] Social determinants of health that may influence the patients condition: Frailty, currently lives alone in an assisted living facility Medical records reviewed: Medical records from hospital admissions, outpatient care and ER visits are all reviewed Differential considered: Hip dislocation, hip fracture, pelvic fracture, stroke Exam documented above, pertinent findings include: Quite frail. No abrasions or contusions to the left hip. She is tender and does appear to be rotated and foreshortened. She does have appropriate distal pulses and sensation. Lab Test results independently reviewed as above. Pertinent findings: CBC is unremarkable Chemistries are reassuring Cath urine sample shows trace ketones positive leukocyte esterase 10-30 white blood cells 5-10 epithelial cells few bacteria and yeast is appreciated. Based on prior urine cultures most recently March 11 with Klebsiella pneumoniae growing sensitive to ceftriaxone we will go ahead and treat with ceftriaxone until culture returns to indicate other treatment or absence of urinary tract infection Independently reviewed EKG Sinus rhythm at a rate of 81. Normal intervals, normal axis. No acute ischemic changes Imaging studies independently reviewed: Hip and pelvis x-ray reveals a displaced and angulated comminuted left intertrochanteric hip fracture. No pelvic fracture Chest x-ray is unremarkable Consultations: Dr Mcduffie, orthopedist. Requests NPO after midnight we will re-evaluate in the morning for operative time. Treatments: IV Dilaudid for pain control, Lugo catheter is placed for pain control Discussion: Findings of hip fracture reviewed with patient and her nephew who has power of criminal defense attorney. Explain the need for surgical intervention. Care is reviewed with Dr. Poole who will further evaluate the patient in the morning to decide appropriate operative intervention and time. Patient is reviewed with the hospitalist service, Dr. Olea will admit the patient. Questions any for hospitalization reviewed with the patient and her nephew and she is safe for transfer to the floor Discharge Plan Departure Patient Disposition: Admitted As Inpatient Clinical Impression: Acute UTI, Paroxysmal A-fib, Hypertension Closed hip fracture Qualifiers: Encounter type: initial encounter Laterality: left Qualified Code(s): S72.002A - Fracture of unspecified part of neck of left femur, initial encounter for closed fracture Fall Qualifiers: Encounter type: initial encounter Qualified Code(s): W19.XXXA - Unspecified fall, initial encounter Admit Date/Time: 06/06/23 23:34 Admit Provider: Devin Olea
[2023-06-06] MEDS: cefTRIAXone 2,000 MG in SODIUM CHLORIDE 0.9% 100 ML 200 MG IV (23:47)
[2023-06-07] VITALS (15 sets, daily range): BP systolic 98–153; BP diastolic 56–92; PULSE 78–101; RESP 11–18; TEMP 36.2–36.9; O2SAT 95–99; BMI 18.8
--- NOTE | 2023-06-07 | DI.RAD.S_ITS ---
PROCEDURE: XR HIP W PEL IF DONE LT 2V INDICATIONS: LEFT INTRAMEDULLARY NAILING FEMUR TECHNIQUE: 2 view(s) of the hip acquired. COMPARISON: [facility], CR, XR HIP W PEL IF DONE LT 2V, 06/06/2023, 19:33. FINDINGS: Bones: Intraoperative fluoroscopy for left hip fracture fixation. Several images depict left femoral intramedullary miguel and left femoral neck hardware in place. No unexpected fractures. Near anatomic alignment of intertrochanteric fracture. Soft tissues: Overlying postoperative changes are noted. No suspicious soft tissue densities. IMPRESSION: Intraoperative fluoroscopy for left intramedullary nail. Dictated by: Caty Curran M.D. on 06/07/2023 at 20:25 Approved by: Caty Curran M.D. on 06/07/2023 at 20:26
[2023-06-07] MEDS: HYDROMORPHONE 0.5 MG INJ IV ×4 (01:16→16:04)
[2023-06-07] MEDS: DEXTROSE 5%-0.45% NS 1,000 ML 100 ML IV ×2 (01:16→10:02)
--- NOTE | 2023-06-07 01:29 | PM.HP.1 ---
History of Present Illness History of Present Illness Chief complaint: Fall, left hip pain [facility] Medical History Thoracic compression fracture Low back strain Aguillon's palsy Chicken pox (~1945) Depression (2010) Hyperlipidemia Hypertension Measles (~194) Mumps (~1942) Osteoporosis (1999) Hearing loss (2011) Collagenous colitis (2005) Breast cancer (2007) Degenerative joint disease of right hip Systolic murmur (06/23/17) Surgical History History of arthroplasty of right hip Anesthesia History of cosmetic surgery (09/2012) History of total right hip arthroplasty (2014) History of gynecologic surgery (2007) History of oophorectomy (1982) Status post breast lumpectomy (2007) Status post hysterectomy (1981) Family History Mother Type II diabetes mellitus Hypertension High cholesterol Father No problems noted. Sister No problems noted. Sister Cancer Sister No problems noted. Sister No problems noted. Other Colorectal cancer Social History marital status: unmarried,living together (partner) number of children: 1 household members: none lives independently: Yes occupational status: other (retired) Smoking Status: Former smoker alcohol intake: current substance use type: does not use Meds Home Medications and Allergies Home Medications Medication Instructions Recorded Confirmed Type CA PANTOTHENATE/FOLIC ACID/VIT 1 tab PO Q DAY ##0 04/07/11 03/24/23 History (MULTIVITAMIN) calcium carbonate 200 mg calcium 1,000 mg PO Q4-5H PRN Acid Reflux 04/30/16 03/24/23 History (500 mg) chewable tablet (Tums) ##0 trazodone 50 mg tablet 50 mg PO HS PRN insomnia #30 tabs 06/22/22 03/24/23 Rx fluoxetine 20 mg capsule 20 mg PO DAILY #90 caps 07/27/22 03/24/23 Rx diltiazem HCl 180 mg 180 mg PO DAILY #90 caps 11/08/22 03/24/23 Rx capsule,extended release 24 hr lisinopril 5 mg tablet 5 mg PO DAILY #90 tabs 11/09/22 03/24/23 Rx cephalexin 250 mg capsule 250 mg PO DAILY #90 caps 03/24/23 03/24/23 Rx diphenoxylate-atropine 2.5 1 tab PO BEDTIME PRN diarrhea #30 05/06/23 05/06/23 Rx mg-0.025 mg tablet (Lomotil) tabs hydroxyzine HCl 25 mg tablet 25 mg PO BEDTIME PRN anxiety #30 05/23/23 Rx tabs Allergies Allergy/AdvReac Type Severity Reaction Status Date / Time No Known Drug Allergies Allergy Verified 05/06/23 12:53 Exam Vital Signs (past 8 hours): - 06/06/23 19:06 06/06/23 19:24 06/06/23 19:24 Temperature 98.2 F Pulse Rate 86 84 Respiratory Rate 16 18 Blood Pressure 157/72 H 157/72 H Pulse Oximetry 99 99 Oxygen Delivery Method Room Air Oxygen Flow Rate 06/06/23 19:30 06/06/23 19:30 06/06/23 20:00 Temperature Pulse Rate 84 Respiratory Rate 15 Blood Pressure 146/67 H 141/69 H Pulse Oximetry 99 Oxygen Delivery Method Oxygen Flow Rate 06/06/23 20:00 06/06/23 20:30 06/06/23 20:30 Temperature Pulse Rate 85 90 Respiratory Rate 22 20 Blood Pressure 128/65 Pulse Oximetry 99 99 Oxygen Delivery Method Oxygen Flow Rate 06/06/23 21:00 06/06/23 21:00 06/06/23 21:30 Temperature Pulse Rate 100 H Respiratory Rate 16 Blood Pressure 128/71 136/74 Pulse Oximetry 99 Oxygen Delivery Method Oxygen Flow Rate 06/06/23 21:30 06/06/23 22:00 06/06/23 22:00 Temperature Pulse Rate 95 H 88 Respiratory Rate 21 13 Blood Pressure 149/71 H Pulse Oximetry 99 100 Oxygen Delivery Method Oxygen Flow Rate 06/06/23 22:30 06/06/23 22:30 06/06/23 23:00 Temperature Pulse Rate 84 Respiratory Rate 14 Blood Pressure 156/74 H 151/68 H Pulse Oximetry 100 Oxygen Delivery Method Oxygen Flow Rate 06/06/23 23:00 06/06/23 23:30 06/06/23 23:30 Temperature Pulse Rate 87 103 H Respiratory Rate 14 18 Blood Pressure 138/67 Pulse Oximetry 100 100 Oxygen Delivery Method Oxygen Flow Rate 06/07/23 00:00 06/07/23 00:00 06/07/23 00:00 Temperature 97.7 F Pulse Rate 101 H 99 H Respiratory Rate 14 16 Blood Pressure 131/71 153/77 H Pulse Oximetry 99 99 Oxygen Delivery Method Oxygen Flow Rate 0 Oxygen Delivery Method Room Air Oxygen Flow Rate 0 Objective Labs 06/06/23 19:30 06/06/23 19:30 Labs: Laboratory Results - last 24 hr 06/06/23 06/06/23 19:30 19:56 WBC 7.5 RBC 3.63 L Hgb 10.8 L Hct 31.8 L MCV 87.8 MCH 29.8 MCHC 33.9 RDW 13.9 Plt Count 263 Neut % (Auto) 61.4 Lymph % (Auto) 31.4 [place] % (Auto) 6.5 Eos % (Auto) 0.2 L Baso % (Auto) 0.5 Neut # (Auto) 4600 Lymph # (Auto) 2300 [place] # (Auto) 500 Eos # (Auto) 0 Baso # (Auto) 0 Sodium 136 L Potassium 3.9 Chloride 106 Carbon Dioxide 24 BUN 21 H Creatinine 0.86 Estimated GFR > 60 BUN/Creatinine Ratio 24.4 H Glucose 131 H Calcium 9.1 Total Bilirubin 0.7 AST 32 ALT 15 Alkaline Phosphatase 75 Total Protein 6.6 Albumin 3.9 Globulin 2.7 Albumin/Globulin Ratio 1.4 Urine Color Yellow Urine Appearance Clear Urine pH 5.5 Ur Specific [place] >=1.030 H Urine Protein Negative Urine Glucose (UA) Negative Urine Ketones Trace H Urine Occult Blood Negative Urine Nitrate Negative Urine Bilirubin Negative Urine Urobilinogen 0.2 Ur Leukocyte Esterase 1+ H Urine RBC 1-5/hpf Urine WBC 10-30/hpf H Ur Squamous Epith Cells 5-10 /hpf H Urine Bacteria Few (2-10) H Urine Yeast 30-100/hpf H Ur Culture Indicated? Specimen cultured Quality VTE Deep Vein Thrombosis/Pulmonary Embolism Present on Admission: No
--- NOTE | 2023-06-07 01:30 | PM.HP.1 ---
History of Present Illness History of Present Illness Chief complaint: Fall, left hip pain Narrative: 88-year-old woman currently living at [facility] with a history of hypertension, chronic urinary tract infections on currently Keflex suppression as well as diarrhea secondary to collagenous colitis was walking with her walker today stumbled and fell landing on her left hip and was unable to get up. Left leg is too tender to move and foreshortened. X ray showed left proximal femoral fracture. [facility] Medical History Thoracic compression fracture Low back strain Aguillon's palsy Chicken pox (~194) Depression (2010) Hyperlipidemia Hypertension Measles (~194) Mumps (~194) Osteoporosis (1999) Hearing loss (2011) Collagenous colitis (2005) Breast cancer (2007) Degenerative joint disease of right hip Systolic murmur (06/23/17) Surgical History History of arthroplasty of right hip Anesthesia History of cosmetic surgery (09/2012) History of total right hip arthroplasty (2014) History of gynecologic surgery (2007) History of oophorectomy (1982) Status post breast lumpectomy (2007) Status post hysterectomy (1981) Family History Mother Type II diabetes mellitus Hypertension High cholesterol Father No problems noted. Sister No problems noted. Sister Cancer Sister No problems noted. Sister No problems noted. Other Colorectal cancer Social History marital status: unmarried,living together (partner) number of children: 1 household members: none lives independently: Yes occupational status: other (retired) Smoking Status: Former smoker alcohol intake: current substance use type: does not use Meds Home Medications and Allergies Home Medications Medication Instructions Recorded Confirmed Type CA PANTOTHENATE/FOLIC ACID/VIT 1 tab PO Q DAY ##0 04/07/11 03/24/23 History (MULTIVITAMIN) calcium carbonate 200 mg calcium 1,000 mg PO Q4-5H PRN Acid Reflux 04/30/16 03/24/23 History (500 mg) chewable tablet (Tums) ##0 trazodone 50 mg tablet 50 mg PO HS PRN insomnia #30 tabs 06/22/22 03/24/23 Rx fluoxetine 20 mg capsule 20 mg PO DAILY #90 caps 07/27/22 03/24/23 Rx diltiazem HCl 180 mg 180 mg PO DAILY #90 caps 11/08/22 03/24/23 Rx capsule,extended release 24 hr lisinopril 5 mg tablet 5 mg PO DAILY #90 tabs 11/09/22 03/24/23 Rx cephalexin 250 mg capsule 250 mg PO DAILY #90 caps 03/24/23 03/24/23 Rx diphenoxylate-atropine 2.5 1 tab PO BEDTIME PRN diarrhea #30 05/06/23 05/06/23 Rx mg-0.025 mg tablet (Lomotil) tabs hydroxyzine HCl 25 mg tablet 25 mg PO BEDTIME PRN anxiety #30 05/23/23 Rx tabs Allergies Allergy/AdvReac Type Severity Reaction Status Date / Time No Known Drug Allergies Allergy Verified 05/06/23 12:53 Review of Systems Review of Systems ROS: Yes All systems reviewed with the patient and are negative except as otherwise documented Constitutional Constitutional: Reports as per HPI and Reports system reviewed and no additional complaints, except as documented Eyes Eyes: Reports as per HPI and Reports system reviewed and no additional complaints, except as documented ENT Ears, Nose, Mouth, and Throat: Yes as per HPI and Yes system reviewed and no additional complaints, except as documented Cardiovascular Cardiovascular: Reports system reviewed and no additional complaints, except as documented Respiratory Respiratory: Reports system reviewed and no additional complaints, except as documented Gastrointestinal Gastrointestinal: Reports system reviewed and no additional complaints, except as documented Genitourinary Genitourinary: Reports system reviewed and no additional complaints, except as documented Musculoskeletal Musculoskeletal: Reports system reviewed and no additional complaints, except as documented, Reports abnormal gait and Reports numbness Neurologic Neurologic: Reports system reviewed and no additional complaints, except as documented, Reports abnormal gait, Reports confusion and Reports numbness Psychiatric Psychiatric: Reports system reviewed and no additional complaints, except as documented and Reports confusion Exam Vital Signs (past 8 hours): - 06/06/23 19:06 06/06/23 19:24 06/06/23 19:24 Temperature 98.2 F Pulse Rate 86 84 Respiratory Rate 16 18 Blood Pressure 157/72 H 157/72 H Pulse Oximetry 99 99 Oxygen Delivery Method Room Air Oxygen Flow Rate 06/06/23 19:30 06/06/23 19:30 06/06/23 20:00 Temperature Pulse Rate 84 Respiratory Rate 15 Blood Pressure 146/67 H 141/69 H Pulse Oximetry 99 Oxygen Delivery Method Oxygen Flow Rate 06/06/23 20:00 06/06/23 20:30 06/06/23 20:30 Temperature Pulse Rate 85 90 Respiratory Rate 22 20 Blood Pressure 128/65 Pulse Oximetry 99 99 Oxygen Delivery Method Oxygen Flow Rate 06/06/23 21:00 06/06/23 21:00 06/06/23 21:30 Temperature Pulse Rate 100 H Respiratory Rate 16 Blood Pressure 128/71 136/74 Pulse Oximetry 99 Oxygen Delivery Method Oxygen Flow Rate 06/06/23 21:30 06/06/23 22:00 06/06/23 22:00 Temperature Pulse Rate 95 H 88 Respiratory Rate 21 13 Blood Pressure 149/71 H Pulse Oximetry 99 100 Oxygen Delivery Method Oxygen Flow Rate 06/06/23 22:30 06/06/23 22:30 06/06/23 23:00 Temperature Pulse Rate 84 Respiratory Rate 14 Blood Pressure 156/74 H 151/68 H Pulse Oximetry 100 Oxygen Delivery Method Oxygen Flow Rate 06/06/23 23:00 06/06/23 23:30 06/06/23 23:30 Temperature Pulse Rate 87 103 H Respiratory Rate 14 18 Blood Pressure 138/67 Pulse Oximetry 100 100 Oxygen Delivery Method Oxygen Flow Rate 06/07/23 00:00 06/07/23 00:00 06/07/23 00:00 Temperature 97.7 F Pulse Rate 101 H 99 H Respiratory Rate 14 16 Blood Pressure 131/71 153/77 H Pulse Oximetry 99 99 Oxygen Delivery Method Oxygen Flow Rate 0 Oxygen Delivery Method Room Air Oxygen Flow Rate 0 Const General: cooperative, comfortable and well developed Orientation: alert and oriented x3 HENMT Head: normal to inspection, normocephalic and atraumatic Face and sinus: normal facial exam Mouth: oral mucosae normal and moist mucous membranes Throat: posterior oropharynx normal Eyes General: appearance normal, both eyes and all related structures Pupils: PERRL EOM: EOM intact bilaterally Neck Neck: normal visual inspection and full ROM Chest Chest: normal inspection of the chest Resp Effort & Inspection: normal respiratory effort and able to speak in complete sentences Auscultation: clear to auscultation bilaterally Cardio Palpation: normal PMI Rate: regular rate Rhythm: regular rhythm Heart Sounds: S1 normal and S2 normal GI Inspection: normal to inspection Palpation: soft and no hepatosplenomegaly Auscultation: normal bowel sounds Skin General: no rashes or lesions noted Lesions: no lesions Rashes: no rashes Trauma: no lacerations or abrasions Neuro General: patient alert, patient awake, patient oriented x3 and no focal motor deficits Cranial Nerves: CN's II-XI intact bilaterally Cognition: normal cognition Speech: speech normal Gait: normal gait Motor: muscle tone normal throughout Sensory Exam: no sensory deficits noted Extrem General: full ROM and no calf tenderness Psych Appearance: grossly normal Mental Status: mental status grossly normal Speech and Movement: speech and movement normal Objective Labs 06/06/23 19:30 06/06/23 19:30 Labs: Laboratory Results - last 24 hr 06/06/23 06/06/23 19:30 19:56 WBC 7.5 RBC 3.63 L Hgb 10.8 L Hct 31.8 L MCV 87.8 MCH 29.8 MCHC 33.9 RDW 13.9 Plt Count 263 Neut % (Auto) 61.4 Lymph % (Auto) 31.4 [place] % (Auto) 6.5 Eos % (Auto) 0.2 L Baso % (Auto) 0.5 Neut # (Auto) 4600 Lymph # (Auto) 2300 [place] # (Auto) 500 Eos # (Auto) 0 Baso # (Auto) 0 Sodium 136 L Potassium 3.9 Chloride 106 Carbon Dioxide 24 BUN 21 H Creatinine 0.86 Estimated GFR > 60 BUN/Creatinine Ratio 24.4 H Glucose 131 H Calcium 9.1 Total Bilirubin 0.7 AST 32 ALT 15 Alkaline Phosphatase 75 Total Protein 6.6 Albumin 3.9 Globulin 2.7 Albumin/Globulin Ratio 1.4 Urine Color Yellow Urine Appearance Clear Urine pH 5.5 Ur Specific [place] >=1.030 H Urine Protein Negative Urine Glucose (UA) Negative Urine Ketones Trace H Urine Occult Blood Negative Urine Nitrate Negative Urine Bilirubin Negative Urine Urobilinogen 0.2 Ur Leukocyte Esterase 1+ H Urine RBC 1-5/hpf Urine WBC 10-30/hpf H Ur Squamous Epith Cells 5-10 /hpf H Urine Bacteria Few (2-10) H Urine Yeast 30-100/hpf H Ur Culture Indicated? Specimen cultured Assessment & Plan Assessment and plan (1) Closed hip fracture: Problem details: GLF Qualifiers: Encounter type: initial encounter Laterality: left Qualified Code(s): S72.002A - Fracture of unspecified part of neck of left femur, initial encounter for closed fracture Status: Acute Plan: pain control NPO after [place] Ortho consult Bed rest PT and OT on DC H&H post op (2) Paroxysmal A-fib: Problem details: rate controlled, not on any anticoagulation Tx Status: Acute Plan: Restart Diltiazem, (3) Hypertension: Status: Acute (4) Depression: Qualifiers: Depression Type: dysthymia Qualified Code(s): 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 Plan: Restart Trazodone, Hydroxyzine prn, Fluoxetine (5) Essential hypertension: Status: Chronic Plan: Restart Lisinopril pos op (6) Acute UTI: Problem details: Given Ceftriaxone 2g IV Status: Acute Plan: Hold any Abx for now due to recent CDiff infection F/U on UC Time Spent With Patient Time with patient: 50 to 69 minutes with 50% spent counseling/coordinating care Quality VTE Deep Vein Thrombosis/Pulmonary Embolism Present on Admission: No MIPS - Admit I confirm the patient?s Advance Care Plan is present, Code status is documented, Surrogate decision maker is in patient?s record [If Yes, STOP here]: Yes MIPS - Meds 'Current medications' to include all prescriptions, [id number] products, herbals, cannabis/cannabidiol products, and vitamin/mineral/dietary (nutritional) supplements. I have utilized all available resources to obtain, update, or review the patient?s current medications. [If Yes, STOP here]: Yes
--- NOTE | 2023-06-07 07:20 | PM.CN ---
History of Present Illness Consult details Date Patient Seen: 06/07/23 Time Patient Seen: 07:20 Chief complaint: Fall, left hip pain Reason for consult: Left hip fracture, proximal femur intertrochanteric Requesting provider: Janette Kirk Narrative: 88-year-old female assisted living [facility], typically ambulates with a walker. Fell onto left side was unable to ambulate and had pain. Brought to Hospital and found to have comminuted left inter trochanteric fracture. Has a contralateral total hip arthroplasty was done for arthritis. Patient has some memory difficulty CHF and chronic UTIs. States POA is Evelio. Complains of pain left hip. Denies other injury. Able to give me a very limited history this morning. Not on anticoagulation. History of SVT Meds Home Medications and Allergies Home Medications Medication Instructions Recorded Confirmed Type calcium carbonate 200 mg calcium 1,000 mg PO Q4-5H PRN Acid Reflux 04/30/16 06/07/23 History (500 mg) chewable tablet (Tums) ##0 trazodone 50 mg tablet 50 mg PO HS PRN insomnia #30 tabs 06/22/22 06/07/23 Rx fluoxetine 20 mg capsule 20 mg PO DAILY #90 caps 07/27/22 06/07/23 Rx diltiazem HCl 180 mg 180 mg PO DAILY #90 caps 11/08/22 06/07/23 Rx capsule,extended release 24 hr lisinopril 5 mg tablet 5 mg PO DAILY #90 tabs 11/09/22 06/07/23 Rx diphenoxylate-atropine 2.5 1 tab PO BEDTIME PRN diarrhea #30 05/06/23 06/07/23 Rx mg-0.025 mg tablet (Lomotil) tabs acetaminophen 325 mg tablet 650 mg PO Q6H PRN Pain, Mild 06/07/23 06/07/23 History diclofenac sodium 1 % topical gel See Rx Instructions .Route 06/07/23 06/07/23 History (Aleve (diclofenac)) .COMPLEX PRN Pain (Scale Score 1-3) Allergies Allergy/AdvReac Type Severity Reaction Status Date / Time No Known Drug Allergies Allergy Verified 05/06/23 12:53 Exam Vital Signs (past 8 hours): - 06/06/23 23:30 06/06/23 23:30 06/07/23 00:00 Temperature Pulse Rate 103 H Respiratory Rate 18 Blood Pressure 138/67 131/71 Pulse Oximetry 100 Oxygen Flow Rate 06/07/23 00:00 06/07/23 00:00 06/07/23 06:00 Temperature 97.7 F 98.0 F Pulse Rate 101 H 99 H 78 Respiratory Rate 14 16 17 Blood Pressure 153/77 H 148/66 H Pulse Oximetry 99 99 98 Oxygen Flow Rate 0 0 Oxygen Delivery Method Room Air Oxygen Flow Rate 0 Narrative Exam Narrative: Alert, no acute distress lying in bed Limited history this morning Respiratory exam unlabored on room air, lungs clear Heart regular rhythm borderline tachycardia Tenderness to palpation left hip. Limited exam due to known hip fracture. Hip is flexed and externally rotated, shortened. Minimally wiggles toes does slight flicker of dorsiflexion of her ankle when asked. Calf and thigh compartments are soft. No swelling about the knee. No scars about the knee. Right lower extremity grossly normal alignment wiggles toes. SCD in place exam Lugo in place Demonstrates bilateral finger and wrist flexion without swelling or deformity Objective Imaging AP pelvis and left lateral hip: My impression: Independent interpretation AP pelvis and left lateral hip demonstrate comminuted intertrochanteric proximal femur fracture, left. Partial visualization right total hip arthroplasty Labs 06/06/23 19:30 06/06/23 19:30 Labs: Laboratory Results - last 24 hr 06/06/23 06/06/23 19:30 19:56 WBC 7.5 RBC 3.63 L Hgb 10.8 L Hct 31.8 L MCV 87.8 MCH 29.8 MCHC 33.9 RDW 13.9 Plt Count 263 Neut % (Auto) 61.4 Lymph % (Auto) 31.4 [place] % (Auto) 6.5 Eos % (Auto) 0.2 L Baso % (Auto) 0.5 Neut # (Auto) 4600 Lymph # (Auto) 2300 [place] # (Auto) 500 Eos # (Auto) 0 Baso # (Auto) 0 Sodium 136 L Potassium 3.9 Chloride 106 Carbon Dioxide 24 BUN 21 H Creatinine 0.86 Estimated GFR > 60 BUN/Creatinine Ratio 24.4 H Glucose 131 H Calcium 9.1 Total Bilirubin 0.7 AST 32 ALT 15 Alkaline Phosphatase 75 Total Protein 6.6 Albumin 3.9 Globulin 2.7 Albumin/Globulin Ratio 1.4 Urine Color Yellow Urine Appearance Clear Urine pH 5.5 Ur Specific [place] >=1.030 H Urine Protein Negative Urine Glucose (UA) Negative Urine Ketones Trace H Urine Occult Blood Negative Urine Nitrate Negative Urine Bilirubin Negative Urine Urobilinogen 0.2 Ur Leukocyte Esterase 1+ H Urine RBC 1-5/hpf Urine WBC 10-30/hpf H Ur Squamous Epith Cells 5-10 /hpf H Urine Bacteria Few (2-10) H Urine Yeast 30-100/hpf H Ur Culture Indicated? Specimen cultured [facility] Medical History Thoracic compression fracture Low back strain Aguillon's palsy Chicken pox (~194) Depression (2010) Hyperlipidemia Hypertension Measles (~1941) Mumps (~1941) Osteoporosis (1999) Hearing loss (2011) Collagenous colitis (2005) Breast cancer (2007) Degenerative joint disease of right hip Systolic murmur (06/23/17) Surgical History History of arthroplasty of right hip Anesthesia History of cosmetic surgery (09/2012) History of total right hip arthroplasty (2014) History of gynecologic surgery (2007) History of oophorectomy (1982) Status post breast lumpectomy (2007) Status post hysterectomy (1981) Family History Mother Type II diabetes mellitus Hypertension High cholesterol Father No problems noted. Sister No problems noted. Sister Cancer Sister No problems noted. Sister No problems noted. Other Colorectal cancer Social History marital status: unmarried,living together (partner) number of children: 1 household members: none lives independently: Yes occupational status: other (retired) Tobacco & Substance Use Smoking Status: Former smoker alcohol intake: current substance use type: does not use Assessment & Plan Assessment and plan (1) Intertrochanteric fracture of left femur: Status: Acute (2) Osteoporotic hip fracture: Status: Acute Plan Left intertrochanteric hip fracture indicated for operative fixation to allow early mobilization pain control and help reduce the morbidity of prolonged bed rest. we will need to call and discuss with POA listed as Evelio Seth---[phone] Surgeon in OR will be available around 5 or 5:30 p.m. this evening. Patient may have PO intake until 9:00 a.m. to give 8 hours of NPO prior to surgery. The risks of surgery include but are not limited to infection, malunion, nonunion, persistence of pain, damage to nerves and blood vessels, posttraumatic arthritis, DVT, PE, cardiopulmonary complications and . With hip fractures surgical treatment is favored in all but the most dire situations, as nonsurgical treatment would result in permanent bed rest increased difficulty with self-care, sore present mentions, pneumonia blood clot and overall morbidity and mortality Time Spent With Patient Time with patient: 30 to 49 minutes with 50% spent counseling/coordinating care
[2023-06-07] MEDS: dilTIAZem CD 180 MG CAP PO (08:47)
[2023-06-07] MEDS: FLUoxetine 20 MG CAPSULE PO (08:47)
[2023-06-07 09:36] LABS: Magnesium 1.3 mg/dL (1.6-2.3)
--- NOTE | 2023-06-07 09:37 | OT.IPNOTE ---
Pt to have hip surgery today, therefore discharge OT eval.
--- NOTE | 2023-06-07 10:25 | PC.NURSE ---
Patient is alert and oriented x2, she does have some forgetfulness. She states that she fell down at home. But then said she fell at [place] [facility]. She is lying supine and we are repositioning her side to side. Just given iv dilaudid and patient is napping.
--- NOTE | 2023-06-07 11:57 | PT-IP ANOTE ---
Pt will be undergoing hip surgery, therefore PT will discharge this order. PT should be consulted after surgery.
[2023-06-07] MEDS: MAGNESIUM SULFATE 4 GM/100 ML PIGGYBACK IV (13:11)
--- NOTE | 2023-06-07 14:21 | PM.PN.1 ---
Subjective Subjective Interval history: Ms. Villar is an 87W with PMH HTN, HL, depression, afib, CHFpEF, aortic stenosis, history of falls with liver lac and rib fracutrese, collagenous colitis who presents after a fall with a L hip fracture. She has pain with movement, but otherwise pain controlled at rest. Plan for OR later today with orthopedic surgery. Exam Vital Signs (past 8 hours): - 06/07/23 08:00 06/07/23 12:00 Temperature 97.9 F 97.8 F Pulse Rate 101 H 97 H Respiratory Rate 14 17 Blood Pressure 107/67 125/67 Pulse Oximetry 97 99 Oxygen Flow Rate 0 0 Oxygen Delivery Method Room Air Oxygen Flow Rate 0 Narrative Exam Narrative: Alert, no acute distress lying in bed Respiratory exam unlabored on room air, lungs clear Heart regular rhythm borderline tachycardia Tenderness to palpation left hip. Limited exam due to known hip fracture. Hip is flexed and externally rotated, shortened. Minimally wiggles toes does slight flicker of dorsiflexion of her ankle when asked. Calf and thigh compartments are soft. No swelling about the knee. No scars about the knee. Right lower extremity grossly normal alignment wiggles toes. SCD in place exam Lugo in place Objective Labs 06/06/23 19:30 06/06/23 19:30 Labs: Laboratory Results - last 24 hr 06/06/23 06/06/23 06/07/23 19:30 19:56 08:33 WBC 7.5 RBC 3.63 L Hgb 10.8 L Hct 31.8 L MCV 87.8 MCH 29.8 MCHC 33.9 RDW 13.9 Plt Count 263 Neut % (Auto) 61.4 Lymph % (Auto) 31.4 [place] % (Auto) 6.5 Eos % (Auto) 0.2 L Baso % (Auto) 0.5 Neut # (Auto) 4600 Lymph # (Auto) 2300 [place] # (Auto) 500 Eos # (Auto) 0 Baso # (Auto) 0 Sodium 136 L Potassium 3.9 Chloride 106 Carbon Dioxide 24 BUN 21 H Creatinine 0.86 Estimated GFR > 60 BUN/Creatinine Ratio 24.4 H Glucose 131 H Calcium 9.1 Magnesium 1.3 L Total Bilirubin 0.7 AST 32 ALT 15 Alkaline Phosphatase 75 Total Protein 6.6 Albumin 3.9 Globulin 2.7 Albumin/Globulin Ratio 1.4 Urine Color Yellow Urine Appearance Clear Urine pH 5.5 Ur Specific [place] >=1.030 H Urine Protein Negative Urine Glucose (UA) Negative Urine Ketones Trace H Urine Occult Blood Negative Urine Nitrate Negative Urine Bilirubin Negative Urine Urobilinogen 0.2 Ur Leukocyte Esterase 1+ H Urine RBC 1-5/hpf Urine WBC 10-30/hpf H Ur Squamous Epith Cells 5-10 /hpf H Urine Bacteria Few (2-10) H Urine Yeast 30-100/hpf H Ur Culture Indicated? Specimen cultured [facility] Medical History Thoracic compression fracture Low back strain Aguillon's palsy Chicken pox (~1945) Depression (2010) Hyperlipidemia Hypertension Measles (~194) Mumps (~194) Osteoporosis (1999) Hearing loss (2011) Collagenous colitis (2005) Breast cancer (2007) Degenerative joint disease of right hip Systolic murmur (06/23/17) Surgical History History of arthroplasty of right hip Anesthesia History of cosmetic surgery (09/2012) History of total right hip arthroplasty (2014) History of gynecologic surgery (2007) History of oophorectomy (1982) Status post breast lumpectomy (2007) Status post hysterectomy (1981) Family History Mother Type II diabetes mellitus Hypertension High cholesterol Father No problems noted. Sister No problems noted. Sister Cancer Sister No problems noted. Sister No problems noted. Other Colorectal cancer Social History marital status: unmarried,living together (partner) number of children: 1 household members: none lives independently: Yes occupational status: other (retired) Smoking Status: Former smoker alcohol intake: current substance use type: does not use Assessment & Plan Assessment & Plan narrative: (1) Left proximal femur fracture, pathologic secondary to osteoporosis, present on admission. - plan for operative interventions later today with orthopedic surgery. - continue pain control - on maintenance fluids until surgery - PT/OT to start tomorrow. (2) Paroxysmal A-fib: - rate controlled, not on any anticoagulation Tx due to falls. - continue home diltiazem (3) Hypertension: - continue dilt, hold lisinopril prior to OR. (4) Depression: - Continue home Trazodone, Hydroxyzine prn, Fluoxetine (5) Asymptomatic bacteruria, - urine specimen highly contaminated, sent for culture. No recent symptoms, hold additional antibiotics. Was given ceftriaxone in the ER. 6. Hypomagnesemia - Mg 1.3, repleted today, continue to follow. Code: DNR, surrogate is MARSHA Fraser DVT: SCDs until post op, then either lovenox or asa BID per orthopedics Dispo: admitted inpatient, anticipate patient will need SNF after surgery. Quality VTE Deep Vein Thrombosis/Pulmonary Embolism Present on Admission: No
--- NOTE | 2023-06-07 16:33 | SUR.OPER ---
Supine on padded [place] table with bilateral legs secured in padded positioning boots and suspended in positioning spars, operative leg in traction per surgeon. Head on one pillow. Arm on non-operative side secured on padded armboard <90 degrees abduction. Arm on operative side padded and resting across chest then secured with tape over sheet. Padded perineal post in place per surgeon.
--- NOTE | 2023-06-07 17:14 | P.OP_ITS ---
Operative Date/Time/Diagnoses Date of procedure: 06/07/23 Time of procedure: 17:30 Pre-op diagnosis: Left intertrochanteric hip fracture Left osteoporotic hip fracture Post-op diagnosis: same Procedure & Clinicians Procedure: Hip fracture intramedullary miguel fixation CPT code 21639 Same procedure as scheduled: Yes Indications: Patient is an 88-year-old female that had a ground level fall at her care facility. She sustained a displaced left intertrochanteric hip fracture and was indicated for operative fixation. Risks benefits and alternatives of the procedure were discussed at length with the patient and her POA and they expressed understanding. These include bleeding, infection, damage to nerves, pain malunion, nonunion, blood clots, pulmonary embolism caught a cardiovascular risk associated with general anesthesia. Overall the benefits of fixing this unstable fracture outweigh the risks of surgery. Non operative treatment of hip fractures is not typically utilized due to the known high morbidity and mortality of prolonged bedrest. Consent was signed by the POA. Surgeon: Berta Mcduffie Click Yes if Unassisted: Yes Anesthesia Type: General and Local Operative Notes Findings: Displaced left intertrochanteric hip fracture Closure Type: primary Specimen(s): none sent Prosthetic devices, grafts, tissues, transplants, or devices: Valero and nephew InterTAN intramedullary miguel--10 x 18 cm 85/80mm lag screw, integrated compression screw 5.0 x 32.5 locking screw distal Applied: implant(s) Estimated Blood Loss (mL): 100 Blood products transfused: none Tourniquet time (min): 0 Procedure in detail: Procedure cephalomedullary nail intertrochanteric hip fracture the CPT code 70323 Side: left Implant Valero and Nephew 10cm x 18 cm cephalomedullary nail intertan Procedure: The patient was seen and the site of surgery was marked in the preoperative area. This was the left hip. Patient was brought to the operating room and placed on the operative table and general anesthesia was administered. The patient was positioned on the fracture table in standard fashion with a well-padded boots and a padded peroneal post. An SCD was on the contralateral leg. A formal time-out was called to confirm the patient's side and site of surgery administration of preoperative antibiotics. All were in agreement. The operative leg was then gently manipulated under fluoroscopic guidance to obtain a closed reduction in near anatomic alignment. At this point the operative extremity was prepped and draped in the standard sterile manner. The starting point was marked out using fluoroscopic guidance and marked on the skin. A guidewire was placed percutaneously and the starting point was obtained. Incision was made over the guidewire. An opening drill was inserted to the level of the lesser trochanter. The opening Reamer and guidewire were then removed. An 18 cm cephalomedullary nail was selected. The 10 x 18 cm nail was then slid into the canal. The nail was advanced to the proper depth and rotation. The guide for the cephalomedullary screw was then inserted into the external handle. An incision was made and the guide was placed down to the bone. A guidewire was placed to the proper depth into the femoral head and this was confirmed on AP and lateral imaging. The tip apex distance was evaluated and appropriate. This was measured. Next the outer cortex was drilled for the interlocking screw and the anti rotation bar was placed. The cephalomedullary screw length was then measured off the drill again. A 85mm lag screw was selected and the corresponding interlocking compression screw. A guidewire was then over drilled and the lag screw placed. The anti rotation bar was removed and then the locking compression screws were placed and confirmed on biplanar fluoroscopy. The integrated compression screw was tightened. Attention was turned to the distal interlock. This was placed with the guide in the standard technique. AP and lateral images were captured in the or confirming alignment hardware placement. Wounds were irrigated and closed in layers with 2-0 Vicryl in the deep fascia. 2- 0 in the subcutaneous tissue and fernando in the skin. 0.25% Marcaine with epinephrine was injected into the incision sites for local anesthetic. Sterile dressings were applied. There no immediate complications. Surgical counts were correct. The patient tolerated the procedure well was taken to recovery room for formal radiographs. Complications: none Post-operative Condition: stable Disposition: PACU Plan for aftercare: Postoperative plan. Weightbear as tolerated to the surgical extremity. Work with physical therapy and occupational therapy. Discharge by primary team. Likely group home. Monitor hemoglobin and hematocrit postoperatively may require transfusion if needed. Encourage incentive spirometry. SCDs and Lovenox for DVT prophylaxis. Recommend Lovenox 4 weeks for hip fracture. Follow-up [facility] in 2 weeks for wound check and repeat x-rays. Keep dressing clean dry and intact. May change of saturated.
[2023-06-07] MEDS: LACTATED RINGERS 1,000 ML 42 ML IV (17:15)
[2023-06-07] MEDS: CEFAZOLIN 2 GM/100 ML PREMIX 100 ML IV (17:32)
--- NOTE | 2023-06-07 18:13 | CM.DPNOTE ---
DCP Note PCP Lev Archuleta Payer [employer] and Self pay THEATER SET PRODUCTION DESIGNER reviewed EMR. Per H&P note, 88-year-old woman currently living at [facility] with a history of hypertension, chronic urinary tract infections on currently Keflex suppression as well as diarrhea secondary to collagenous colitis was walking with her walker today stumbled and fell landing on her left hip and was unable to get up. Left leg is too tender to move and foreshortened. X ray showed left proximal femoral fracture. Per provider in rounds, OR later tonight, is anticipating patient will need SNF. THEATER SET PRODUCTION DESIGNER unable to meet with patient today due to triaging needs. Per chart, Evelio Gaitan ([phone]) is power of clinical account specialist. Plan: CM team will continue to follow closely for discharge needs following surgery tonight pending PT/OT eval. Potential barrier could be insurance authorization. LORA Rossi
[2023-06-07] MEDS: BUPIVACAINE 0.25% (PF) 30 ML, EPINEPHrine 0.15 MG INJ (18:42)
[2023-06-07] MEDS: TRANEXAMIC ACID 1,000 MG in SODIUM CHLORIDE 0.9% 100 ML 200 MG IV (18:44)
--- NOTE | 2023-06-07 18:45 | PC.NURSE ---
Day shift: pt transferred into this RN's care at approximately 1500. Pt A&O to self, situation, and place but unsure of time. Pt incontinent of bowel, brief changed. Pt transferred to Preop by [employer]RI[employer]RIES PROFESSOR at approximately 1705.
[2023-06-07] MEDS: OXYCODONE IR 5 MG TABLET PO (19:31)
[2023-06-07] MEDS: ACETAMINOPHEN IV 1,000 MG/100 ML VIAL 400 MG IV (19:31)
[2023-06-07] MEDS: SENNOSIDES 8.6 MG TABLET 17.2 MG PO (20:47)
[2023-06-07] MEDS: ONDANSETRON 4 MG ODT PO (20:47)
[2023-06-07] MEDS: DOCUSATE 100 MG CAPSULE PO (20:48)
[2023-06-07 20:49] LABS: BUN Creatinine Ratio 25.8 (6-22); Blood Urea Nitrogen 16 mg/dL (7-17); Calcium 8.7 mg/dL (8.4-10.2); Carbon Dioxide 24 mmol/L (22-32); Chloride 102 mmol/L (98-107); Estimated Glomerular Filt Rate > 60 mL/min (>60); Glucose 135 mg/dL (80-110); HEMOLYSIS < 15 (0-50); Potassium 3.4 mmol/L (3.4-5.1); Sodium 132 mmol/L (137-145)
[2023-06-07] MEDS: SODIUM CHLORIDE 0.9% 1,000 ML 100 ML IV (21:30)
[2023-06-07] MEDS: ACETAMINOPHEN 325 MG TABLET 650 MG PO (23:18)
[2023-06-08] VITALS (7 sets, daily range): BP systolic 96–110; BP diastolic 38–59; PULSE 76–94; RESP 16–17; TEMP 35.9–37; O2SAT 94–98
[2023-06-08] MEDS: OXYCODONE IR 5 MG TABLET PO ×5 (01:14→20:35)
[2023-06-08] MEDS: CEFAZOLIN 2 GM/100 ML PREMIX 100 ML IV ×2 (01:17→08:54)
--- NOTE | 2023-06-08 02:03 | DI.RAD.S_ITS ---
PROCEDURE: XR CHEST 1V INDICATIONS: PICC placement TECHNIQUE: One view of the chest was acquired. COMPARISON: [facility], VICENTA, XR CHEST 1V, 06/06/2023, 19:45. [facility], CR, XR CHEST 1V, 03/11/2023, 18:00. FINDINGS: Surgical changes and devices: Right-sided PICC with tip near the cavoatrial junction Lungs and pleura: Lungs are clear. No pleural effusions or pneumothorax. Mediastinum: Mediastinal contours appear normal. Heart size is enlarged. Bones and chest wall: No suspicious bony lesions. Overlying soft tissues appear unremarkable. IMPRESSION: Right-sided PICC with the tip near the cavoatrial junction. Dictated by: Claude Gibson M.D. on 06/08/2023 at 7:57 Approved by: Claude Gibson M.D. on 06/08/2023 at 7:58
--- NOTE | 2023-06-08 08:44 | P.PN_ITS ---
Subjective Subjective Interval history: Ms. Villar is an 87W with PMH HTN, HL, depression, afib, CHFpEF, aortic stenosis, history of falls with liver lac and rib fractures, collagenous colitis who presents after a fall with a L hip fracture. She has some left leg pain today, feels like a muscle tightness and cramping. No chest pain, fever, dyspnea, abdominal pain, nausea or vomiting overnight. Exam Vital Signs (past 8 hours): - 06/08/23 04:00 06/08/23 07:52 Temperature 97.7 F 98.3 F Pulse Rate 76 77 Respiratory Rate 17 16 Blood Pressure 100/57 L 109/55 L Pulse Oximetry 95 Oxygen Flow Rate 0 Oxygen Delivery Method Room Air Oxygen Flow Rate 0 Narrative Exam Narrative: Alert, no acute distress lying in bed Respiratory exam unlabored on room air, lungs clear Heart regular rhythm borderline tachycardia Tenderness to palpation left thigh diffusely, tight musculature, dressing c/d/i. Objective Labs 06/06/23 19:30 06/07/23 20:21 Labs: Laboratory Results - last 24 hr 06/07/23 06/07/23 08:33 20:21 Sodium 132 L Potassium 3.4 Chloride 102 Carbon Dioxide 24 BUN 16 Creatinine 0.62 Estimated GFR > 60 BUN/Creatinine Ratio 25.8 H Glucose 135 H Calcium 8.7 Magnesium 1.3 L [facility] Medical History Thoracic compression fracture Low back strain Aguillon's palsy Chicken pox (~1945) Depression (2010) Hyperlipidemia Hypertension Measles (~1942) Mumps (~1942) Osteoporosis (1999) Hearing loss (2011) Collagenous colitis (2005) Breast cancer (2007) Degenerative joint disease of right hip Systolic murmur (06/23/17) Surgical History History of arthroplasty of right hip Anesthesia History of cosmetic surgery (09/2012) History of total right hip arthroplasty (2014) History of gynecologic surgery (2007) History of oophorectomy (1982) Status post breast lumpectomy (2007) Status post hysterectomy (1981) Family History Mother Type II diabetes mellitus Hypertension High cholesterol Father No problems noted. Sister No problems noted. Sister Cancer Sister No problems noted. Sister No problems noted. Other Colorectal cancer Social History marital status: unmarried,living together (partner) number of children: 1 household members: none lives independently: Yes occupational status: other (retired) Smoking Status: Former smoker alcohol intake: current substance use type: does not use Assessment & Plan Assessment & Plan narrative: (1) Left proximal femur fracture, pathologic secondary to osteoporosis, present on admission. - POD #1 L femoral miguel placement with orthopedics. WBAT LLE per operative notes. - continue pain control, will add robaxin given muscle spasm today. - PT/OT to start today - with soft BP will check CBC for h/h. (2) Paroxysmal A-fib: - rate controlled, not on any anticoagulation Tx due to falls. - continue home diltiazem (3) Hypertension: - continue dilt, held lisinopril prior to OR and will continue to hold today with soft BP this morning. (4) Depression: - Continue home Trazodone, Hydroxyzine prn, Fluoxetine (5) Asymptomatic bacteruria, - urine specimen highly contaminated, sent for culture. No recent symptoms, hold additional antibiotics. Was given ceftriaxone in the ER. 6. Hypomagnesemia - Mg 1.3, repleted and 2.0 today, continue to follow. Code: DNR, surrogate is MARSHA Fraser DVT: Lovenox renally dosed Dispo: admitted inpatient, anticipate patient will need SNF after surgery. Pending therapy evals today. Quality VTE Deep Vein Thrombosis/Pulmonary Embolism Present on Admission: No
[2023-06-08] MEDS: SODIUM CHLORIDE 0.9% 1,000 ML 100 ML IV ×2 (08:55→18:05)
[2023-06-08] MEDS: ACETAMINOPHEN 325 MG TABLET 650 MG PO ×2 (08:55→15:53)
[2023-06-08] MEDS: dilTIAZem CD 180 MG CAP PO (10:51)
[2023-06-08] MEDS: FLUoxetine 20 MG CAPSULE PO (10:51)
[2023-06-08] MEDS: ENOXAPARIN 30 MG/0.3 ML SYRINGE SUBCUT (10:53)
--- NOTE | 2023-06-08 10:57 | PT.IIE ---
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) Essential (primary) hypertension (06/06/23) Paroxysmal atrial fibrillation (06/06/23) Age-related osteoporosis with current pathological fracture, unspecified femur, initial encounter for fracture (06/06/23) Urinary tract infection, site not specified (06/06/23) Fracture of unspecified part of neck of left femur, initial encounter for closed fracture (06/06/23) Displaced intertrochanteric fracture of left femur, initial encounter for closed fracture (06/06/23) Surgery Performed Operation Date: 06/07/23 17:15 Actual Procedures p Intramedullary Nailing Femur(Left) - Berta Mcduffie MD Surgical History (Last Reviewed 06/07/23 @ 07:22 by Berta Mcduffie MD) Anesthesia History of arthroplasty of right hip History of cosmetic surgery (09/2012) History of gynecologic surgery (2007) History of oophorectomy (1982) History of total right hip arthroplasty (2014) Status post breast lumpectomy (2007) Status post hysterectomy (1981) Medical History (Last Reviewed 06/07/23 @ 07:22 by Berta Mcduffie MD) Aguillon's palsy Breast cancer (2007) Chicken pox (~194) Collagenous colitis (2005) Degenerative joint disease of right hip Depression (2010) Hearing loss (2011) Hyperlipidemia Hypertension Low back strain Measles (~194) Mumps (~194) Osteoporosis (1999) Systolic murmur (06/23/17) Thoracic compression fracture Physical Therapy Inpatient Evaluation/Re-Eval M1 PT/OT-IP Prior Functional Status Start: 06/08/23 12:45 Freq: NEEDED Status: Active Protocol: Document 06/08/23 10:57 AB (Rec: 06/08/23 13:05 [id number]) Medical Review Prior Functional Status Medical History Reviewed Yes Communication able to make needs known; very [place] and has confusion Mobility and Gait pt stated that she is modified independent with bed mobility , transfers and ambulation in her room using a FWW but staff walks with her when she goes out of her room Activities of Daily Living and IADL's Staff at [facility] assists pt with shower/bathing needs Social History Household Members none Living Arrangements Assisted Living Number of Stairs To Enter/Railing? pt lives at [facility] Home Environment Standard Height Toilet,Walk in Shower,Built-In Shower Seat Home Equipment Front Wheel Walker,Raised Toilet Seat w/Armrests,Shower Seat with Backrest,Hand Held Shower,Grab Bars Near Toilet, Grab Bars In Shower M2 PT-IP Current Condition Start: 06/08/23 12:45 Freq: NEEDED Status: Active Protocol: Document 06/08/23 10:57 AB (Rec: 06/08/23 13:05 AB [email or web address]) Physical Therapy Current Condition Current Condition Evaluation Date 06/08/23 Treatment Diagnosis L hip fx s/p intramedullary miguel fixation; difficulty in walking Onset Date 06/06/23 M3 PT-IP Subjective Start: 06/08/23 12:45 Freq: NEEDED Status: Active Protocol: Document 06/08/23 10:57 AB (Rec: 06/08/23 13:05 AB [email or web address]) Subjective Physical Therapy Visit Type Type Initial Evaluation Visit Start Time 10:57 Visit Stop Time 11:40 Total Visit Minutes 43 Number of GENERAL MAINTENANCE ENGINEER Visits 0 Physical Therapy Visit Comments Patient Comments agreeable to do PT Therapy Pain Assessment Pain When Pain Assessed During Mobility Pain Present Pain Present Pain Reported Location Left Hip Scale Used pain scale not stated Pain Behaviors Facial Grimacing,Guarding, Holding Area,Wincing Pain Management Techniques Apply Cold,Distraction, Modification of Treatment,Re- positioning,Timing of Activity with Medications M4 PT-IP Mobility and Gait Start: 06/08/23 12:45 Freq: NEEDED Status: Active Protocol: Document 06/08/23 10:57 AB (Rec: 06/08/23 13:05 AB [email or web address]) PT-Bed Mobility Assessment Supine to Sit Supine to Sit Maximum Assistance,1 Person Assistance,Head of Bed Elevated,Bedrails PT-Transfer Assessment Sit to and From Stand Sit to and from Stand Maximum Assistance,2 Person Assistance,Use of Upper Extremities Equipment Transfer Assistive Device Gait Belt,Front Wheeled Walker Orthotic/Prosthetic Devices or Brace: No Transfers Transfer Destination Chair Transfer Technique Stand Pivot Transfer Ability Level of Assist Maximum Assistance,Total Assistance,2 Person Assistance ,Use of Upper Extremities Comments Mobility Comments pt supine in bed. BP : 99/54. completed supine to sit max A x 1 and max cues with HOB elevated. pt requiring min to mod A for sitting balance on EOB with increase posterior trunk lean. pt requiring max A x 1 to total A x 1 for scooting to EOB. attempted sit to stand but unable with max A x 1. attempted again with max A x 2 and requiring max A for standing balance and pt presents with increase guarding and stiffening with difficulty moving LE to step transfer. attempted to transfer to the chair using FWW but pt unable and had to sit back on EOB. completed sit to stand again max A x 2 and assisted with pivot transfer to chair with PT assisting pt from the front and NAC behind the pt to assist max a x 2 to total A x 2 and max cues. positioned pt on the chair total Ax 2. call light and table placed within reach. Gait Assessment Comments Gait Comments unable at this time PT-Balance Assessment Sitting Balance and Reactions Static Sitting Balance Ability Fair Dynamic Sitting Balance Ability Poor Standing Balance and Reactions Static Standing Balance Ability Poor Dynamic Standing Balance Ability Poor Device Used FWW M5 PT-IP Objective Assessments Start: 06/08/23 12:45 Freq: NEEDED Status: Active Protocol: Document 06/08/23 10:57 AB (Rec: 06/08/23 13:05 [email or web address]) Orientation Orientation/Cognition Level of Alertness Confusional State Orientation Name Language Function Ability Hard of Hearing Safety Awareness Decreased Safety Awareness Memory Description Short Term Impaired,Group Home Impaired Gross Range of Motion Lower Extremity ROM Assessment Within Functional Limits Strength Lower Extremity Strength Assessment Left Impaired Hip 3-/5 Knee 3-/5 Sensation Assessment Sensation Gross Sensation WNL Muscle Tone Muscle Tone WNL Yes M6 PT-IP Treatment Start: 06/08/23 12:45 Freq: NEEDED Status: Active Protocol: Document 06/08/23 10:57 AB (Rec: 06/08/23 13:05 AB [email or web address]) Physical Therapy Treatment Education Education Provided Precautions,Weight Bearing Status,Post-Op Packet,Safety M7 PT-IP Assessment and Plan Start: 06/08/23 12:45 Freq: NEEDED Status: Active Protocol: Document 06/08/23 10:57 AB (Rec: 06/08/23 13:05 [email or web address]) PT Summary Assessment and Plan Potential Rehabilitation Potential Fair Status of Condition at Evaluation Evolving Summary Impairments Pain,ROM,Strength,Balance, Coordination,Sensation,Tone, Cognition,Bed Mobility, Transfers,Gait,Activity Tolerance Assessment Summary pt ia an 88 y/o F who had a fall and sustain a L hip fracture. pt underwent L hip intramedullary miguel fixation and is WBAT. pt requiring max A x 2 to total A x2 with transfers and unable to ambulate at this time. pt will require SNF rehab to improve overall strength and mobility. Goals Bed Mobility Goal Minimal Assistance Transfer Goal Minimal Assistance,Front Wheeled Walker Gait Goal Minimal Assistance,Front Wheel Walker Gait Distance 50 Other Goals improve bed mobility, transfers and ambulation using FWW ~ 150 ft SBA Days to Meet Goals 10 Frequency of Treatment Frequency Of Treatment Twice a Day Treatment Plan Physical Therapy Treatment Plan Bed Mobility Training,Transfer Training,Gait Training, Therapeutic Exercise,Balance Retraining,Post Op Education, Discharge Planning,Hot or Cold Pack,Neuromuscular Re-ed, Coordination Retraining,Manual Therapy Weight Bearing Status Weight Bearing Status Weight Bear as Tolerated Allowed Weight Bearing Amount (enter % LLE WBAT or #) (%) Recommendations To Nursing Amount of Assist Needed Mechanical Lift Discharge Recommendations PT Discharge Recommendations SNF Rehab Transportation Needs at Discharge Wheelchair/Cabulance,Stretcher /Ambulance
[2023-06-08 11:21] LABS: Add Manual Diff / Slide Review NO; Basophils Absolute Auto 0 /uL (0-100); Basophils Percent Auto 0.3 % (0-2); Eosinophils Absolute Auto 0 /uL (0-450); Hematocrit 21.4 % (36-46); Hemoglobin 7.4 g/dL (12.0-16.0); Lymphocytes Absolute Auto 900 /uL (1100-4500); Lymphocytes Percent Auto 10.7 % (25-40); Mean Corpuscular HGB Conc 34.5 % (30-36); Mean Corpuscular Hemoglobin 30.4 PG (26-34); Mean Corpuscular Volume 88.1 fL (80-100); Monocytes Absolute Auto 700 /uL (0-900); Neutrophils Absolute Auto 6500 /uL (1500-7000); Platelet Count 168 X10^3/uL (150-400); Red Blood Cell Count 2.43 X10^6/uL (4.0-5.2); Red Cell Distribution Width 13.6 % (11.6-14.8); White Blood Cell Count 8.1 X10^3/uL (4.5-11.0)
--- NOTE | 2023-06-08 13:48 | PT.IPTN ---
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) Essential (primary) hypertension (06/06/23) Paroxysmal atrial fibrillation (06/06/23) Age-related osteoporosis with current pathological fracture, unspecified femur, initial encounter for fracture (06/06/23) Urinary tract infection, site not specified (06/06/23) Fracture of unspecified part of neck of left femur, initial encounter for closed fracture (06/06/23) Displaced intertrochanteric fracture of left femur, initial encounter for closed fracture (06/06/23) Surgery Performed Operation Date: 06/07/23 17:15 Actual Procedures p Intramedullary Nailing Femur(Left) - Berta Mcduffie MD Physical Therapy Treatment Note M2 PT-IP Current Condition Start: 06/08/23 12:45 Freq: NEEDED Status: Active Protocol: Document 06/08/23 10:57 AB (Rec: 06/08/23 13:05 AB [id number]) Physical Therapy Current Condition Current Condition Evaluation Date 06/08/23 Treatment Diagnosis L hip fx s/p intramedullary miguel fixation; difficulty in walking Onset Date 06/06/23 M3 PT-IP Subjective Start: 06/08/23 12:45 Freq: NEEDED Status: Active Protocol: Document 06/08/23 13:48 AB (Rec: 06/08/23 14:51 AB [id number]) Subjective Physical Therapy Visit Type Type Treatment Note Visit Start Time 13:48 Visit Stop Time 14:22 Total Visit Minutes 34 Number of BUTCHER SUPERVISOR Visits 0 Therapy Pain Assessment Pain When Pain Assessed During Mobility Location Left Hip Scale Used pain scale not stated Pain Behaviors Guarding,Holding Area,Wincing Pain Management Techniques Distraction,Modification of Treatment,Re-positioning, Timing of Activity with Medications M4 PT-IP Mobility and Gait Start: 06/08/23 12:45 Freq: NEEDED Status: Active Protocol: Document 06/08/23 13:48 AB (Rec: 06/08/23 14:51 AB [id number]) PT-Bed Mobility Assessment Rolling Level of Assist Maximal Assistance,2 Person Assistance Sit to Supine Sit to Supine Maximum Assistance,Total Assistance,2 Person Assistance ,Head of Bed Elevated Scooting Scooting to Edge of Bed Dependent PT-Transfer Assessment Sit to and From Stand Sit to and from Stand Maximum Assistance,Total Assistance,2 Person Assistance ,Use of Upper Extremities Equipment Transfer Assistive Device Gait Belt Orthotic/Prosthetic Devices or Brace: No Transfers Transfer Destination Chair Transfer Technique Stand Pivot Transfer Ability Level of Assist Maximum Assistance,Total Assistance,2 Person Assistance ,Use of Upper Extremities Comments Mobility Comments pt sitting on the chair. pt with confusion. needs max cues with all tasks. completed sit<>stand x 3 max A x 2 and attempted to transfer to bed but pt unable to fully stand upright despite max A x 2 provided and wants to sit back down at once with c/o increase L hip pain. pt with confusion and easily gets agitated and unable to follow directions consistently. completed stand pivot transfer max a x 2 to total A x 2 with PT in front of pt to assist and NAC behind to assist. pt needing to be cleaned up. pt requiring max A x 2 for rolling L<>R with bed rail to assist and bed tilted to the side. pt with c/o increase L hip pain and with increase resistance to being moved. educated pt on importance of moving to be able to do hygiene care. max A x 2 to total A x 2 for bed mobility and positioning in bed. pt with confusion and is back and forth with saying that she is going home and that she is at home. Reoriented pt that she is in the hospital and that she is not going home today. Pt again stated that she needs help to get into the car to go home. pt informed pt that she is not going home today and that she is not able to walk to the car. pt then said Get me back to bed then. NAC stated that you are in bed. This PT also told pt that she is in bed. pt got agitated and stated that you don't have to talk to me like that. I am going to report you . positioned pt in bed. call light and table placed within reach. 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 Gross Range of Motion Lower Extremity ROM Assessment Within Functional Limits Strength Lower Extremity Strength Assessment Left Impaired Hip 3-/5 Knee 3-/5 Sensation Assessment Sensation Gross Sensation WNL Muscle Tone Muscle Tone WNL Yes M6 PT-IP Treatment Start: 06/08/23 12:45 Freq: NEEDED Status: Active Protocol: Document 06/08/23 13:48 AB (Rec: 06/08/23 14:51 AB [email or web address]) Physical Therapy Treatment Education Education Provided Safety M7 PT-IP Assessment and Plan Start: 06/08/23 12:45 Freq: NEEDED Status: Active Protocol: Document 06/08/23 13:48 AB (Rec: 06/08/23 14:51 AB [email or web address]) PT Summary Assessment and Plan Potential Rehabilitation Potential Fair Summary Impairments Pain,ROM,Strength,Balance, Coordination,Sensation,Tone, Cognition,Bed Mobility, Transfers,Gait,Activity Tolerance Progress Towards Goals Slow Progress due to Medical Issues,Slow Progress due to Activity Tolerance,Slow Progress - Other Assessment Summary pt continues to require max A x 2 to total A x 2 with transfers and unable to ambulate. pt unable to tolerate standing using FWW despite max A x 2 provided. Recommending mechanical lift transfers with nursing staff at this time. Requested OT eval and informed counseling case manager . Pt will require SNF rehab. Goals Bed Mobility Goal Minimal Assistance Transfer Goal Minimal Assistance,Front Wheeled Walker Gait Goal Minimal Assistance,Front Wheel Walker Gait Distance 50 Other Goals improve bed mobility, transfers and ambulation using FWW ~ 150 ft SBA Days to Meet Goals 10 Frequency of Treatment Frequency Of Treatment Twice a Day Treatment Plan Physical Therapy Treatment Plan Bed Mobility Training,Transfer Training,Gait Training, Therapeutic Exercise,Balance Retraining,Post Op Education, Discharge Planning,Hot or Cold Pack,Neuromuscular Re-ed, Coordination Retraining,Manual Therapy Weight Bearing Status Weight Bearing Status Weight Bear as Tolerated Allowed Weight Bearing Amount (enter % LLE WBAT or #) (%) Recommendations To Nursing Amount of Assist Needed Mechanical Lift Discharge Recommendations PT Discharge Recommendations SNF Rehab Transportation Needs at Discharge Wheelchair/Cabulance,Stretcher /Ambulance
--- NOTE | 2023-06-08 13:55 | PM.PNPO.1 ---
Subjective Subjective Date Patient Seen: 06/08/23 Time Patient Seen: 13:55 Interval history: Sitting up in chair, mildly confused but pleasant and follows commands. Exam Vital Signs (past 8 hours): - 06/08/23 07:52 06/08/23 12:00 Temperature 98.3 F 96.7 F L Pulse Rate 77 92 H Respiratory Rate 16 16 Blood Pressure 109/55 L 99/56 L Pulse Oximetry 98 Oxygen Flow Rate 0 Oxygen Delivery Method Room Air Oxygen Flow Rate 0 Narrative Exam Narrative: Refuses to move leg to test hip flexion, hamstrings, quadriceps on left. 5/5 PF, DF, EHL on left. Sensation to light touch intact throughout LLE. Calf soft and compressible. Dressing placed intraoperatively CDI. Objective Labs 06/08/23 11:00 06/07/23 20:21 Labs: Laboratory Results - last 24 hr 06/07/23 06/08/23 06/08/23 20:21 08:23 11:00 WBC 8.1 RBC 2.43 L Hgb 7.4 L Hct 21.4 L MCV 88.1 MCH 30.4 MCHC 34.5 RDW 13.6 Plt Count 168 Neut % (Auto) 80.0 H Lymph % (Auto) 10.7 L D [place] % (Auto) 9.0 Eos % (Auto) 0.0 L Baso % (Auto) 0.3 Neut # (Auto) 6500 Lymph # (Auto) 900 L [place] # (Auto) 700 Eos # (Auto) 0 Baso # (Auto) 0 Sodium 132 L Potassium 3.4 Chloride 102 Carbon Dioxide 24 BUN 16 Creatinine 0.62 Estimated GFR > 60 BUN/Creatinine Ratio 25.8 H Glucose 135 H Calcium 8.7 Magnesium 2.0 PFSH Medical History Thoracic compression fracture Low back strain Aguillon's palsy Chicken pox (~1945) Depression (2010) Hyperlipidemia Hypertension Measles (~1942) Mumps (~1942) Osteoporosis (1999) Hearing loss (2011) Collagenous colitis (2005) Breast cancer (2007) Degenerative joint disease of right hip Systolic murmur (06/23/17) Surgical History History of arthroplasty of right hip Anesthesia History of cosmetic surgery (09/2012) History of total right hip arthroplasty (2014) History of gynecologic surgery (2007) History of oophorectomy (1982) Status post breast lumpectomy (2007) Status post hysterectomy (1981) Family History Mother Type II diabetes mellitus Hypertension High cholesterol Father No problems noted. Sister No problems noted. Sister Cancer Sister No problems noted. Sister No problems noted. Other Colorectal cancer Social History marital status: unmarried,living together (partner) number of children: 1 household members: none lives independently: Yes occupational status: other (retired) Smoking Status: Former smoker alcohol intake: current substance use type: does not use Assessment & Plan Post-op Assessment and plan (1) Status post hip surgery: Assessment and Plan narrative: Weightbearing as tolerated to LLE. F/u in ortho office in 2 weeks for staple removal and imaging. SNF vs assisted living at discharge. Continue Lovenox for VTE prophylaxis x 4 weeks. Postoperative Procedures: Procedures Operation Date: 06/07/23 17:15 Actual Procedure Side Surgeon p Intramedullary Nailing Femur Left Berta Mcduffie MD Quality VTE Deep Vein Thrombosis/Pulmonary Embolism Present on Admission: No
[2023-06-08 18:22] LABS: Hematocrit 21.4 % (36-46); Hemoglobin 7.3 g/dL (12.0-16.0)
[2023-06-08] MEDS: hydrOXYzine pamoate 25 MG CAPSULE PO (20:35)
--- NOTE | 2023-06-08 21:42 | PC.NURSE ---
Addendum entered by Suzanne Diaz R.N. 06/08/23 23:37: 2300- Patient increasingly more agitated. She wants to leave this whore house. Patient medicated per order. Will monitor. Original Note: 2100- Patient is oriented to self only. Patient will confabulate her answers and at times is anxious. Catheter is draining clear yellow urine. Patient is stable hemodynamically and for the most part cooperative with care. Will monitor.
[2023-06-08] MEDS: LORazepam 2 MG/ML INJ 0.25 MG IV (23:12)
[2023-06-09] VITALS (11 sets, daily range): BP systolic 99–146; BP diastolic 52–69; PULSE 77–103; RESP 16–20; TEMP 36.2–36.9; O2SAT 93–99
[2023-06-09] MEDS: SODIUM CHLORIDE 0.9% 1,000 ML 100 ML IV ×2 (02:35→17:59)
[2023-06-09 05:15] LABS: BUN Creatinine Ratio 24.3 (6-22); Blood Urea Nitrogen 17 mg/dL (7-17); Carbon Dioxide 24 mmol/L (22-32); Chloride 108 mmol/L (98-107); Estimated Glomerular Filt Rate > 60 mL/min (>60); Glucose 106 mg/dL (80-110); HEMOLYSIS < 15 (0-50); Magnesium 1.8 mg/dL (1.6-2.3); Potassium 3.5 mmol/L (3.4-5.1); Sodium 135 mmol/L (137-145)
[2023-06-09 05:18] LABS: Add Manual Diff / Slide Review NO; Basophils Absolute Auto 0 /uL (0-100); Basophils Percent Auto 0.3 % (0-2); Eosinophils Absolute Auto 0 /uL (0-450); Eosinophils Percent Auto 0.5 % (2-4); Lymphocytes Absolute Auto 1100 /uL (1100-4500); Lymphocytes Percent Auto 16.8 % (25-40); Mean Corpuscular Hemoglobin 29.7 PG (26-34); Mean Corpuscular Volume 87.6 fL (80-100); Monocytes Absolute Auto 700 /uL (0-900); Monocytes Percent Auto 10.8 % (3-14); Neutrophils Absolute Auto 4500 /uL (1500-7000); Neutrophils Percent Auto 71.6 % (50-75); Platelet Count 145 X10^3/uL (150-400); Red Blood Cell Count 2.25 X10^6/uL (4.0-5.2); Red Cell Distribution Width 13.6 % (11.6-14.8); White Blood Cell Count 6.3 X10^3/uL (4.5-11.0)
[2023-06-09 05:21] LABS: Hematocrit 19.7 % (36-46); Hemoglobin 6.7 g/dL (12.0-16.0)
--- NOTE | 2023-06-09 07:41 | PM.PNPO.1 ---
Subjective Subjective Date Patient Seen: 06/09/23 Time Patient Seen: 07:41 Interval history: patient confused this morning. Nurse states she is more confused than usual. Patient states her pain in her left hip is mild. Exam Vital Signs (past 8 hours): Oxygen Delivery Method Room Air Oxygen Flow Rate 0 Narrative Exam Narrative: 88-year-old female resting comfortably in bed no apparent distress. Motor functions intact bilateral lower extremities. Sensation grossly intact to light touch bilateral lower extremities. Scant serosanguineous drainage on the left hip dressing. Const General: comfortable Nutritional Appearance: average body habitus Orientation: confused Objective Labs 06/09/23 05:00 06/09/23 05:00 Labs: Laboratory Results - last 24 hr 06/08/23 06/08/23 06/08/23 08:23 11:00 18:10 WBC 8.1 RBC 2.43 L Hgb 7.4 L 7.3 L Hct 21.4 L 21.4 L MCV 88.1 MCH 30.4 MCHC 34.5 RDW 13.6 Plt Count 168 Neut % (Auto) 80.0 H Lymph % (Auto) 10.7 L D [place] % (Auto) 9.0 Eos % (Auto) 0.0 L Baso % (Auto) 0.3 Neut # (Auto) 6500 Lymph # (Auto) 900 L [place] # (Auto) 700 Eos # (Auto) 0 Baso # (Auto) 0 Sodium Potassium Chloride Carbon Dioxide BUN Creatinine Estimated GFR BUN/Creatinine Ratio Glucose Calcium Magnesium 2.0 06/09/23 05:00 WBC 6.3 RBC 2.25 L Hgb 6.7 L* Hct 19.7 L* MCV 87.6 MCH 29.7 MCHC 34.0 RDW 13.6 Plt Count 145 L Neut % (Auto) 71.6 Lymph % (Auto) 16.8 L [place] % (Auto) 10.8 Eos % (Auto) 0.5 L Baso % (Auto) 0.3 Neut # (Auto) 4500 Lymph # (Auto) 1100 [place] # (Auto) 700 Eos # (Auto) 0 Baso # (Auto) 0 Sodium 135 L Potassium 3.5 Chloride 108 H Carbon Dioxide 24 BUN 17 Creatinine 0.70 Estimated GFR > 60 BUN/Creatinine Ratio 24.3 H Glucose 106 Calcium 8.0 L Magnesium 1.8 [facility] Medical History Thoracic compression fracture Low back strain Aguillon's palsy Chicken pox (~1945) Depression (2010) Hyperlipidemia Hypertension Measles (~1942) Mumps (~1942) Osteoporosis (1999) Hearing loss (2011) Collagenous colitis (2005) Breast cancer (2007) Degenerative joint disease of right hip Systolic murmur (06/23/17) Surgical History History of arthroplasty of right hip Anesthesia History of cosmetic surgery (09/2012) History of total right hip arthroplasty (2014) History of gynecologic surgery (2007) History of oophorectomy (1982) Status post breast lumpectomy (2007) Status post hysterectomy (1981) Family History Mother Type II diabetes mellitus Hypertension High cholesterol Father No problems noted. Sister No problems noted. Sister Cancer Sister No problems noted. Sister No problems noted. Other Colorectal cancer Social History marital status: unmarried,living together (partner) number of children: 1 household members: none lives independently: Yes occupational status: other (retired) Smoking Status: Former smoker alcohol intake: current substance use type: does not use Assessment & Plan Post-op Postoperative Procedures: Procedures Operation Date: 06/07/23 17:15 Actual Procedure Side Surgeon p Intramedullary Nailing Femur Left Berta Mcduffie MD Postoperative day: 2 Postoperative status: anemia Postoperative status narrative: Status post hip fracture intramedullary miguel fixation, left June 07, 2023 anemia unclear etiology, discussed with hospitalist who will likely order transfusion today and workup for cause of the anemia Postoperative plan narrative: Weightbearing as tolerated to LLE. F/u in ortho office in 2 weeks for staple removal and imaging. SNF vs assisted living at discharge. Continue Lovenox for VTE prophylaxis x 4 weeks. Quality VTE Deep Vein Thrombosis/Pulmonary Embolism Present on Admission: No
[2023-06-09] MEDS: POTASSIUM CHLORIDE 20 MEQ TAB 40 MEQ PO (08:31)
[2023-06-09] MEDS: ACETAMINOPHEN 325 MG TABLET 650 MG PO ×3 (08:31→21:03)
[2023-06-09] MEDS: methocarbamoL 500 MG TABLET PO ×3 (08:31→21:03)
--- NOTE | 2023-06-09 09:22 | PT-IP ANOTE ---
Per RN pt to receive blood transfusion later this morning. Pt not appropriate for PT. Will check back in with pt later this afternoon.
--- NOTE | 2023-06-09 09:59 | OT.IPNOTE ---
Pt having low HH and to be getting blood today, hold OT eval.
[2023-06-09] MEDS: FLUoxetine 20 MG CAPSULE PO (10:49)
[2023-06-09] MEDS: dilTIAZem CD 180 MG CAP PO (10:49)
[2023-06-09] MEDS: OXYCODONE IR 5 MG TABLET PO (13:28)
--- NOTE | 2023-06-09 14:39 | CM.DANOTE ---
Addendum entered by LORA Williamson 06/10/23 14:11: ADD: [facility] is not answering/returning this JEWELRY MAKER's calls. Clarisa at [facility] has asked for updated nursing notes, patient had some agitation post operatively, Clarisa wondering if this has improved. Requested updated narrative from IRVIN Amaya- will plan to send once available. Will plan to broaden search to [place] and [facility]. Continue to attempt contact with [facility]. COLT Original Note: Initial DCP Assessment Note Pt is an 88 yo female, resident at [facility] in [place]. Patient presents after GLF with subsequent left hip fx, now s/p hip repair. Patient is anemic today and requiring transfusion, therapies help this morning, may be held completely until tomorrow. PCP: Lev Archuleta Payer: Jimmy GONSALES Reviewed chart, pt discussed in multidisciplinary rounds this morning. Patient will need SNF upon discharge. PT=SNF . Met w/patient and her nephew Evelio at bedside, introduced self and role. Patient listening and participating minimally, clearly disoriented. Evelio requests SNF referrals to [facility] because he lives in [place]. Requested back up SNF which he provided as [facility]. Keren [facility] [address], kindly agreed to send these referrals for SNF review. PASRR started- patient currently on Seroquel which is not a home medication. Will plan to review and complete PASRR closer to discharge, Seroquel may be discontinued. Plan: Discharge to SNF is anticipated and SNF referrals started, will need to secure SNF and SNF authorization from Jimmy GONSALES before discharge. CM team following closely for coordination, nephew Evelio requests updates when available. LORA Esparza Discharge Planning/Care Management CM Discharge Assessment Start: 06/09/23 14:32 Freq: Status: Active Protocol: Document 06/09/23 14:32 COLT (Rec: 06/09/23 14:39 COLT [id number]) Discharge Planning Assessment Assigned Account Consultant LORA Fitch DPOA/Assigned Designee Name maribel Pope/MARSHA Contact Information [phone] Advance Directives? Yes: DPOA Advance Directives on File Yes History Provided By Family Member,Medical Record Prior Living Arrangements Assisted Living Comment from [facility] assisted living Household Members none Type of transporation used prior to Relies on Others admit Facility Name Admitted From: [facility] Willing to Return to Facility? Yes Independent with ADL's No Is patient alert and oriented? No Needs Assistance With Bathing,Grooming,Meal Prep, Toileting,Managing Medications ,Home Chores / Shopping Patient/Family Preference Care Home Facility Barriers to Discharge Yes Comment Patient lives at [facility] and will need SNF upon discharge. Nephew requests 1. [facility] 2. [facility] DEJ[facility] Discharge Plan Care Home Facility Transportation Arrangement cabulance vs S Referrals Initiated Care Home Additional Comment PT=SNF Medicare Choice List Provided Yes Medicare choice list reviewed on family electronic tablet with SNF/HH Preference 1. [facility] 2. [facility] MV Has Agency SNF been contacted Yes Whiteboard Updated in Patient Room with Yes name and ext. # of Account Consultant
--- NOTE | 2023-06-09 16:11 | P.PN_ITS ---
Subjective Subjective Interval history: Patient requesting salt and pepper for her food. She is intermittently confused from her dementia. Had sundowning last night so seroquel ordered. Exam Vital Signs (past 8 hours): - 06/09/23 10:10 06/09/23 10:19 06/09/23 10:40 Temperature 98.5 F 97.5 F L Pulse Rate 83 83 Respiratory Rate 20 16 Blood Pressure 99/52 L 101/58 L Pulse Oximetry 93 Oxygen Flow Rate 0 06/09/23 12:00 06/09/23 13:01 06/09/23 13:53 Temperature 97.2 F L 98.4 F 98.2 F Pulse Rate 81 83 87 Respiratory Rate 18 16 20 Blood Pressure 106/57 L 116/58 L 120/58 L Pulse Oximetry 95 Oxygen Flow Rate 0 06/09/23 14:12 Temperature 98.2 F Pulse Rate 87 Respiratory Rate 20 Blood Pressure 106/59 L Pulse Oximetry Oxygen Flow Rate Oxygen Delivery Method Room Air Oxygen Flow Rate 0 Narrative Exam Narrative: Alert, intermittently confused Respiratory exam unlabored on room air, lungs clear Heart regular rhythm borderline tachycardia Tenderness to palpation left thigh diffusely, tight musculature, dressing c/d/i. Objective Labs 06/09/23 05:00 06/09/23 05:00 Labs: Laboratory Results - last 24 hr 06/08/23 06/09/23 06/09/23 18:10 05:00 07:58 WBC 6.3 RBC 2.25 L Hgb 7.3 L 6.7 L* Hct 21.4 L 19.7 L* MCV 87.6 MCH 29.7 MCHC 34.0 RDW 13.6 Plt Count 145 L Neut % (Auto) 71.6 Lymph % (Auto) 16.8 L [place] % (Auto) 10.8 Eos % (Auto) 0.5 L Baso % (Auto) 0.3 Neut # (Auto) 4500 Lymph # (Auto) 1100 [place] # (Auto) 700 Eos # (Auto) 0 Baso # (Auto) 0 Sodium 135 L Potassium 3.5 Chloride 108 H Carbon Dioxide 24 BUN 17 Creatinine 0.70 Estimated GFR > 60 BUN/Creatinine Ratio 24.3 H Glucose 106 Calcium 8.0 L Magnesium 1.8 Blood Type A Positive Antibody Screen Negative Crossmatch See Detail [facility] Medical History Thoracic compression fracture Low back strain Aguillon's palsy Chicken pox (~1945) Depression (2010) Hyperlipidemia Hypertension Measles (~1942) Mumps (~1942) Osteoporosis (1999) Hearing loss (2011) Collagenous colitis (2005) Breast cancer (2007) Degenerative joint disease of right hip Systolic murmur (06/23/17) Surgical History History of arthroplasty of right hip Anesthesia History of cosmetic surgery (09/2012) History of total right hip arthroplasty (2014) History of gynecologic surgery (2007) History of oophorectomy (1982) Status post breast lumpectomy (2007) Status post hysterectomy (1981) Family History Mother Type II diabetes mellitus Hypertension High cholesterol Father No problems noted. Sister No problems noted. Sister Cancer Sister No problems noted. Sister No problems noted. Other Colorectal cancer Social History marital status: unmarried,living together (partner) number of children: 1 household members: none lives independently: Yes occupational status: other (retired) Smoking Status: Former smoker alcohol intake: current substance use type: does not use Assessment & Plan Assessment & Plan narrative: # Left proximal femur fracture, pathologic secondary to osteoporosis, present on admission. - POD #1 L femoral miguel placement with orthopedics. WBAT LLE per operative notes. - continue pain control, will add robaxin given muscle spasm today. - PT/OT rec SNF # acute anemia -Hgb down to 7.3 from 10.3 following surgery, unclear if from OR blood losses -dipped to 6.7 on 06/09 -2 units PRBC ordered -stool guaiac ordered # Paroxysmal A-fib: - rate controlled, not on any anticoagulation Tx due to falls. - continue home diltiazem # Hypertension: - continue dilt, held lisinopril prior to OR and will continue to hold today with soft BP # Depression: - Continue home Trazodone, Hydroxyzine prn, Fluoxetine # Asymptomatic bacteruria, - urine specimen highly contaminated, sent for culture. No recent symptoms, hold additional antibiotics. Was given ceftriaxone in the ER. # Hypomagnesemia - Mg 1.3, repleted and 2.0, continue to follow. # metabolic encephalopathy -patient has mild cog deficits at baseline and now having sundowning -seroquel 25mg qHS ordered Code: DNR, surrogate is MARSHA Fraser DVT: Lovenox renally dosed Dispo: to SNF once Hgb stable. 1-2 days. Quality VTE Deep Vein Thrombosis/Pulmonary Embolism Present on Admission: No
[2023-06-09 17:29] LABS: Hematocrit 29.7 % (36-46); Hemoglobin 10.4 g/dL (12.0-16.0)
[2023-06-09] MEDS: QUETIAPINE 25 MG TABLET PO (17:59)
[2023-06-09] MEDS: TRAZODONE 50 MG TABLET PO (21:03)
[2023-06-09] MEDS: hydrOXYzine pamoate 25 MG CAPSULE PO (21:03)
[2023-06-10 02:00] VITALS: BP 160/80; PULSE 89; RESP 18; TEMP 36.4; O2SAT 94
[2023-06-10] MEDS: SODIUM CHLORIDE 0.9% 1,000 ML 100 ML IV (03:39)
[2023-06-10] MEDS: ACETAMINOPHEN 325 MG TABLET 650 MG PO ×2 (04:40→13:22)
[2023-06-10 04:45] LABS: Add Manual Diff / Slide Review NO; Basophils Absolute Auto 100 /uL (0-100); Basophils Percent Auto 0.9 % (0-2); Eosinophils Absolute Auto 200 /uL (0-450); Eosinophils Percent Auto 1.8 % (2-4); Hematocrit 30.7 % (36-46); Hemoglobin 10.6 g/dL (12.0-16.0); Lymphocytes Absolute Auto 2000 /uL (1100-4500); Lymphocytes Percent Auto 22.8 % (25-40); Mean Corpuscular HGB Conc 34.4 % (30-36); Mean Corpuscular Hemoglobin 29.5 PG (26-34); Mean Corpuscular Volume 85.9 fL (80-100); Monocytes Absolute Auto 700 /uL (0-900); Monocytes Percent Auto 7.7 % (3-14); Neutrophils Absolute Auto 5800 /uL (1500-7000); Neutrophils Percent Auto 66.8 % (50-75); Platelet Count 145 X10^3/uL (150-400); Red Blood Cell Count 3.58 X10^6/uL (4.0-5.2); Red Cell Distribution Width 16.7 % (11.6-14.8); White Blood Cell Count 8.6 X10^3/uL (4.5-11.0)
[2023-06-10 05:01] LABS: BUN Creatinine Ratio 27.4 (6-22); Blood Urea Nitrogen 17 mg/dL (7-17); Calcium 8.1 mg/dL (8.4-10.2); Carbon Dioxide 23 mmol/L (22-32); Chloride 109 mmol/L (98-107); Estimated Glomerular Filt Rate > 60 mL/min (>60); Glucose 98 mg/dL (80-110); HEMOLYSIS < 15 (0-50); Potassium 3.8 mmol/L (3.4-5.1); Sodium 136 mmol/L (137-145)
[2023-06-10 05:23] LABS: Magnesium 1.5 mg/dL (1.6-2.3)
--- NOTE | 2023-06-10 06:58 | PM.PNPO.1 ---
Subjective Subjective Interval history: Pt found sitting up trying to open a package with the TV on. She is able to respond to questions. She states her left leg is painful even with medication. Exam Vital Signs (past 8 hours): - 06/10/23 02:00 Temperature 97.6 F Pulse Rate 89 Respiratory Rate 18 Blood Pressure 160/80 H Pulse Oximetry 94 Oxygen Flow Rate 0 Oxygen Delivery Method Room Air Oxygen Flow Rate 0 Narrative Exam Narrative: Dressing is intact and has scant bleed through. Tender to light palpation around the wound site, posterior thigh and calf. Calf is warm. Left foot is found in plantar flexion. With coaxing, pt is able to actively dorsiflex, though with pain. Strength is diminished. Sensation is grossly intact to light touch. Const General: cooperative and comfortable Resp Effort & Inspection: normal respiratory effort and able to speak in complete sentences Objective Labs 06/10/23 04:30 06/10/23 04:30 Labs: Laboratory Results - last 24 hr 06/09/23 06/09/23 06/10/23 07:58 17:27 04:30 WBC 8.6 RBC 3.58 L Hgb 10.4 L 10.6 L Hct 29.7 L 30.7 L MCV 85.9 MCH 29.5 MCHC 34.4 RDW 16.7 H Plt Count 145 L Neut % (Auto) 66.8 Lymph % (Auto) 22.8 L Noble % (Auto) 7.7 Eos % (Auto) 1.8 L Baso % (Auto) 0.9 Neut # (Auto) 5800 Lymph # (Auto) 2000 Noble # (Auto) 700 Eos # (Auto) 200 Baso # (Auto) 100 Sodium 136 L Potassium 3.8 Chloride 109 H Carbon Dioxide 23 BUN 17 Creatinine 0.62 Estimated GFR > 60 BUN/Creatinine Ratio 27.4 H Glucose 98 Calcium 8.1 L Magnesium 1.5 L Blood Type A Positive Antibody Screen Negative Crossmatch See Detail [facility] Medical History Thoracic compression fracture Low back strain Aguillon's palsy Chicken pox (~1945) Depression (2010) Hyperlipidemia Hypertension Measles (~1942) Mumps (~194) Osteoporosis (1999) Hearing loss (2011) Collagenous colitis (2005) Breast cancer (2007) Degenerative joint disease of right hip Systolic murmur (06/23/17) Surgical History History of arthroplasty of right hip Anesthesia History of cosmetic surgery (09/2012) History of total right hip arthroplasty (2014) History of gynecologic surgery (2007) History of oophorectomy (1982) Status post breast lumpectomy (2007) Status post hysterectomy (1981) Family History Mother Type II diabetes mellitus Hypertension High cholesterol Father No problems noted. Sister No problems noted. Sister Cancer Sister No problems noted. Sister No problems noted. Other Colorectal cancer Social History marital status: unmarried,living together (partner) number of children: 1 household members: none lives independently: Yes occupational status: other (retired) Smoking Status: Former smoker alcohol intake: current substance use type: does not use Assessment & Plan Post-op Postoperative Procedures: Procedures Operation Date: 06/07/23 17:15 Actual Procedure Side Surgeon p Intramedullary Nailing Femur Left Berta Mcduffie MD Postoperative day: 3 Postoperative status narrative: Notified hospitalist of calf warmth and tenderness. They ordered U/S to rule out DVT Postoperative plan narrative: Weightbearing as tolerated to LLE. F/u in ortho office in 2 weeks for staple removal and imaging. SNF vs assisted living at discharge. Continue Lovenox for VTE prophylaxis x 4 weeks. Quality VTE Deep Vein Thrombosis/Pulmonary Embolism Present on Admission: No
--- NOTE | 2023-06-10 07:34 | DI.US.S_ITS ---
PROCEDURE: US PERIPH VENOUS LOW EXTREM LT INDICATIONS: EDEMA TECHNIQUE: Real-time imaging, as well as color and pulse Doppler interrogation, were performed of the lower extremity deep veins from the inguinal ligament to the popliteal fossa, with documentation of the visualized calf veins. COMPARISON: None. FINDINGS: The common femoral, femoral, popliteal, and the visualized calf veins are normally compressible, and free of intraluminal thrombus. Color and pulse Doppler demonstrate normal phasic intraluminal flow. There is normal augmentation response to distal compression maneuver. IMPRESSION: No findings of lower extremity deep venous thrombosis. Dictated by: Kyleigh Nobles M.D. on 06/10/2023 at 8:58 Approved by: Kyleigh Nobles M.D. on 06/10/2023 at 8:59
[2023-06-10 07:56] VITALS: BP 132/73; PULSE 92; RESP 19; TEMP 36.3; O2SAT 94
[2023-06-10] MEDS: dilTIAZem CD 180 MG CAP PO (08:25)
[2023-06-10] MEDS: OXYCODONE IR 5 MG TABLET PO ×2 (08:26→18:44)
[2023-06-10] MEDS: FLUoxetine 20 MG CAPSULE PO (08:27)
[2023-06-10] MEDS: ENOXAPARIN 30 MG/0.3 ML SYRINGE SUBCUT (08:36)
[2023-06-10] MEDS: MAGNESIUM SULFATE 4 GM/100 ML PIGGYBACK IV (08:37)
--- NOTE | 2023-06-10 10:32 | PT.IPTN ---
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) Essential (primary) hypertension (06/06/23) Paroxysmal atrial fibrillation (06/06/23) Age-related osteoporosis with current pathological fracture, unspecified femur, initial encounter for fracture (06/06/23) Urinary tract infection, site not specified (06/06/23) Fracture of unspecified part of neck of left femur, initial encounter for closed fracture (06/06/23) Displaced intertrochanteric fracture of left femur, initial encounter for closed fracture (06/06/23) Other specified postprocedural states (06/06/23) Surgery Performed Operation Date: 06/07/23 17:15 Actual Procedures p Intramedullary Nailing Femur(Left) - Berta Mcduffie MD Physical Therapy Treatment Note M2 PT-IP Current Condition Start: 06/08/23 12:45 Freq: NEEDED Status: Active Protocol: Document 06/08/23 10:57 AB (Rec: 06/08/23 13:05 AB [id number]) Physical Therapy Current Condition Current Condition Evaluation Date 06/08/23 Treatment Diagnosis L hip fx s/p intramedullary miguel fixation; difficulty in walking Onset Date 06/06/23 M3 PT-IP Subjective Start: 06/08/23 12:45 Freq: NEEDED Status: Active Protocol: Document 06/10/23 11:15 TS (Rec: 06/10/23 11:29 TS [id number]) Subjective Physical Therapy Visit Type Type Treatment Note Visit Start Time 10:32 Visit Stop Time 11:10 Total Visit Minutes 38 Number of INFANT CHILDCARE PROVIDER Visits 1 Physical Therapy Visit Comments Patient Comments Pt found resting in bed, OT in room, pt agreeable to PT. Therapy Pain Assessment Pain When Pain Assessed During Mobility Pain Present Pain Present Pain Reported Location Left Hip Description Sharp,With Movement Pain Behaviors Guarding,Holding Area,Wincing Pain Management Techniques Distraction,Modification of Treatment,Re-positioning, Timing of Activity with Medications M4 PT-IP Mobility and Gait Start: 06/08/23 12:45 Freq: NEEDED Status: Active Protocol: Document 06/10/23 11:15 TS (Rec: 06/10/23 11:29 TS [id number]) PT-Bed Mobility Assessment Supine to Sit Supine to Sit Maximum Assistance,2 Person Assistance,Head of Bed Elevated,Bedrails Scooting Scooting to Edge of Bed Dependent PT-Transfer Assessment Sit to and From Stand Sit to and from Stand Maximum Assistance,2 Person Assistance,Use of Upper Extremities Equipment Transfer Assistive Device Gait Belt Orthotic/Prosthetic Devices or Brace: No Transfers Transfer Destination Chair Transfer Technique Squat Pivot Transfer Ability Level of Assist Maximum Assistance,2 Person Assistance,Use of Upper Extremities Comments Mobility Comments Pt found supine in bed, BP 131 /67 prior to mobility. Supine to sit HOB elevated MaxA x2 for LEs to EOB and for uprighting trunk. Once seated EOB pt maintained sitting balance with single use UE on FWW, progressed to no UEs. Sit to stand x3 MaxA x2, pt requires max cues with use of FWW, could not fully come into standing due to pain and a posterior lean. Squat pivot x1 MaxA x2, pt required cues for sequencing and pivoting of feet. Pt was left in chair with OT present, all needs met . Gait Assessment Comments Gait Comments unable at this time PT-Balance Assessment Sitting Balance and Reactions Static Sitting Balance Ability Fair Dynamic Sitting Balance Ability Poor Standing Balance and Reactions Static Standing Balance Ability Poor Dynamic Standing Balance Ability Poor Device Used FWW M5 PT-IP Objective Assessments Start: 06/08/23 12:45 Freq: NEEDED Status: Active Protocol: Document 06/08/23 10:57 AB (Rec: 06/08/23 13:05 AB [id number]) Orientation Orientation/Cognition Level of Alertness Confusional State Orientation Name Language Function Ability Hard of Hearing Safety Awareness Decreased Safety Awareness Memory Description Short Term Impaired,Title Searcher Impaired Gross Range of Motion Lower Extremity ROM Assessment Within Functional Limits Strength Lower Extremity Strength Assessment Left Impaired Hip 3-/5 Knee 3-/5 Sensation Assessment Sensation Gross Sensation WNL Muscle Tone Muscle Tone WNL Yes M6 PT-IP Treatment Start: 06/08/23 12:45 Freq: NEEDED Status: Active Protocol: Document 06/10/23 11:15 TS (Rec: 06/10/23 11:29 TS [id number]) Physical Therapy Treatment Education Education Provided Safety M7 PT-IP Assessment and Plan Start: 06/08/23 12:45 Freq: NEEDED Status: Active Protocol: Document 06/10/23 11:15 TS (Rec: 06/10/23 11:29 TS [id number]) PT Summary Assessment and Plan Potential Rehabilitation Potential Fair Summary Impairments Pain,ROM,Strength,Balance, Coordination,Sensation,Tone, Cognition,Bed Mobility, Transfers,Gait,Activity Tolerance Progress Towards Goals Slow Progress due to Medical Issues,Slow Progress due to Activity Tolerance,Slow Progress - Other Assessment Summary Hilaria continues to make slow progress with her mobility. She is MaxA x2 for supine to sit with max cues. She is MaxA x2 for sit to stand with FWW, she could not fully come into stand due to pain. She performed squat pivot to chair MaxA x2, followed instructions well. She continues to have some confusion. PT continues to recommend SNF rehab at this time. Goals Bed Mobility Goal Minimal Assistance Transfer Goal Minimal Assistance,Front Wheeled Walker Gait Goal Minimal Assistance,Front Wheel Walker Gait Distance 50 Other Goals improve bed mobility, transfers and ambulation using FWW ~ 150 ft SBA Days to Meet Goals 10 Frequency of Treatment Frequency Of Treatment Twice a Day Treatment Plan Physical Therapy Treatment Plan Bed Mobility Training,Transfer Training,Gait Training, Therapeutic Exercise,Balance Retraining,Post Op Education, Discharge Planning,Hot or Cold Pack,Neuromuscular Re-ed, Coordination Retraining,Manual Therapy Other Recommendations and Next Treatment Continue transfers, sit to Focus stand and bed mobility. Weight Bearing Status Weight Bearing Status Weight Bear as Tolerated Allowed Weight Bearing Amount (enter % LLE WBAT or #) (%) Recommendations To Nursing Amount of Assist Needed Mechanical Lift Discharge Recommendations PT Discharge Recommendations SNF Rehab Transportation Needs at Discharge Wheelchair/Cabulance
--- NOTE | 2023-06-10 11:13 | OT.IP.EVAL ---
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) Essential (primary) hypertension (06/06/23) Paroxysmal atrial fibrillation (06/06/23) Age-related osteoporosis with current pathological fracture, unspecified femur, initial encounter for fracture (06/06/23) Urinary tract infection, site not specified (06/06/23) Fracture of unspecified part of neck of left femur, initial encounter for closed fracture (06/06/23) Displaced intertrochanteric fracture of left femur, initial encounter for closed fracture (06/06/23) Other specified postprocedural states (06/06/23) Surgery Performed Operation Date: 06/07/23 17:15 Actual Procedures p Intramedullary Nailing Femur(Left) - Berta Mcduffie MD Past Medical History (Last Reviewed 06/09/23 @ 07:42 by Andrew Garcia PA-C) Aguillon's palsy Breast cancer (2007) Chicken pox (~194) Collagenous colitis (2005) Degenerative joint disease of right hip Depression (2010) Hearing loss (2011) Hyperlipidemia Hypertension Low back strain Measles (~194) Mumps (~194) Osteoporosis (1999) Systolic murmur (06/23/17) Thoracic compression fracture Surgical History (Last Reviewed 06/09/23 @ 07:42 by Andrew Garcia PA-C) Anesthesia History of arthroplasty of right hip History of cosmetic surgery (09/2012) History of gynecologic surgery (2007) History of oophorectomy (1982) History of total right hip arthroplasty (2014) Status post breast lumpectomy (2007) Status post hysterectomy (1981) Occupational Therapy Inpatient Evaluation/Re-Eval M1 PT/OT-IP Prior Functional Status Start: 06/08/23 14:57 Freq: NEEDED Status: Active Protocol: Document 06/10/23 10:27 [facility] (Rec: 06/10/23 11:42 [facility] [id number]) Medical Review Prior Functional Status Medical History Reviewed Yes Communication able to make needs known; very [place] JOLLA and has confusion Mobility and Gait pt stated that she is modified independent with bed mobility , transfers and ambulation in her room using a FWW but staff walks with her when she goes out of her room Activities of Daily Living and IADL's Staff at [facility] assists pt with shower/bathing needs. Pt states call for assist from staff if needed. Social History Household Members none Living Arrangements Assisted Living Number of Stairs To Enter/Railing? pt lives at [facility] Home Environment Standard Height Toilet,Walk in Shower,Built-In Shower Seat Home Equipment Front Wheel Walker,Raised Toilet Seat w/Armrests,Shower Seat with Backrest,Hand Held Shower,Grab Bars Near Toilet, Grab Bars In Shower M2 OT-IP Current Condition Start: 06/08/23 14:57 Freq: Status: Active Protocol: Document 06/10/23 10:27 [facility] (Rec: 06/10/23 11:42 [facility] [id number]) Occupational Therapy Current Condition Current Condition Evaluation Date 06/10/23 Treatment Diagnosis S/P left hip s/p intramedullary miguel fixation Diagnosis Onset Date 06/06/23 M3 OT- IP Subjective and Pain Start: 06/08/23 14:57 Freq: Status: Active Protocol: Document 06/10/23 10:27 [facility] (Rec: 06/10/23 11:42 [facility] [id number]) OT- Subjective Occupational Therapy Visit Type Type Initial Evaluation Visit Start Time 10:27 Visit Stop Time 11:13 Total Visit Minutes 26 Occupational Therapy Visit Comments Patient Comments Pt agreed to get up, MICROSTRATEGY DEVELOPER present due to complex transfer. Patient/Caregiver Goals TO get better. OT Pain Assessment Pain When Pain Assessed At Rest Pain Present Pain Present Pain Reported Location Left Hip Intensity 4 M4 OT- IP ADL's Start: 06/08/23 14:57 Freq: Status: Active Protocol: Document 06/10/23 10:27 [facility] (Rec: 06/10/23 11:42 [facility] [id number]) OT [id number] Comments OT Self-Feeding Comments Not at meal time. OT ADL-Grooming General Evaluation Grooming Ability Standby Assistance Areas Needing Assistance Retrieving/Set-up of Grooming Items Comments OT Grooming Comments Pt able to brush her hair and wash her face after set-up. OT ADL-Oral Care General Eval Oral Care Ability Standby Assistance Areas of Assistance Retrieving/Set-Up of Items Comments Oral Care Comments Pt able to do with increased time. OT ADL-Dressing General Eval Lower Body Dressing Ability Total Assistance Areas Needing Assistance Socks OT ADL-Toileting General Evaluation Toileting Ability Total Assistance Areas Needing Assistance Empty Catheter or Colostomy Comments OT Toileting Comments Lugo in place. OT ADL-Bathing Comments OT Bathing Comments Sponge bath more appropriate at this time. M5 OT- IP IADL's Start: 06/08/23 14:57 Freq: Status: Active Protocol: Document 06/10/23 10:27 [facility] (Rec: 06/10/23 11:42 [facility] [id number]) OT-Instrumental Activities of Daily Living Deficits IADL Deficits Identified Deficits Home Safety Awareness Home Safety Comments Pt is aware to use the call light for assist. Medication Management Medication Management Caregiver Administers Money Management Money Management Caregiver Provides Assistance Meal Preparation Meal Preparation Caregiver Provides Assist Marketing Technologist Marketing Technologist Caregiver Provides Assist M6 OT- IP Functional Cognition Start: 06/08/23 14:57 Freq: Status: Active Protocol: Document 06/10/23 10:27 [facility] (Rec: 06/10/23 11:42 [facility] [id number]) Cognitive Factors Limiting Selfcare Function Cognitive Ability Level of Alertness Alert,Confusional State Patient Orientation Name,Situation Attention Span Ability Capable of Focused Attention, Capable of Sustained Attention Ability to Follow Commands Able to Follow One Step Commands Memory Description Short Term Impaired Cognitive Comments Cognitive Assessment Comments Pt is pleasant and cooperative and a bit forgetful but easily able to reorientated to place. Pt able to follow commands for mobility and ADL needs. M7 OT- IP Mobility and Balance Start: 06/08/23 14:57 Freq: Status: Active Protocol: Document 06/10/23 10:27 [facility] (Rec: 06/10/23 11:42 [facility] [id number]) OT- Bed Mobility Assessment Supine to Sit Supine to Sit Assist Maximum Assistance,2 Person Assistance OT-Transfer Assessment Sit to and From Stand Sit to and from Stand Maximum Assistance,Total Assistance,2 Person Assistance Transfers Transfer Ability Maximum Assistance,2 Person Assistance Technique Transfer Destination Bed,Chair Transfer Technique Stand Step Pivot Devices Transfer Assistive Devices None,Gait Belt,Front Wheeled Walker Comments Mobility Comments MAX A to help get her LLE to the edge of the bed. Assist for her trunk upright with the green pad and HOB up. MAXA X 2 to stand to the FWW, first able to stand most of the way up and the next 2 attempts unable to stand all the way up . Able to squat pivot pt to the right.Lukas Lift recommended for nursing. OT- Balance Assessment Sitting Balance and Reactions Static Sitting Balance Ability Fair Dynamic Sitting Balance Ability Poor Standing Balance and Reactions Static Standing Balance Ability Poor Dynamic Standing Balance Ability Poor M8 OT- IP Objective Assessments Start: 06/08/23 14:57 Freq: Status: Active Protocol: Document 06/10/23 10:27 [facility] (Rec: 06/10/23 11:42 [facility] [id number]) OT Gross Range of Motion Upper Extremity Range of Motion Assessment Bilaterally Impaired OT Strength Upper Extremity Strength Assessment Bilaterally Impaired M9 OT- IP Assessment and Plan Start: 06/08/23 14:57 Freq: Status: Active Protocol: Document 06/10/23 10:27 [facility] (Rec: 06/10/23 11:42 [facility] [id number]) OT Summary Assessment and Plan Potential Rehabilitation Potential Fair Analytic Complexity at Evaluation Moderate Summary OT Impairments Pain,Strength,Balance, Functional Cognition, Functional Mobility,Self- Feeding,Grooming,Dressing, Toileting,Bathing,Toilet Transfers,Shower Transfers, Activity Tolerance Progress Towards Goals Slow Progress due to Pain,Slow Progress due to Activity Tolerance Assessment Summary Pt MOD complexity and main barriers are pain, strength, and now needing extensive assist for mobility needs. Pt will benefit from skilled rehab to maximize her independence as prior Pt was BENI with all basic ADL's and walking with a FWW. Goals Grooming Goal Independent Dressing Goal Minimal Assistance Toileting Goal Minimal Assistance Toilet Transfer Goal Standby Assistance Shower Transfer Goal Minimal Assistance Days to Meet Goals 25 Frequency of Treatment Frequency Of Treatment Once a Day Treatment Plan OT Treatment Plan ADL Training,Functional Mobility,Patient/Family Education,Discharge Planning Other Treatment Recommendations and Next LB dressing equipment practice Discharge Recommendations OT Discharge Recommendations SNF Rehab Transportation Needs at Discharge Wheelchair/Cabulance
[2023-06-10] MEDS: methocarbamoL 500 MG TABLET PO (13:22)
[2023-06-10 14:00] VITALS: BP 131/77; PULSE 89; RESP 17; TEMP 36.6; O2SAT 93
--- NOTE | 2023-06-10 14:09 | ST.IPCSEOM ---
Visit Care Team Role Provider Type Lev Archuleta DO Primary Care Provider Physician Specialty: Family Practice Address: [address] [place] [address], [id number] Email: [email or web address] Janette Kirk MD Emergency Provider Physician Referring Provider Specialty: Emergency Medicine Address: [address] [place] [address], [id number] Email: Devin Olea MD Admit Provider Physician Attending Provider Specialty: Internal Medicine Address: [address] [place] [address], [id number] Fax: Email: [email or web address] 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) Essential (primary) hypertension (06/06/23) Paroxysmal atrial fibrillation (06/06/23) Age-related osteoporosis with current pathological fracture, unspecified femur, initial encounter for fracture (06/06/23) Urinary tract infection, site not specified (06/06/23) Fracture of unspecified part of neck of left femur, initial encounter for closed fracture (06/06/23) Displaced intertrochanteric fracture of left femur, initial encounter for closed fracture (06/06/23) Other specified postprocedural states (06/06/23) Past Medical History (Last Reviewed 06/09/23 @ 07:42 by Andrew Garcia PA-C) Aguillon's palsy (Medical) Breast cancer (Medical 2007) 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 Lazcano Degenerative joint disease of right hip (Medical) Depression (Medical 2010) Hearing loss (Medical 2011) Hyperlipidemia (Medical) Hypertension (Medical) Low back strain (Medical) Measles (Medical ~194) Mumps (Medical ~194) Osteoporosis (Medical 1999) Systolic murmur (Medical 06/23/17) Echo fine 09/2015 Thoracic compression fracture (Medical) Speech-Language Pathology Swallow Evaluation FILENET P8 DEVELOPER Clinical Swallow Evaluation Start: 06/10/23 13:49 Freq: Status: Active Protocol: Document 06/10/23 13:49 MA (Rec: 06/10/23 14:09 KENNY [id number]) Clinical Swallow Evaluation Session Time Visit Start Time 12:35 Visit Stop Time 13:05 Total Visit Minutes 30 Visit Information Visit Number [address] Doe Reason for Referral Coughing after drinking thin liquids Setting Assessment Location Acute Care Visit Type Note Type Initial evaluation Patient Information Identification Type Name,Wristband History Per H&P: 88-year-old woman currently living at [facility] with a history of hypertension, chronic urinary tract infections on currently Keflex suppression as well as diarrhea secondary to collagenous colitis was walking with her walker today stumbled and fell landing on her left hip and was unable to get up. Left leg is too tender to move and foreshortened. X ray showed left proximal femoral fracture . PMHx significant for: Thoracic compression fracture Low back strain Aguillon's palsy Chicken pox (~1945) Depression (2010) Hyperlipidemia Hypertension Measles (~1941) Mumps (~194) Osteoporosis (1999) Hearing loss (2011) Collagenous colitis (2005) Breast cancer (2007) Degenerative joint disease of right hip Systolic murmur (06/23/17) Pt referred for ST evaluation d/t MD and nursing reportnig Pt coughing after drinking water. Subjective Observations Pt sitting upright in chair with lunch meal tray in front of her. Pt able to feed self independently. Pt confused but agreeable to PO trials. Pt oriented to self and year, however reported place as [facility]. Nursing reports Pt has been observed coughing after drinking thin liquids and her medications have been adminsitered via applesauce. Reported by Patient/Caregiver Other Symptoms Coughing,Difficulty swallowing liquids Current Diet Regular (IDDSI 7) Baseline Feeding Method Independent in self-feeding The IDDSI Framework Protocol: IDDSI.1 Objective Assessment Mental Status Alert,Responsive,Confused Oral Integrity WFL Dentition Upper dentures/partials Lip Function Mild impairment Observation of Lips at Rest Symmetrical Pucker Reduced strength Tongue Function Mild impairment Tongue Protrusion Reduced range of motion, Reduced strength Comment Oral motor exam complete during evaluation. Pt with slight confusion, which impacted following directions and participation during oral motor exam. Pt with natural dentition bottom and partial upper, good condition. Pt with overall generalized lingual and labial reduced strength and ROM. Food and Liquid Trials Position During Assessment Upright (90 degrees) Liquids Trialed Thin (IDDSI 0),Mildly Thick ( IDDSI 2) Solid Trials Purred (IDDSI 4),Soft & Bite- sized (IDDSI 6),Easy to Chew ( IDDSI 7) Administration Type Tea spoon,Straw,Self-feeding Oral Impairment Moderately impaired Oral Phase Comments Pt consumed 1 bite of cooked salmon cut into small piece ( reporting she was full and did not want to eat anymore), yogurt with blueberries, 8 oz of thin water via straw, 2 oz of coffee via cup, 1 oz of nectar thick juice via cup. Pt reported she did not want to drink anymore after that. For soft solid, Pt demonstrated prolonged/disorganized mastication, poor bolus formation, mild oral stasis, extended ap transport, piecemeal deglutition. For yogurt/blueberries, Pt with adequate bite size, prolonged mastication however adequate bolus formation and control, piecemeal deglutition, timely ap transport. For thin water via straw Pt with adequate suction, consecutive sips, suspected loss of bolus resulting in premature spillage, good oral acceptance and containment. For nectar thick liquids Pt demonstrated good oral acceptance and containment. Pharyngeal Impairment Mildly impaired Pharyngeal Phase Comments Pt with suspected delay in swallow with all PO trials. For soft solid of salmon bite and yogurt with blueberries Pt demonstrated no overt s/s of penetration/aspiration. For thin water via straw Pt demonstrated audible swallow reflex, reduced laryngeal elevation, double swallows, clear vocal quality, 1x delayed cough reflex with about 10 oz of thin liquids. For nectar thick Pt demonstrated audible swallow reflex, double swallow, no overt s/s of aspiration. Fatigue/Endurance Endurance WNL The IDDSI Framework Protocol: IDDSI.1 Findings Swallowing Function Oropharyngeal phase dysphagia Severity of Swallow Impairment Mildly-moderately impaired Prognosis Good Recommendations Instrumental Assessment No Swallowing Treatment Yes Frequency Daily while patient inpatient Duration LOS Recommended Solids Soft & Bite-sized (IDDSI 6) Recommended Liquids Thin (IDDSI 0) Other Recommendations Pt presents with mild-mod oral phase dysphagia and suspected mod pharyngeal phase dysphagia. ST recommends IDDSHI 6 and IDDSI 0 with the below mentioned safe swallowing strategies in place . ST recommends if Pt with increase in coughing on thin liquids and/or changes in respiratory status for nursing to downgrade to nectar thick liquids. Safety Precautions/Swallowing Reduce distractions,Remain Recommendations upright (90 degrees) during all oral intake,Upright position at least 30 minutes after meals,Small bites and sips when eating,Slow rate; swallow between bites, Alternate liquids and solids, Set-up assistance Medication Recommendations As Tolerated Education Patient/Caregiver Education Described results of evaluation Goals Short-term Goals STG 2: Patient will tolerate therapeutic PO trials of IDDSI 6/7 solids with no clincal s/ s of aspiration 100% of the time in order to consume least restrictive diet. STG 3: Patient will tolerate therapeutic PO trials of thin liquids with no clinical s/s of aspiration 100% of the time in order to consume least restrictive diet. Long-term Goals LTG: Patient will tolerate safest and most efficient diet with no clinical s/s of aspiration or dysphagia 100% of the time in order to consume least restrictive diet .
--- NOTE | 2023-06-10 14:11 | PT-IP ANOTE ---
Pt refused to work with PT this afternoon. Pt would like to stay in chair and does not want to exercise at this time. PT will check back in with pt tomorrow morning.
--- NOTE | 2023-06-10 14:36 | PM.PN.1 ---
Subjective Subjective Interval history: Patient doing better today. Working with PT currently and they say while she is still 2 person assist her strength is improving. Awaiting SNF insurnace auth. Hgb stable. Ortho noted some left calf swelling and tenderness, DVT US neg for clot. Exam Vital Signs (past 8 hours): - 06/10/23 07:56 06/10/23 09:00 Temperature 97.3 F L Pulse Rate 92 H Respiratory Rate 19 Blood Pressure 132/73 Pulse Oximetry 94 Oxygen Delivery Method Room Air Oxygen Flow Rate 0 Oxygen Delivery Method Room Air Oxygen Flow Rate 0 Narrative Exam Narrative: Alert, intermittently confused Respiratory exam unlabored on room air, lungs clear Heart regular rhythm borderline tachycardia Tenderness to palpation left thigh diffusely, tight musculature, dressing c/d/i. Objective Labs 06/10/23 04:30 06/10/23 04:30 Labs: Laboratory Results - last 24 hr 06/09/23 06/09/23 06/10/23 07:58 17:27 04:30 WBC 8.6 RBC 3.58 L Hgb 10.4 L 10.6 L Hct 29.7 L 30.7 L MCV 85.9 MCH 29.5 MCHC 34.4 RDW 16.7 H Plt Count 145 L Neut % (Auto) 66.8 Lymph % (Auto) 22.8 L Callahan % (Auto) 7.7 Eos % (Auto) 1.8 L Baso % (Auto) 0.9 Neut # (Auto) 5800 Lymph # (Auto) 2000 Callahan # (Auto) 700 Eos # (Auto) 200 Baso # (Auto) 100 Sodium 136 L Potassium 3.8 Chloride 109 H Carbon Dioxide 23 BUN 17 Creatinine 0.62 Estimated GFR > 60 BUN/Creatinine Ratio 27.4 H Glucose 98 Calcium 8.1 L Magnesium 1.5 L Crossmatch See Detail [facility] Medical History Thoracic compression fracture Low back strain Aguillon's palsy Chicken pox (~1945) Depression (2010) Hyperlipidemia Hypertension Measles (~1942) Mumps (~1942) Osteoporosis (1999) Hearing loss (2011) Collagenous colitis (2005) Breast cancer (2007) Degenerative joint disease of right hip Systolic murmur (06/23/17) Surgical History History of arthroplasty of right hip Anesthesia History of cosmetic surgery (09/2012) History of total right hip arthroplasty (2014) History of gynecologic surgery (2007) History of oophorectomy (1982) Status post breast lumpectomy (2007) Status post hysterectomy (1981) Family History Mother Type II diabetes mellitus Hypertension High cholesterol Father No problems noted. Sister No problems noted. Sister Cancer Sister No problems noted. Sister No problems noted. Other Colorectal cancer Social History marital status: unmarried,living together (partner) number of children: 1 household members: none lives independently: Yes occupational status: other (retired) Smoking Status: Former smoker alcohol intake: current substance use type: does not use Assessment & Plan Assessment & Plan narrative: # Left proximal femur fracture, pathologic secondary to osteoporosis, present on admission. - underwnet L femoral miguel placement with orthopedics on 06/[address] Mcduffie. WBAT LLE as tolerated per ortho. - continue pain control, will add robaxin given muscle spasms. - PT/OT rec SNF # acute anemia, stable -Hgb down to 7.3 from 10.3 following surgery, unclear if from OR blood losses -dipped to 6.7 on 06/09 -2 units PRBC ordered -stool guaiac ordered -Hgb now stable at 10.4>10.6 # Paroxysmal A-fib: - rate controlled, not on any anticoagulation Tx due to falls. - continue home diltiazem # Hypertension: - continue dilt, held lisinopril prior to OR and will continue to hold today with soft BP # Depression: - Continue home Trazodone, Hydroxyzine prn, Fluoxetine # Asymptomatic bacteruria, - urine specimen highly contaminated, sent for culture. No recent symptoms, hold additional antibiotics. Was given ceftriaxone in the ER. # Hypomagnesemia - Mg 1.3, repleted and 2.0, continue to follow. # metabolic encephalopathy -patient has mild cog deficits at baseline and now having sundowning -seroquel 25mg qHS ordered Code: DNR, surrogate is MARSHA Fraser DVT: Lovenox renally dosed Dispo: SNF on 06/11. Quality VTE Deep Vein Thrombosis/Pulmonary Embolism Present on Admission: No
--- NOTE | 2023-06-10 15:54 | PC.NURSE ---
Pt oriented to self and birthdate, easily reoriented to date/location/situation but very forgetful. Though frequently disoriented, she is calm and cooperative. c/o mild-moderate pain to LLE, pain adequately controlled with PRN oxycodone and tylenol. Pt worked with physical therapy and occupational therapy this am. Per physical therapy, pt requires dhruv to get in and out of bed. Pt resting comfortably in the chair at this time, call light within reach, chair alarm on.
[2023-06-10] MEDS: HYDROMORPHONE 0.5 MG INJ IV (16:43)
[2023-06-10] MEDS: QUETIAPINE 25 MG TABLET PO (18:44)
[2023-06-10] MEDS: hydrOXYzine pamoate 25 MG CAPSULE PO (20:45)
[2023-06-10] MEDS: TRAZODONE 50 MG TABLET PO (20:45)
[2023-06-10 21:00] VITALS: BP 137/84; PULSE 67; RESP 16; TEMP 36.9; O2SAT 96
[2023-06-11 05:11] LABS: Add Manual Diff / Slide Review NO; Basophils Absolute Auto 0 /uL (0-100); Basophils Percent Auto 0.5 % (0-2); Eosinophils Absolute Auto 200 /uL (0-450); Eosinophils Percent Auto 3.1 % (2-4); Hematocrit 29.2 % (36-46); Lymphocytes Absolute Auto 1300 /uL (1100-4500); Lymphocytes Percent Auto 17.9 % (25-40); Mean Corpuscular HGB Conc 34.3 % (30-36); Mean Corpuscular Hemoglobin 29.1 PG (26-34); Mean Corpuscular Volume 84.9 fL (80-100); Monocytes Absolute Auto 600 /uL (0-900); Monocytes Percent Auto 7.6 % (3-14); Neutrophils Absolute Auto 5300 /uL (1500-7000); Neutrophils Percent Auto 70.9 % (50-75); Platelet Count 171 X10^3/uL (150-400); Red Blood Cell Count 3.43 X10^6/uL (4.0-5.2); Red Cell Distribution Width 16.5 % (11.6-14.8); White Blood Cell Count 7.5 X10^3/uL (4.5-11.0)
[2023-06-11 05:19] LABS: BUN Creatinine Ratio 24.5 (6-22); Blood Urea Nitrogen 13 mg/dL (7-17); Calcium 8.2 mg/dL (8.4-10.2); Carbon Dioxide 24 mmol/L (22-32); Chloride 105 mmol/L (98-107); Estimated Glomerular Filt Rate > 60 mL/min (>60); Glucose 100 mg/dL (80-110); HEMOLYSIS < 15 (0-50); Magnesium 1.9 mg/dL (1.6-2.3); Potassium 3.6 mmol/L (3.4-5.1); Sodium 132 mmol/L (137-145)
[2023-06-11 07:45] VITALS: BP 116/69; PULSE 106; RESP 19; TEMP 36.4; O2SAT 93
--- NOTE | 2023-06-11 09:44 | PM.PNPO.1 ---
Subjective Subjective Date Patient Seen: 06/11/23 Time Patient Seen: 09:44 Interval history: Postop day 3 left cephalomedullary nail for intertrochanteric femur fracture Lying in bed this morning, pain okay at rest increases to left leg with moving Patient states she tries not to move the left leg the constructs were her surgery was.--answers questions appropriately -had postop acute blood loss anemia did receive transfusion. H and H stable this morning Exam Vital Signs (past 8 hours): - 06/11/23 07:45 Temperature 97.6 F Pulse Rate 106 H Respiratory Rate 19 Blood Pressure 116/69 Pulse Oximetry 93 Oxygen Delivery Method Room Air Oxygen Flow Rate 0 Narrative Exam Narrative: Alert, no acute distress lying in bed Appears to answer questions appropriately this morning--motor exam limited secondary to pain Left lower extremity thigh and lower extremity compartments are soft. There is no erythema. Scant amount of dried bloody drainage on the dressing, no saturation. Dressing is intact. Wiggles toes slightly. Patient declines to demonstrate dorsiflexion or plantar flexion of the ankle states secondary to pain--she does demonstrate dorsiflexion plantar flexion of the ankle on the right lower extremity to me today. Grossly normal leg length and rotation compared to contralateral Lugo in place Objective Labs 06/11/23 05:00 06/11/23 05:00 Labs: Laboratory Results - last 24 hr 06/11/23 05:00 WBC 7.5 RBC 3.43 L Hgb 10.0 L Hct 29.2 L MCV 84.9 MCH 29.1 MCHC 34.3 RDW 16.5 H Plt Count 171 Neut % (Auto) 70.9 Lymph % (Auto) 17.9 L [place] % (Auto) 7.6 Eos % (Auto) 3.1 Baso % (Auto) 0.5 Neut # (Auto) 5300 Lymph # (Auto) 1300 [place] # (Auto) 600 Eos # (Auto) 200 Baso # (Auto) 0 Sodium 132 L Potassium 3.6 Chloride 105 Carbon Dioxide 24 BUN 13 Creatinine 0.53 Estimated GFR > 60 BUN/Creatinine Ratio 24.5 H Glucose 100 Calcium 8.2 L Magnesium 1.9 PFSH Medical History Thoracic compression fracture Low back strain Aguillon's palsy Chicken pox (~1944) Depression (2010) Hyperlipidemia Hypertension Measles (~1942) Mumps (~1942) Osteoporosis (2000) Hearing loss (2011) Collagenous colitis (2005) Breast cancer (2007) Degenerative joint disease of right hip Systolic murmur (06/23/17) Surgical History History of arthroplasty of right hip Anesthesia History of cosmetic surgery (09/2012) History of total right hip arthroplasty (2014) History of gynecologic surgery (2007) History of oophorectomy (1982) Status post breast lumpectomy (2007) Status post hysterectomy (1981) Family History Mother Type II diabetes mellitus Hypertension High cholesterol Father No problems noted. Sister No problems noted. Sister Cancer Sister No problems noted. Sister No problems noted. Other Colorectal cancer Social History marital status: unmarried,living together (partner) number of children: 1 household members: none lives independently: Yes occupational status: other (retired) Smoking Status: Former smoker alcohol intake: current substance use type: does not use Assessment & Plan Post-op Postoperative Procedures: Procedures Operation Date: 06/07/23 17:15 Actual Procedure Side Surgeon p Intramedullary Nailing Femur Left Berta Mcduffie MD Postoperative day: 3 Postoperative status: anemia Postoperative status narrative: And postop acute blood loss anemia received transfusion. H and H stable today. Postoperative plan: routine post-op care Postoperative plan narrative: Routine postop care for cephalomedullary nail for left intertrochanteric hip fracture, weightbear as tolerated.--dispo per primary when medically stable DVT prophylaxis with Lovenox subcutaneous daily for 4 weeks total Follow up in Orthopedic Clinic 2 weeks for staple removal and repeat x-rays Time Spent With Patient Time with patient: less than 15 minutes Quality VTE Deep Vein Thrombosis/Pulmonary Embolism Present on Admission: No
[2023-06-11] MEDS: dilTIAZem CD 180 MG CAP PO (10:24)
[2023-06-11] MEDS: ENOXAPARIN 30 MG/0.3 ML SYRINGE SUBCUT (10:24)
[2023-06-11] MEDS: DOCUSATE 100 MG CAPSULE PO ×2 (10:24→20:59)
[2023-06-11] MEDS: FLUoxetine 20 MG CAPSULE PO (10:24)
[2023-06-11] MEDS: ACETAMINOPHEN 325 MG TABLET 650 MG PO (10:25)
[2023-06-11] MEDS: MAGNESIUM CHLORIDE 64 MG TABLET 128 MG PO (11:10)
[2023-06-11] MEDS: POTASSIUM CHLORIDE 20 MEQ TAB PO (11:16)
--- NOTE | 2023-06-11 11:30 | PT.IPTN ---
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) Essential (primary) hypertension (06/06/23) Paroxysmal atrial fibrillation (06/06/23) Age-related osteoporosis with current pathological fracture, unspecified femur, initial encounter for fracture (06/06/23) Urinary tract infection, site not specified (06/06/23) Fracture of unspecified part of neck of left femur, initial encounter for closed fracture (06/06/23) Displaced intertrochanteric fracture of left femur, initial encounter for closed fracture (06/06/23) Other specified postprocedural states (06/06/23) Surgery Performed Operation Date: 06/07/23 17:15 Actual Procedures p Intramedullary Nailing Femur(Left) - Berta Mcduffie MD Physical Therapy Treatment Note M2 PT-IP Current Condition Start: 06/08/23 12:45 Freq: NEEDED Status: Active Protocol: Document 06/08/23 10:57 AB (Rec: 06/08/23 13:05 AB [id number]) Physical Therapy Current Condition Current Condition Evaluation Date 06/08/23 Treatment Diagnosis L hip fx s/p intramedullary miguel fixation; difficulty in walking Onset Date 06/06/23 M3 PT-IP Subjective Start: 06/08/23 12:45 Freq: NEEDED Status: Active Protocol: Document 06/11/23 11:59 TS (Rec: 06/11/23 12:09 TS [id number]) Subjective Physical Therapy Visit Type Type Treatment Note Visit Start Time 11:30 Visit Stop Time 11:57 Total Visit Minutes 27 Number of LEATHER PARTS MATCHER Visits 2 Physical Therapy Visit Comments Patient Comments Pt found resting in bed, agreeable to PT. Therapy Pain Assessment Pain When Pain Assessed During Mobility Pain Present Pain Present Pain Reported M4 PT-IP Mobility and Gait Start: 06/08/23 12:45 Freq: NEEDED Status: Active Protocol: Document 06/11/23 11:59 TS (Rec: 06/11/23 12:09 TS [id number]) PT-Bed Mobility Assessment Supine to Sit Supine to Sit Maximum Assistance,2 Person Assistance,Head of Bed Elevated,Bedrails Scooting Scooting to Edge of Bed Dependent PT-Transfer Assessment Sit to and From Stand Sit to and from Stand Maximum Assistance,2 Person Assistance,Use of Upper Extremities Equipment Transfer Assistive Device Gait Belt Orthotic/Prosthetic Devices or Brace: No Transfers Transfer Destination Chair Transfer Technique Squat Pivot Transfer Ability Level of Assist Maximum Assistance,2 Person Assistance,Use of Upper Extremities Comments Mobility Comments Supine to sit MaxA x2 with HOB elevated and use of transfer pad, pt requires cues for BUE support and assisting with LEs to EOB. Pt scooted to EOB MaxA slowly with use of transfer pad. She sat EOB SBA with BUE support, maintained midline balance. She performed sit to stand x2 MaxA with FWW , pt requires cues for feet underneath her and shifting weight forward. In standing she has a heavy posterior lean , attempted to pivot feet and to side step, could not take steps at this time. Squat pivot to chair leading with strong side MaxA x2, cues were provided for sequencing, pt followed instructions well. Pt was left in chair, all needs met. Gait Assessment Comments Gait Comments unable at this time PT-Balance Assessment Sitting Balance and Reactions Static Sitting Balance Ability Fair Dynamic Sitting Balance Ability Poor Standing Balance and Reactions Static Standing Balance Ability Poor Dynamic Standing Balance Ability Poor Device Used FWW M5 PT-IP Objective Assessments Start: 06/08/23 12:45 Freq: NEEDED Status: Active Protocol: Document 06/08/23 10:57 AB (Rec: 06/08/23 13:05 AB [id number]) Orientation Orientation/Cognition Level of Alertness Confusional State Orientation Name Language Function Ability Hard of Hearing Safety Awareness Decreased Safety Awareness Memory Description Short Term Impaired,Television Specialist Impaired Gross Range of Motion Lower Extremity ROM Assessment Within Functional Limits Strength Lower Extremity Strength Assessment Left Impaired Hip 3-/5 Knee 3-/5 Sensation Assessment Sensation Gross Sensation WNL Muscle Tone Muscle Tone WNL Yes M6 PT-IP Treatment Start: 06/08/23 12:45 Freq: NEEDED Status: Active Protocol: Document 06/11/23 11:59 TS (Rec: 06/11/23 12:09 [id number]) Physical Therapy Treatment Education Education Provided Safety M7 PT-IP Assessment and Plan Start: 06/08/23 12:45 Freq: NEEDED Status: Active Protocol: Document 06/11/23 11:59 TS (Rec: 06/11/23 12:09 [id number]) PT Summary Assessment and Plan Potential Rehabilitation Potential Fair Summary Impairments Pain,ROM,Strength,Balance, Coordination,Sensation,Tone, Cognition,Bed Mobility, Transfers,Gait,Activity Tolerance Progress Towards Goals Slow Progress due to Medical Issues,Slow Progress due to Activity Tolerance,Slow Progress - Other Assessment Summary Hilaria continues to make slow progress with her mobility and continues to have high level of pain with movement, she calls out at times with mobility. She is MaxA x2 for all bed mobility with HOB elevated. She continues to bed MaxA x2 for sit to stand with FWW. She has poor standing balance with a heavy retrolean . She attempted to take steps to chair with stand pivot transfer, she required squat pivot x2 to chair. PT continues to recommend SNF at this time. Goals Bed Mobility Goal Minimal Assistance Transfer Goal Minimal Assistance,Front Wheeled Walker Gait Goal Minimal Assistance,Front Wheel Walker Gait Distance 50 Other Goals improve bed mobility, transfers and ambulation using FWW ~ 150 ft SBA Days to Meet Goals 10 Frequency of Treatment Frequency Of Treatment Twice a Day Treatment Plan Physical Therapy Treatment Plan Bed Mobility Training,Transfer Training,Gait Training, Therapeutic Exercise,Balance Retraining,Post Op Education, Discharge Planning,Hot or Cold Pack,Neuromuscular Re-ed, Coordination Retraining,Manual Therapy Other Recommendations and Next Treatment Continue transfers, sit to Focus stand and bed mobility. Weight Bearing Status Weight Bearing Status Weight Bear as Tolerated Allowed Weight Bearing Amount (enter % LLE WBAT or #) (%) Recommendations To Nursing Amount of Assist Needed Mechanical Lift Discharge Recommendations PT Discharge Recommendations SNF Rehab Transportation Needs at Discharge Wheelchair/Cabulance
--- NOTE | 2023-06-11 13:16 | CM.DPC ---
DCP Cont. Reviewed EMR and team rounds for updates. [facility] and [facility] both decline based on insurance poor reimbursement. Called and left 2-messages to Jessica Castalia, never received a call back. Need [employer] auth. Pt will continue to require Seroquel post-d/c, per Dr. Doe. POA/nephew updated. PASSAR needs to be finished once d/c is known, it's mostly completed and w/facesheet. Will need to wait until Tuesday for further f/u due to [employer] being closed over the weekend. CM to continue to follow closely.
--- NOTE | 2023-06-11 14:06 | PM.PN.1 ---
Subjective Subjective Interval history: Patient has no complaints. Awaiting SNF auth. Exam Vital Signs (past 8 hours): - 06/11/23 07:45 Temperature 97.6 F Pulse Rate 106 H Respiratory Rate 19 Blood Pressure 116/69 Pulse Oximetry 93 Oxygen Delivery Method Room Air Oxygen Flow Rate 0 Narrative Exam Narrative: Alert, no acute distress lying in bed Appears to answer questions appropriately this morning--motor exam limited secondary to pain Left lower extremity thigh and lower extremity compartments are soft. There is no erythema. Scant amount of dried bloody drainage on the dressing, no saturation. Dressing is intact. Wiggles toes slightly. Patient declines to demonstrate dorsiflexion or plantar flexion of the ankle states secondary to pain--she does demonstrate dorsiflexion plantar flexion of the ankle on the right lower extremity to me today. Grossly normal leg length and rotation compared to contralateral Lugo in place Objective Labs 06/11/23 05:00 06/11/23 05:00 Labs: Laboratory Results - last 24 hr 06/11/23 05:00 WBC 7.5 RBC 3.43 L Hgb 10.0 L Hct 29.2 L MCV 84.9 MCH 29.1 MCHC 34.3 RDW 16.5 H Plt Count 171 Neut % (Auto) 70.9 Lymph % (Auto) 17.9 L [place] % (Auto) 7.6 Eos % (Auto) 3.1 Baso % (Auto) 0.5 Neut # (Auto) 5300 Lymph # (Auto) 1300 [place] # (Auto) 600 Eos # (Auto) 200 Baso # (Auto) 0 Sodium 132 L Potassium 3.6 Chloride 105 Carbon Dioxide 24 BUN 13 Creatinine 0.53 Estimated GFR > 60 BUN/Creatinine Ratio 24.5 H Glucose 100 Calcium 8.2 L Magnesium 1.9 PFSH Medical History Thoracic compression fracture Low back strain Aguillon's palsy Chicken pox (~1945) Depression (2010) Hyperlipidemia Hypertension Measles (~1942) Mumps (~1942) Osteoporosis (1999) Hearing loss (2011) Collagenous colitis (2005) Breast cancer (2007) Degenerative joint disease of right hip Systolic murmur (06/23/17) Surgical History History of arthroplasty of right hip Anesthesia History of cosmetic surgery (09/2012) History of total right hip arthroplasty (2014) History of gynecologic surgery (2007) History of oophorectomy (1982) Status post breast lumpectomy (2007) Status post hysterectomy (1981) Family History Mother Type II diabetes mellitus Hypertension High cholesterol Father No problems noted. Sister No problems noted. Sister Cancer Sister No problems noted. Sister No problems noted. Other Colorectal cancer Social History marital status: unmarried,living together (partner) number of children: 1 household members: none lives independently: Yes occupational status: other (retired) Smoking Status: Former smoker alcohol intake: current substance use type: does not use Assessment & Plan Assessment & Plan narrative: # Left proximal femur fracture, pathologic secondary to osteoporosis, present on admission. - underwnet L femoral miguel placement with orthopedics on 06/[address] Mcduffie. WBAT LLE as tolerated per ortho. - continue pain control, will add robaxin given muscle spasms. - PT/OT rec SNF # acute anemia, stable -Hgb down to 7.3 from 10.3 following surgery, unclear if from OR blood losses -dipped to 6.7 on 06/09 -2 units PRBC ordered -stool guaiac ordered -Hgb now stable at 10.4>10.6 # Paroxysmal A-fib: - rate controlled, not on any anticoagulation Tx due to falls. - continue home diltiazem # Hypertension: - continue dilt, held lisinopril prior to OR and will continue to hold today with soft BP # Depression: - Continue home Trazodone, Hydroxyzine prn, Fluoxetine # Asymptomatic bacteruria, - urine specimen highly contaminated, sent for culture. No recent symptoms, hold additional antibiotics. Was given ceftriaxone in the ER. # Hypomagnesemia - Mg 1.3, repleted and 2.0, continue to follow. # metabolic encephalopathy -patient has mild cog deficits at baseline and now having sundowning -seroquel 25mg qHS ordered Code: DNR, surrogate is MARSHA Fraser DVT: Lovenox renally dosed Dispo: Awaiting SNF auth. Quality VTE Deep Vein Thrombosis/Pulmonary Embolism Present on Admission: No
[2023-06-11 15:00] VITALS: RESP 18
--- NOTE | 2023-06-11 15:15 | PC.NURSE ---
Pt resting at interval. Med x 1 early in shift for leg pain w/good relief. AAKASH PICC intact/patent Dsg to left hip w/ small shadow drainage noted. Sitting in chair this afternoon. Lugo cath patent mirta urine. Call light w/in reach, bed alarm on for pt safety. Continue w/plan of care.
[2023-06-11 15:38] VITALS: BP 121/72; PULSE 105; RESP 19; TEMP 36.1; O2SAT 94
--- NOTE | 2023-06-11 15:45 | PT.IPTN ---
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) Essential (primary) hypertension (06/06/23) Paroxysmal atrial fibrillation (06/06/23) Age-related osteoporosis with current pathological fracture, unspecified femur, initial encounter for fracture (06/06/23) Urinary tract infection, site not specified (06/06/23) Fracture of unspecified part of neck of left femur, initial encounter for closed fracture (06/06/23) Displaced intertrochanteric fracture of left femur, initial encounter for closed fracture (06/06/23) Other specified postprocedural states (06/06/23) Surgery Performed Operation Date: 06/07/23 17:15 Actual Procedures p Intramedullary Nailing Femur(Left) - Berta Mcduffie MD Physical Therapy Treatment Note M2 PT-IP Current Condition Start: 06/08/23 12:45 Freq: NEEDED Status: Active Protocol: Document 06/08/23 10:57 AB (Rec: 06/08/23 13:05 AB [email or web address]) Physical Therapy Current Condition Current Condition Evaluation Date 06/08/23 Treatment Diagnosis L hip fx s/p intramedullary miguel fixation; difficulty in walking Onset Date 06/06/23 M3 PT-IP Subjective Start: 06/08/23 12:45 Freq: NEEDED Status: Active Protocol: Document 06/11/23 16:14 TS (Rec: 06/11/23 16:21 TS [id number]) Subjective Physical Therapy Visit Type Type Treatment Note Visit Start Time 15:45 Visit Stop Time 16:00 Total Visit Minutes 15 Notes Nursing present for assist. Number of PRINTING TECHNICIAN Visits 3 Physical Therapy Visit Comments Patient Comments Pt found resting in chair, agreeable to PT. Therapy Pain Assessment Pain When Pain Assessed During Mobility Pain Present Pain Present Pain Reported Location Left Hip Description With Movement Pain Behaviors Calling Out,Guarding,Holding Area,Restlessness,Wincing Pain Management Techniques Distraction,Re-positioning, Timing of Activity with Medications M4 PT-IP Mobility and Gait Start: 06/08/23 12:45 Freq: NEEDED Status: Active Protocol: Document 06/11/23 16:14 TS (Rec: 06/11/23 16:21 TS [id number]) PT-Bed Mobility Assessment Rolling Level of Assist Maximal Assistance,1 Person Assistance Sit to Supine Sit to Supine Maximum Assistance,2 Person Assistance,Head of Bed Elevated Scooting Scooting Up and Down in Bed Dependent PT-Transfer Assessment Transfers Transfer Destination Chair Transfer Technique Squat Pivot Transfer Ability Level of Assist Maximum Assistance,2 Person Assistance,Use of Upper Extremities Comments Mobility Comments Squat pivot from chair to bed MaxA, cues were provided for weight forward and reaching for bed, pt follows cues well. Sit to supine MaxA x2 for LEs and trunk into bed. Pt is dependent for moving to HOB. Bed zuniga placed under pt with nursing staff MaxA for rolling . Pt was left with nursing. Gait Assessment Comments Gait Comments unable at this time PT-Balance Assessment Sitting Balance and Reactions Static Sitting Balance Ability Fair Dynamic Sitting Balance Ability Poor Standing Balance and Reactions Static Standing Balance Ability Poor Dynamic Standing Balance Ability Poor Device Used FWW M5 PT-IP Objective Assessments Start: 06/08/23 12:45 Freq: NEEDED Status: Active Protocol: Document 06/08/23 10:57 AB (Rec: 06/08/23 13:05 AB [email or web address]) Orientation Orientation/Cognition Level of Alertness Confusional State Orientation Name Language Function Ability Hard of Hearing Safety Awareness Decreased Safety Awareness Memory Description Short Term Impaired,Signals Intelligence Analyst Impaired Gross Range of Motion Lower Extremity ROM Assessment Within Functional Limits Strength Lower Extremity Strength Assessment Left Impaired Hip 3-/5 Knee 3-/5 Sensation Assessment Sensation Gross Sensation WNL Muscle Tone Muscle Tone WNL Yes M6 PT-IP Treatment Start: 06/08/23 12:45 Freq: NEEDED Status: Active Protocol: Document 06/11/23 16:14 TS (Rec: 06/11/23 16:21 TS [id number]) Physical Therapy Treatment Education Education Provided Safety M7 PT-IP Assessment and Plan Start: 06/08/23 12:45 Freq: NEEDED Status: Active Protocol: Document 06/11/23 16:14 TS (Rec: 06/11/23 16:21 TS [id number]) PT Summary Assessment and Plan Potential Rehabilitation Potential Fair Summary Impairments Pain,ROM,Strength,Balance, Coordination,Sensation,Tone, Cognition,Bed Mobility, Transfers,Gait,Activity Tolerance Progress Towards Goals Slow Progress due to Medical Issues,Slow Progress due to Activity Tolerance,Slow Progress - Other Assessment Summary Hilaria continues to make slow progress with her mobility. She performed squat pivot to bed MaxA, can follow single step instructions well. She continues to be MaxA x2 for bed mobility and is dependent scooting to HOB. PT continues to recommend SNF. Goals Bed Mobility Goal Minimal Assistance Transfer Goal Minimal Assistance,Front Wheeled Walker Gait Goal Minimal Assistance,Front Wheel Walker Gait Distance 50 Other Goals improve bed mobility, transfers and ambulation using FWW ~ 150 ft SBA Days to Meet Goals 10 Treatment Plan Physical Therapy Treatment Plan Bed Mobility Training,Transfer Training,Gait Training, Therapeutic Exercise,Balance Retraining,Post Op Education, Discharge Planning,Hot or Cold Pack,Neuromuscular Re-ed, Coordination Retraining,Manual Therapy Other Recommendations and Next Treatment Continue transfers, sit to Focus stand and bed mobility. Attempt to have pt sidestep along EOB. Weight Bearing Status Weight Bearing Status Weight Bear as Tolerated Allowed Weight Bearing Amount (enter % LLE WBAT or #) (%) Recommendations To Nursing Amount of Assist Needed Mechanical Lift Discharge Recommendations PT Discharge Recommendations SNF Rehab Transportation Needs at Discharge Wheelchair/Cabulance
[2023-06-11] MEDS: HYDROMORPHONE 0.5 MG INJ IV ×2 (15:52→21:08)
[2023-06-11] MEDS: QUETIAPINE 25 MG TABLET PO (17:22)
[2023-06-11] MEDS: SENNOSIDES 8.6 MG TABLET 17.2 MG PO (20:59)
[2023-06-11 23:00] VITALS: BP 139/81; PULSE 119; RESP 16; TEMP 36.9; O2SAT 94
[2023-06-12 06:00] VITALS: BP 162/99; PULSE 134; RESP 18; TEMP 35.8; O2SAT 94
[2023-06-12] MEDS: OXYCODONE IR 5 MG TABLET PO ×3 (08:56→17:24)
[2023-06-12] MEDS: FLUoxetine 20 MG CAPSULE PO (08:57)
[2023-06-12] MEDS: DOCUSATE 100 MG CAPSULE PO (08:57)
[2023-06-12] MEDS: dilTIAZem CD 180 MG CAP PO (08:57)
[2023-06-12] MEDS: ENOXAPARIN 30 MG/0.3 ML SYRINGE SUBCUT (08:57)
[2023-06-12 09:04] VITALS: BP 168/90; PULSE 122; RESP 19; TEMP 36.8; O2SAT 96
--- NOTE | 2023-06-12 09:58 | PM.PNPO.1 ---
Subjective Subjective Date Patient Seen: 06/12/23 Time Patient Seen: 09:58 Interval history: Postop day 4 left hip intertrochanteric fracture status post cephalomedullary nail Sitting up finishing breakfast this morning. Answers questions appropriately Asked me to remove her breakfast tray Exam Vital Signs (past 8 hours): - 06/12/23 06:00 06/12/23 09:04 Temperature 96.4 F L 98.2 F Pulse Rate 134 H 122 H Respiratory Rate 18 19 Blood Pressure 162/99 H 168/90 H Pulse Oximetry 94 96 Oxygen Flow Rate 0 0 Oxygen Delivery Method Room Air Oxygen Flow Rate 0 Narrative Exam Narrative: Exam Narrative: Alert, no acute distress lying in bed Appears to answer questions appropriately this morning--motor exam limited secondary to pain--notes soreness when tries to move her left foot Left lower extremity thigh and lower extremity compartments are soft. There is no erythema. Scant amount of dried bloody drainage on the dressing, no saturation. Dressing is intact. Wiggles toes slightly. Patient declines to demonstrate dorsiflexion or plantar flexion of the ankle states secondary to pain--I do see her wiggle her toes slightly and a flicker of dorsiflexion--she does demonstrate good dorsiflexion plantar flexion of the ankle on the right lower extremity to me today. Grossly normal leg length and rotation compared to contralateral Lugo in place Objective Labs 06/11/23 05:00 06/11/23 05:00 [facility] [place] Medical History Thoracic compression fracture Low back strain Aguillon's palsy Chicken pox (~1945) Depression (2010) Hyperlipidemia Hypertension Measles (~194) Mumps (~1942) Osteoporosis (1999) Hearing loss (2011) Collagenous colitis (2005) Breast cancer (2007) Degenerative joint disease of right hip Systolic murmur (06/23/17) Surgical History History of arthroplasty of right hip Anesthesia History of cosmetic surgery (09/2012) History of total right hip arthroplasty (2014) History of gynecologic surgery (2007) History of oophorectomy (1982) Status post breast lumpectomy (2007) Status post hysterectomy (1981) Family History Mother Type II diabetes mellitus Hypertension High cholesterol Father No problems noted. Sister No problems noted. Sister Cancer Sister No problems noted. Sister No problems noted. Other Colorectal cancer Social History marital status: unmarried,living together (partner) number of children: 1 household members: none lives independently: Yes occupational status: other (retired) Smoking Status: Former smoker alcohol intake: current substance use type: does not use Assessment & Plan Post-op Postoperative Procedures: Procedures Operation Date: 06/07/23 17:15 Actual Procedure Side Surgeon p Intramedullary Nailing Femur Left Berta Mcduffie MD Postoperative day: 4 Postoperative status: anemia Postoperative plan: routine post-op care Postoperative plan narrative: Postop day 4 status post cephalomedullary nail for intertrochanteric hip fracture on the left side (date of surgery 06/08/2023) 1. Weightbear as tolerated, range of motion as tolerated, DVT prophylaxis with Lovenox renally dosed subcutaneous for 4 weeks--follow up [facility] 2 weeks for staple removal and repeat x-rays--the patient unable to be brought to 1st postop appointment by retirement facility--fernando can be removed by retirement facility 12-14 days postop, if the facility is comfortable 2. Heart rates have been elevated over the day-- patient has known AFib. Patient otherwise does not appear in distress-- Discussed with hospitalist regarding rate control 3. Acute blood loss anemia---status post transfusion, hematocrit hemoglobin stable Time Spent With Patient Time with patient: less than 15 minutes Quality VTE Deep Vein Thrombosis/Pulmonary Embolism Present on Admission: No
[2023-06-12] MEDS: HYDROMORPHONE 0.5 MG INJ IV ×3 (10:37→18:36)
--- NOTE | 2023-06-12 11:27 | CM.DPC ---
DCP SNF planning: Per MD, pt on scheduled Seroquel and seems to be working well and medically stable to d/c once safe discharge plan determined. Per PT, recommending SNF rehab before return to [facility]. SNF updates on [employer] contracted facilities: [facility]- declines [facility]- declines [facility]- left msg (no admissions today Sun) and faxed referral [facility]- previously faxed and left msg and no return call yet [facility]- left msg and faxed referral Plan: SW to follow closely later today with the above SNF facilities and further PT towards plan of SNF under [employer] before safe return to [facility] and to keep DPOA Evelio updated. Carolina Guallpa MSW
--- NOTE | 2023-06-12 12:04 | PT.IPTN ---
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) Essential (primary) hypertension (06/06/23) Paroxysmal atrial fibrillation (06/06/23) Age-related osteoporosis with current pathological fracture, unspecified femur, initial encounter for fracture (06/06/23) Urinary tract infection, site not specified (06/06/23) Fracture of unspecified part of neck of left femur, initial encounter for closed fracture (06/06/23) Displaced intertrochanteric fracture of left femur, initial encounter for closed fracture (06/06/23) Other specified postprocedural states (06/06/23) Surgery Performed Operation Date: 06/07/23 17:15 Actual Procedures p Intramedullary Nailing Femur(Left) - Berta Mcduffie MD Physical Therapy Treatment Note M2 PT-IP Current Condition Start: 06/08/23 12:45 Freq: NEEDED Status: Active Protocol: Document 06/08/23 10:57 AB (Rec: 06/08/23 13:05 AB [email or web address]) Physical Therapy Current Condition Current Condition Evaluation Date 06/08/23 Treatment Diagnosis L hip fx s/p intramedullary miguel fixation; difficulty in walking Onset Date 06/06/23 M3 PT-IP Subjective Start: 06/08/23 12:45 Freq: NEEDED Status: Active Protocol: Document 06/12/23 13:03 AB(2) (Rec: 06/12/23 13:29 AB(2) [id number]) Subjective Physical Therapy Visit Type Type Treatment Note Visit Start Time 11:44 Visit Stop Time 12:04 Total Visit Minutes 20 Physical Therapy Visit Comments Patient Comments Pt presents semi supine in bed but is agreeable to PT. Therapy Pain Assessment Pain When Pain Assessed During Mobility Pain Present Pain Present Pain Reported Location Left Hip Intensity 8 Scale Used Numeric (0 - 10) Description With Movement Pain Behaviors Calling Out,Facial Grimacing, Wincing Pain Management Techniques Distraction,Re-positioning, Timing of Activity with Medications M4 PT-IP Mobility and Gait Start: 06/08/23 12:45 Freq: NEEDED Status: Active Protocol: Document 06/12/23 13:03 AB(2) (Rec: 06/12/23 13:29 AB(2) [id number]) PT-Bed Mobility Assessment Supine to Sit Supine to Sit Maximum Assistance,1 Person Assistance,Head of Bed Elevated,Bedrails PT-Transfer Assessment Equipment Transfer Assistive Device Gait Belt Orthotic/Prosthetic Devices or Brace: No Transfers Transfer Destination Chair Transfer Technique Squat Pivot Transfer Ability Level of Assist Maximum Assistance,1 Person Assistance,Use of Upper Extremities Comments Mobility Comments The pt required maxA x1 with HOB elevated to perform bed mobility to sit at EOB, but required intermittent breaks during this activity due to significant pain. Once sitting at EOB, the pt performs transfer to chair using squat pivot technique with maxA x1 from PT, with pt assisting with UEs. The pt is positioned comfortably in chair with all needs met, call light within reach, and chair alarm set. Gait Assessment Comments Gait Comments unable at this time PT-Balance Assessment Sitting Balance and Reactions Static Sitting Balance Ability Fair Dynamic Sitting Balance Ability Fair Standing Balance and Reactions Static Standing Balance Ability Poor Dynamic Standing Balance Ability Poor M5 PT-IP Objective Assessments Start: 06/08/23 12:45 Freq: NEEDED Status: Active Protocol: Document 06/08/23 10:57 AB (Rec: 06/08/23 13:05 AB [id number]) Orientation Orientation/Cognition Level of Alertness Confusional State Orientation Name Language Function Ability Hard of Hearing Safety Awareness Decreased Safety Awareness Memory Description Short Term Impaired,Assisted Impaired Gross Range of Motion Lower Extremity ROM Assessment Within Functional Limits Strength Lower Extremity Strength Assessment Left Impaired Hip 3-/5 Knee 3-/5 Sensation Assessment Sensation Gross Sensation WNL Muscle Tone Muscle Tone WNL Yes M6 PT-IP Treatment Start: 06/08/23 12:45 Freq: NEEDED Status: Active Protocol: Document 06/12/23 13:03 AB(2) (Rec: 06/12/23 13:29 AB(2) [id number]) Physical Therapy Treatment Education Education Provided Safety M7 PT-IP Assessment and Plan Start: 06/08/23 12:45 Freq: NEEDED Status: Active Protocol: Document 06/12/23 13:03 AB(2) (Rec: 06/12/23 13:29 AB(2) [id number]) PT Summary Assessment and Plan Potential Rehabilitation Potential Fair Summary Impairments Pain,ROM,Strength,Balance, Coordination,Sensation,Tone, Cognition,Bed Mobility, Transfers,Gait,Activity Tolerance Progress Towards Goals Slow Progress due to Pain,Slow Progress due to Medical Issues,Slow Progress due to Activity Tolerance Assessment Summary The pt continues with slow progress towards her goals. She continues to require a high level of assistance due to weakness, endurance deficits and significant pain levels. Her pain levels increase even with PROM of her left ankle. The pt was able to perform bed mobility and transfer with maxA x1 today, as opposed to x2 demonstrating some improvement. The pt continues to benefit from skilled PT at this time due to her deficits. PT continues to recommend d/c to SNF due to significant level of assistance required for functional mobility. Goals Bed Mobility Goal Minimal Assistance Transfer Goal Minimal Assistance,Front Wheeled Walker Gait Goal Minimal Assistance,Front Wheel Walker Gait Distance 50 Other Goals improve bed mobility, transfers and ambulation using FWW ~ 150 ft SBA Days to Meet Goals 10 Frequency of Treatment Frequency Of Treatment Twice a Day Treatment Plan Physical Therapy Treatment Plan Bed Mobility Training,Transfer Training,Gait Training, Therapeutic Exercise,Balance Retraining,Post Op Education, Discharge Planning,Hot or Cold Pack,Neuromuscular Re-ed, Coordination Retraining,Manual Therapy Other Recommendations and Next Treatment Continue transfers, sit to Focus stand and bed mobility. Attempt to have pt sidestep along EOB. Weight Bearing Status Weight Bearing Status Weight Bear as Tolerated Allowed Weight Bearing Amount (enter % LLE WBAT or #) (%) Recommendations To Nursing Amount of Assist Needed 2 Person Assist,Mechanical Lift Discharge Recommendations PT Discharge Recommendations SNF Rehab Transportation Needs at Discharge Wheelchair/Cabulance
[2023-06-12] MEDS: methocarbamoL 500 MG TABLET PO (12:39)
--- NOTE | 2023-06-12 13:20 | PT-IP ANOTE ---
Pt recently got back to bed with nursing, too fatigued to attempt further mobility currently. PT will continue to follow tomorrow.
[2023-06-12 14:38] LABS: Add Manual Diff / Slide Review NO; Basophils Absolute Auto 0 /uL (0-100); Basophils Percent Auto 0.5 % (0-2); Eosinophils Absolute Auto 200 /uL (0-450); Eosinophils Percent Auto 2.3 % (2-4); Hemoglobin 11.3 g/dL (12.0-16.0); Lymphocytes Absolute Auto 1400 /uL (1100-4500); Lymphocytes Percent Auto 15.3 % (25-40); Mean Corpuscular HGB Conc 34.3 % (30-36); Mean Corpuscular Hemoglobin 29.6 PG (26-34); Mean Corpuscular Volume 86.3 fL (80-100); Monocytes Absolute Auto 900 /uL (0-900); Monocytes Percent Auto 9.5 % (3-14); Neutrophils Absolute Auto 6500 /uL (1500-7000); Neutrophils Percent Auto 72.4 % (50-75); Platelet Count 234 X10^3/uL (150-400); Red Blood Cell Count 3.83 X10^6/uL (4.0-5.2); Red Cell Distribution Width 16.3 % (11.6-14.8)
[2023-06-12 14:47] LABS: Magnesium 1.6 mg/dL (1.6-2.3)
[2023-06-12 14:48] LABS: Alanine Aminotransferase 17 IU/L (<35); Albumin 2.7 g/dL (3.5-5.0); Alkaline Phosphatase 91 U/L (38-126); Aspartate Aminotransferase 23 IU/L (14-36); BUN Creatinine Ratio 34.5 (6-22); Bilirubin Total 0.9 mg/dL (0.2-1.3); Blood Urea Nitrogen 19 mg/dL (7-17); Calcium 8.5 mg/dL (8.4-10.2); Carbon Dioxide 28 mmol/L (22-32); Chloride 101 mmol/L (98-107); Estimated Glomerular Filt Rate > 60 mL/min (>60); Globulin 2.7 g/dL (1.7-4.1); Glucose 107 mg/dL (80-110); HEMOLYSIS < 15 (0-50); Sodium 133 mmol/L (137-145); Total Protein 5.4 g/dL (6.3-8.2)
[2023-06-12] MEDS: SODIUM CHLORIDE 0.9% 1,000 ML 100 ML IV (15:17)
[2023-06-12 15:34] LABS: TSH w/ Reflex to FT4 5.46 uIU/mL (0.47-4.68)
--- NOTE | 2023-06-12 15:47 | P.PN_ITS ---
Subjective Subjective Interval history: Patient tachy to 120's. EKG shows sinus tach. Started on IVF for likely dehydration. Exam Vital Signs (past 8 hours): - 06/12/23 09:04 Temperature 98.2 F Pulse Rate 122 H Respiratory Rate 19 Blood Pressure 168/90 H Pulse Oximetry 96 Oxygen Flow Rate 0 Oxygen Delivery Method Room Air Oxygen Flow Rate 0 Narrative Exam Narrative: Alert, no acute distress, sleeping Appears to answer questions appropriately this morning--motor exam limited secondary to pain--notes soreness when tries to move her left foot Left lower extremity thigh and lower extremity compartments are soft. There is no erythema. Scant amount of dried bloody drainage on the dressing, no saturation. Dressing is intact. Wiggles toes slightly. Patient declines to demonstrate dorsiflexion or plantar flexion of the ankle states secondary to pain--I do see her wiggle her toes slightly and a flicker of dorsiflexion--she does demonstrate good dorsiflexion plantar flexion of the ankle on the right lower extremity to me today. Grossly normal leg length and rotation compared to contralateral Lug[place] in place Objective Labs 06/12/23 14:30 06/12/23 14:30 Labs: Laboratory Results - last 24 hr 06/12/23 14:30 WBC 9.0 RBC 3.83 L Hgb 11.3 L Hct 33.0 L MCV 86.3 MCH 29.6 MCHC 34.3 RDW 16.3 H Plt Count 234 Neut % (Auto) 72.4 Lymph % (Auto) 15.3 L [place] % (Auto) 9.5 Eos % (Auto) 2.3 Baso % (Auto) 0.5 Neut # (Auto) 6500 Lymph # (Auto) 1400 [place] # (Auto) 900 Eos # (Auto) 200 Baso # (Auto) 0 Sodium 133 L Potassium 4.0 Chloride 101 Carbon Dioxide 28 BUN 19 H Creatinine 0.55 Estimated GFR > 60 BUN/Creatinine Ratio 34.5 H Glucose 107 Calcium 8.5 Magnesium 1.6 Total Bilirubin 0.9 AST 23 ALT 17 Alkaline Phosphatase 91 Total Protein 5.4 L Albumin 2.7 L Globulin 2.7 Albumin/Globulin Ratio 1.0 TSH 5.46 [facility] Medical History Thoracic compression fracture Low back strain Aguillon's palsy Chicken pox (~1945) Depression (2010) Hyperlipidemia Hypertension Measles (~1942) Mumps (~1942) Osteoporosis (1999) Hearing loss (2011) Collagenous colitis (2005) Breast cancer (2007) Degenerative joint disease of right hip Systolic murmur (06/23/17) Surgical History History of arthroplasty of right hip Anesthesia History of cosmetic surgery (09/2012) History of total right hip arthroplasty (2014) History of gynecologic surgery (2007) History of oophorectomy (1982) Status post breast lumpectomy (2007) Status post hysterectomy (1981) Family History Mother Type II diabetes mellitus Hypertension High cholesterol Father No problems noted. Sister No problems noted. Sister Cancer Sister No problems noted. Sister No problems noted. Other Colorectal cancer Social History marital status: unmarried,living together (partner) number of children: 1 household members: none lives independently: Yes occupational status: other (retired) Smoking Status: Former smoker alcohol intake: current substance use type: does not use Assessment & Plan Assessment & Plan narrative: # Left proximal femur fracture, pathologic secondary to osteoporosis, present on admission. - underwnet L femoral miguel placement with orthopedics on 06/[address] Mcduffie. WBAT LLE as tolerated per ortho. - continue pain control, will add robaxin given muscle spasms. - PT/OT rec SNF # sinus tach -IVF # acute anemia, stable -Hgb down to 7.3 from 10.3 following surgery, unclear if from OR blood losses -dipped to 6.7 on 06/09 -2 units PRBC ordered -stool guaiac ordered -Hgb now stable at 10.4>10.6 # Paroxysmal A-fib: - rate controlled, not on any anticoagulation Tx due to falls. - continue home diltiazem # Hypertension: - continue dilt, held lisinopril prior to OR and will continue to hold today with soft BP # Depression: - Continue home Trazodone, Hydroxyzine prn, Fluoxetine # Asymptomatic bacteruria - urine specimen highly contaminated, sent for culture. No recent symptoms, hold additional antibiotics. Was given ceftriaxone in the ER. # Hypomagnesemia - Mg 1.3, repleted and 2.0, continue to follow. # metabolic encephalopathy -patient has mild cog deficits at baseline and now having sundowning -seroquel 25mg qHS ordered and helping Code: DNR, surrogate is MARSHA Fraser DVT: Lovenox renally dosed Dispo: Awaiting SNF auth. Quality VTE Deep Vein Thrombosis/Pulmonary Embolism Present on Admission: No
[2023-06-12 15:58] VITALS: BP 138/80; PULSE 130; RESP 17; TEMP 36.6; O2SAT 97
[2023-06-12] MEDS: MAGNESIUM SULFATE 2 GM/50 ML PIGGYBACK IV (16:41)
[2023-06-12] MEDS: QUETIAPINE 25 MG TABLET PO (17:27)
[2023-06-12 21:09] VITALS: BP 114/65; PULSE 100; RESP 17; TEMP 36.1; O2SAT 96
[2023-06-13] MEDS: HYDROMORPHONE 0.5 MG INJ IV ×2 (03:05→21:25)
[2023-06-13] MEDS: SODIUM CHLORIDE 0.9% 1,000 ML 100 ML IV ×2 (03:06→19:53)
[2023-06-13 05:15] VITALS: BP 135/78; PULSE 111; RESP 17; TEMP 36.4
--- NOTE | 2023-06-13 05:58 | PC.NURSE ---
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
[2023-06-13] MEDS: OXYCODONE IR 5 MG TABLET PO ×3 (06:59→16:24)
[2023-06-13 09:00] VITALS: BP 127/71; PULSE 107; RESP 17; TEMP 36.4; O2SAT 97
[2023-06-13] MEDS: dilTIAZem CD 180 MG CAP PO (09:20)
[2023-06-13] MEDS: FLUoxetine 20 MG CAPSULE PO (09:21)
[2023-06-13] MEDS: ENOXAPARIN 30 MG/0.3 ML SYRINGE SUBCUT (09:21)
[2023-06-13] MEDS: ACETAMINOPHEN 325 MG TABLET 650 MG PO ×2 (09:21→18:44)
--- NOTE | 2023-06-13 11:04 | CM.DPC ---
Addendum entered by LORA Tucker 06/13/23 15:48: ADD: RAO spoke to TAMEKA Fraser and updated on [facility] only contracted SNF that will accept. Evelio confirms agreement with [facility] and aware pt may d/c tomorrow 06/14 if insurance SNF auth obtained and aware facility van would likely transport as he is not available to provide transport himself tomorrow. BF Original Note: DCP SNF Planning: Per MD, pt is medically stable to d/c once SNF secured and insurance auth obtained. RAO spoke to pt's DPOA Evelio and updated on awaiting for confirmation from [facility], [facility], and [facility] Preference remains [facility] if possible due to location near him but confirms agreeable with [employer] contracted facility that can accept. RAO followed up on SNF referrals: [facility]- declines [facility]- declines [facility]- not contracted [facility]- not accepting [employer] right now [facility]- currently have COVID outbreak, limited acceptance, decline at this time. [facility]- willing to accept, initiated [employer] MCR auth this morning 06/13. SW attempted to call MARSHA Fraser to update on [facility] acceptance and voicemail is full and cannot leave ms. Will attempt again later today. Plan: RAO to follow for plan of d/c to [facility] once [employer] MCR auth obtained and to keep TAMEKA Fraser updated. LORA Tucker
--- NOTE | 2023-06-13 11:16 | PT.IPTN ---
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) Essential (primary) hypertension (06/06/23) Paroxysmal atrial fibrillation (06/06/23) Age-related osteoporosis with current pathological fracture, unspecified femur, initial encounter for fracture (06/06/23) Urinary tract infection, site not specified (06/06/23) Fracture of unspecified part of neck of left femur, initial encounter for closed fracture (06/06/23) Displaced intertrochanteric fracture of left femur, initial encounter for closed fracture (06/06/23) Other specified postprocedural states (06/06/23) Surgery Performed Operation Date: 06/07/23 17:15 Actual Procedures p Intramedullary Nailing Femur(Left) - Berta Mcduffie MD Physical Therapy Treatment Note M2 PT-IP Current Condition Start: 06/08/23 12:45 Freq: NEEDED Status: Active Protocol: Document 06/08/23 10:57 AB (Rec: 06/08/23 13:05 AB [id number]) Physical Therapy Current Condition Current Condition Evaluation Date 06/08/23 Treatment Diagnosis L hip fx s/p intramedullary miguel fixation; difficulty in walking Onset Date 06/06/23 M3 PT-IP Subjective Start: 06/08/23 12:45 Freq: NEEDED Status: Active Protocol: Document 06/13/23 11:51 ZF (Rec: 06/13/23 12:17 ZF [id number]) Subjective Physical Therapy Visit Type Type Treatment Note Visit Start Time 11:16 Visit Stop Time 11:48 Total Visit Minutes 32 Notes CoTreat w/OT due to high level of assist required for transfer training. Number of WEB ANALYTICS SPECIALIST Visits 1 Physical Therapy Visit Comments Patient Comments Pt presents resting in bed w/ HOB raised, and knees elevated . Therapy Pain Assessment Pain When Pain Assessed During Mobility Pain Present Pain Present Pain Reported Location Left Hip Description With Movement Pain Behaviors Calling Out,Facial Grimacing, Wincing Pain Management Techniques Apply Cold,Re-positioning, Timing of Activity with Medications M4 PT-IP Mobility and Gait Start: 06/08/23 12:45 Freq: NEEDED Status: Active Protocol: Document 06/13/23 11:51 ZF (Rec: 06/13/23 12:17 ZF [id number]) PT-Bed Mobility Assessment Supine to Sit Supine to Sit Maximum Assistance,2 Person Assistance,Head of Bed Elevated,Bedrails PT-Transfer Assessment Sit to and From Stand Sit to and from Stand Maximum Assistance,2 Person Assistance,Use of Upper Extremities Equipment Transfer Assistive Device Gait Belt Orthotic/Prosthetic Devices or Brace: No Transfers Transfer Destination Chair,Bedside Commode Transfer Technique Squat Pivot Transfer Ability Level of Assist Maximum Assistance,1 Person Assistance,Use of Upper Extremities Comments Mobility Comments Pt reports L LE pain to touch when putting on sock.Pt grimaces and calls out when flattening out legs with bed control. Pt requries MaxA for movine LE to EOB, MaxAx2 for supine>Sitting EOB. Attempted STS from EOB using 2ww w/ MaxAx2, but unable to achieve standing due to pt's pain and FOF. Completed squat pivot transfer to bedside commode, which requires MaxA. Second person to complete pericare and brief management. Cueing for proper handplacment. Pt remains in forwar trunk flexed position w/BL knee flexion. Standing for pericare and brief management requires MaxA . Squat pivot from BSC to recliner requires MaxA. Pt positioned in recliner w/LE elevated, ice pack provided to L hip, Call light within reach. Gait Assessment Comments Gait Comments Unable at this time. PT-Balance Assessment Sitting Balance and Reactions Static Sitting Balance Ability Fair Dynamic Sitting Balance Ability Fair Standing Balance and Reactions Static Standing Balance Ability Poor Dynamic Standing Balance Ability Poor Device Used FWW M5 PT-IP Objective Assessments Start: 06/08/23 12:45 Freq: NEEDED Status: Active Protocol: Document 06/08/23 10:57 AB (Rec: 06/08/23 13:05 AB [id number]) Orientation Orientation/Cognition Level of Alertness Confusional State Orientation Name Language Function Ability Hard of Hearing Safety Awareness Decreased Safety Awareness Memory Description Short Term Impaired,Music Professionals Impaired Gross Range of Motion Lower Extremity ROM Assessment Within Functional Limits Strength Lower Extremity Strength Assessment Left Impaired Hip 3-/5 Knee 3-/5 Sensation Assessment Sensation Gross Sensation WNL Muscle Tone Muscle Tone WNL Yes M6 PT-IP Treatment Start: 06/08/23 12:45 Freq: NEEDED Status: Active Protocol: Document 06/13/23 11:51 ZF (Rec: 06/13/23 12:17 ZF [id number]) Physical Therapy Treatment Education Education Provided Safety M7 PT-IP Assessment and Plan Start: 06/08/23 12:45 Freq: NEEDED Status: Active Protocol: Document 06/13/23 11:51 ELENA (Rec: 06/13/23 12:17 ZF [id number]) PT Summary Assessment and Plan Potential Rehabilitation Potential Fair Summary Impairments Pain,ROM,Strength,Balance, Coordination,Sensation,Tone, Cognition,Bed Mobility, Transfers,Gait,Activity Tolerance Progress Towards Goals Slow Progress due to Pain,Slow Progress due to Medical Issues,Slow Progress due to Activity Tolerance Assessment Summary Pt progress continues to be slow due to high pain levels, reduced activity tolerance, reduced ROM. PT recommending SNF due to high level of assist required for functional mobility. Goals Bed Mobility Goal Minimal Assistance Transfer Goal Minimal Assistance,Front Wheeled Walker Gait Goal Minimal Assistance,Front Wheel Walker Gait Distance 50 Other Goals improve bed mobility, transfers and ambulation using FWW ~ 150 ft SBA Days to Meet Goals 10 Frequency of Treatment Frequency Of Treatment Twice a Day Treatment Plan Physical Therapy Treatment Plan Bed Mobility Training,Transfer Training,Gait Training, Therapeutic Exercise,Balance Retraining,Post Op Education, Discharge Planning,Hot or Cold Pack,Neuromuscular Re-ed, Coordination Retraining,Manual Therapy Other Recommendations and Next Treatment Continue transfers, sit to Focus stand and bed mobility. Attempt to have pt sidestep along EOB. Weight Bearing Status Weight Bearing Status Weight Bear as Tolerated Allowed Weight Bearing Amount (enter % LLE WBAT or #) (%) Recommendations To Nursing Amount of Assist Needed 2 Person Assist,Total Assistance Discharge Recommendations PT Discharge Recommendations SNF Rehab Transportation Needs at Discharge Wheelchair/Cabulance
--- NOTE | 2023-06-13 11:48 | OT.IP.TRT ---
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) Essential (primary) hypertension (06/06/23) Paroxysmal atrial fibrillation (06/06/23) Age-related osteoporosis with current pathological fracture, unspecified femur, initial encounter for fracture (06/06/23) Urinary tract infection, site not specified (06/06/23) Fracture of unspecified part of neck of left femur, initial encounter for closed fracture (06/06/23) Displaced intertrochanteric fracture of left femur, initial encounter for closed fracture (06/06/23) Other specified postprocedural states (06/06/23) Surgery Performed Operation Date: 06/07/23 17:15 Actual Procedures p Intramedullary Nailing Femur(Left) - Berta Mcduffie MD Occupational Therapy Treatment Note M2 OT-IP Current Condition Start: 06/08/23 14:57 Freq: Status: Active Protocol: Document 06/10/23 10:27 [facility] (Rec: 06/10/23 11:42 [facility] [id number]) Occupational Therapy Current Condition Current Condition Evaluation Date 06/10/23 Treatment Diagnosis S/P left hip s/p intramedullary miguel fixation Diagnosis Onset Date 06/06/23 M3 OT- IP Subjective and Pain Start: 06/08/23 14:57 Freq: Status: Active Protocol: Document 06/13/23 13:06 CGR (Rec: 06/13/23 13:29 [facility] [id number]) OT- Subjective Occupational Therapy Visit Type Type Progress Note Visit Start Time 11:22 Visit Stop Time 11:48 Total Visit Minutes 26 Notes Co-treat with P.T. Occupational Therapy Visit Comments Patient Comments Pt is requesting to get up to toilet. OT Pain Assessment Pain When Pain Assessed During Mobility Pain Present Pain Present Pain Reported Location Left Hip Scale Used did not rate Pain Behaviors Calling Out,Facial Grimacing, Guarding,Wincing Management Techniques Apply Cold,Modification of Treatment,Re-positioning, Timing of Activity with Medications M4 OT- IP ADL's Start: 06/08/23 14:57 Freq: Status: Active Protocol: Document 06/13/23 13:06 CGR (Rec: 06/13/23 13:29 [facility] [id number]) OT MIV-[place] General Evaluation Self-Feeding Ability Independent Comments OT Self-Feeding Comments for eating apple sauce. OT ADL-Grooming Comments OT Grooming Comments not performed OT ADL-Oral Care Comments Oral Care Comments not performed OT ADL-Dressing General Eval Lower Body Dressing Ability Total Assistance Areas Needing Assistance Underpants/Brief,Socks Comments OT Dressing Comments donning socks in bed, clean brief donned in sitting. OT ADL-Toileting General Evaluation Toileting Ability Total Assistance Comments OT Toileting Comments Pt had BM seated on BSC. Pt needed total assist for pericare and donning of clean brief. OT ADL-Bathing Comments OT Bathing Comments not performed M5 OT- IP IADL's Start: 06/08/23 14:57 Freq: Status: Active Protocol: Document 06/10/23 10:27 [facility] (Rec: 06/10/23 11:42 [facility] [id number]) OT-Instrumental Activities of Daily Living Deficits IADL Deficits Identified Deficits Home Safety Awareness Home Safety Comments Pt is aware to use the call light for assist. Medication Management Medication Management Caregiver Administers Money Management Money Management Caregiver Provides Assistance Meal Preparation Meal Preparation Caregiver Provides Assist Sail Repairer Sail Repairer Caregiver Provides Assist M6 OT- IP Functional Cognition Start: 06/08/23 14:57 Freq: Status: Active Protocol: Document 06/13/23 13:06 CGR (Rec: 06/13/23 13:29 CGR [id number]) OT- Vision and Hearing OT- Hearing Assessment OT- Hearing Assessment WFL M7 OT- IP Mobility and Balance Start: 06/08/23 14:57 Freq: Status: Active Protocol: Document 06/13/23 13:06 CGR (Rec: 06/13/23 13:29 CGR [id number]) OT- Bed Mobility Assessment Supine to Sit Supine to Sit Assist Maximum Assistance,1 Person Assistance,2 Person Assistance Scooting Scooting to Edge of Bed Maximum Assistance,1 Person Assistance OT-Transfer Assessment Sit to and From Stand Sit to and from Stand Maximum Assistance,1 Person Assistance Transfers Transfer Ability Maximum Assistance,1 Person Assistance Technique Transfer Destination Bed,Bedside Commode,Chair Transfer Technique Squat Pivot Devices Transfer Assistive Devices Gait Belt,Front Wheeled Walker Comments Mobility Comments Pt attemted sit to stand but it appears that pt is unable to tolerate straightening her hip for sit to stand. Pt performed max x 1 squat pivot transfer for tranfer to BSC and to chair. Pt left sitting up in chair at end of session. OT- Gait Assessment Comments Gait Ability Comments not performed OT- Balance Assessment Sitting Balance and Reactions Static Sitting Balance Ability Good Dynamic Sitting Balance Ability Fair M8 OT- IP Objective Assessments Start: 06/08/23 14:57 Freq: Status: Active Protocol: Document 06/10/23 10:27 [facility] (Rec: 06/10/23 11:42 [facility] [id number]) OT Gross Range of Motion Upper Extremity Range of Motion Assessment Bilaterally Impaired OT Strength Upper Extremity Strength Assessment Bilaterally Impaired M9 OT- IP Assessment and Plan Start: 06/08/23 14:57 Freq: Status: Active Protocol: Document 06/13/23 13:06 CGR (Rec: 06/13/23 13:29 CGR [id number]) OT Summary Assessment and Plan Potential Rehabilitation Potential Fair Analytic Complexity at Evaluation Moderate Summary OT Impairments Pain,Strength,Balance, Functional Cognition, Functional Mobility,Self- Feeding,Grooming,Dressing, Toileting,Bathing,Toilet Transfers,Shower Transfers, Activity Tolerance Progress Towards Goals Slow Progress due to Pain,Slow Progress due to Activity Tolerance Assessment Summary Pt MOD complexity and main barriers are pain, strength, and now needing extensive assist for mobility needs. Pt will benefit from skilled rehab to maximize her independence as prior Pt was BENI with all basic ADL's and walking with a FWW. Pt still needing max a for transfers at this time and appears unable to tolerate standing posture d /t pain in the hip. Goals Grooming Goal Independent Dressing Goal Minimal Assistance Toileting Goal Minimal Assistance Toilet Transfer Goal Standby Assistance Shower Transfer Goal Minimal Assistance Days to Meet Goals 25 Frequency of Treatment Frequency Of Treatment Once a Day Treatment Plan OT Treatment Plan ADL Training,Functional Mobility,Patient/Family Education,Discharge Planning Other Treatment Recommendations and Next Transfer to [facility] with MAX AX 2 Treatment Focus and FWW. Discharge Recommendations OT Discharge Recommendations SNF Rehab Transportation Needs at Discharge Wheelchair/Cabulance
--- NOTE | 2023-06-13 11:57 | ST.IPDYTX ---
Visit Care Team Role Provider Type Lev Archuleta DO Primary Care Provider Physician Specialty: Family Practice Address: [address] [place] [address], [id number] Email: Janette Kirk MD Emergency Provider Physician Referring Provider Specialty: Emergency Medicine Address: [address] [place] [address], [id number] Email: Devin Olea MD Admit Provider Physician Attending Provider Specialty: Internal Medicine Address: [address] [place] [address] Fax: Email: [email or web address] TANK FARM OPERATOR Dysphagia Treatment TANK FARM OPERATOR Dysphagia Treatment Start: 06/13/23 11:38 Freq: Status: Active Protocol: Document 06/13/23 11:38 CG (Rec: 06/13/23 11:56 CG [id number]) Dysphagia Treatment Session Time Visit Start Time 10:45 Visit Stop Time 11:10 Total Visit Minutes 25 Visit Information Visit Number 2 Setting Assessment Location Acute Care Patient Information Subjective Observations Pt was laying in bed having just pressed call light upon ST entry to the room, with nursing following. Pt c/o severe pain in L leg near incision site - nursing repositioned leg and added ice pack. Pt agreeable to repositioning HOB upright for PO trials with ST. She stated she felt nauseous due to pain and therefore did not want to trial solid foods, but was agreeable to liquids. Pt reported she had choked on some water earlier this morning. [facility] has been providing meds in applesauce as recommended, which pt is tolerating well. Treatment Liquids Trialed Thin (IDDSI 0) Administration Type Cup Single Sip Oral Strategies Upright at 90 degrees, Controlled Bite/Sip Size Pharyngeal Strategies Sitting Upright (90 deg),Chin Tuck,Small Bites and Sips Treatment Activities TANK FARM OPERATOR assisted pt in repositioning HOB with bed controls to upright position, while providing education regarding importance of upright position for PO intake to reduce risk of aspiration pneumonia. Probed pt for recall of previously recommended strategies and provided ongoing education in swallowing mechanism and risks for aspiration pneumonia given clinical s/sx aspiration (coughing on thin liquids). Conducted PO trials of cold water and room temperature water via cup sip with cues to use strategies as outlined in Assessment portion below. Followed up with nursing regarding pt status and new recommendations. The IDDSI Framework Protocol: IDDSI.1 Assessment Patient Response to Treatment Good Rehab Potential Fair Assessment of Improvement During trials thin liquids via cup sip, pt was first given ice water. TANK FARM OPERATOR verbally cued small sip, which pt demonstrated. Good acceptance and oral containment, but suspect premature spillage from the oral cavity to the pharynx as this trial was immediately followed by reflexive cough. Pt stated the cold water irritated her throat; therefore, subsequent trials were completed with room temperature water. For second trial thin via cup sip, TANK FARM OPERATOR again verbally cued small sip which pt demonstrated. Again, swallow resulted in reflexive weak cough and throat clearing. Trialed a third time with same response (reflexive cough/throat clear) . Given s/sx aspiration/ penetration on 3/3 trials thin with small sip, TANK FARM OPERATOR initiated trials of chin tuck to assess for impact on swallow function. TANK FARM OPERATOR provided pt education on accurate completion of chin tuck before providing cup sip thin, verbally cueing for small sip and chin tuck. With chin tuck in place, no overt s/sx aspiration/penetration were observed. This was repeated with verbal cues once more with no overt s/sx aspiration/ penetration. Verbal cues were then witheld for next trial with pt still demonstrating accurate use of chin tuck and small sip strategy and no overt s/sx aspiration. It should be noted that silent aspiration cannot be ruled out without an instrumental assessment; however, pt would be unable to tolerate transfer for MBS at this time due to pain level and subsequent limited mobility. Throughout therapeutic trials, pt was able to independently bring cup to mouth and independently took small sips. After initial two trials of chin tuck with cues, she was able to complete chin tuck uncued; however, due to ongoing cognitive concerns she will likely need ongoing cueing to use these strategies . Solids were not trialed due to pt declining 2/ nausea. Based on progress, TANK FARM OPERATOR recommends: 1. Continue meds in applesauce . 2. Continue soft and bite sized solids. 3. Continue thin liquids with verbal cues to take small sips and use chin tuck. 4. Upright position for all PO intake. 5. Consider instrumental assessment as soon as pt is able to tolerate transfer. Recommendations Recommendations Continue Current Diet Liquids Order Thin (IDDSI 0) Diet Order Soft & Bite-sized (IDDSI 6) Medication Recommendations As Tolerated Additional Dietary Needs Reminders to Use Strategies Aspiration Precautions Recommended Precautions Upright at 90 Degrees,Small Bites/Sips,Chin Tuck Treatment Plan Placement Recommendation after Discharge Care Home Facility Appropriate for Continued Therapy Yes Therapy Recommendations Continue training in swallow precautions to decrease level of cueing needed. Continue PO trials to assess diet tolerance. Consider MBSS if/when pt able to tolerate.
[2023-06-13 12:00] VITALS: BP 110/63; PULSE 96; RESP 18; TEMP 36.7; O2SAT 97
--- NOTE | 2023-06-13 14:48 | PT.IPTN ---
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) Essential (primary) hypertension (06/06/23) Paroxysmal atrial fibrillation (06/06/23) Age-related osteoporosis with current pathological fracture, unspecified femur, initial encounter for fracture (06/06/23) Urinary tract infection, site not specified (06/06/23) Fracture of unspecified part of neck of left femur, initial encounter for closed fracture (06/06/23) Displaced intertrochanteric fracture of left femur, initial encounter for closed fracture (06/06/23) Other specified postprocedural states (06/06/23) Surgery Performed Operation Date: 06/07/23 17:15 Actual Procedures p Intramedullary Nailing Femur(Left) - Berta Mcduffie MD Physical Therapy Treatment Note M2 PT-IP Current Condition Start: 06/08/23 12:45 Freq: NEEDED Status: Active Protocol: Document 06/08/23 10:57 AB (Rec: 06/08/23 13:05 AB [id number]) Physical Therapy Current Condition Current Condition Evaluation Date 06/08/23 Treatment Diagnosis L hip fx s/p intramedullary miguel fixation; difficulty in walking Onset Date 06/06/23 M3 PT-IP Subjective Start: 06/08/23 12:45 Freq: NEEDED Status: Active Protocol: Document 06/13/23 15:08 ZF (Rec: 06/13/23 15:19 ZF [id number]) Subjective Physical Therapy Visit Type Type Treatment Note Visit Start Time 14:47 Visit Stop Time 15:05 Total Visit Minutes 18 Notes Pt up in recliner, requests getting back into bed. Number of PETROLEUM REFINERY OPERATOR Visits 1 Therapy Pain Assessment Pain When Pain Assessed During Mobility Pain Present Pain Present Pain Reported Location Left Hip Description With Movement Pain Behaviors Calling Out,Facial Grimacing, Wincing Pain Management Techniques Apply Cold,Re-positioning, Timing of Activity with Medications M4 PT-IP Mobility and Gait Start: 06/08/23 12:45 Freq: NEEDED Status: Active Protocol: Document 06/13/23 15:08 ZF (Rec: 06/13/23 15:19 ZF [id number]) PT-Bed Mobility Assessment Sit to Supine Sit to Supine Maximum Assistance,2 Person Assistance,Head of Bed Elevated Scooting Scooting to Edge of Bed Maximum Assistance Scooting Up and Down in Bed Maximum Assistance PT-Transfer Assessment Transfers Transfer Destination Bed Transfer Technique Squat Pivot Transfer Ability Level of Assist Maximum Assistance,2 Person Assistance Comments Mobility Comments Pt requests getting back in bed from recliner when approached for therapy. Pt dems dems pain behaviors: grimacing, and wincing, with any movement of L LE and with light touch. Squat pivot transfer requires MaxAx2, with pt not contributing to transfer. Pt requires MaxAx2 for sitting EOB>Supine. and MaxA for scooting and positioning in bed. Pt provided w/call light, and bed alarm set upon leaving room. Gait Assessment Comments Gait Comments Unable at this time. PT-Balance Assessment Sitting Balance and Reactions Static Sitting Balance Ability Fair Dynamic Sitting Balance Ability Poor M5 PT-IP Objective Assessments Start: 06/08/23 12:45 Freq: NEEDED Status: Active Protocol: Document 06/08/23 10:57 AB (Rec: 06/08/23 13:05 AB [id number]) Orientation Orientation/Cognition Level of Alertness Confusional State Orientation Name Language Function Ability Hard of Hearing Safety Awareness Decreased Safety Awareness Memory Description Short Term Impaired,Group Home Impaired Gross Range of Motion Lower Extremity ROM Assessment Within Functional Limits Strength Lower Extremity Strength Assessment Left Impaired Hip 3-/5 Knee 3-/5 Sensation Assessment Sensation Gross Sensation WNL Muscle Tone Muscle Tone WNL Yes M6 PT-IP Treatment Start: 06/08/23 12:45 Freq: NEEDED Status: Active Protocol: Document 06/13/23 11:51 ZF (Rec: 06/13/23 12:17 ZF [id number]) Physical Therapy Treatment Education Education Provided Safety M7 PT-IP Assessment and Plan Start: 06/08/23 12:45 Freq: NEEDED Status: Active Protocol: Document 06/13/23 15:08 ZF (Rec: 06/13/23 15:19 ZF [id number]) PT Summary Assessment and Plan Potential Rehabilitation Potential Fair Summary Impairments Pain,ROM,Strength,Balance, Coordination,Sensation,Tone, Cognition,Bed Mobility, Transfers,Gait,Activity Tolerance Progress Towards Goals Slow Progress due to Pain,Slow Progress due to Medical Issues,Slow Progress due to Activity Tolerance Assessment Summary Pt progress continues to be slow due to high pain levels, reduced activity tolerance, reduced ROM. PT recommending SNF due to high level of assist required for functional mobility. Goals Bed Mobility Goal Minimal Assistance Transfer Goal Minimal Assistance,Front Wheeled Walker Gait Goal Minimal Assistance,Front Wheel Walker Gait Distance 50 Other Goals improve bed mobility, transfers and ambulation using FWW ~ 150 ft SBA Days to Meet Goals 10 Frequency of Treatment Frequency Of Treatment Twice a Day Treatment Plan Physical Therapy Treatment Plan Bed Mobility Training,Transfer Training,Gait Training, Therapeutic Exercise,Balance Retraining,Post Op Education, Discharge Planning,Hot or Cold Pack,Neuromuscular Re-ed, Coordination Retraining,Manual Therapy Weight Bearing Status Weight Bearing Status Weight Bear as Tolerated Allowed Weight Bearing Amount (enter % LLE WBAT or #) (%) Recommendations To Nursing Amount of Assist Needed 2 Person Assist Discharge Recommendations PT Discharge Recommendations SNF Rehab Transportation Needs at Discharge Wheelchair/Cabulance
--- NOTE | 2023-06-13 16:04 | P.PN_ITS ---
Subjective Subjective Date Patient Seen: 06/13/23 Time Patient Seen: 12:00 Interval history: Patient found sitting in chair eating meal. She appears to be in good mood. Still has pain now radiating down her left leg. Difficult for her to move her left foot. Exam Vital Signs (past 8 hours): - 06/13/23 09:00 06/13/23 12:00 Temperature 97.6 F 98.0 F Pulse Rate 107 H 96 H Respiratory Rate 17 18 Blood Pressure 127/71 110/63 Pulse Oximetry 97 97 Oxygen Flow Rate 0 0 Oxygen Delivery Method Room Air Oxygen Flow Rate 0 Narrative Exam Narrative: Patient is able to respond to questions. Notes pain when attempting to dorsiflex or plantar flex her left foot. With encouragement she is able to dorsiflex her left ankle against resistance. Able to manipulate all 5 toes. Posterior thigh and calf are tender but no signs of erythema cool to touch. Dressing shows scant amount of blood. But intact no drainage. Const General: cooperative Resp Effort & Inspection: normal respiratory effort and able to speak in complete sentences Objective Labs 06/12/23 14:30 06/12/23 14:30 Labs: Laboratory Results - last 24 hr 06/12/23 14:30 Free T4 1.30 PFSH Medical History Thoracic compression fracture Low back strain Aguillon's palsy Chicken pox (~1945) Depression (2010) Hyperlipidemia Hypertension Measles (~194) Mumps (~194) Osteoporosis (1999) Hearing loss (2011) Collagenous colitis (2005) Breast cancer (2007) Degenerative joint disease of right hip Systolic murmur (06/23/17) Surgical History History of arthroplasty of right hip Anesthesia History of cosmetic surgery (09/2012) History of total right hip arthroplasty (2014) History of gynecologic surgery (2007) History of oophorectomy (1982) Status post breast lumpectomy (2007) Status post hysterectomy (1981) Family History Mother Type II diabetes mellitus Hypertension High cholesterol Father No problems noted. Sister No problems noted. Sister Cancer Sister No problems noted. Sister No problems noted. Other Colorectal cancer Social History marital status: unmarried,living together (partner) number of children: 1 household members: none lives independently: Yes occupational status: other (retired) Smoking Status: Former smoker alcohol intake: current substance use type: does not use Assessment & Plan Post-op Postoperative Procedures: Procedures Operation Date: 06/07/23 17:15 Actual Procedure Side Surgeon p Intramedullary Nailing Femur Left Berta Mcduffie MD Postoperative day: 5 Postoperative status: doing well Postoperative plan narrative: Weightbear as tolerated, range of motion as tolerated, DVT prophylaxis with Lovenox renally dosed subcutaneous for 4 weeks--follow up in Orthopedic Clinic 2 weeks for staple removal and repeat x-rays--the patient unable to be brought to 1st postop appointment by correction facility--fernando can be removed by correction facility 12-14 days postop, if the facility is comfortable Time Spent With Patient Time with patient: less than 15 minutes Quality VTE Deep Vein Thrombosis/Pulmonary Embolism Present on Admission: No
--- NOTE | 2023-06-13 16:27 | PM.PN.1 ---
Subjective Subjective Interval history: No changes. Awaiting SNF auth. Exam Vital Signs (past 8 hours): - 06/13/23 09:00 06/13/23 12:00 Temperature 97.6 F 98.0 F Pulse Rate 107 H 96 H Respiratory Rate 17 18 Blood Pressure 127/71 110/63 Pulse Oximetry 97 97 Oxygen Flow Rate 0 0 Oxygen Delivery Method Room Air Oxygen Flow Rate 0 Narrative Exam Narrative: Alert, no acute distress, sleeping Appears to answer questions appropriately this morning--motor exam limited secondary to pain--notes soreness when tries to move her left foot Left lower extremity thigh and lower extremity compartments are soft. There is no erythema. Scant amount of dried bloody drainage on the dressing, no saturation. Dressing is intact. Wiggles toes slightly. Patient declines to demonstrate dorsiflexion or plantar flexion of the ankle states secondary to pain--I do see her wiggle her toes slightly and a flicker of dorsiflexion--she does demonstrate good dorsiflexion plantar flexion of the ankle on the right lower extremity to me today. Grossly normal leg length and rotation compared to contralateral Lugo in place Objective Labs 06/12/23 14:30 06/12/23 14:30 Labs: Laboratory Results - last 24 hr 06/12/23 14:30 Free T4 1.30 PFSH Medical History Thoracic compression fracture Low back strain Aguillon's palsy Chicken pox (~1945) Depression (2010) Hyperlipidemia Hypertension Measles (~1942) Mumps (~1942) Osteoporosis (1999) Hearing loss (2011) Collagenous colitis (2005) Breast cancer (2007) Degenerative joint disease of right hip Systolic murmur (06/23/17) Surgical History History of arthroplasty of right hip Anesthesia History of cosmetic surgery (09/2012) History of total right hip arthroplasty (2014) History of gynecologic surgery (2007) History of oophorectomy (1982) Status post breast lumpectomy (2007) Status post hysterectomy (1981) Family History Mother Type II diabetes mellitus Hypertension High cholesterol Father No problems noted. Sister No problems noted. Sister Cancer Sister No problems noted. Sister No problems noted. Other Colorectal cancer Social History marital status: unmarried,living together (partner) number of children: 1 household members: none lives independently: Yes occupational status: other (retired) Smoking Status: Former smoker alcohol intake: current substance use type: does not use Assessment & Plan Assessment & Plan narrative: # Left proximal femur fracture, pathologic secondary to osteoporosis, present on admission. - underwnet L femoral miguel placement with orthopedics on 06/[address] Mcduffie. WBAT LLE as tolerated per ortho. - continue pain control, will add robaxin given muscle spasms. - PT/OT rec SNF # sinus tach -IVF # acute anemia, stable -Hgb down to 7.3 from 10.3 following surgery, unclear if from OR blood losses -dipped to 6.7 on 06/09 -2 units PRBC ordered -stool guaiac ordered -Hgb now stable at 10.4>10.6 # Paroxysmal A-fib: - rate controlled, not on any anticoagulation Tx due to falls. - continue home diltiazem # Hypertension: - continue dilt, held lisinopril prior to OR and will continue to hold today with soft BP # Depression: - Continue home Trazodone, Hydroxyzine prn, Fluoxetine # Asymptomatic bacteruria - urine specimen highly contaminated, sent for culture. No recent symptoms, hold additional antibiotics. Was given ceftriaxone in the ER. # Hypomagnesemia - Mg 1.3, repleted and 2.0, continue to follow. # metabolic encephalopathy -patient has mild cog deficits at baseline and now having sundowning -seroquel 25mg qHS ordered and helping Code: DNR, surrogate is MARSHA Fraser DVT: Lovenox renally dosed Dispo: Awaiting SNF auth. Quality VTE Deep Vein Thrombosis/Pulmonary Embolism Present on Admission: No
[2023-06-13 17:18] VITALS: BP 119/68; PULSE 88; RESP 18; TEMP 36.4; O2SAT 96
[2023-06-13] MEDS: QUETIAPINE 25 MG TABLET PO (18:06)
--- NOTE | 2023-06-13 18:39 | DI.RAD.S_ITS ---
PROCEDURE: XR PELVIS 1-2V INDICATIONS: pain TECHNIQUE: 1 view(s) of the pelvis acquired. COMPARISON: [facility], CR, XR HIP W PEL IF DONE LT 2V, 06/07/2023, 19:03. [facility], CR, XR HIP W PEL IF DONE LT 2V, 06/06/2023, 19:33. FINDINGS: Bones: A right hip arthroplasty is in place. Left femur fracture is in improved anatomic position, status post intramedullary miguel and interlocking screw fixation. Small comminuted fragments are present. Soft tissues: Vascular calcifications. IMPRESSION: Left femur postoperative changes. Right hip arthroplasty. Improved alignment of the left femur fracture. Small comminuted fragments are again present. Consider cross-sectional imaging if there is further clinical concern. Dictated by: Gilberto Sesay M.D. on 06/13/2023 at 19:53 Approved by: Gilberto Sesay M.D. on 06/13/2023 at 19:55
[2023-06-13 18:49] LABS: Appearance Urine UA CLOUDY; Bilirubin Urine UA NEGATIVE (NEGATIVE); Color Urine UA YELLOW; Glucose Urine UA NEGATIVE (Negative); Ketones Urine UA NEGATIVE (NEGATIVE); Leukocyte Esterase Urine UA 2+ (NEGATIVE); Nitrite Urine UA NEGATIVE (Negative); Occult Blood Urine UA 3+ (Negative); Protein Urine UA 1+ (Negative); Specific Gravity Urine UA >=1.030 (1.000-1.035); Urobilinogen Urine UA 0.2 E.U./dL (0.2); pH Urine UA 5.5 (4.5-8.0)
[2023-06-13 19:04] LABS: Bacteria Urine Few (2-10); Culture Indicated Urine Specimen Cultured; RBC Urine 5-10/HPF (0-5/HPF); Squamous Epithelial Cell Urine 1-5 /HPF (0-5/HPF); WBC Urine 30-100/HPF (0-5/HPF)
[2023-06-13] MEDS: cefTRIAXone 1,000 MG in SODIUM CHLORIDE 0.9% 100 ML 200 MG IV (19:54)
[2023-06-13] MEDS: SODIUM CHLORIDE 0.9% FLUSH 10 ML IV (19:54)
[2023-06-13 20:50] VITALS: BP 118/62; PULSE 104; RESP 17; TEMP 36.5; O2SAT 98
--- NOTE | 2023-06-13 23:53 | PC.NURSE ---
Patient is alert and oriented except did not know age (close to 89), day of week or day of month. Is [place] without hearing aids. Breath sounds CTA with RA sat of 98%. HRR with occasional irregular beats and is tachy in low 100's; telemetry reading reported as ST w/PAC's. Denied nausea. BT present and was incontinent of loose stools on previous shift so bowel meds held tonight. Indwelling catheter is patent; urine is cloudy, mirta; UA sent on previous shift indicative of UTI so started on Ceftriaxone by hospitalist. Needing assistance to reposition q2h as not moving by herself. Dressings to left lateral hip are intact with old drainage noted on distal dressing. Left LE is edematous and taut and has edema in bilateral ankles left > right. Is able to wiggle toes and has slight flexion in left ankle but unable to lift off bed and flexion is quite limited; no tingling or numbness in either foot. Did complain of 11/10 pain in left LE and grimacing and crying out whenever left leg moved/touched so medicated with IV dilaudid with resolution of pain. Bilateral calf SCD's were applied at time of assessment and is tolerating them well. Fall risk score is high and bed alarm is activated.
[2023-06-14 00:52] VITALS: BP 102/67; PULSE 103; RESP 19; TEMP 36.4; O2SAT 96
[2023-06-14] MEDS: OXYCODONE IR 5 MG TABLET PO ×4 (01:34→16:42)
[2023-06-14 06:00] VITALS: BP 126/69; PULSE 89; RESP 19; TEMP 36.2; O2SAT 94
[2023-06-14 08:39] VITALS: BP 130/73; PULSE 80; RESP 17; TEMP 36.6; O2SAT 95
[2023-06-14] MEDS: dilTIAZem CD 180 MG CAP PO (08:54)
[2023-06-14] MEDS: ENOXAPARIN 30 MG/0.3 ML SYRINGE SUBCUT (08:54)
[2023-06-14] MEDS: FLUoxetine 20 MG CAPSULE PO (08:54)
[2023-06-14] MEDS: SODIUM CHLORIDE 0.9% FLUSH 10 ML IV ×2 (08:55→20:24)
[2023-06-14] MEDS: FUROSEMIDE 20 MG/2 ML VIAL IV (10:17)
--- NOTE | 2023-06-14 10:50 | OT.IP.TRT ---
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) Essential (primary) hypertension (06/06/23) Paroxysmal atrial fibrillation (06/06/23) Age-related osteoporosis with current pathological fracture, unspecified femur, initial encounter for fracture (06/06/23) Urinary tract infection, site not specified (06/06/23) Fracture of unspecified part of neck of left femur, initial encounter for closed fracture (06/06/23) Displaced intertrochanteric fracture of left femur, initial encounter for closed fracture (06/06/23) Other specified postprocedural states (06/06/23) Surgery Performed Operation Date: 06/07/23 17:15 Actual Procedures p Intramedullary Nailing Femur(Left) - Berta Mcduffie MD Occupational Therapy Treatment Note M2 OT-IP Current Condition Start: 06/08/23 14:57 Freq: Status: Active Protocol: Document 06/10/23 10:27 [facility] (Rec: 06/10/23 11:42 [facility] [id number]) Occupational Therapy Current Condition Current Condition Evaluation Date 06/10/23 Treatment Diagnosis S/P left hip s/p intramedullary miguel fixation Diagnosis Onset Date 06/06/23 M3 OT- IP Subjective and Pain Start: 06/08/23 14:57 Freq: Status: Active Protocol: Document 06/14/23 10:50 [facility] (Rec: 06/14/23 11:50 [facility] [id number]) OT- Subjective Occupational Therapy Visit Type Type Treatment Note Visit Start Time 10:50 Visit Stop Time 11:05 Total Visit Minutes 15 Occupational Therapy Visit Comments Patient Comments Cotxt with ENGINEERING GROUP LEADER due to extensive skilled assist for transfer. Patient/Caregiver Goals TO get better. OT Pain Assessment Pain When Pain Assessed At Rest Pain Present Pain Present Pain Reported Location Left Hip Intensity 11 Scale Used Numeric (0 - 10) M4 OT- IP ADL's Start: 06/08/23 14:57 Freq: Status: Active Protocol: Document 06/14/23 10:50 [facility] (Rec: 06/14/23 11:50 [facility] [id number]) OT UWO-Osml-Ydveffl Comments OT Self-Feeding Comments Pt able to drink from her water bottle. OT ADL-Grooming Comments OT Grooming Comments Pt able to comb her hair and wash her face after set-up while in bed. OT ADL-Oral Care Comments Oral Care Comments not performed OT ADL-Dressing General Eval Lower Body Dressing Ability Total Assistance Areas Needing Assistance Socks OT ADL-Toileting Comments OT Toileting Comments Lugo in place. OT ADL-Bathing Comments OT Bathing Comments not performed M5 OT- IP IADL's Start: 06/08/23 14:57 Freq: Status: Active Protocol: Document 06/10/23 10:27 [facility] (Rec: 06/10/23 11:42 [facility] [id number]) OT-Instrumental Activities of Daily Living Deficits IADL Deficits Identified Deficits Home Safety Awareness Home Safety Comments Pt is aware to use the call light for assist. Medication Management Medication Management Caregiver Administers Money Management Money Management Caregiver Provides Assistance Meal Preparation Meal Preparation Caregiver Provides Assist Powdered Metal Supervisor Powdered Metal Supervisor Caregiver Provides Assist M6 OT- IP Functional Cognition Start: 06/08/23 14:57 Freq: Status: Active Protocol: Document 06/14/23 10:50 [facility] (Rec: 06/14/23 11:50 [facility] [id number]) Cognitive Factors Limiting Selfcare Function Cognitive Ability Level of Alertness Alert Memory Description Short Term Impaired Cognitive Comments Cognitive Assessment Comments Pt not able to recall her GOVERNMENT PROGRAM MANAGER instructions for drinking and eating needs and needing to be reminded to take small sips and tuck her chin while drinking water. M7 OT- IP Mobility and Balance Start: 06/08/23 14:57 Freq: Status: Active Protocol: Document 06/14/23 10:50 [facility] (Rec: 06/14/23 11:50 [facility] [id number]) OT- Bed Mobility Assessment Supine to Sit Supine to Sit Assist Maximum Assistance,2 Person Assistance,Head of Bed Elevated OT-Transfer Assessment Sit to and From Stand Sit to and from Stand Maximum Assistance,1 Person Assistance,2 Person Assistance Technique Transfer Destination Bed,Chair Transfer Technique Squat Pivot Devices Transfer Assistive Devices None,Gait Belt Comments Mobility Comments Pt able to come to stand with OT in front and ENGINEERING GROUP LEADER to assist on the side to stand, pt mostly just putting her weight on her RLE. Squat pivot transfer MAX AX 2. OT- Balance Assessment Sitting Balance and Reactions Static Sitting Balance Ability Good Dynamic Sitting Balance Ability Fair Standing Balance and Reactions Static Standing Balance Ability Poor M8 OT- IP Objective Assessments Start: 06/08/23 14:57 Freq: Status: Active Protocol: Document 06/10/23 10:27 [facility] (Rec: 06/10/23 11:42 [facility] [id number]) OT Gross Range of Motion Upper Extremity Range of Motion Assessment Bilaterally Impaired OT Strength Upper Extremity Strength Assessment Bilaterally Impaired M9 OT- IP Assessment and Plan Start: 06/08/23 14:57 Freq: Status: Active Protocol: Document 06/14/23 10:50 [facility] (Rec: 06/14/23 11:50 [facility] [id number]) OT Summary Assessment and Plan Potential Rehabilitation Potential Fair Analytic Complexity at Evaluation Moderate Summary OT Impairments Pain,Strength,Balance, Functional Cognition, Functional Mobility,Self- Feeding,Grooming,Dressing, Toileting,Bathing,Toilet Transfers,Shower Transfers, Activity Tolerance Progress Towards Goals Slow Progress due to Pain,Slow Progress due to Medical Issues,Slow Progress due to Activity Tolerance Assessment Summary Noted pt's left knee swollen more today and nursing/ hospitalist aware. Pt still needing extensive assist for all ADl and mobility needs. Pt will benefit from skilled rehab to maximize her level of independence. Goals Grooming Goal Independent Dressing Goal Minimal Assistance Toileting Goal Minimal Assistance Toilet Transfer Goal Standby Assistance Shower Transfer Goal Minimal Assistance Days to Meet Goals 25 Frequency of Treatment Frequency Of Treatment Once a Day Treatment Plan OT Treatment Plan ADL Training,Functional Mobility,Patient/Family Education,Discharge Planning Other Treatment Recommendations and Next Transfer to [facility] with MAX AX 2 Treatment Focus and FWW. Discharge Recommendations OT Discharge Recommendations SNF Rehab Transportation Needs at Discharge Wheelchair/Cabulance
--- NOTE | 2023-06-14 11:05 | PT.IPTN ---
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) Essential (primary) hypertension (06/06/23) Paroxysmal atrial fibrillation (06/06/23) Age-related osteoporosis with current pathological fracture, unspecified femur, initial encounter for fracture (06/06/23) Urinary tract infection, site not specified (06/06/23) Fracture of unspecified part of neck of left femur, initial encounter for closed fracture (06/06/23) Displaced intertrochanteric fracture of left femur, initial encounter for closed fracture (06/06/23) Other specified postprocedural states (06/06/23) Surgery Performed Operation Date: 06/07/23 17:15 Actual Procedures p Intramedullary Nailing Femur(Left) - Berta Mcduffie MD Physical Therapy Treatment Note M2 PT-IP Current Condition Start: 06/08/23 12:45 Freq: NEEDED Status: Active Protocol: Document 06/08/23 10:57 AB (Rec: 06/08/23 13:05 AB [id number]) Physical Therapy Current Condition Current Condition Evaluation Date 06/08/23 Treatment Diagnosis L hip fx s/p intramedullary miguel fixation; difficulty in walking Onset Date 06/06/23 M3 PT-IP Subjective Start: 06/08/23 12:45 Freq: NEEDED Status: Active Protocol: Document 06/14/23 11:38 TS (Rec: 06/14/23 11:48 TS [id number]) Subjective Physical Therapy Visit Type Type Treatment Note Visit Start Time 11:05 Visit Stop Time 11:35 Total Visit Minutes 30 Number of MANAGER TRAFFIC Visits 2 Physical Therapy Visit Comments Patient Comments Pt reports she still has a lot of pain, 10/10, is agreeable to PT. Therapy Pain Assessment Pain When Pain Assessed During Mobility Pain Present Pain Present Pain Reported Location Left Hip Intensity 10 Scale Used Numeric (0 - 10) Description Shooting,With Movement Pain Behaviors Calling Out,Facial Grimacing, Guarding,Holding Area,Moaning, Restlessness,Wincing Pain Management Techniques Modification of Treatment,Re- positioning,Timing of Activity with Medications M4 PT-IP Mobility and Gait Start: 06/08/23 12:45 Freq: NEEDED Status: Active Protocol: Document 06/14/23 11:38 TS (Rec: 06/14/23 11:48 TS [id number]) PT-Bed Mobility Assessment Supine to Sit Supine to Sit Maximum Assistance,2 Person Assistance,Head of Bed Elevated,Bedrails Scooting Scooting to Edge of Bed Maximum Assistance PT-Transfer Assessment Sit to and From Stand Sit to and from Stand Maximum Assistance,2 Person Assistance,Use of Upper Extremities Equipment Transfer Assistive Device None,Gait Belt,Front Wheeled Walker Orthotic/Prosthetic Devices or Brace: No Transfers Transfer Destination Chair Transfer Technique Squat Pivot Transfer Ability Level of Assist Maximum Assistance,2 Person Assistance Comments Mobility Comments Pt performed ankle pumps and heel slides prior to OOB mobility. Supine to sit MaxA x2 for LEs to EOB and uprighting of trunk, pt calls out in pain. Sit to stand x2 with FWW MaxA x2, pt required max cues, could not fully come into due to pain. Sit to stand x1 with no AD MaxA x2, pt fully in standing, TTWBers on LLE. She performed squat pivot MaxA x2 with max cues for sequencing. Pt was left in chair, all needs met, RN notified. Gait Assessment Comments Gait Comments Unable at this time. PT-Balance Assessment Sitting Balance and Reactions Static Sitting Balance Ability Fair Dynamic Sitting Balance Ability Poor Standing Balance and Reactions Static Standing Balance Ability Poor Dynamic Standing Balance Ability Poor Device Used FWW M5 PT-IP Objective Assessments Start: 06/08/23 12:45 Freq: NEEDED Status: Active Protocol: Document 06/08/23 10:57 AB (Rec: 06/08/23 13:05 AB [id number]) Orientation Orientation/Cognition Level of Alertness Confusional State Orientation Name Language Function Ability Hard of Hearing Safety Awareness Decreased Safety Awareness Memory Description Short Term Impaired,Alf Impaired Gross Range of Motion Lower Extremity ROM Assessment Within Functional Limits Strength Lower Extremity Strength Assessment Left Impaired Hip 3-/5 Knee 3-/5 Sensation Assessment Sensation Gross Sensation WNL Muscle Tone Muscle Tone WNL Yes M6 PT-IP Treatment Start: 06/08/23 12:45 Freq: NEEDED Status: Active Protocol: Document 06/14/23 11:38 TS (Rec: 06/14/23 11:48 TS [id number]) Physical Therapy Treatment Education Education Provided Safety M7 PT-IP Assessment and Plan Start: 06/08/23 12:45 Freq: NEEDED Status: Active Protocol: Document 06/14/23 11:38 TS (Rec: 06/14/23 11:48 TS [id number]) PT Summary Assessment and Plan Potential Rehabilitation Potential Fair Summary Impairments Pain,ROM,Strength,Balance, Coordination,Sensation,Tone, Cognition,Bed Mobility, Transfers,Gait,Activity Tolerance Progress Towards Goals Slow Progress due to Pain,Slow Progress due to Medical Issues,Slow Progress due to Activity Tolerance Assessment Summary Hilaria continues to be MaxA x2 for all bed mobility. She performed sit to stand x2 with MaxA x2, could not fully come into standing. Sit to stand x1 MaxA x2 with no AD, pt wbers TTWB on LLE. She required MaxA x2 for squat pivot to chair. She follows single step instructions well. PT continues to recommend SNF at this time. Goals Bed Mobility Goal Minimal Assistance Transfer Goal Minimal Assistance,Front Wheeled Walker Gait Goal Minimal Assistance,Front Wheel Walker Gait Distance 50 Other Goals improve bed mobility, transfers and ambulation using FWW ~ 150 ft SBA Days to Meet Goals 10 Frequency of Treatment Frequency Of Treatment Twice a Day Treatment Plan Physical Therapy Treatment Plan Bed Mobility Training,Transfer Training,Gait Training, Therapeutic Exercise,Balance Retraining,Post Op Education, Discharge Planning,Hot or Cold Pack,Neuromuscular Re-ed, Coordination Retraining,Manual Therapy Other Recommendations and Next Treatment Continue transfers, sit to Focus stand and bed mobility. Attempt to have pt sidestep along EOB. Trial sit to stand machine. Weight Bearing Status Weight Bearing Status Weight Bear as Tolerated Allowed Weight Bearing Amount (enter % LLE WBAT or #) (%) Recommendations To Nursing Amount of Assist Needed Mechanical Lift Discharge Recommendations PT Discharge Recommendations SNF Rehab Transportation Needs at Discharge Wheelchair/Cabulance
[2023-06-14] MEDS: ACETAMINOPHEN 325 MG TABLET 650 MG PO (11:13)
[2023-06-14 12:47] VITALS: BP 129/77; PULSE 101; RESP 18; TEMP 36.3; O2SAT 96
--- NOTE | 2023-06-14 13:25 | DI.US.S_ITS ---
PROCEDURE: [facility] VENOUS LOW EXTREM LT INDICATIONS: SWELLING TECHNIQUE: Real-time imaging, as well as color and pulse Doppler interrogation, were performed of the lower extremity deep veins from the inguinal ligament to the popliteal fossa, with documentation of the visualized calf veins. COMPARISON: [facility], , [facility] VENOUS LOW EXTREM LT, 06/10/2023, 7:55. FINDINGS: The common femoral, femoral, popliteal, and the visualized calf veins are normally compressible, and free of intraluminal thrombus. Color and pulse Doppler demonstrate normal phasic intraluminal flow. There is normal augmentation response to distal compression maneuver. There is a 2.6 x 2.3 x 1.0 cm fluid collection within the left popliteal fossa. IMPRESSION: 1. No deep vein thrombosis of the left lower extremity. 2. Popliteal fossa cyst. Dictated by: Kyleigh Nobles M.D. on 06/14/2023 at 16:24 Approved by: Kyleigh Nobles M.D. on 06/14/2023 at 16:24
--- NOTE | 2023-06-14 13:33 | PM.PNPO.1 ---
Subjective Subjective Date Patient Seen: 06/14/23 Interval history: Patient states she is having moderate to severe pain left hip. She is appears to be very comfortable sitting in bedside chair however. Patient states she is been up walking in the halls. Nurse states that patient has not been walking at all. Exam Vital Signs (past 8 hours): - 06/14/23 06:00 06/14/23 08:39 06/14/23 12:47 Temperature 97.2 F L 98 F 97.3 F L Pulse Rate 89 80 101 H Respiratory Rate 19 17 18 Blood Pressure 126/69 130/73 129/77 Pulse Oximetry 94 95 96 Oxygen Flow Rate 0 0 0 Oxygen Delivery Method Room Air Oxygen Flow Rate 0 Narrative Exam Narrative: 88-year-old female sitting comfortably in bedside chair in no apparent distress. Moderate swelling of the left thigh with significant edema left lower extremity. She is tender to palpation about the lower extremity and calf. She has a positive Homans. Motor functions intact distal left lower extremity. Sensation grossly intact to light touch. Both legs are warm and dry. Good capillary refill. Left hip dressing shows scant drainage otherwise intact. Const General: cooperative and comfortable Nutritional Appearance: average body habitus Orientation: alert Resp Effort & Inspection: normal respiratory effort and able to speak in complete sentences Objective Imaging X-ray pelvis June 13, 2023: Radiologist's impression: Left femur postoperative changes. Right hip arthroplasty. Improved alignment of the left femur fracture. Small comminuted fragments are again present. Consider cross-sectional imaging if there is further clinical concern. X-rays personally reviewed by myself and concur with the radiology findings. Labs 06/12/23 14:30 06/12/23 14:30 Labs: Laboratory Results - last 24 hr 06/13/23 18:20 Urine Color Yellow Urine Appearance Cloudy Urine pH 5.5 Ur Specific Lorton >=1.030 H Urine Protein 1+ H Urine Glucose (UA) Negative Urine Ketones Negative Urine Occult Blood 3+ H Urine Nitrate Negative Urine Bilirubin Negative Urine Urobilinogen 0.2 Ur Leukocyte Esterase 2+ H Urine RBC 5-10/hpf H Urine WBC 30-100/hpf H Ur Squamous Epith Cells 1-5 /hpf Urine Bacteria Few (2-10) H Urine Yeast 10-30/hpf H Ur Culture Indicated? Specimen cultured [facility] Medical History Thoracic compression fracture Low back strain Aguillon's palsy Chicken pox (~1945) Depression (2010) Hyperlipidemia Hypertension Measles (~1942) Mumps (~1942) Osteoporosis (1999) Hearing loss (2011) Collagenous colitis (2005) Breast cancer (2007) Degenerative joint disease of right hip Systolic murmur (06/23/17) Surgical History History of arthroplasty of right hip Anesthesia History of cosmetic surgery (09/2012) History of total right hip arthroplasty (2014) History of gynecologic surgery (2007) History of oophorectomy (1982) Status post breast lumpectomy (2007) Status post hysterectomy (1981) Family History Mother Type II diabetes mellitus Hypertension High cholesterol Father No problems noted. Sister No problems noted. Sister Cancer Sister No problems noted. Sister No problems noted. Other Colorectal cancer Social History marital status: unmarried,living together (partner) number of children: 1 household members: none lives independently: Yes occupational status: other (retired) Smoking Status: Former smoker alcohol intake: current substance use type: does not use Assessment & Plan Post-op Postoperative Procedures: Procedures Operation Date: 06/07/23 17:15 Actual Procedure Side Surgeon p Intramedullary Nailing Femur Left Berta Mcduffie MD Postoperative day: 7 Postoperative status narrative: Status post left intramedullary miguel fixation left intertrochanteric hip fracture June 07, 2023, hospitalist following for sinus tachycardia, acute anemia, paroxysmal atrial fibrillation, hypertension, depression, asymptomatic bacteriuria, hypomagnesemia, metal Folic encephalopathy Postoperative plan narrative: Ultrasound left lower extremity for worsening pain and swelling Weightbearing as tolerated left lower extremity. Follow up in Orthopedics in 2 weeks for wound check and repeat x-rays, keep dressing clean and dry. Quality VTE Deep Vein Thrombosis/Pulmonary Embolism Present on Admission: No
--- NOTE | 2023-06-14 13:57 | ST.IPDYTX ---
Visit Care Team Role Provider Type Lev Archuleta DO Primary Care Provider Physician Specialty: Family Practice Address: [address] [place] [address], [id number] Email: [email or web address] Janette Kirk MD Emergency Provider Physician Referring Provider Specialty: Emergency Medicine Address: [address] [place] [address], [id number] Email: Devin Olea MD Admit Provider Physician Attending Provider Specialty: Internal Medicine Address: [address] [place] [address] Fax: Email: [email or web address] TRANSFER OPERATOR Dysphagia Treatment TRANSFER OPERATOR Dysphagia Treatment Start: 06/13/23 11:38 Freq: Status: Active Protocol: Document 06/14/23 13:46 CG (Rec: 06/14/23 13:57 CG [id number]) Dysphagia Treatment Session Time Visit Start Time 13:10 Visit Stop Time 13:35 Total Visit Minutes 25 Visit Information Visit Number 3 Setting Assessment Location Acute Care Patient Information Subjective Observations Pt was sitting upright in hospital bed propped up with pillows. Pt continues to c/o severe pain in left leg. Nursing has been providing meds in applesauce as recommended, which pt is tolerating well. Nursing stated there have been no major changes; they continue to cue pt to tuck her chin whenever sipping water. Pt was pleadant and agreeable to ST treatment. Treatment Liquids Trialed Thin (IDDSI 0) Administration Type Cup Single Sip Oral Strategies Upright at 90 degrees, Controlled Bite/Sip Size Pharyngeal Strategies Sitting Upright (90 deg),Chin Tuck,Small Bites and Sips Treatment Activities Probed pt for recall of previously recommended strategies and provided further education in swallowing mechanism and risks for aspiration pneumonia given clinical s/sx aspiration (coughing on thin liquids). She was unable to explain her swallowing precautions upon initial probe, which is consistent with OT report from today that she had no recall of safe swallow strategies. Conducted spaced retrieval to train chin tuck given pt's limited recall. Utilized sentence When I take a sip, I tuck my chin. Posted trained spaced retrieval sentence on pt's hospital table for frequent visual reminder next to where drinks are placed. Followed up with OT re trained recall sentence. Additionally, conducted PO trials thin liquid to assess for compliance with strategies and assess for clinical s/sx aspiration. The IDDSI Framework Protocol: IDDSI.1 Assessment Patient Response to Treatment Good Rehab Potential Fair Assessment of Improvement During spaced retrieval of safe swallowing strategies, the pt was able to accurately recall trained strategies at a delay of 45 seconds, even given distractions. She was unable to accurately and independently recall trained strategy beyong 45 seconds this session. During PO trials thin liquids (water) via straw, pt demonstrated Good acceptance and oral containment. She independently utilized chin tuck across trials but needed an initial verbal cue to take smaller sip. Across trials, no overt s/sx aspiration were noted, although aspiration cannot be ruled out without an instrumental assessment. The pt is currently awaiting [facility] authorization. At SNF, she would benefit from continued monitoring of diet tolerance as well as continued training in compensatory strategies for swallowing. Still recommend MBSS as soon as pt achieves greater mobility. Based on progress, TRANSFER OPERATOR recommends: 1. Continue meds in applesauce . 2. Continue soft and bite sized solids. 3. Continue thin liquids with verbal cues to take small sips and use chin tuck. 4. Upright position for all PO intake. 5. Consider instrumental assessment as soon as pt is able to tolerate transfer. 6. Continue with TRANSFER OPERATOR in SNF environment to assess PO tolerance and train in compensatory strategies. Recommendations Recommendations Continue Current Diet Liquids Order Thin (IDDSI 0) Diet Order Soft & Bite-sized (IDDSI 6) Medication Recommendations As Tolerated Additional Dietary Needs Reminders to Use Strategies Aspiration Precautions Recommended Precautions Upright at 90 Degrees,Small Bites/Sips,Chin Tuck Treatment Plan Placement Recommendation after Discharge Longterm Facility Appropriate for Continued Therapy Yes Therapy Recommendations Continue training in swallow precautions to decrease level of cueing needed. Continue PO trials to assess diet tolerance. Consider MBSS if/when pt able to tolerate.
--- NOTE | 2023-06-14 14:05 | PT.IPTN ---
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) Essential (primary) hypertension (06/06/23) Paroxysmal atrial fibrillation (06/06/23) Age-related osteoporosis with current pathological fracture, unspecified femur, initial encounter for fracture (06/06/23) Urinary tract infection, site not specified (06/06/23) Fracture of unspecified part of neck of left femur, initial encounter for closed fracture (06/06/23) Displaced intertrochanteric fracture of left femur, initial encounter for closed fracture (06/06/23) Other specified postprocedural states (06/06/23) Surgery Performed Operation Date: 06/07/23 17:15 Actual Procedures p Intramedullary Nailing Femur(Left) - Berta Mcduffie MD Physical Therapy Treatment Note M2 PT-IP Current Condition Start: 06/08/23 12:45 Freq: NEEDED Status: Active Protocol: Document 06/08/23 10:57 AB (Rec: 06/08/23 13:05 AB [id number]) Physical Therapy Current Condition Current Condition Evaluation Date 06/08/23 Treatment Diagnosis L hip fx s/p intramedullary miguel fixation; difficulty in walking Onset Date 06/06/23 M3 PT-IP Subjective Start: 06/08/23 12:45 Freq: NEEDED Status: Active Protocol: Document 06/14/23 14:18 TS (Rec: 06/14/23 14:35 TS [id number]) Subjective Physical Therapy Visit Type Type Treatment Note Visit Start Time 14:05 Visit Stop Time 14:15 Total Visit Minutes 10 Number of FOREST BIOMETRICS PROFESSOR Visits 3 Physical Therapy Visit Comments Patient Comments Pt found resting in chair, reports having US on knee in a few mins, pt agreeable to PT. Therapy Pain Assessment Pain When Pain Assessed During Mobility Pain Present Pain Present Pain Reported Location Left Hip Description Shooting,With Movement Pain Behaviors Calling Out,Facial Grimacing, Guarding,Holding Area,Moaning, Restlessness,Wincing Pain Management Techniques Modification of Treatment,Re- positioning,Timing of Activity with Medications M4 PT-IP Mobility and Gait Start: 06/08/23 12:45 Freq: NEEDED Status: Active Protocol: Document 06/14/23 14:18 TS (Rec: 06/14/23 14:35 TS [id number]) PT-Bed Mobility Assessment Sit to Supine Sit to Supine Maximum Assistance,2 Person Assistance,Head of Bed Elevated Scooting Scooting to Edge of Bed Maximum Assistance PT-Transfer Assessment Transfers Transfer Destination Bed Transfer Technique Squat Pivot Transfer Ability Level of Assist Maximum Assistance,1 Person Assistance,Use of Upper Extremities Comments Mobility Comments Pt required MaxA for scooting to edge of chair prior to transfer. Squat pivot to bed MaxA x1, pt cued for pushing through LEs and reaching for bed. Sit to supine into bed MaxA x2. Pt was left in bed, RN tending to needs. Gait Assessment Comments Gait Comments Unable at this time. 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 Impaired Gross Range of Motion Lower Extremity ROM Assessment Within Functional Limits Strength Lower Extremity Strength Assessment Left Impaired Hip 3-/5 Knee 3-/5 Sensation Assessment Sensation Gross Sensation WNL Muscle Tone Muscle Tone WNL Yes M6 PT-IP Treatment Start: 06/08/23 12:45 Freq: NEEDED Status: Active Protocol: Document 06/14/23 14:18 TS (Rec: 06/14/23 14:35 TS [id number]) Physical Therapy Treatment Education Education Provided Safety M7 PT-IP Assessment and Plan Start: 06/08/23 12:45 Freq: NEEDED Status: Active Protocol: Document 06/14/23 14:18 TS (Rec: 06/14/23 14:35 TS [id number]) PT Summary Assessment and Plan Potential Rehabilitation Potential Fair Summary Impairments Pain,ROM,Strength,Balance, Coordination,Sensation,Tone, Cognition,Bed Mobility, Transfers,Gait,Activity Tolerance Progress Towards Goals Slow Progress due to Pain,Slow Progress due to Medical Issues,Slow Progress due to Activity Tolerance Assessment Summary Hilaria continues to make slow progress with her mobility. She is MaxA x2 for squat pivot from chair to bed, she follows single step instructions well for sequencing. She continues to require MaxA x2 for all bed mobility. PT continues to recommend SNF at this time. Goals Bed Mobility Goal Minimal Assistance Transfer Goal Minimal Assistance,Front Wheeled Walker Gait Goal Minimal Assistance,Front Wheel Walker Gait Distance 50 Other Goals improve bed mobility, transfers and ambulation using FWW ~ 150 ft SBA Days to Meet Goals 10 Frequency of Treatment Frequency Of Treatment Twice a Day Treatment Plan Physical Therapy Treatment Plan Bed Mobility Training,Transfer Training,Gait Training, Therapeutic Exercise,Balance Retraining,Post Op Education, Discharge Planning,Hot or Cold Pack,Neuromuscular Re-ed, Coordination Retraining,Manual Therapy Other Recommendations and Next Treatment Continue transfers, sit to Focus stand and bed mobility. Attempt to have pt sidestep along EOB. Trial sit to stand machine. Weight Bearing Status Weight Bearing Status Weight Bear as Tolerated Allowed Weight Bearing Amount (enter % LLE WBAT or #) (%) Recommendations To Nursing Amount of Assist Needed Mechanical Lift Discharge Recommendations PT Discharge Recommendations SNF Rehab Transportation Needs at Discharge Wheelchair/Cabulance
--- NOTE | 2023-06-14 15:02 | CM.DPC ---
DCP Cont. Reviewed EMR and team rounds for medical status updates. [facility] still accepts, but [facility] auth remains pending in Clinical Review. Will f/u again tomorrow, if still pending, will call Jimmy to clarify why the delay.
[2023-06-14 15:35] VITALS: BP 138/80; PULSE 93; RESP 16; TEMP 37.1; O2SAT 97
[2023-06-14] MEDS: QUETIAPINE 25 MG TABLET PO (18:11)
--- NOTE | 2023-06-14 19:16 | PM.PN.1 ---
Subjective Subjective Interval history: She has no new concerns. She remains medically stable for discharge Exam Vital Signs (past 8 hours): - 06/14/23 12:47 06/14/23 15:35 Temperature 97.3 F L 98.8 F Pulse Rate 101 H 93 H Respiratory Rate 18 16 Blood Pressure 129/77 138/80 Pulse Oximetry 96 97 Oxygen Flow Rate 0 0 Oxygen Delivery Method Room Air Oxygen Flow Rate 0 Narrative Exam Narrative: no acute distress CV: regular rate and rhythm PULM: clear bilaterally EXT: left hip tender to touch : mayo Objective Labs 06/12/23 14:30 06/12/23 14:30 [facility] Medical History Thoracic compression fracture Low back strain Aguillon's palsy Chicken pox (~1944) Depression (2010) Hyperlipidemia Hypertension Measles (~1941) Mumps (~1941) Osteoporosis (1999) Hearing loss (2011) Collagenous colitis (2005) Breast cancer (2007) Degenerative joint disease of right hip Systolic murmur (06/23/17) Surgical History History of arthroplasty of right hip Anesthesia History of cosmetic surgery (09/2012) History of total right hip arthroplasty (2014) History of gynecologic surgery (2007) History of oophorectomy (1982) Status post breast lumpectomy (2007) Status post hysterectomy (1981) Family History Mother Type II diabetes mellitus Hypertension High cholesterol Father No problems noted. Sister No problems noted. Sister Cancer Sister No problems noted. Sister No problems noted. Other Colorectal cancer Social History marital status: unmarried,living together (partner) number of children: 1 household members: none lives independently: Yes occupational status: other (retired) Smoking Status: Former smoker alcohol intake: current substance use type: does not use Assessment & Plan Assessment & Plan narrative: # Left proximal femur fracture, pathologic secondary to osteoporosis, present on admission. - L femoral miguel placement with orthopedics on 06/[address] Mcduffie. WBAT LLE as tolerated per ortho. - improve pain control to encourage ambulation - PT/OT rec SNF # acute anemia, stable -Hgb down to 7.3 from 10.3 following surgery, unclear if from OR blood losses -dipped to 6.7 on 06/09 -2 units PRBC ordered -stool guaiac ordered -Hgb now stable over 10 # Paroxysmal A-fib: - rate controlled, not on any anticoagulation Tx due to falls. - continue home diltiazem # Hypertension: - continue dilt, held lisinopril prior to OR and will continue to hold today with soft BP # Depression: - Continue home Trazodone, Hydroxyzine prn, Fluoxetine # UTI -continue antibiotics # Hypomagnesemia - Mg 1.3, repleted and 2.0, continue to follow. # metabolic encephalopathy -patient has mild cog deficits at baseline and now having sundowning -seroquel 25mg qHS ordered and helping Quality VTE Deep Vein Thrombosis/Pulmonary Embolism Present on Admission: No
[2023-06-14 20:00] VITALS: BP 146/81; PULSE 98; RESP 17; TEMP 37; O2SAT 94
[2023-06-14] MEDS: TRAZODONE 50 MG TABLET PO (20:22)
[2023-06-14] MEDS: cefTRIAXone 1,000 MG in SODIUM CHLORIDE 0.9% 100 ML 200 MG IV (20:22)
[2023-06-15] VITALS: BP 136/82; PULSE 98; RESP 16; TEMP 37; O2SAT 97
[2023-06-15 04:00] VITALS: BP 140/77; PULSE 77; RESP 18; TEMP 36.4; O2SAT 98
[2023-06-15] MEDS: ACETAMINOPHEN 325 MG TABLET 650 MG PO ×2 (05:46→12:37)
[2023-06-15 07:41] VITALS: BP 128/63; PULSE 97; RESP 16; TEMP 35.9; O2SAT 96
[2023-06-15] MEDS: methocarbamoL 500 MG TABLET PO (08:40)
[2023-06-15] MEDS: dilTIAZem CD 180 MG CAP PO (08:40)
[2023-06-15] MEDS: OXYCODONE IR 5 MG TABLET PO ×2 (08:40→12:36)
[2023-06-15] MEDS: FLUoxetine 20 MG CAPSULE PO (08:40)
[2023-06-15] MEDS: DOCUSATE 100 MG CAPSULE PO (08:41)
[2023-06-15] MEDS: polyethylene glycoL 3350 17 GM POWD.PACK PO (08:41)
[2023-06-15] MEDS: SODIUM CHLORIDE 0.9% FLUSH 10 ML IV (08:41)
[2023-06-15] MEDS: ENOXAPARIN 30 MG/0.3 ML SYRINGE SUBCUT (08:51)
[2023-06-15] MEDS: HYDROMORPHONE 0.5 MG INJ IV (09:33)
--- NOTE | 2023-06-15 10:00 | PT.IPTN ---
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) Essential (primary) hypertension (06/06/23) Paroxysmal atrial fibrillation (06/06/23) Age-related osteoporosis with current pathological fracture, unspecified femur, initial encounter for fracture (06/06/23) Urinary tract infection, site not specified (06/06/23) Fracture of unspecified part of neck of left femur, initial encounter for closed fracture (06/06/23) Displaced intertrochanteric fracture of left femur, initial encounter for closed fracture (06/06/23) Other specified postprocedural states (06/06/23) Surgery Performed Operation Date: 06/07/23 17:15 Actual Procedures p Intramedullary Nailing Femur(Left) - Berta Mcduffie MD Physical Therapy Treatment Note M2 PT-IP Current Condition Start: 06/08/23 12:45 Freq: NEEDED Status: Active Protocol: Document 06/08/23 10:57 AB (Rec: 06/08/23 13:05 AB [id number]) Physical Therapy Current Condition Current Condition Evaluation Date 06/08/23 Treatment Diagnosis L hip fx s/p intramedullary miguel fixation; difficulty in walking Onset Date 06/06/23 M3 PT-IP Subjective Start: 06/08/23 12:45 Freq: NEEDED Status: Active Protocol: Document 06/15/23 10:32 TS (Rec: 06/15/23 10:45 TS [id number]) Subjective Physical Therapy Visit Type Type Treatment Note Visit Start Time 10:00 Visit Stop Time 10:29 Total Visit Minutes 29 Notes No DVT was found in LLE. Does appear to have increased bruising on back of L knee. Number of COMMERCIAL STRIPPER Visits 4 Physical Therapy Visit Comments Patient Comments Pt found resting in bed, is agreeable to PT. Therapy Pain Assessment Pain When Pain Assessed During Mobility Pain Present Pain Present Pain Reported Location Left Hip Description Shooting,With Movement Pain Behaviors Calling Out,Facial Grimacing, Guarding,Holding Area,Moaning, Restlessness,Wincing Pain Management Techniques Modification of Treatment,Re- positioning,Timing of Activity with Medications M4 PT-IP Mobility and Gait Start: 06/08/23 12:45 Freq: NEEDED Status: Active Protocol: Document 06/15/23 10:32 TS (Rec: 06/15/23 10:45 TS [id number]) PT-Bed Mobility Assessment Supine to Sit Supine to Sit Maximum Assistance,2 Person Assistance,Head of Bed Elevated,Bedrails Scooting Scooting to Edge of Bed Maximum Assistance PT-Transfer Assessment Sit to and From Stand Sit to and from Stand Maximum Assistance,2 Person Assistance,Use of Upper Extremities Equipment Transfer Assistive Device Gait Belt,Front Wheeled Walker ,Mechanical Lift Orthotic/Prosthetic Devices or Brace: No Transfers Transfer Destination Chair Transfer Technique Squat Pivot Transfer Ability Level of Assist Total Assistance Comments Mobility Comments Supine to sit HOB elevated MaxA x2 with use of transfer pad to upright to sitting position. Sit to stand with FWW MaxA x2, pt with heavy retrolean. Sit to stand machine transfer to chair x2 PA, pt tolerated well with minimal pain. Pt was left with nursing tending to needs. Gait Assessment Comments Gait Comments Unable at this time. PT-Balance Assessment Sitting Balance and Reactions Static Sitting Balance Ability Fair Dynamic Sitting Balance Ability Poor Standing Balance and Reactions Static Standing Balance Ability Poor Dynamic Standing Balance Ability Poor Device Used FWW M5 PT-IP Objective Assessments Start: 06/08/23 12:45 Freq: NEEDED Status: Active Protocol: Document 06/08/23 10:57 AB (Rec: 06/08/23 13:05 AB [id number]) Orientation Orientation/Cognition Level of Alertness Confusional State Orientation Name Language Function Ability Hard of Hearing Safety Awareness Decreased Safety Awareness Memory Description Short Term Impaired,Senior Care Impaired Gross Range of Motion Lower Extremity ROM Assessment Within Functional Limits Strength Lower Extremity Strength Assessment Left Impaired Hip 3-/5 Knee 3-/5 Sensation Assessment Sensation Gross Sensation WNL Muscle Tone Muscle Tone WNL Yes M6 PT-IP Treatment Start: 06/08/23 12:45 Freq: NEEDED Status: Active Protocol: Document 06/15/23 10:32 TS (Rec: 06/15/23 10:45 TS [id number]) Physical Therapy Treatment Education Education Provided Safety M7 PT-IP Assessment and Plan Start: 06/08/23 12:45 Freq: NEEDED Status: Active Protocol: Document 06/15/23 10:32 TS (Rec: 06/15/23 10:45 TS [id number]) PT Summary Assessment and Plan Potential Rehabilitation Potential Fair Summary Impairments Pain,ROM,Strength,Balance, Coordination,Sensation,Tone, Cognition,Bed Mobility, Transfers,Gait,Activity Tolerance Progress Towards Goals Slow Progress due to Pain,Slow Progress due to Medical Issues,Slow Progress due to Activity Tolerance Assessment Summary Hilaria continues to make slow progress with her mobility. She is MaxA x2 for all bed mobility. She attempted sit to stand x1 MaxA x2 with FWW, has heavy retrolean and could not fully come into standing. Sit to stand machine was used for transfer to chair with x2PA, pt tolerated well with minimal c/o pain. PT continues to recommend SNF. Goals Bed Mobility Goal Minimal Assistance Transfer Goal Minimal Assistance,Front Wheeled Walker Gait Goal Minimal Assistance,Front Wheel Walker Gait Distance 50 Other Goals improve bed mobility, transfers and ambulation using FWW ~ 150 ft SBA Days to Meet Goals 10 Frequency of Treatment Frequency Of Treatment Twice a Day Treatment Plan Physical Therapy Treatment Plan Bed Mobility Training,Transfer Training,Gait Training, Therapeutic Exercise,Balance Retraining,Post Op Education, Discharge Planning,Hot or Cold Pack,Neuromuscular Re-ed, Coordination Retraining,Manual Therapy Other Recommendations and Next Treatment Continue transfers, sit to Focus stand and bed mobility. Attempt to have pt sidestep along EOB. Pt tolerated sit to stand machine well, continue to use for transfers if needed . Weight Bearing Status Weight Bearing Status Weight Bear as Tolerated Allowed Weight Bearing Amount (enter % LLE WBAT or #) (%) Recommendations To Nursing Amount of Assist Needed Mechanical Lift,Power Sit- Stand Discharge Recommendations PT Discharge Recommendations SNF Rehab Transportation Needs at Discharge Wheelchair/Cabulance
--- NOTE | 2023-06-15 10:03 | P.PN_ITS ---
Subjective Subjective Date Patient Seen: 06/15/23 Time Patient Seen: 10:04 Interval history: Patient is having mild pain. Denies fever or chills. No nausea or vomiting. Exam Vital Signs (past 8 hours): - 06/15/23 04:00 06/15/23 07:41 Temperature 97.6 F 96.7 F L Pulse Rate 77 97 H Respiratory Rate 18 16 Blood Pressure 140/77 128/63 Pulse Oximetry 98 96 Oxygen Flow Rate 0 0 Oxygen Delivery Method Room Air Oxygen Flow Rate 0 Narrative Exam Narrative: 88-year-old female resting comfortably in bed in no apparent distress. Scant moisture on the left hip dressing. Motor functions intact bilateral lower extremities. Sensation grossly intact to light touch bilateral lower extremities. Edema in the left leg and lower extremity is less than yesterday. Her calf is nontender. Const General: comfortable Nutritional Appearance: average body habitus Orientation: alert Resp Effort & Inspection: normal respiratory effort and able to speak in complete sentences Objective Labs 06/12/23 14:30 06/12/23 14:30 [facility] Medical History Thoracic compression fracture Low back strain Aguillon's palsy Chicken pox (~194) Depression (2010) Hyperlipidemia Hypertension Measles (~194) Mumps (~194) Osteoporosis (1999) Hearing loss (2011) Collagenous colitis (2005) Breast cancer (2007) Degenerative joint disease of right hip Systolic murmur (06/23/17) Surgical History History of arthroplasty of right hip Anesthesia History of cosmetic surgery (09/2012) History of total right hip arthroplasty (2014) History of gynecologic surgery (2007) History of oophorectomy (1982) Status post breast lumpectomy (2007) Status post hysterectomy (1981) Family History Mother Type II diabetes mellitus Hypertension High cholesterol Father No problems noted. Sister No problems noted. Sister Cancer Sister No problems noted. Sister No problems noted. Other Colorectal cancer Social History marital status: unmarried,living together (partner) number of children: 1 household members: none lives independently: Yes occupational status: other (retired) Smoking Status: Former smoker alcohol intake: current substance use type: does not use Assessment & Plan Post-op Postoperative Procedures: Procedures Operation Date: 06/07/23 17:15 Actual Procedure Side Surgeon p Intramedullary Nailing Femur Left Berta Mcduffie MD Postoperative status narrative: Stable Postoperative plan narrative: Status post left intramedullary miguel fixation left intertrochanteric hip fracture June 07, 2023, hospitalist following for sinus tachycardia, acute anemia, paroxysmal atrial fibrillation, hypertension, depression, asymptomatic bacteriuria, hypomagnesemia, metal Folic encephalopathy Postoperative plan narrative: Ultrasound left lower extremity for worsening pain and swelling completed yesterday June 14, 2023 and was negative. Weightbearing as tolerated left lower extremity. Follow up in Orthopedics in 2 weeks for wound check and repeat x-rays, keep dressing clean and dry. Quality VTE Deep Vein Thrombosis/Pulmonary Embolism Present on Admission: No
--- NOTE | 2023-06-15 10:51 | CM.DPC ---
DCP Cont. Reviewed EMR and team rounds for status updates. Per [facility], they can accept pt today at 2:30, they have the auth number and expect a complete approval within the next few hours. Called Evelio, pt's DPOA to update. Called [facility] and arranged for transport, pt will be picked up at 1:30pm. Script and clinicals will be faxed at that time. No further needs indicated for d/c planning at this time.
[2023-06-15 11:00] VITALS: BP 117/64; PULSE 86; RESP 16; TEMP 35.8; O2SAT 97
--- NOTE | 2023-06-15 14:56 | PC.NURSE ---
Patient is lying in bed this a.m. VSS, afebrile, Slight tachycardia. Patient given a.m. medications including pain medications and diltiazem. HR remained in 90's. Patient reports pain increases 9-10/10 with movement. She is incontinent urine and stool and with loose stool x2 today. She has maceration to her buttocks, and blanchable redness. +1- edema to LLE. Dressing to L hip with shadow drainage. Dark purple bruising to L hip. She is able to participate with PT using sit-to stand. She is a stand pivot to [facility] this afternoon for loose BM. Per CM transport arranged at 1330 today for patient to go to [facility] via w/. She is given prn pain medication after lunch.Transporter arrives at 1335 to transport patient and she is assisted to w/ at 1340. Her nephew (MARSHA) Evelio is at bedside and supportive and assisting with transporting patient belongings. RN called [facility] to give report. LM with Osmani Detective Lieutenant.
--- NOTE | 2023-06-16 19:33 | P.DS_ITS ---
History of Present Illness History of Present Illness Chief complaint: Fall, left hip pain Narrative: Per admitting physician: 88-year-old woman currently living at [facility] with a history of hypertension, chronic urinary tract infections on currently Keflex suppression as well as diarrhea secondary to collagenous colitis was walking with her walker today stumbled and fell landing on her left hip and was unable to get up. Left leg is too tender to move and foreshortened. X ray showed left proximal femoral fracture. Discharge Providers Provider Date of admission: 06/06/23 23:34 Discharge Date: 06/15/23 Primary care physician: Lev Archuleta DO Consults: 06/06/23 23:52 Consult to Discharge Planning Routine Comment: Consult to Occupational Therapy Evaluate & Treat Comment: Physician Instructions: Evaluate and treat Consult to Physical Therapy Evaluate & Treat Comment: Physician Instructions: Evaluate and Treat 06/07/23 19:57 Consult to Discharge Planning Routine Comment: Consult to Physical Therapy Evaluate & Treat Comment: wbat Physician Instructions: Evaluate and Treat 06/08/23 14:31 Consult to Occupational Therapy Evaluate & Treat Comment: Physician Instructions: Evaluate and treat 06/09/23 11:40 Consult to Speech Therapy Evaluate & Treat Comment: Physician Instructions: Evaluate and treat Discharge provider: Júnior Godwin MD Summary Hospital Course Discharge Diagnosis: 1. Left proximal femur fracture 2. Acute anemia 3. Paroxysmal afib 4. Hypertension 5. Depression 6. UTI 7. Collagenous colitis Hospital Course: Ms. Villar was admitted after a fall and femur fracture. She had this repaired. She had anemia due to this and was transfused. She had a UTI and was discharged with antibiotics for another couple days. Consider restarting suppressive keflex after finishes antibiotics. Consider restarting her oral steroid, budesonide, once her antibiotics are completed. She is planned to follow up with ortho within two weeks. She is discharged on lovenox for DVT ppx.. Exam Vital Signs (past 8 hours): Oxygen Delivery Method Room Air Oxygen Flow Rate 0 Narrative Exam Narrative: no acute distress CV: regular rate and rhythm PULM: clear bilaterally EXT: left hip tender to touch : mayo Objective Labs 06/12/23 14:30 06/12/23 14:30 [facility] Medical History Thoracic compression fracture Low back strain Aguillon's palsy Chicken pox (~1945) Depression (2010) Hyperlipidemia Hypertension Measles (~1942) Mumps (~1942) Osteoporosis (1999) Hearing loss (2011) Collagenous colitis (2005) Breast cancer (2007) Degenerative joint disease of right hip Systolic murmur (06/23/17) Surgical History History of arthroplasty of right hip Anesthesia History of cosmetic surgery (09/2012) History of total right hip arthroplasty (2014) History of gynecologic surgery (2007) History of oophorectomy (1982) Status post breast lumpectomy (2007) Status post hysterectomy (1981) Family History Mother Type II diabetes mellitus Hypertension High cholesterol Father No problems noted. Sister No problems noted. Sister Cancer Sister No problems noted. Sister No problems noted. Other Colorectal cancer Social History marital status: unmarried,living together (partner) number of children: 1 household members: none lives independently: Yes occupational status: other (retired) Smoking Status: Former smoker alcohol intake: current substance use type: does not use Discharge Plan Discharge Plan Patient Disposition: SNF Provider Discharge Comment: Ms. Villar was admitted for a hip fracture. She should be on lovenox through 07/04 for 28 days. She should get two doses of bactrim to complete a course of UTI treatment. Discharge orders & Medications Prescriptions: New docusate sodium 100 mg Capsule 100 mg PO BID Qty: 30 0RF methocarbamol 500 mg Tablet 500 mg PO QID PRN (Reason: Muscle Spasm) Qty: 20 0RF polyethylene glycol 3350 17 gram Powder In Packet 17 g PO DAILY Qty: 14 0RF oxycodone 5 mg Tablet 5 mg PO Q3H PRN (Reason: Pain, Moderate (4-6)) Qty: 10 0RF enoxaparin [Lovenox] 30 mg/0.3 mL Syringe 30 mg SUBCUT DAILY Qty: 9 0RF sulfamethoxazole-trimethoprim [Bactrim DS] 800-160 mg tablet 1 tab PO BID Qty: 2 0RF Continued calcium carbonate [Tums] 500 MG tablet,chewable 1,000 mg PO Q4-5H PRN (Reason: Acid Reflux) Qty: 0 fluoxetine 20 mg capsule 20 mg PO DAILY Qty: 90 3RF diltiazem HCl 180 mg capsule,extended release 24hr 180 mg PO DAILY Qty: 90 1RF lisinopril 5 mg tablet 5 mg PO DAILY Qty: 90 3RF trazodone 50 mg tablet 50 mg PO HS PRN (Reason: insomnia) Qty: 30 3RF diphenoxylate-atropine [Lomotil] 2.5-0.025 mg tablet 1 tab PO BEDTIME PRN (Reason: diarrhea) Qty: 30 2RF Rx Instructions: use if more than 2 episodes of diarrhea per day acetaminophen 325 mg Tablet 650 mg PO Q6H PRN (Reason: Pain, Mild) diclofenac sodium [Aleve (diclofenac)] 1 % gel See Rx Instructions .ROUTE .COMPLEX PRN (Reason: Pain (Scale Score 1-3)) Rx Instructions: Apply sparingly to affected aree every 6 hours as needed for pain Follow up/Referrals: Berta Mcduffie MD [Physician] - 2 Weeks (Follow up w/ [facility] or Dr Mcduffie in 2 weeks for wound check and repeat imaging. Follow up in 6 weeks w/ Dr Mcduffie.) Lev Archuleta DO [Primary Care Provider] - Diet/Activity/Treatments Diet: Regular Activity: Weightbearing as tolerated to left leg. Cold/Heat Therapy: Ice to left hip as needed for pain. Skin/Wound/Dressing Care Report to your healthcare provider any signs of infection, such as:: chills, fever, night sweats, unusual drainage and unusual redness Dressing: May shower. If dressing becomes wet inside, remove and replace with clean, dry gauze. No bathing or otherwise soaking incisions. Do not apply any creams, lotions, or ointments to incisions. Special Rehabilitation Services Reason for rehabilitation: Post-operative therapy Rehab type: Physical therapy and Occupational therapy Visit Report/Discharge Packet Stand Alone Forms: Patient Portal/API, Stroke Signs & Symptoms Discharge Data Primary Care Provider: Lev Archuleta Quality VTE Deep Vein Thrombosis/Pulmonary Embolism Present on Admission: No
== END 2023-06-15 13:40 | DRG 480 ==
LOC: ED 23:15 → AC 23:35
PROVIDERS: Internal Medicine; Orthopaedic Surgery Foot and Ankle Surgery; Student in an Organized Health Care Education/Training Program; Admitting Provider Internal Medicine; Emergency Provider Emergency Medicine; PCP Family Medicine; Referring Provider Emergency Medicine; Visit Provider Internal Medicine
PROC: 0QS706Z Reposition Left Upper Femur with Intramedullary Internal Fixation Device, Open Approach (ICD-10-PCS; CPT 27245; principal; 2023-06-07 17:15)
DX: M80.052A Age-related osteoporosis with current pathological fracture, left femur, initial encounter for fracture (principal); G93.41 Metabolic encephalopathy; I50.32 Chronic diastolic (congestive) heart failure; D62 Acute posthemorrhagic anemia; N39.0 Urinary tract infection, site not specified; I48.0 Paroxysmal atrial fibrillation; E83.42 Hypomagnesemia; I11.0 Hypertensive heart disease with heart failure; E86.0 Dehydration; R00.0 Tachycardia, unspecified; K52.831 Collagenous colitis; F32.A Depression, unspecified; W01.0XXA Fall on same level from slipping, tripping and stumbling without subsequent striking against object, initial encounter; Z87.891 Personal history of nicotine dependence; Z66 Do not resuscitate
CPT/HCPCS: 36415; 36430; 71045; 72170; 73502; 76000; 80048; 80053; 81001; 83735; 84439; 84443; 85014; 85018; 85025; 86850; 86900; 86901; 87077; 87086; 92526; 92610; 93005; 93010; 93971; 96365; 97162; 97166; 97530; 97535; 99284; 99285; P9016; J0131; J0171; J0690; J0696; J1100; J1170; J1642; J1650; J1940; J2060; J2405; J2704; J3010; J3475